=== PATIENT | female | born 1955 | race Caucasian/White ===

== ENCOUNTER 2017-08-23 09:19 | Inpatient (IN) | payer MEDICARE, OTHER ==
[~2017-08-23] VITALS: Ht 167.6 cm; Wt 110.0 kg
[~2017-08-23 09:19] MED LIST: ASPI-664 PO; CIPR500T4 PO; CLON-379 PO; DOCU250C58 PO; GABA300C16 PO; INSU100V2 SC; MYCO180T2 PO; PANT40TA4 PO; PRED2.5T3 PO; SITA50TA2 PO; TACR1CAP PO; VALS80TA2 PO; ZOC10 PO
[2017-08-23] MEDS ORDERED: SOD CHLORIDE 0.9% 1,000 ML IV STA (09:38)
[2017-08-23] MEDS ORDERED: ONDANSETRON 4 MG INJ IV STA (09:38)
--- NOTE | 2017-08-23 10:33 | ERD ---
ER Documentation Chief Complaint Chief Complaint nausea, vomitting diarrhea 2 days HPI This is a 61-year-old female with a past medical history of hypertension, hyperlipidemia, GERD, diabetes, end-stage renal disease status post renal transplant who is coming in with fever, chills, cough, nausea, nonbilious nonbloody vomiting, watery nonbloody non-tarry diarrhea, increased urinary frequency with dysuria/burning with urination for 2 days. The patient has had no headache or vision changes. The patient denies lightheadedness or dizziness. The patient has had no chest pain or shortness of breath trouble breathing. The patient has had no focal deficits. The patient has had no weakness or numbness or tingling to the face or extremities. ROS All systems reviewed and are negative except as per history of present illness. Medications Home Meds Reported Medications Insulin Aspart* (Novolog Insulin Pen*) 100 Unit/Ml Soln, 8 UNIT SC WITH MEALS, EA 08/23/17 Insulin Degludec (Tresiba Flextouch U-100) 100 Unit/1 Ml Insuln.pen, 40 UNIT SQ QHS 08/23/17 Docusate Sodium* (Colace*) 250 Mg Capsule, 250 MG PO NEEDED, #30 CAP 08/23/17 Furosemide* (Lasix*) 20 Mg Tablet, 20 MG PO BID, TAB 08/23/17 Gabapentin* (Gabapentin*) 300 Mg Capsule, 300 MG PO BID, #60 CAP 08/23/17 Sitagliptin* (Januvia*) 50 Mg Tablet, 50 MG PO DAILY, #30 TAB 08/23/17 Valsartan* (Diovan*) 80 Mg Tablet, 80 MG PO DAILY, TAB HOLD IF BPS LESS THAN 110 08/23/17 Simvastatin* (Zocor*) 10 Mg Tablet, 10 MG PO QHS, #30 TAB 08/23/17 Aspirin* (Aspirin* EC) 81 Mg Tablet.dr, 81 MG PO DAILY, TAB 08/23/17 Clonidine Hcl* (Clonidine Hcl*) 0.2 Mg Tablet, 0.2 MG PO Q8, TAB HOLD IF BPS LESS THAN 110 08/23/17 Pantoprazole* (Protonix*) 40 Mg Tablet.dr, 40 MG PO BID, TAB 08/23/17 Mycophenolate Sodium* (Myfortic*) 180 Mg Tab, 360 MG PO Q12, TAB 10/29/17 Tacrolimus* (Prograf*) 1 Mg Capsule, 1 MG PO Q12, CAP 08/23/17 Discontinued Reported Medications Docusate Sodium* (Colace*) 250 Mg Capsule, 250 MG PO DAILY Y for CONSTIPATION, CAP 10/24/14 Simvastatin (Simvastatin) 10 Mg Tablet, 10 MG PO HS, TAB 07/21/14 Aspirin* (Aspirin* EC) 81 Mg Tablet.dr, 81 MG PO DAILY, TAB 07/21/14 Pantoprazole* (Pantoprazole*) 40 Mg Tablet.dr, 40 MG PO BID, TAB 07/21/14 Mycophenolate Sodium* (Mycophenolic Acid*) 180 Mg Tablet.dr, 720 MG PO BID, TAB 07/21/14 Sitagliptin* (Januvia*) 50 Mg Tablet, 50 MG PO DAILY, TAB 07/21/14 Prednisone* (Prednisone*) 2.5 Mg Tablet, 2.5 MG PO DAILY, TAB 07/21/14 Gabapentin* (Gabapentin*) 300 Mg Capsule, 300 MG PO HS, CAP 07/21/14 Tacrolimus* (Tacrolimus*) 1 Mg Capsule, 2 MG PO BID, CAP 07/21/14 Insulin Npl/Insulin Lispro (Humalog Mix 50-50 Vial) 100 Units/Ml Vial, 20 SC TID , VIAL 07/21/14 Discontinued Scripts Ciprofloxacin Hcl* (Ciprofloxacin Hcl*) 500 Mg Tablet, 500 MG PO BID for 5 Days , TAB Prov:MAGNUS MARQUEZ DO 12/09/15 Valsartan* (Diovan*) 80 Mg Tab, 160 MG PO DAILY for 30 Days Prov:ZACHERY TORRES 10/25/14 Clonidine Hcl* (Clonidine Hcl*) 0.1 Mg Tab, 0.1 MG PO TID for 30 Days, TAB Prov:ZACHERY TORRES 10/25/14 Allergies Allergies: Coded Allergies: No Known Allergy (Unverified , 08/23/17) PMhx/Soc History of Surgery: Yes (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 eyes, cholecystectomy, kidney transplant 2000, ,) Anesthesia Reaction: No (sterilization surgery) Hx Neurological Disorder: No Hx Respiratory Disorders: No Hx Cardiac Disorders: Yes (htn,angiogram) Hx Psychiatric Problems: No Hx Alcohol Use: No Hx Substance Use: No Hx Tobacco Use: No Smoking Status: Never smoker FmHx Family History: diabetes Physical Exam Vitals Vital Signs Date Time Temp Pulse Resp B/P Pulse Ox O2 Delivery O2 Flow Rate FiO2 08/23/17 11:30 101.0 102 18 145/62 96 Room Air 08/23/17 10:32 98 18 148/55 98 Room Air 08/23/17 09:23 100.6 96 18 144/66 98 Physical Exam Const: No apparent distress, well-developed, well-nourished, mild diaphoresis, warm to touch. Head: Atraumatic Eyes: Normal Conjunctiva. Extraocular movements intact. ENT: Normal External Ears, Nose and Mouth. Neck: Full range of motion. ~ No meningismus. Resp: Clear to auscultation bilaterally Cardio: Regular rate and rhythm, no murmurs Abd: BMI 37.7, soft, non distended. +Suprapubic discomfort to palpation. Normal bowel sounds Skin: No petechiae or rashes Back: No midline or flank tenderness Ext: No cyanosis, or edema Neur: Awake and alert, oriented 4. Cranial nerves intact. No facial droop. Normal strength and sensation in all extremities. Coordination with finger to nose normal. Psych: Normal Mood and Affect Result Diagram: 08/23/17 1000 08/23/17 1000 Results 24 hrs Laboratory Tests Test 08/23/17 09:45 08/23/17 10:00 08/23/17 10:45 Urine Color KIM Urine Clarity TURBID Urine pH 6.0 Urine Specific [place] 1.012 Urine Ketones NEGATIVEmg/dL Urine Nitrite POSITIVEmg/dL Urine Bilirubin NEGATIVEmg/dL Urine Urobilinogen NEGATIVEmg/dL Urine Leukocyte Esterase 2+Susi/ul Urine Microscopic RBC 130/HPF Urine Microscopic WBC > 182/HPF Urine Squamous Epithelial Cells FEW/HPF Urine Transitional Epithelial Cells FEW/HPF Urine Bacteria FEW/HPF Urine Mucus FEW/HPF Urine Hemoglobin 1+mg/dL Urine Glucose NEGATIVEmg/dL Urine Total Protein 2+mg/dl White Blood Count 18.810^3/ul Red Blood Count 4.0710^6/ul Hemoglobin 11.3g/dl Hematocrit 37.7% Mean Corpuscular Volume 92.6fl Mean Corpuscular Hemoglobin 27.8pg Mean Corpuscular Hemoglobin Concent 30.0g/dl Red Cell Distribution Width 14.0% Platelet Count 73154^3/UL Mean Platelet Volume 10.3fl Neutrophils % 82.0% Lymphocytes % 8.6% Monocytes % 8.1% Eosinophils % 0.3% Basophils % 0.5% Nucleated Red Blood Cells % 0.0/100WBC Neutrophils # 15.410^3/ul Lymphocytes # 1.610^3/ul Monocytes # 1.510^3/ul Eosinophils # 0.110^3/ul Basophils # 0.110^3/ul Nucleated Red Blood Cells # 0.010^3/ul Sodium Level 142mmol/L Potassium Level 4.0mmol/L Chloride Level 104mmol/L Carbon Dioxide Level 28mmol/L Anion Gap 14 Blood Urea Nitrogen 32mg/dl Creatinine 1.92mg/dl Glucose Level 116mg/dl Calcium Level 9.0mg/dl Total Bilirubin 0.9mg/dl Direct Bilirubin 0.00mg/dl Indirect Bilirubin 0.9mg/dl Aspartate Amino Transf (AST/SGOT) 17IU/L Alanine Aminotransferase (ALT/SGPT) 31IU/L Alkaline Phosphatase 112IU/L Troponin I 0.019ng/ml Total Protein 7.3g/dl Albumin 4.2g/dl Globulin 3.10g/dl Albumin/Globulin Ratio 1.35 Lipase 26U/L Lactic Acid Level 0.9mmol/L Current Medications Medications (Trade) Dose Ordered Sig/Stephanie Route PRN Reason Start Time Stop Time Status Last Admin Dose Admin Sodium Chloride (NS) 1,000 ml @ 1,000 mls/hr Q1H STAT IV 08/23/17 09:38 08/23/17 10:37 DC 08/23/17 09:56 Ondansetron HCl 4 mg 4 mg ONCE STAT IV 08/23/17 09:38 08/23/17 09:39 DC 08/23/17 09:56 Vancomycin HCl 250 ml @ 125 mls/hr ONCE STAT IVPB 08/23/17 10:38 08/23/17 12:37 08/23/17 11:35 Cefepime HCl 50 ml @ 100 mls/hr ONCE ONCE IVPB 08/23/17 11:00 08/23/17 11:29 DC 08/23/17 11:05 Sodium Chloride (NS) 1,000 ml @ 1,000 mls/hr Q1H ONCE IV 08/23/17 11:30 08/23/17 12:29 DC 08/23/17 11:52 Ondansetron HCl (Zofran Inj) 4 mg ER BRIDGE PRN IV NAUSEA AND/OR VOMITING 08/23/17 11:30 08/24/17 11:29 Acetaminophen (Tylenol Tab) 650 mg ER BRIDGE PRN PO MILD PAIN/FEVER 08/23/17 11:30 08/24/17 11:29 08/23/17 11:29 Aspirin (Halfprin) 81 mg DAILY PO 08/24/17 09:00 Clonidine (Catapres) 0.2 mg Q8 PO 08/23/17 14:00 Gabapentin (Neurontin) 300 mg BID PO 08/23/17 21:00 Insulin Aspart (Novolog Insulin Pen) 8 unit WITH MEALS SC 08/23/17 12:00 Mycophenolate Sodium (Myfortic) 360 mg Q12 PO 08/23/17 21:00 Pantoprazole (Protonix Tab) 40 mg BID@06,18 PO 08/23/17 18:00 Tacrolimus (Prograf) 1 mg Q12 PO 08/23/17 21:00 Valsartan (Diovan) 80 mg DAILY PO 08/24/17 09:00 Miscellaneous Information 40 unit QHS SQ 08/23/17 21:00 UNV Atorvastatin Calcium 10 mg 10 mg QHS PO 08/23/17 21:00 Cefepime HCl (Maxipime 2gm/50 ml (Pmx)) 50 ml @ 100 mls/hr Q12H IVPB 08/23/17 21:00 Vancomycin HCl 1 ea 1 ea Per Rx Protocol XX 08/23/17 12:00 Sodium Chloride 3,290 ml @ 1,645 mls/hr BOLUS X1 ONCE IV 08/23/17 12:00 08/23/17 13:59 Sodium Chloride (NS) 1,000 ml @ 60 mls/hr [id number] IV 08/23/17 12:00 IV Flush (NS 3 ml) 3 ml PER PROTOCOL IV 08/23/17 12:00 Ondansetron HCl (Zofran Inj) 4 mg Q6H PRN IV NAUSEA AND/OR VOMITING 08/23/17 12:00 Acetaminophen (Tylenol Tab) 650 mg Q6H PRN PO PAIN LEVEL 1-3 OR FEVER 08/23/17 12:00 Acetaminophen (Tylenol Supp) 650 mg Q6H PRN [place] PAIN LEVEL 1-3 OR FEVER 08/23/17 12:00 Acetaminophen/ Hydrocodone Bitart ([place] (5/325)) 1 tab Q6H PRN PO MODERATE PAIN LEVEL 4-6 08/23/17 12:00 Acetaminophen/ Hydrocodone Bitart ([place] (5/325)) 2 tab Q6H PRN PO SEVERE PAIN LEVEL 7-10 08/23/17 12:00 Morphine Sulfate (morphine) 2 mg Q4H PRN IV SEVERE PAIN LEVEL 7-10 08/23/17 12:00 Docusate Sodium (Colace) 100 mg Q12H PRN PO CONSTIPATION 08/23/17 12:00 Magnesium Hydroxide (Milk Of Mag) 30 ml DAILY PRN PO CONSTIPATION 08/23/17 12:00 Bisacodyl (Dulcolax Supp) 10 mg DAILY PRN [place] CONSTIPATION 08/23/17 12:00 Miscellaneous Information MEDICATION REQUIRES CLARIFICATI... Q8H XX 08/23/17 12:30 Vancomycin HCl 250 ml @ 125 mls/hr ONCE IVPB 08/23/17 14:00 08/23/17 15:59 Vancomycin HCl (Vancocin) 250 ml @ 125 mls/hr Q24H IVPB 08/24/17 12:00 Procedures/MDM MDM Patient's presentation warrants further investigation. Patient has a history of kidney transplant with symptoms that are worrisome for a urinary tract infection. The patient's heart rate is greater than 90 and she is febrile. She does meet SIRS criteria. Sepsis is a possibility. I do not suspect severe sepsis. Since blood pressure is normal. The rest of the patient's abdominal exam is unremarkable. I have lower suspicion for other etiologies. LABS The patient's blood work was obtained and reviewed. The patient seemed shows significant leukocytosis with left shift. Given her history of transplant, I am concerned of a systemic infection. The patient is mildly anemic today with a normocytic anemia. This is likely attributed to anemia of chronic disease. Does not need to be emergently treated. The patient's platelet count is unremarkable. The patient's CMP is unremarkable except for an elevated BUN and creatinine, which is at her baseline. The patient has normal hepatic function testing. Her lactic acid is within normal limits. Her lipase is also within normal limits. Her urinalysis shows positive nitrates, positive leuk esterase, greater than 182 WBCs with bacteria. This is highly suspicious for urinary tract infection. Blood and urine cultures will be sent off. EKG EKG read by me: Rate/Rhythm: Regular rate and rhythm at a rate of 94bpm Intervals: Normal [place]: Left Shifted LVH with repolarization abnormality TWI in leads I and aVL, otherwise no ST or Twave changes concerning for ischemia IMAGING CXR FINDINGS: The soft tissues are generous. Monitoring electrodes project across the chest. There are degenerative osteophytes in the thoracic and upper lumbar spine with a dextroscoliosis which may be positional in the lower thoracic spine. The heart, cardiomediastinal silhouette and hilar structures are normal. The pulmonary vasculature is normal. There is a left-sided aorta. The lungs are clear. The costophrenic angles are normal. IMPRESSION: Obesity. No evidence of active cardiopulmonary disease. Electronically viewed and signed by Heladio Hodge Physician on 08/23/2017 10:43 TREATMENT/DISPOSITION Given concerns of a urinary tract infection, sepsis in a patient with a renal transplant who is immunosuppressed, the patient does require admission to the hospital. Sepsis protocol will be initiated. Patient's infectious symptoms have not stabilized and the patient is at risk of rapid decompensation. The patient will be admitted for careful hydration, antibiotic therapy, and infectious source control. Sepsis Management: Time of recognition of sepsis: Upon arrival Within 3 hours of recognition: Blood cultures x 2 before broad-spectrum antibiotics: Yes 30 ml/kg NS bolus - No. Patient given 2 L in the emergency department, but she does not have an elevated lactic acid and I do not want to fluid overload her given her tenuous volume status with the previous renal disease. Initial lactate 0.9 Accepting Care Team Current data and ongoing care discussed. Admitting Physician: Jabari Grinder Set Up Operator(s): May require transplant surgery. As into consult deferred to admitting team. Outstanding Data: Culture results Critical Care: Critical care time 15 minutes excluding all billable procedures Emergent fluid management while maintaining close respiratory support. Provision of immediate and broad-spectrum antibiotic therapy. Simultaneous assessment for possible sources in order to direct targeted therapy. Consideration for invasive and chemical support to prevent cardiopulmonary collapse. Departure Diagnosis: Primary Impression: Sepsis due to urinary tract infection Additional Impressions: Renal transplant, status post Chronic kidney disease (CKD) Chronic kidney disease stage: unspecified stage Qualified Code: N18.9 - Chronic kidney disease, unspecified CKD stage Leukocytosis Leukocytosis type: unspecified Qualified Code: D72.829 - Leukocytosis, unspecified type Condition: Serious LUIS ALBERTO CORTEZ MD Aug 23, 2017 10:33
[2017-08-23] MEDS ORDERED: VANCOMYCIN 1 GM (PMX) 250 ML IVPB STA (10:38)
--- NOTE | 2017-08-23 10:44 | RADRPT ---
PROCEDURE: XR Chest. CLINICAL INDICATION: 61-year-old female with abdominal pain. TECHNIQUE: Single frontal view of the chest was obtained. COMPARISON: Chest x-ray 08/23/2017. FINDINGS: The soft tissues are generous. Monitoring electrodes project across the chest. There are degenerati ve osteophytes in the thoracic and upper lumbar spine with a dextroscoliosis which may be positional in the lower thoracic spine. The heart, cardiomediastinal silhouette and hilar structures are norm al. The pulmonary vasculature is normal. There is a left-sided aorta. The lungs are clear. The cos tophrenic angles are normal. IMPRESSION: 1. Obesity. 2. No evidence of active cardiopulmonary disease. RPTAT:AAJJ Physician Harshad Date Time Electronically viewed and signed by Heladio Hodge Physician on 08/23/2017 10:43 JM/
[2017-08-23] MEDS ORDERED: CEFEPIME 1GM/50 ML (PMX) 50 ML IVPB ONE (11:00)
[2017-08-23] MEDS ORDERED: TACR1CAP26 PO (11:13)
[2017-08-23] MEDS ORDERED: MYCO160 PO (11:14)
[2017-08-23] MEDS ORDERED: PANT40TA3 PO (11:14)
[2017-08-23] MEDS ORDERED: ASPI-664 PO (11:17)
[2017-08-23] MEDS ORDERED: SIMV10TA PO (11:17)
[2017-08-23] MEDS ORDERED: CLON0.2T5 PO (11:17)
[2017-08-23] MEDS ORDERED: VALS80TA2 PO (11:19)
[2017-08-23] MEDS ORDERED: SITA50TA2 PO (11:19)
[2017-08-23] MEDS ORDERED: GABA300C16 PO (11:20)
[2017-08-23] MEDS ORDERED: FURO-110 PO (11:20)
[2017-08-23] MEDS ORDERED: INSU100I31 SQ (11:21)
[2017-08-23] MEDS ORDERED: DOCU250C58 PO (11:21)
[2017-08-23] MEDS ORDERED: NOVO3I SC (11:23)
[2017-08-23 11:30] VITALS: TEMP 101
[2017-08-23] MEDS ORDERED: ONDANSETRON 4 MG INJ IV PRN ×2 (11:30→12:00)
[2017-08-23] MEDS ORDERED: ACETAMINOPHEN 325 MG TAB PO PRN ×2 (11:30→12:00)
[2017-08-23] MEDS ORDERED: SOD CHLORIDE 0.9% 1,000 ML IV ONE (11:30)
[2017-08-23] MEDS ORDERED: HYDROCODONE/APAP (5/325) TAB PO PRN ×2 (12:00)
[2017-08-23] MEDS ORDERED: MAGNESIUM HYDROXIDE 30ML CUP PO PRN (12:00)
[2017-08-23] MEDS ORDERED: VANCOMYCIN IV PER PHARMACY XX SCH (12:00)
[2017-08-23] MEDS ORDERED: morphine 2 MG INJ IV PRN (12:00)
[2017-08-23] MEDS ORDERED: DOCUSATE SODIUM 100 MG CAP PO PRN (12:00)
[2017-08-23] MEDS ORDERED: ACETAMINOPHEN 650 MG SUPP PR PRN (12:00)
[2017-08-23] MEDS ORDERED: NACL 0.9% 3 ML SYG IV SCH (12:00)
[2017-08-23] MEDS ORDERED: BISACODYL 10 MG SUPP PR PRN (12:00)
[2017-08-23] MEDS ORDERED: SOD CHLORIDE 0.9% IV ONE (12:00)
[2017-08-23] MEDS: [UNRECOGNIZED DRUG - REMARK] XX SCH ×3 (12:30→22:24)
[2017-08-23 13:15] VITALS: BP 113/56; PULSE 89; RESP 22
[2017-08-23] MEDS: INSULIN ASPART [NOVOLOG] 3 ML PEN SC SCH ×2 (13:53→17:30)
[2017-08-23] MEDS ORDERED: VANCOMYCIN 1 GM in NS 250 ML IVPB SCH (14:00)
--- NOTE | 2017-08-23 14:13 | HP ---
Date/Time of Note Date/Time of Note DATE: 08/23/17 TIME: 14:11 Assessment/Plan VTE Prophylaxis VTE Prophylaxis Intervention: SCD's Assessment/Plan Chief Complaint/Hosp Course Assessment and plan 1. Sepsis UTI. Follow-up on urine culture. Continue antibiotics for now. 2. Obesity. Weight reduction was advised. 3. Diabetes. Follow-up on A1c. Continue on insulin regimen. Will adjust as needed. 4. Hypertension. Continue on antihypertensive meds as needed 5. Dyslipidemia. Follow-up on fasting lipid panel. Continue on statin medication for now. 6. History of renal transplant. Continue on Prograf Admission process time greater than 40 minutes Discussed plan of care with Dr. Barboza Problems: HPI/ROS Admit Date/Time Admit Date/Time Aug 23, 2017 at 11:17 Hx of Present Illness This is a 61-year-old female with history of GERD, dysrhythmia, hypertension, diabetes, end-stage renal disease status post renal transplant who came to [facility] after reports of one day duration with associated diarrhea, dysuria, and fever. Patient reports that her symptoms started 1 day prior to admission. She subsequently went to [facility] for further evaluation. Upon examination she had a white count of 18.8. She also was seen with fever as high as 101.0. She did have septic picture. Additionally she was noted with acute renal insufficiency with creatinine of 1.92 again a 32. Patient denies any chest pain or shortness of breath or any other associated symptoms. We will evaluate her for the aformentiond issues. ROS 12 point review of systems obtained and entirely negative except that mentioned in the history of present illness PMH/Family/Social Past Medical History Medical/surgical history GERD, dysrhythmia, hypertension, diabetes, end-stage renal disease status post renal transplant, cholecystectomy Social History Alcohol Use: none Smoking Status: Never smoker Drug Use: none Exam/Review of Systems Vital Signs Vitals Vital Signs Date Time Temp Pulse Resp B/P Pulse Ox O2 Delivery O2 Flow Rate FiO2 08/23/17 11:30 101.0 102 18 145/62 96 Room Air Exam Constitutional: alert, oriented, other (Obese) Psych: nl mood/affect Head: normocephalic Neck: non-tender, supple Respiratory: clear to auscultation, normal air movement Gastrointestinal: non-tender, soft Neurological: CARDIO CLINICIAN II-XII intact, nl mental status, nl speech Labs Result Diagram: 08/23/17 1000 08/23/17 1000 Medications Medications Current Medications Aspirin (Halfprin) 81 mg DAILY PO ; Start 08/24/17 at 09:00 Clonidine (Catapres) 0.2 mg Q8 PO ; Start 08/23/17 at 14:00 Gabapentin (Neurontin) 300 mg BID PO ; Start 08/23/17 at 21:00 Mycophenolate Sodium (Myfortic) 360 mg Q12 PO ; Start 08/23/17 at 21:00 Pantoprazole (Protonix Tab) 40 mg BID@06,18 PO ; Start 08/23/17 at 18:00 Tacrolimus (Prograf) 1 mg Q12 PO ; Start 08/23/17 at 21:00 Valsartan (Diovan) 80 mg DAILY PO ; Start 08/24/17 at 09:00 Miscellaneous Information 40 unit QHS SQ ; Start 08/23/17 at 21:00; Status UNV Atorvastatin Calcium 10 mg 10 mg QHS PO ; Start 08/23/17 at 21:00 Cefepime HCl 50 ml @ 100 mls/hr Q12H IVPB ; Start 08/23/17 at 21:00 Sodium Chloride (NS) 1,000 ml @ 60 mls/hr [id number] IV ; Start 08/23/17 at 12:00 Ondansetron HCl (Zofran Inj) 4 mg Q6H PRN IV NAUSEA AND/OR VOMITING; Start at 12:00 Acetaminophen (Tylenol Tab) 650 mg Q6H PRN PO PAIN LEVEL 1-3 OR FEVER; Start 08/23/17 at 12:00 Acetaminophen (Tylenol Supp) 650 mg Q6H PRN [place] PAIN LEVEL 1-3 OR FEVER; Start 08/23/17 at 12:00 Acetaminophen/ Hydrocodone Bitart ([place] (5/325)) 1 tab Q6H PRN PO MODERATE PAIN LEVEL 4-6; Start 08/23/17 at 12:00 Acetaminophen/ Hydrocodone Bitart ([place] (5/325)) 2 tab Q6H PRN PO SEVERE PAIN LEVEL 7-10; Start 08/23/17 at 12:00 Morphine Sulfate (morphine) 2 mg Q4H PRN IV SEVERE PAIN LEVEL 7-10; Start at 12:00 Docusate Sodium (Colace) 100 mg Q12H PRN PO CONSTIPATION; Start 08/23/17 at 12 :00 Magnesium Hydroxide (Milk Of Mag) 30 ml DAILY PRN PO CONSTIPATION; Start 08/23 at 12:00 Bisacodyl (Dulcolax Supp) 10 mg DAILY PRN [place] CONSTIPATION; Start 08/23/17 at 12:00 Miscellaneous Information MEDICATION REQUIRES CLARIFICATI... Q8H XX ; Start 08/23/17 at 12:30 Vancomycin HCl 250 ml @ 125 mls/hr ONCE IVPB ; Start 08/23/17 at 14:00; Stop 08/23/17 at 15:59 Vancomycin HCl (Vancocin) 250 ml @ 125 mls/hr Q24H IVPB ; Start 08/24/17 at 12 :00 MURPHY MANNING Aug 23, 2017 14:13
--- NOTE | 2017-08-23 14:13 | HP ---
Date/Time of Note Date/Time of Note DATE: 08/23/17 TIME: 14:11 Assessment/Plan VTE Prophylaxis VTE Prophylaxis Intervention: SCD's Assessment/Plan Chief Complaint/Hosp Course Assessment and plan 1. Sepsis UTI. Follow-up on urine culture. Continue antibiotics for now. 2. Obesity. Weight reduction was advised. 3. Diabetes. Follow-up on A1c. Continue on insulin regimen. Will adjust as needed. 4. Hypertension. Continue on antihypertensive meds as needed 5. Dyslipidemia. Follow-up on fasting lipid panel. Continue on statin medication for now. 6. History of renal transplant. Continue on Prograf Admission process time greater than 40 minutes Discussed plan of care with Dr. Barboza Problems: HPI/ROS Admit Date/Time Admit Date/Time Aug 23, 2017 at 11:17 Hx of Present Illness This is a 61-year-old female with history of GERD, dysrhythmia, hypertension, diabetes, end-stage renal disease status post renal transplant who came to [facility] after reports of one day duration with associated diarrhea, dysuria, and fever. Patient reports that her symptoms started 1 day prior to admission. She subsequently went to [facility] for further evaluation. Upon examination she had a white count of 18.8. She also was seen with fever as high as 101.0. She did have septic picture. Additionally she was noted with acute renal insufficiency with creatinine of 1.92 again a 32. Patient denies any chest pain or shortness of breath or any other associated symptoms. We will evaluate her for the aformentiond issues. ROS 12 point review of systems obtained and entirely negative except that mentioned in the history of present illness PMH/Family/Social Past Medical History Medical/surgical history GERD, dysrhythmia, hypertension, diabetes, end-stage renal disease status post renal transplant, cholecystectomy Social History Alcohol Use: none Smoking Status: Never smoker Drug Use: none Exam/Review of Systems Vital Signs Vitals Vital Signs Date Time Temp Pulse Resp B/P Pulse Ox O2 Delivery O2 Flow Rate FiO2 08/23/17 11:30 101.0 102 18 145/62 96 Room Air Exam Constitutional: alert, oriented, other (Obese) Psych: nl mood/affect Head: normocephalic Neck: non-tender, supple Respiratory: clear to auscultation, normal air movement Gastrointestinal: non-tender, soft Neurological: HEALTH TECH II-XII intact, nl mental status, nl speech Labs Result Diagram: 08/23/17 1000 08/23/17 1000 Medications Medications Current Medications Aspirin (Halfprin) 81 mg DAILY PO ; Start 08/24/17 at 09:00 Clonidine (Catapres) 0.2 mg Q8 PO ; Start 08/23/17 at 14:00 Gabapentin (Neurontin) 300 mg BID PO ; Start 08/23/17 at 21:00 Mycophenolate Sodium (Myfortic) 360 mg Q12 PO ; Start 08/23/17 at 21:00 Pantoprazole (Protonix Tab) 40 mg BID@06,18 PO ; Start 08/23/17 at 18:00 Tacrolimus (Prograf) 1 mg Q12 PO ; Start 08/23/17 at 21:00 Valsartan (Diovan) 80 mg DAILY PO ; Start 08/24/17 at 09:00 Miscellaneous Information 40 unit QHS SQ ; Start 08/23/17 at 21:00; Status UNV Atorvastatin Calcium 10 mg 10 mg QHS PO ; Start 08/23/17 at 21:00 Cefepime HCl 50 ml @ 100 mls/hr Q12H IVPB ; Start 08/23/17 at 21:00 Sodium Chloride (NS) 1,000 ml @ 60 mls/hr [id number] IV ; Start 08/23/17 at 12:00 Ondansetron HCl (Zofran Inj) 4 mg Q6H PRN IV NAUSEA AND/OR VOMITING; Start at 12:00 Acetaminophen (Tylenol Tab) 650 mg Q6H PRN PO PAIN LEVEL 1-3 OR FEVER; Start 08/23/17 at 12:00 Acetaminophen (Tylenol Supp) 650 mg Q6H PRN [place] PAIN LEVEL 1-3 OR FEVER; Start 08/23/17 at 12:00 Acetaminophen/ Hydrocodone Bitart ([place] (5/325)) 1 tab Q6H PRN PO MODERATE PAIN LEVEL 4-6; Start 08/23/17 at 12:00 Acetaminophen/ Hydrocodone Bitart ([place] (5/325)) 2 tab Q6H PRN PO SEVERE PAIN LEVEL 7-10; Start 08/23/17 at 12:00 Morphine Sulfate (morphine) 2 mg Q4H PRN IV SEVERE PAIN LEVEL 7-10; Start at 12:00 Docusate Sodium (Colace) 100 mg Q12H PRN PO CONSTIPATION; Start 08/23/17 at 12 :00 Magnesium Hydroxide (Milk Of Mag) 30 ml DAILY PRN PO CONSTIPATION; Start 08/23 at 12:00 Bisacodyl (Dulcolax Supp) 10 mg DAILY PRN [place] CONSTIPATION; Start 08/23/17 at 12:00 Miscellaneous Information MEDICATION REQUIRES CLARIFICATI... Q8H XX ; Start 08/23/17 at 12:30 Vancomycin HCl 250 ml @ 125 mls/hr ONCE IVPB ; Start 08/23/17 at 14:00; Stop 08/23/17 at 15:59 Vancomycin HCl (Vancocin) 250 ml @ 125 mls/hr Q24H IVPB ; Start 08/24/17 at 12 :00 MURPHY MANNING Aug 23, 2017 14:13
--- NOTE | 2017-08-23 14:13 | HP ---
Date/Time of Note Date/Time of Note DATE: 08/23/17 TIME: 14:11 Assessment/Plan VTE Prophylaxis VTE Prophylaxis Intervention: SCD's Assessment/Plan Chief Complaint/Hosp Course Assessment and plan 1. Sepsis UTI. Follow-up on urine culture. Continue antibiotics for now. 2. Obesity. Weight reduction was advised. 3. Diabetes. Follow-up on A1c. Continue on insulin regimen. Will adjust as needed. 4. Hypertension. Continue on antihypertensive meds as needed 5. Dyslipidemia. Follow-up on fasting lipid panel. Continue on statin medication for now. 6. History of renal transplant. Continue on Prograf Admission process time greater than 40 minutes Discussed plan of care with Dr. Barboza Problems: HPI/ROS Admit Date/Time Admit Date/Time Aug 23, 2017 at 11:17 Hx of Present Illness This is a 61-year-old female with history of GERD, dysrhythmia, hypertension, diabetes, end-stage renal disease status post renal transplant who came to [facility] after reports of one day duration with associated diarrhea, dysuria, and fever. Patient reports that her symptoms started 1 day prior to admission. She subsequently went to [facility] for further evaluation. Upon examination she had a white count of 18.8. She also was seen with fever as high as 101.0. She did have septic picture. Additionally she was noted with acute renal insufficiency with creatinine of 1.92 again a 32. Patient denies any chest pain or shortness of breath or any other associated symptoms. We will evaluate her for the aformentiond issues. ROS 12 point review of systems obtained and entirely negative except that mentioned in the history of present illness PMH/Family/Social Past Medical History Medical/surgical history GERD, dysrhythmia, hypertension, diabetes, end-stage renal disease status post renal transplant, cholecystectomy Social History Alcohol Use: none Smoking Status: Never smoker Drug Use: none Exam/Review of Systems Vital Signs Vitals Vital Signs Date Time Temp Pulse Resp B/P Pulse Ox O2 Delivery O2 Flow Rate FiO2 08/23/17 11:30 101.0 102 18 145/62 96 Room Air Exam Constitutional: alert, oriented, other (Obese) Psych: nl mood/affect Head: normocephalic Neck: non-tender, supple Respiratory: clear to auscultation, normal air movement Gastrointestinal: non-tender, soft Neurological: 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-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 intact, nl mental status, nl speech Labs Result Diagram: 08/23/17 1000 08/23/17 1000 Medications Medications Current Medications Aspirin (Halfprin) 81 mg DAILY PO ; Start 08/24/17 at 09:00 Clonidine (Catapres) 0.2 mg Q8 PO ; Start 08/23/17 at 14:00 Gabapentin (Neurontin) 300 mg BID PO ; Start 08/23/17 at 21:00 Mycophenolate Sodium (Myfortic) 360 mg Q12 PO ; Start 08/23/17 at 21:00 Pantoprazole (Protonix Tab) 40 mg BID@06,18 PO ; Start 08/23/17 at 18:00 Tacrolimus (Prograf) 1 mg Q12 PO ; Start 08/23/17 at 21:00 Valsartan (Diovan) 80 mg DAILY PO ; Start 08/24/17 at 09:00 Miscellaneous Information 40 unit QHS SQ ; Start 08/23/17 at 21:00; Status UNV Atorvastatin Calcium 10 mg 10 mg QHS PO ; Start 08/23/17 at 21:00 Cefepime HCl 50 ml @ 100 mls/hr Q12H IVPB ; Start 08/23/17 at 21:00 Sodium Chloride (NS) 1,000 ml @ 60 mls/hr [id number] IV ; Start 08/23/17 at 12:00 Ondansetron HCl (Zofran Inj) 4 mg Q6H PRN IV NAUSEA AND/OR VOMITING; Start at 12:00 Acetaminophen (Tylenol Tab) 650 mg Q6H PRN PO PAIN LEVEL 1-3 OR FEVER; Start 08/23/17 at 12:00 Acetaminophen (Tylenol Supp) 650 mg Q6H PRN [place] PAIN LEVEL 1-3 OR FEVER; Start 08/23/17 at 12:00 Acetaminophen/ Hydrocodone Bitart ([place] (5/325)) 1 tab Q6H PRN PO MODERATE PAIN LEVEL 4-6; Start 08/23/17 at 12:00 Acetaminophen/ Hydrocodone Bitart ([place] (5/325)) 2 tab Q6H PRN PO SEVERE PAIN LEVEL 7-10; Start 08/23/17 at 12:00 Morphine Sulfate (morphine) 2 mg Q4H PRN IV SEVERE PAIN LEVEL 7-10; Start at 12:00 Docusate Sodium (Colace) 100 mg Q12H PRN PO CONSTIPATION; Start 08/23/17 at 12 :00 Magnesium Hydroxide (Milk Of Mag) 30 ml DAILY PRN PO CONSTIPATION; Start 08/23 at 12:00 Bisacodyl (Dulcolax Supp) 10 mg DAILY PRN [place] CONSTIPATION; Start 08/23/17 at 12:00 Miscellaneous Information MEDICATION REQUIRES CLARIFICATI... Q8H XX ; Start 08/23/17 at 12:30 Vancomycin HCl 250 ml @ 125 mls/hr ONCE IVPB ; Start 08/23/17 at 14:00; Stop 08/23/17 at 15:59 Vancomycin HCl (Vancocin) 250 ml @ 125 mls/hr Q24H IVPB ; Start 08/24/17 at 12 :00 MURPHY MANNING Aug 23, 2017 14:13
[2017-08-23 14:21] VITALS: Ht 167.6 cm; Wt 110.0 kg
[2017-08-23] MEDS: SOD CHLORIDE 0.9% 1,000 ML IV SCH (14:44)
[2017-08-23] MEDS: PANTOPRAZOLE (EC) 40 MG TAB PO SCH (17:22)
--- NOTE | 2017-08-23 19:41 | CONS ---
Date/Time of Note Date/Time of Note DATE: 08/23/17 TIME: 19:33 Assessment/Plan Assessment/Plan Additional Assessment/Plan 1. Acute kidney injury due to prerenal azotemia + ATN From sepsis 2. Sepsis due to UTI 3. H/o Kidney transplant on immunosuppression 4. HTN 5. Type II DM 6. Obesity 7. Hyperlipidemia Plan: IV abx cefepime and vancomycin for Sepsis, follow up on Blood cx, Renally dose all abx Continue Prograf 1 mg BID and myfortic for immunosuppresion, no signs of prograf toxicity at this point Continue IVF hdyration expecting Cr to improve with IVF and IV abx Monitor electrolytes and replace as needed Thanks for consultation,we will continue to follow up Consultation Date/Type/Reason Admit Date/Time Aug 23, 2017 at 11:17 Date of Consultation: Aug 23, 2017 Type of Consultation: NEPHROLOGY Reason for Consultation acute kidney injury s/p Kidney transplant on immunosuppression management Referring Provider: RENETTA LEONG Hx of Present Illness 61-year-old female with history of GERD, dysrhythmia, hypertension, diabetes, end-stage renal disease status post renal transplant who came to [facility] after reports of one day duration with associated diarrhea , dysuria, and fever. pt was febrile in ED. she was noted to have elevated Cr 1.92 on admission, Renal has been consulted for LESLEY and management of immunosuppression Constitutional: no complaints Eyes: no complaints ENT: no complaints Respiratory: no complaints Cardiovascular: lightheadedness, no complaints Gastrointestinal: diarrhea, nausea, pain Genitourinary: dysuria Musculoskeletal: no complaints Skin: no complaints Neurologic: no complaints Endocrine: no complaints Lymphatic: no complaints Psychological: nl mood/affect Immunologic: no complaints Past Medical History Medical History: hypertension, other (h/o ESRD now s/p Kidney transplant ) Past Surgical History Past Surgical Hx: cholecystectomy, other (C section, kidney transplatn surgery ) Family History Significant Family History: no pertinent family hx Social History Alcohol Use: none Smoking Status: Never smoker Drug Use: none Exam/Review of Systems Vital Signs Vitals Vital Signs Date Time Temp Pulse Resp B/P Pulse Ox O2 Delivery O2 Flow Rate FiO2 08/23/17 13:15 100.0 89 22 113/56 94 Room Air Exam Constitutional: alert Psych: no complaints Head: normocephalic Eyes: nl conjunctiva ENMT: nl external ears & nose Neck: non-tender, supple Respiratory: clear to auscultation, diminished breath sounds, normal air movement Cardiovascular: nl pulses, regular rate and rhythm Gastrointestinal: non-tender, other (Renal allograft is ok), soft Musculoskeletal: muscle weakness, nl extremities to inspection, nl gait and stance, range of motion Extremities: normal pulses Neurological: 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 II-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 intact, nl mental status, nl speech, nl strength Skin: nl turgor Lymph: nl lymph nodes Results Result Diagram: 08/23/17 1000 08/23/17 1000 Results 24 hrs Laboratory Tests Test 08/23/17 09:45 08/23/17 10:00 08/23/17 10:45 08/23/17 13:30 Urine Color KIM Urine Clarity TURBID A Urine pH 6.0 Urine Specific [place] 1.012 Urine Ketones NEGATIVE Urine Nitrite POSITIVE A Urine Bilirubin NEGATIVE Urine Urobilinogen NEGATIVE Urine Leukocyte Esterase 2+ H Urine Microscopic RBC 130 H Urine Microscopic WBC > 182 H Urine Squamous Epithelial Cells FEW Urine Transitional Epithelial Cells FEW A Urine Bacteria FEW A Urine Mucus FEW A Urine Hemoglobin 1+ H Urine Glucose NEGATIVE Urine Total Protein 2+ H White Blood Count 18.8 #H Red Blood Count 4.07 L Hemoglobin 11.3 L Hematocrit 37.7 Mean Corpuscular Volume 92.6 Mean Corpuscular Hemoglobin 27.8 L Mean Corpuscular Hemoglobin Concent 30.0 L Red Cell Distribution Width 14.0 Platelet Count 284 Mean Platelet Volume 10.3 Neutrophils % 82.0 H Lymphocytes % 8.6 L Monocytes % 8.1 Eosinophils % 0.3 Basophils % 0.5 Nucleated Red Blood Cells % 0.0 Neutrophils # 15.4 H Lymphocytes # 1.6 Monocytes # 1.5 H Eosinophils # 0.1 Basophils # 0.1 Nucleated Red Blood Cells # 0.0 Sodium Level 142 Potassium Level 4.0 Chloride Level 104 Carbon Dioxide Level 28 Anion Gap 14 Blood Urea Nitrogen 32 H Creatinine 1.92 H Glucose Level 116 Calcium Level 9.0 Total Bilirubin 0.9 Direct Bilirubin 0.00 Indirect Bilirubin 0.9 Aspartate Amino Transf (AST/SGOT) 17 Alanine Aminotransferase (ALT/SGPT) 31 Alkaline Phosphatase 112 Troponin I 0.019 Total Protein 7.3 Albumin 4.2 Globulin 3.10 Albumin/Globulin Ratio 1.35 Lipase 26 Lactic Acid Level 0.9 1.1 Test 08/23/17 13:36 08/23/17 15:20 08/23/17 17:23 08/23/17 17:30 Bedside Glucose 84 118 Lactic Acid Level 2.2 *H 1.6 Medications Medications Current Medications Aspirin (Halfprin) 81 mg DAILY PO ; Start 08/24/17 at 09:00 Clonidine (Catapres) 0.2 mg Q8 PO Last administered on 08/23/17 14:43; Admin Dose 0.2 MG; Start 08/23/17 at 14:00 Gabapentin (Neurontin) 300 mg BID PO ; Start 08/23/17 at 21:00 Mycophenolate Sodium (Myfortic) 360 mg Q12 PO ; Start 08/23/17 at 21:00 Pantoprazole (Protonix Tab) 40 mg BID@06,18 PO Last administered on 08/23/17 17:22; Admin Dose 40 MG; Start 08/23/17 at 18:00 Tacrolimus (Prograf) 1 mg Q12 PO ; Start 08/23/17 at 21:00 Valsartan (Diovan) 80 mg DAILY PO ; Start 08/24/17 at 09:00 Miscellaneous Information 40 unit QHS SQ ; Start 08/23/17 at 21:00; Status UNV Atorvastatin Calcium 10 mg 10 mg QHS PO ; Start 08/23/17 at 21:00 Cefepime HCl 50 ml @ 100 mls/hr Q12H IVPB ; Start 08/23/17 at 21:00 Sodium Chloride (NS) 1,000 ml @ 60 mls/hr [id number] IV Last administered on 14:44; Admin Dose 60 MLS/HR; Start 08/23/17 at 12:00 Ondansetron HCl (Zofran Inj) 4 mg Q6H PRN IV NAUSEA AND/OR VOMITING; Start at 12:00 Acetaminophen (Tylenol Tab) 650 mg Q6H PRN PO PAIN LEVEL 1-3 OR FEVER; Start 08/23/17 at 12:00 Acetaminophen (Tylenol Supp) 650 mg Q6H PRN [place] PAIN LEVEL 1-3 OR FEVER; Start 08/23/17 at 12:00 Acetaminophen/ Hydrocodone Bitart ([place] (5/325)) 1 tab Q6H PRN PO MODERATE PAIN LEVEL 4-6; Start 08/23/17 at 12:00 Acetaminophen/ Hydrocodone Bitart ([place] (5/325)) 2 tab Q6H PRN PO SEVERE PAIN LEVEL 7-10; Start 08/23/17 at 12:00 Morphine Sulfate (morphine) 2 mg Q4H PRN IV SEVERE PAIN LEVEL 7-10; Start at 12:00 Docusate Sodium (Colace) 100 mg Q12H PRN PO CONSTIPATION; Start 08/23/17 at 12 :00 Magnesium Hydroxide (Milk Of Mag) 30 ml DAILY PRN PO CONSTIPATION; Start 08/23 at 12:00 Bisacodyl (Dulcolax Supp) 10 mg DAILY PRN [place] CONSTIPATION; Start 08/23/17 at 12:00 Miscellaneous Information MEDICATION REQUIRES CLARIFICATI... Q8H XX ; Start 08/23/17 at 12:30 Vancomycin HCl (Vancocin) 250 ml @ 125 mls/hr Q24H IVPB ; Start 08/24/17 at 12 :00 Influenza Virus Vaccine (Fluzone) 0.5 ml ONCE ONCE IM* ; Start 08/24/17 at 12: 00; Stop 08/24/17 at 12:01 REBECA LAIRD MD Aug 23, 2017 19:41
--- NOTE | 2017-08-23 19:41 | CONS ---
Date/Time of Note Date/Time of Note DATE: 08/23/17 TIME: 19:33 Assessment/Plan Assessment/Plan Additional Assessment/Plan 1. Acute kidney injury due to prerenal azotemia + ATN From sepsis 2. Sepsis due to UTI 3. H/o Kidney transplant on immunosuppression 4. HTN 5. Type II DM 6. Obesity 7. Hyperlipidemia Plan: IV abx cefepime and vancomycin for Sepsis, follow up on Blood cx, Renally dose all abx Continue Prograf 1 mg BID and myfortic for immunosuppresion, no signs of prograf toxicity at this point Continue IVF hdyration expecting Cr to improve with IVF and IV abx Monitor electrolytes and replace as needed Thanks for consultation,we will continue to follow up Consultation Date/Type/Reason Admit Date/Time Aug 23, 2017 at 11:17 Date of Consultation: Aug 23, 2017 Type of Consultation: NEPHROLOGY Reason for Consultation acute kidney injury s/p Kidney transplant on immunosuppression management Referring Provider: RENETTA LEONG Hx of Present Illness 61-year-old female with history of GERD, dysrhythmia, hypertension, diabetes, end-stage renal disease status post renal transplant who came to [facility] after reports of one day duration with associated diarrhea , dysuria, and fever. pt was febrile in ED. she was noted to have elevated Cr 1.92 on admission, Renal has been consulted for LESLEY and management of immunosuppression Constitutional: no complaints Eyes: no complaints ENT: no complaints Respiratory: no complaints Cardiovascular: lightheadedness, no complaints Gastrointestinal: diarrhea, nausea, pain Genitourinary: dysuria Musculoskeletal: no complaints Skin: no complaints Neurologic: no complaints Endocrine: no complaints Lymphatic: no complaints Psychological: nl mood/affect Immunologic: no complaints Past Medical History Medical History: hypertension, other (h/o ESRD now s/p Kidney transplant ) Past Surgical History Past Surgical Hx: cholecystectomy, other (C section, kidney transplatn surgery ) Family History Significant Family History: no pertinent family hx Social History Alcohol Use: none Smoking Status: Never smoker Drug Use: none Exam/Review of Systems Vital Signs Vitals Vital Signs Date Time Temp Pulse Resp B/P Pulse Ox O2 Delivery O2 Flow Rate FiO2 08/23/17 13:15 100.0 89 22 113/56 94 Room Air Exam Constitutional: alert Psych: no complaints Head: normocephalic Eyes: nl conjunctiva ENMT: nl external ears & nose Neck: non-tender, supple Respiratory: clear to auscultation, diminished breath sounds, normal air movement Cardiovascular: nl pulses, regular rate and rhythm Gastrointestinal: non-tender, other (Renal allograft is ok), soft Musculoskeletal: muscle weakness, nl extremities to inspection, nl gait and stance, range of motion Extremities: normal pulses 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, nl mental status, nl speech, nl strength Skin: nl turgor Lymph: nl lymph nodes Results Result Diagram: 08/23/17 1000 08/23/17 1000 Results 24 hrs Laboratory Tests Test 08/23/17 09:45 08/23/17 10:00 08/23/17 10:45 08/23/17 13:30 Urine Color KIM Urine Clarity TURBID A Urine pH 6.0 Urine Specific [place] 1.012 Urine Ketones NEGATIVE Urine Nitrite POSITIVE A Urine Bilirubin NEGATIVE Urine Urobilinogen NEGATIVE Urine Leukocyte Esterase 2+ H Urine Microscopic RBC 130 H Urine Microscopic WBC > 182 H Urine Squamous Epithelial Cells FEW Urine Transitional Epithelial Cells FEW A Urine Bacteria FEW A Urine Mucus FEW A Urine Hemoglobin 1+ H Urine Glucose NEGATIVE Urine Total Protein 2+ H White Blood Count 18.8 #H Red Blood Count 4.07 L Hemoglobin 11.3 L Hematocrit 37.7 Mean Corpuscular Volume 92.6 Mean Corpuscular Hemoglobin 27.8 L Mean Corpuscular Hemoglobin Concent 30.0 L Red Cell Distribution Width 14.0 Platelet Count 284 Mean Platelet Volume 10.3 Neutrophils % 82.0 H Lymphocytes % 8.6 L Monocytes % 8.1 Eosinophils % 0.3 Basophils % 0.5 Nucleated Red Blood Cells % 0.0 Neutrophils # 15.4 H Lymphocytes # 1.6 Monocytes # 1.5 H Eosinophils # 0.1 Basophils # 0.1 Nucleated Red Blood Cells # 0.0 Sodium Level 142 Potassium Level 4.0 Chloride Level 104 Carbon Dioxide Level 28 Anion Gap 14 Blood Urea Nitrogen 32 H Creatinine 1.92 H Glucose Level 116 Calcium Level 9.0 Total Bilirubin 0.9 Direct Bilirubin 0.00 Indirect Bilirubin 0.9 Aspartate Amino Transf (AST/SGOT) 17 Alanine Aminotransferase (ALT/SGPT) 31 Alkaline Phosphatase 112 Troponin I 0.019 Total Protein 7.3 Albumin 4.2 Globulin 3.10 Albumin/Globulin Ratio 1.35 Lipase 26 Lactic Acid Level 0.9 1.1 Test 08/23/17 13:36 08/23/17 15:20 08/23/17 17:23 08/23/17 17:30 Bedside Glucose 84 118 Lactic Acid Level 2.2 *H 1.6 Medications Medications Current Medications Aspirin (Halfprin) 81 mg DAILY PO ; Start 08/24/17 at 09:00 Clonidine (Catapres) 0.2 mg Q8 PO Last administered on 08/23/17 14:43; Admin Dose 0.2 MG; Start 08/23/17 at 14:00 Gabapentin (Neurontin) 300 mg BID PO ; Start 08/23/17 at 21:00 Mycophenolate Sodium (Myfortic) 360 mg Q12 PO ; Start 08/23/17 at 21:00 Pantoprazole (Protonix Tab) 40 mg BID@06,18 PO Last administered on 08/23/17 17:22; Admin Dose 40 MG; Start 08/23/17 at 18:00 Tacrolimus (Prograf) 1 mg Q12 PO ; Start 08/23/17 at 21:00 Valsartan (Diovan) 80 mg DAILY PO ; Start 08/24/17 at 09:00 Miscellaneous Information 40 unit QHS SQ ; Start 08/23/17 at 21:00; Status UNV Atorvastatin Calcium 10 mg 10 mg QHS PO ; Start 08/23/17 at 21:00 Cefepime HCl 50 ml @ 100 mls/hr Q12H IVPB ; Start 08/23/17 at 21:00 Sodium Chloride (NS) 1,000 ml @ 60 mls/hr [id number] IV Last administered on 14:44; Admin Dose 60 MLS/HR; Start 08/23/17 at 12:00 Ondansetron HCl (Zofran Inj) 4 mg Q6H PRN IV NAUSEA AND/OR VOMITING; Start at 12:00 Acetaminophen (Tylenol Tab) 650 mg Q6H PRN PO PAIN LEVEL 1-3 OR FEVER; Start 08/23/17 at 12:00 Acetaminophen (Tylenol Supp) 650 mg Q6H PRN [place] PAIN LEVEL 1-3 OR FEVER; Start 08/23/17 at 12:00 Acetaminophen/ Hydrocodone Bitart ([place] (5/325)) 1 tab Q6H PRN PO MODERATE PAIN LEVEL 4-6; Start 08/23/17 at 12:00 Acetaminophen/ Hydrocodone Bitart ([place] (5/325)) 2 tab Q6H PRN PO SEVERE PAIN LEVEL 7-10; Start 08/23/17 at 12:00 Morphine Sulfate (morphine) 2 mg Q4H PRN IV SEVERE PAIN LEVEL 7-10; Start at 12:00 Docusate Sodium (Colace) 100 mg Q12H PRN PO CONSTIPATION; Start 08/23/17 at 12 :00 Magnesium Hydroxide (Milk Of Mag) 30 ml DAILY PRN PO CONSTIPATION; Start 08/23 at 12:00 Bisacodyl (Dulcolax Supp) 10 mg DAILY PRN [place] CONSTIPATION; Start 08/23/17 at 12:00 Miscellaneous Information MEDICATION REQUIRES CLARIFICATI... Q8H XX ; Start 08/23/17 at 12:30 Vancomycin HCl (Vancocin) 250 ml @ 125 mls/hr Q24H IVPB ; Start 08/24/17 at 12 :00 Influenza Virus Vaccine (Fluzone) 0.5 ml ONCE ONCE IM* ; Start 08/24/17 at 12: 00; Stop 08/24/17 at 12:01 REBECA LAIRD MD Aug 23, 2017 19:41
[2017-08-23 20:00] VITALS: BP 117/53; RESP 20
[2017-08-23] MEDS ORDERED: NON-FORMULARY/PATIENT OWN MED (Insulin Degludec (Tresiba Flextouch U-100) 40 UNIT) XX SCH (21:00)
[2017-08-23] MEDS: MYCOPHENOLATE (SR) 180 MG TAB PO SCH (21:43)
[2017-08-23] MEDS: CEFEPIME 2GM/50 ML (PMX) 50 ML IVPB SCH (21:43)
[2017-08-23] MEDS: TACROLIMUS 1 MG CAP PO SCH (21:43)
[2017-08-23] MEDS: ATORVASTATIN 10 MG TAB PO SCH (21:43)
[2017-08-23] MEDS: GABAPENTIN 300 MG CAP PO SCH (21:43)
--- NOTE | 2017-08-24 01:44 | CONS ---
DATE OF ADMISSION: 08/23/2017 DATE OF CONSULTATION: 08/23/2017 INFECTIOUS DISEASE CONSULTATION REASON FOR CONSULTATION: Antibiotic management. HISTORY OF PRESENT ILLNESS: Bianca De La Paz is a 61-year-old female with numerous problems, adalgisa amezcua comes in with probable sepsis secondary to UTI and is being seen for antibiotic management. Her past problems include: 1. Adult-onset diabetes mellitus. 2. Hypertension. 3. Dysrhythmia. 4. GERD. 5. End-stage renal disease, status post renal transplant. Patient came to the hospital with 1-day history of diarrhea, dysuria and fever. Her white count on admission was 18.8, H and H 11.3 and 37.7, platelet count 284,000. BUN and creatinine 32/1.92. Ran dom glucose of 116. PAST MEDICAL HISTORY: Operations as outlined, she is status post renal transplant, status post chol ecystectomy for surgeries. FAMILY HISTORY: Noncontributory. SOCIAL HISTORY: She does not smoke, drink or abuse drugs. ALLERGIES: NONE TO PENICILLIN, SULFA OR FOODS. MEDICATIONS: Per chart. REVIEW OF SYSTEMS: As per HPI. PHYSICAL EXAMINATION: GENERAL: The patient is a 61-year-old female who is alert, responsive, in no acute distress. VITAL SIGNS: Stable. She is afebrile. SKIN: Without generalized rash. HEENT: Within normal limits. NECK: Supple. LYMPH NODES: None palpable. CHEST: Decreased breath sounds at the bases. HEART: Without murmur or gallop. ABDOMEN: Soft, nontender, without organosplenomegaly or masses. EXTREMITIES: Without cyanosis, clubbing or edema. RECTAL AND GENITAL: Deferred. NEUROLOGIC: No focal neurological abnormality. DIAGNOSTIC DATA: Her urinalysis shows positive nitrite, positive leukocyte esterase, greater than 1 82 white cells per high powered field. IMPRESSION AND PLAN: The patient was begun on vancomycin and on cefepime. Cultures were done, bloo d and urine, as well as influenza A and B. Her chest x-ray is no evidence of cardiopulmonary diseas e. We will await her cultures. I agree with the current therapy. I will discuss my findings with the hospitalist. Dictated By: JANIYA CASE MD, JD/JOAN Conf#: [id number] DID#: [id number] CC: RENETTA LEONG MD;*[facility]*
[2017-08-24 02:00] VITALS: BP 114/55; RESP 20
[2017-08-24] MEDS: SOD CHLORIDE 0.9% 1,000 ML IV SCH ×2 (04:40→20:56)
[2017-08-24] MEDS: PANTOPRAZOLE (EC) 40 MG TAB PO SCH ×2 (05:32→18:24)
[2017-08-24] MEDS ORDERED: DEXTROSE 50% 50 ML SYRINGE IV PRN ×2 (06:30)
[2017-08-24] MEDS ORDERED: GLUCOSE GEL 15 GRAM TUBE BUCCAL PRN (06:30)
[2017-08-24] MEDS ORDERED: GLUCOSE GEL 15 GRAM TUBE PO PRN ×2 (06:30)
[2017-08-24] MEDS ORDERED: GLUCAGON 1 MG INJ IM PRN (06:30)
[2017-08-24 07:24] VITALS: BP 98/45; RESP 18
[2017-08-24] MEDS: INSULIN ASPART [NOVOLOG] 3 ML PEN SC SCH ×4 (08:11→21:00)
[2017-08-24] MEDS: TACROLIMUS 1 MG CAP PO SCH ×2 (08:13→20:56)
[2017-08-24] MEDS: GABAPENTIN 300 MG CAP PO SCH ×2 (08:13→20:56)
[2017-08-24] MEDS: ASPIRIN (EC) 81 MG TAB PO SCH (08:13)
[2017-08-24] MEDS: MYCOPHENOLATE (SR) 180 MG TAB PO SCH ×2 (08:13→20:56)
[2017-08-24] MEDS: VALSARTAN 80 MG TAB PO SCH (08:14)
[2017-08-24] MEDS: CEFEPIME 2GM/50 ML (PMX) 50 ML IVPB SCH ×2 (08:16→20:56)
--- NOTE | 2017-08-24 09:34 | CONS ---
Date/Time of Note Date/Time of Note DATE: 08/24/17 TIME: 09:33 Assessment/Plan Assessment/Plan Chief Complaint/Hosp Course 61-year-old female with history of GERD, dysrhythmia, hypertension, diabetes, end-stage renal disease status post renal transplant who came to [facility] after reports of one day duration with associated diarrhea , dysuria, and fever. pt was febrile in ED. she was noted to have elevated Cr 1.92 on admission, Renal has been consulted for LESLEY and management of immunosuppression Problems: Additional Assessment/Plan 1. Acute kidney injury due to prerenal azotemia + ATN From sepsis 2. Sepsis due to UTI 3. H/o Kidney transplant on immunosuppression 4. HTN 5. Type II DM 6. Obesity 7. Hyperlipidemia Plan: IV abx cefepime and vancomycin for Sepsis, follow up on Blood cx, Renally dose all abx Continue Prograf 1 mg BID and myfortic for immunosuppresion, no signs of prograf toxicity at this point Continue IVF hdyration NS at 60 cc/hr- expecting Cr to improve with IVF hydration and IV abx treatment Monitor electrolytes and replace as needed will follow up Consultation Date/Type/Reason Admit Date/Time Aug 23, 2017 at 11:17 Initial Consult Date 08/23/17 Type of Consultation: NEPHROLOGY Reason for Consultation acute kidney injury vs acute kidney injury on CKD Referring Provider: RENETTA LEONG 24 HR Interval Summary Free Text/Dictation pt has hypoglycemic episode, BP stable, spiking fever Exam/Review of Systems Vital Signs Vitals Vital Signs Date Time Temp Pulse Resp B/P Pulse Ox O2 Delivery O2 Flow Rate FiO2 08/24/17 07:24 97.7 72 18 98/45 94 08/23/17 13:15 Room Air Intake and Output 08/23/17 08/23/17 08/24/17 15:00 23:00 07:00 Intake Total 1000 ml 420 ml 960 ml Balance 1000 ml 420 ml 960 ml Exam Constitutional: alert Respiratory: clear to auscultation, diminished breath sounds, normal air movement Cardiovascular: nl pulses, regular rate and rhythm Gastrointestinal: non-tender, other (Renal allograft is ok), soft Musculoskeletal: muscle weakness, nl extremities to inspection, nl gait and stance, range of motion Extremities: normal pulses Neurological: SUPPLY CHAIN GENERALIST II-XII intact, nl mental status, nl speech, nl strength Results Result Diagram: 08/23/17 1000 08/24/17 0458 Results 24 hrs Laboratory Tests Test 08/23/17 09:45 08/23/17 10:00 08/23/17 10:45 08/23/17 13:30 Urine Color KIM Urine Clarity TURBID A Urine pH 6.0 Urine Specific [place] 1.012 Urine Ketones NEGATIVE Urine Nitrite POSITIVE A Urine Bilirubin NEGATIVE Urine Urobilinogen NEGATIVE Urine Leukocyte Esterase 2+ H Urine Microscopic RBC 130 H Urine Microscopic WBC > 182 H Urine Squamous Epithelial Cells FEW Urine Transitional Epithelial Cells FEW A Urine Bacteria FEW A Urine Mucus FEW A Urine Hemoglobin 1+ H Urine Glucose NEGATIVE Urine Total Protein 2+ H White Blood Count 18.8 #H Red Blood Count 4.07 L Hemoglobin 11.3 L Hematocrit 37.7 Mean Corpuscular Volume 92.6 Mean Corpuscular Hemoglobin 27.8 L Mean Corpuscular Hemoglobin Concent 30.0 L Red Cell Distribution Width 14.0 Platelet Count 284 Mean Platelet Volume 10.3 Neutrophils % 82.0 H Lymphocytes % 8.6 L Monocytes % 8.1 Eosinophils % 0.3 Basophils % 0.5 Nucleated Red Blood Cells % 0.0 Neutrophils # 15.4 H Lymphocytes # 1.6 Monocytes # 1.5 H Eosinophils # 0.1 Basophils # 0.1 Nucleated Red Blood Cells # 0.0 Sodium Level 142 Potassium Level 4.0 Chloride Level 104 Carbon Dioxide Level 28 Anion Gap 14 Blood Urea Nitrogen 32 H Creatinine 1.92 H Glucose Level 116 Calcium Level 9.0 Total Bilirubin 0.9 Direct Bilirubin 0.00 Indirect Bilirubin 0.9 Aspartate Amino Transf (AST/SGOT) 17 Alanine Aminotransferase (ALT/SGPT) 31 Alkaline Phosphatase 112 Troponin I 0.019 Total Protein 7.3 Albumin 4.2 Globulin 3.10 Albumin/Globulin Ratio 1.35 Lipase 26 Lactic Acid Level 0.9 1.1 Test 08/23/17 13:36 08/23/17 15:20 08/23/17 17:23 08/23/17 17:30 Bedside Glucose 84 118 Lactic Acid Level 2.2 *H 1.6 Test 08/24/17 04:58 08/24/17 05:53 08/24/17 06:13 08/24/17 06:30 Sodium Level 141 Potassium Level 3.8 Chloride Level 112 H Carbon Dioxide Level 23 Anion Gap 10 Blood Urea Nitrogen 35 H Creatinine 1.64 H Glucose Level 41 #*L Hemoglobin A1c 6.6 H Calcium Level 8.1 L Phosphorus Level 3.9 Magnesium Level 1.6 L Total Bilirubin 1.1 Direct Bilirubin 0.00 Indirect Bilirubin 1.1 Aspartate Amino Transf (AST/SGOT) 18 Alanine Aminotransferase (ALT/SGPT) 30 Alkaline Phosphatase 69 Total Protein 5.2 #L Albumin 2.4 #L Globulin 2.80 Albumin/Globulin Ratio 0.85 Triglycerides Level 117 Cholesterol Level 83 L LDL Cholesterol, Calculated 35 HDL Cholesterol 25 L Cholesterol/HDL Ratio 3.3 Thyroid Stimulating Hormone (TSH) 0.812 Free Thyroxine Index 2.55 Thyroxine (T4) 5.7 Triiodothyronine (T3) Uptake 44.8 H Bedside Glucose 53 L 64 L 72 Test 08/24/17 06:50 08/24/17 07:01 08/24/17 08:09 Bedside Glucose 96 104 115 Medications Medications Current Medications Aspirin (Halfprin) 81 mg DAILY PO Last administered on 08/24/17 08:13; Admin Dose 81 MG; Start 08/24/17 at 09:00 Clonidine (Catapres) 0.2 mg Q8 PO Last administered on 08/24/17 05:33; Admin Dose 0.2 MG; Start 08/23/17 at 14:00 Gabapentin (Neurontin) 300 mg BID PO Last administered on 08/24/17 08:13; Admin Dose 300 MG; Start 08/23/17 at 21:00 Mycophenolate Sodium (Myfortic) 360 mg Q12 PO Last administered on 08/24/17 08:13; Admin Dose 360 MG; Start 08/23/17 at 21:00 Pantoprazole (Protonix Tab) 40 mg BID@06,18 PO Last administered on 08/24/17 05:32; Admin Dose 40 MG; Start 08/23/17 at 18:00 Tacrolimus (Prograf) 1 mg Q12 PO Last administered on 08/24/17 08:13; Admin Dose 1 MG; Start 08/23/17 at 21:00 Valsartan (Diovan) 80 mg DAILY PO ; Start 08/24/17 at 09:00 Miscellaneous Information 40 unit QHS SQ ; Start 08/23/17 at 21:00; Status UNV Atorvastatin Calcium 10 mg 10 mg QHS PO Last administered on 08/23/17 21:43; Admin Dose 10 MG; Start 08/23/17 at 21:00 Cefepime HCl 50 ml @ 100 mls/hr Q12H IVPB Last administered on 08/24/17 08: 16; Admin Dose 100 MLS/HR; Start 08/23/17 at 21:00 Sodium Chloride (NS) 1,000 ml @ 60 mls/hr [id number] IV Last administered on 14:44; Admin Dose 60 MLS/HR; Start 08/23/17 at 12:00 Ondansetron HCl (Zofran Inj) 4 mg Q6H PRN IV NAUSEA AND/OR VOMITING; Start at 12:00 Acetaminophen (Tylenol Tab) 650 mg Q6H PRN PO PAIN LEVEL 1-3 OR FEVER Last administered on 08/23/17 19:46; Admin Dose 650 MG; Start 08/23/17 at 12:00 Acetaminophen (Tylenol Supp) 650 mg Q6H PRN [place] PAIN LEVEL 1-3 OR FEVER; Start 08/23/17 at 12:00 Acetaminophen/ Hydrocodone Bitart ([place] (5/325)) 1 tab Q6H PRN PO MODERATE PAIN LEVEL 4-6; Start 08/23/17 at 12:00 Acetaminophen/ Hydrocodone Bitart ([place] (5/325)) 2 tab Q6H PRN PO SEVERE PAIN LEVEL 7-10; Start 08/23/17 at 12:00 Morphine Sulfate (morphine) 2 mg Q4H PRN IV SEVERE PAIN LEVEL 7-10; Start at 12:00 Docusate Sodium (Colace) 100 mg Q12H PRN PO CONSTIPATION; Start 08/23/17 at 12 :00 Magnesium Hydroxide (Milk Of Mag) 30 ml DAILY PRN PO CONSTIPATION; Start 08/23 at 12:00 Bisacodyl (Dulcolax Supp) 10 mg DAILY PRN [place] CONSTIPATION; Start 08/23/17 at 12:00 Miscellaneous Information MEDICATION REQUIRES CLARIFICATI... Q8H XX ; Start 08/23/17 at 12:30 Vancomycin HCl (Vancocin) 250 ml @ 125 mls/hr Q24H IVPB ; Start 08/24/17 at 12 :00 Influenza Virus Vaccine (Fluzone) 0.5 ml ONCE ONCE IM* ; Start 08/24/17 at 12: 00; Stop 08/24/17 at 12:01 Diagnostic Test (Pha) (Accu-Chek) 1 ea 02 XX ; Start 08/25/17 at 02:00 Diagnostic Test (Pha) (Accu-Chek) 1 ea 02 XX ; Start 08/25/17 at 02:00 Miscellaneous Information 1 ea NOTE XX ; Start 08/24/17 at 06:30 Glucose (Glutose) 15 gm Q15M PRN PO DECREASED GLUCOSE; Start 08/24/17 at 06:30 Glucose (Glutose) 22.5 gm Q15M PRN PO DECREASED GLUCOSE; Start 08/24/17 at 06: 30 Dextrose (D50w Syringe) 25 ml Q15M PRN IV DECREASED GLUCOSE; Start 08/24/17 at 06:30 Dextrose (D50w Syringe) 50 ml Q15M PRN IV DECREASED GLUCOSE; Start 08/24/17 at 06:30 Glucagon (Glucagen) 1 mg Q15M PRN IM DECREASED GLUCOSE; Start 08/24/17 at 06: 30 Glucose (Glutose) 15 gm Q15M PRN BUCCAL DECREASED GLUCOSE; Start 08/24/17 at 06:30 REBECA LAIRD MD Aug 24, 2017 09:34
--- NOTE | 2017-08-24 11:39 | PN ---
Date/Time of Note Date/Time of Note DATE: 08/24/17 TIME: 11:37 Assessment/Plan VTE Prophylaxis VTE Prophylaxis Intervention: SCD's Lines/Catheters IV [facility] Type [facility] Peripheral IV Urinary Cath still in place: No Assessment/Plan Chief Complaint/Hosp Course 1. Sepsis with underlying leukocytosis, febrile illness, and suspected urinary tract infection. The patient on antimicrobials as per infectious diseases. No evidence of any septic shock. 2. Essential hypertension. Continue antihypertensives. 3. History of renal transplant. Continue immunosuppressants. Patient being followed by nephrology. 4. Dyslipidemia. Continue statins. 5. Diabetes mellitus. Hemoglobin A1c 6.5. Continue sliding scale insulin. 6. Fluids, electrolytes, and nutrition. Carbohydrate controlled diet. 7. DVT prophylaxis. Bilateral SCDs. 8. Plan. Continue antimicrobials. Await final cultures. Case discussed with Dr. Camacho. Problems: Subjective 24 Hr Interval Summary Free Text/Dictation The patient remains afebrile. Exam/Review of Systems Vital Signs Vitals Vital Signs Date Time Temp Pulse Resp B/P Pulse Ox O2 Delivery O2 Flow Rate FiO2 08/24/17 07:24 97.7 72 18 98/45 94 08/23/17 13:15 Room Air Intake and Output 08/23/17 08/23/17 08/24/17 15:00 23:00 07:00 Intake Total 1000 ml 420 ml 960 ml Balance 1000 ml 420 ml 960 ml Exam General: Morbidly obese 61 year-old female lying in bed in no apparent distress. HEENT: Normocephalic, atraumatic. Eyes: Anicteric sclerae, conjunctivae clear. ENT: Nasal septum midline, oral mucosa moist. Neck supple, no JVD noticed. Respiratory: Bilaterally diminished breath sounds. No use of accessory muscles of respiration. Cardiovascular: S1, S2 heard. No murmurs or gallops. Abdomen: Soft, nontender, and nondistended. Bowel sounds positive in all 4 quadrants. Genitourinary: Deferred. Extremities: No cyanosis, no clubbing, no edema. Peripheral pulses palpable. Neurologic: Cranial nerves II through XII grossly intact. The patient is awake, alert, and oriented. Skin: Normal skin turgor. No skin rashes. Results Result Diagram: 08/23/17 1000 08/24/17 0458 Results 24 hrs Laboratory Tests Test 08/23/17 13:30 08/23/17 13:36 08/23/17 15:20 08/23/17 17:23 Lactic Acid Level 1.1 2.2 *H Bedside Glucose 84 118 Test 08/23/17 17:30 08/24/17 04:58 08/24/17 05:53 08/24/17 06:13 Lactic Acid Level 1.6 Sodium Level 141 Potassium Level 3.8 Chloride Level 112 H Carbon Dioxide Level 23 Anion Gap 10 Blood Urea Nitrogen 35 H Creatinine 1.64 H Glucose Level 41 #*L Hemoglobin A1c 6.6 H Calcium Level 8.1 L Phosphorus Level 3.9 Magnesium Level 1.6 L Total Bilirubin 1.1 Direct Bilirubin 0.00 Indirect Bilirubin 1.1 Aspartate Amino Transf (AST/SGOT) 18 Alanine Aminotransferase (ALT/SGPT) 30 Alkaline Phosphatase 69 Total Protein 5.2 #L Albumin 2.4 #L Globulin 2.80 Albumin/Globulin Ratio 0.85 Triglycerides Level 117 Cholesterol Level 83 L LDL Cholesterol, Calculated 35 HDL Cholesterol 25 L Cholesterol/HDL Ratio 3.3 Thyroid Stimulating Hormone (TSH) 0.812 Free Thyroxine Index 2.55 Thyroxine (T4) 5.7 Triiodothyronine (T3) Uptake 44.8 H Bedside Glucose 53 L 64 L Test 08/24/17 06:30 08/24/17 06:50 08/24/17 07:01 08/24/17 08:09 Bedside Glucose 72 96 104 115 Medications Medications Current Medications Aspirin (Halfprin) 81 mg DAILY PO Last administered on 08/24/17 08:13; Admin Dose 81 MG; Start 08/24/17 at 09:00 Clonidine (Catapres) 0.2 mg Q8 PO Last administered on 08/24/17 05:33; Admin Dose 0.2 MG; Start 08/23/17 at 14:00 Gabapentin (Neurontin) 300 mg BID PO Last administered on 08/24/17 08:13; Admin Dose 300 MG; Start 08/23/17 at 21:00 Mycophenolate Sodium (Myfortic) 360 mg Q12 PO Last administered on 08/24/17 08:13; Admin Dose 360 MG; Start 08/23/17 at 21:00 Pantoprazole (Protonix Tab) 40 mg BID@06,18 PO Last administered on 08/24/17 05:32; Admin Dose 40 MG; Start 08/23/17 at 18:00 Tacrolimus (Prograf) 1 mg Q12 PO Last administered on 08/24/17 08:13; Admin Dose 1 MG; Start 08/23/17 at 21:00 Valsartan (Diovan) 80 mg DAILY PO ; Start 08/24/17 at 09:00 Miscellaneous Information 40 unit QHS SQ ; Start 08/23/17 at 21:00; Status UNV Atorvastatin Calcium 10 mg 10 mg QHS PO Last administered on 08/23/17 21:43; Admin Dose 10 MG; Start 08/23/17 at 21:00 Cefepime HCl 50 ml @ 100 mls/hr Q12H IVPB Last administered on 08/24/17 08: 16; Admin Dose 100 MLS/HR; Start 08/23/17 at 21:00 Sodium Chloride (NS) 1,000 ml @ 60 mls/hr [id number] IV Last administered on 14:44; Admin Dose 60 MLS/HR; Start 08/23/17 at 12:00 Ondansetron HCl (Zofran Inj) 4 mg Q6H PRN IV NAUSEA AND/OR VOMITING; Start at 12:00 Acetaminophen (Tylenol Tab) 650 mg Q6H PRN PO PAIN LEVEL 1-3 OR FEVER Last administered on 08/23/17 19:46; Admin Dose 650 MG; Start 08/23/17 at 12:00 Acetaminophen (Tylenol Supp) 650 mg Q6H PRN [place] PAIN LEVEL 1-3 OR FEVER; Start 08/23/17 at 12:00 Acetaminophen/ Hydrocodone Bitart ([place] (5/325)) 1 tab Q6H PRN PO MODERATE PAIN LEVEL 4-6; Start 08/23/17 at 12:00 Acetaminophen/ Hydrocodone Bitart ([place] (5/325)) 2 tab Q6H PRN PO SEVERE PAIN LEVEL 7-10; Start 08/23/17 at 12:00 Morphine Sulfate (morphine) 2 mg Q4H PRN IV SEVERE PAIN LEVEL 7-10; Start at 12:00 Docusate Sodium (Colace) 100 mg Q12H PRN PO CONSTIPATION; Start 08/23/17 at 12 :00 Magnesium Hydroxide (Milk Of Mag) 30 ml DAILY PRN PO CONSTIPATION; Start 08/23 at 12:00 Bisacodyl (Dulcolax Supp) 10 mg DAILY PRN [place] CONSTIPATION; Start 08/23/17 at 12:00 Miscellaneous Information MEDICATION REQUIRES CLARIFICATI... Q8H XX ; Start 08/23/17 at 12:30 Vancomycin HCl (Vancocin) 250 ml @ 125 mls/hr Q24H IVPB ; Start 08/24/17 at 12 :00 Influenza Virus Vaccine (Fluzone) 0.5 ml ONCE ONCE IM* ; Start 08/24/17 at 12: 00; Stop 08/24/17 at 12:01 Diagnostic Test (Pha) (Accu-Chek) 1 ea 02 XX ; Start 08/25/17 at 02:00 Diagnostic Test (Pha) (Accu-Chek) 1 ea 02 XX ; Start 08/25/17 at 02:00 Miscellaneous Information 1 ea NOTE XX ; Start 08/24/17 at 06:30 Glucose (Glutose) 15 gm Q15M PRN PO DECREASED GLUCOSE; Start 08/24/17 at 06:30 Glucose (Glutose) 22.5 gm Q15M PRN PO DECREASED GLUCOSE; Start 08/24/17 at 06: 30 Dextrose (D50w Syringe) 25 ml Q15M PRN IV DECREASED GLUCOSE; Start 08/24/17 at 06:30 Dextrose (D50w Syringe) 50 ml Q15M PRN IV DECREASED GLUCOSE; Start 08/24/17 at 06:30 Glucagon (Glucagen) 1 mg Q15M PRN IM DECREASED GLUCOSE; Start 08/24/17 at 06: 30 Glucose (Glutose) 15 gm Q15M PRN BUCCAL DECREASED GLUCOSE; Start 08/24/17 at 06:30 PETRA VERONICA NP Aug 24, 2017 11:39
[2017-08-24] MEDS: VANCOMYCIN 1 GM in NS 250 ML IVPB SCH (11:53)
[2017-08-24] MEDS: [UNRECOGNIZED DRUG - REMARK] XX SCH ×2 (11:53→19:52)
[2017-08-24] MEDS ORDERED: INFLUENZA VIRUS VACCINE 0.5 ML SYG IM* ONE (12:00)
[2017-08-24 14:33] VITALS: BP 123/62; RESP 18
[2017-08-24 19:30] VITALS: BP 132/58; RESP 20
[2017-08-24] MEDS: ATORVASTATIN 10 MG TAB PO SCH (20:56)
[2017-08-24 21:43] VITALS: BP 133/63
[2017-08-25] MEDS: ACCU-CHEK XX SCH (00:20)
[2017-08-25] MEDS: [UNRECOGNIZED DRUG - REMARK] XX SCH (00:21)
[2017-08-25 02:00] VITALS: BP 133/62; RESP 20
[2017-08-25] MEDS ORDERED: ACCU-CHEK XX SCH (02:00)
[2017-08-25] MEDS: PANTOPRAZOLE (EC) 40 MG TAB PO SCH ×2 (05:50→17:27)
[2017-08-25 07:34] VITALS: BP 168/70; RESP 18
[2017-08-25] MEDS: INSULIN ASPART [NOVOLOG] 3 ML PEN SC SCH ×4 (08:15→20:54)
--- NOTE | 2017-08-25 08:59 | CONS ---
Date/Time of Note Date/Time of Note DATE: 08/25/17 TIME: 08:57 Assessment/Plan Assessment/Plan Chief Complaint/Hosp Course 61-year-old female with history of GERD, dysrhythmia, hypertension, diabetes, end-stage renal disease status post renal transplant who came to [facility] after reports of one day duration with associated diarrhea , dysuria, and fever. pt was febrile in ED. she was noted to have elevated Cr 1.92 on admission, Renal has been consulted for LESLEY and management of immunosuppression Problems: Additional Assessment/Plan 1. Acute kidney injury due to prerenal azotemia + ATN From sepsis 2. Sepsis, cultures has been negative, no urine cx available 3. H/o Kidney transplant on immunosuppression 4. HTN 5. Type II DM 6. Obesity 7. Hyperlipidemia Plan: IV abx cefepime and vancomycin for Sepsis, blood cx no growth to date-, Renally dose all abx Continue Prograf 1 mg BID and myfortic for immunosuppresion, no signs of prograf toxicity at this point Continue IVF hdyration NS at 60 cc/hr- expecting Cr to improve with IVF hydration and IV abx treatment Monitor electrolytes and replace as needed will follow up Consultation Date/Type/Reason Admit Date/Time Aug 23, 2017 at 11:17 Initial Consult Date 08/23/17 Type of Consultation: NEPHROLOGY Referring Provider: RNEETTA LEONG 24 HR Interval Summary Free Text/Dictation no acute events overnight, Cr improved to 1.58, BP stable, Exam/Review of Systems Vital Signs Vitals Vital Signs Date Time Temp Pulse Resp B/P Pulse Ox O2 Delivery O2 Flow Rate FiO2 08/25/17 07:34 97.9 73 18 168/70 95 08/23/17 13:15 Room Air Intake and Output 08/24/17 08/24/17 08/25/17 15:00 23:00 07:00 Intake Total 300 ml 1790 ml 840 ml Output Total 800 ml 1800 ml Balance 300 ml 990 ml -960 ml Exam Constitutional: alert Respiratory: clear to auscultation, diminished breath sounds, normal air movement Cardiovascular: nl pulses, regular rate and rhythm Gastrointestinal: non-tender, other (Renal allograft is ok), soft Musculoskeletal: muscle weakness, nl extremities to inspection, nl gait and stance, range of motion Extremities: normal pulses Neurological: METAL ENGRAVER II-XII intact, nl mental status, nl speech, nl strength Results Result Diagram: 08/25/1752408/25/17 0525 Results 24 hrs Laboratory Tests Test 08/24/17 11:50 08/24/17 17:39 08/24/17 21:00 08/25/17 05:25 Bedside Glucose 126 120 140 White Blood Count 10.6 # Red Blood Count 3.46 L Hemoglobin 9.5 L Hematocrit 32.4 L Mean Corpuscular Volume 93.6 Mean Corpuscular Hemoglobin 27.5 L Mean Corpuscular Hemoglobin Concent 29.3 L Red Cell Distribution Width 13.9 Platelet Count 212 # Mean Platelet Volume 10.7 H Neutrophils % 73.6 Lymphocytes % 14.7 L Monocytes % 6.7 Eosinophils % 3.8 Basophils % 0.6 Nucleated Red Blood Cells % 0.0 Neutrophils # 7.8 H Lymphocytes # 1.6 Monocytes # 0.7 Eosinophils # 0.4 Basophils # 0.1 Nucleated Red Blood Cells # 0.0 Sodium Level 144 Potassium Level 4.6 Chloride Level 112 H Carbon Dioxide Level 23 Anion Gap 14 Blood Urea Nitrogen 29 H Creatinine 1.58 H Glucose Level 154 # Calcium Level 8.6 Phosphorus Level 3.4 Magnesium Level 1.7 Test 08/25/17 08:26 Bedside Glucose 138 Medications Medications Current Medications Aspirin (Halfprin) 81 mg DAILY PO Last administered on 08/24/17 08:13; Admin Dose 81 MG; Start 08/24/17 at 09:00 Clonidine (Catapres) 0.2 mg Q8 PO Last administered on 08/25/17 05:50; Admin Dose 0.2 MG; Start 08/23/17 at 14:00 Gabapentin (Neurontin) 300 mg BID PO Last administered on 08/24/17 20:56; Admin Dose 300 MG; Start 08/23/17 at 21:00 Mycophenolate Sodium (Myfortic) 360 mg Q12 PO Last administered on 08/24/17 20:56; Admin Dose 360 MG; Start 08/23/17 at 21:00 Pantoprazole (Protonix Tab) 40 mg BID@06,18 PO Last administered on 08/25/17 05:50; Admin Dose 40 MG; Start 08/23/17 at 18:00 Tacrolimus (Prograf) 1 mg Q12 PO Last administered on 08/24/17 20:56; Admin Dose 1 MG; Start 08/23/17 at 21:00 Valsartan (Diovan) 80 mg DAILY PO ; Start 08/24/17 at 09:00 Miscellaneous Information 40 unit QHS SQ ; Start 08/23/17 at 21:00; Status UNV Atorvastatin Calcium 10 mg 10 mg QHS PO Last administered on 08/24/17 20:56; Admin Dose 10 MG; Start 08/23/17 at 21:00 Cefepime HCl 50 ml @ 100 mls/hr Q12H IVPB Last administered on 08/24/17 20: 56; Admin Dose 100 MLS/HR; Start 08/23/17 at 21:00 Sodium Chloride (NS) 1,000 ml @ 60 mls/hr [id number] IV Last administered on 20:56; Admin Dose 60 MLS/HR; Start 08/23/17 at 12:00 Ondansetron HCl (Zofran Inj) 4 mg Q6H PRN IV NAUSEA AND/OR VOMITING; Start at 12:00 Acetaminophen (Tylenol Tab) 650 mg Q6H PRN PO PAIN LEVEL 1-3 OR FEVER Last administered on 08/23/17 19:46; Admin Dose 650 MG; Start 08/23/17 at 12:00 Acetaminophen (Tylenol Supp) 650 mg Q6H PRN [place] PAIN LEVEL 1-3 OR FEVER; Start 08/23/17 at 12:00 Acetaminophen/ Hydrocodone Bitart ([place] (5/325)) 1 tab Q6H PRN PO MODERATE PAIN LEVEL 4-6; Start 08/23/17 at 12:00 Acetaminophen/ Hydrocodone Bitart ([place] (5/325)) 2 tab Q6H PRN PO SEVERE PAIN LEVEL 7-10; Start 08/23/17 at 12:00 Morphine Sulfate (morphine) 2 mg Q4H PRN IV SEVERE PAIN LEVEL 7-10; Start at 12:00 Docusate Sodium (Colace) 100 mg Q12H PRN PO CONSTIPATION; Start 08/23/17 at 12 :00 Magnesium Hydroxide (Milk Of Mag) 30 ml DAILY PRN PO CONSTIPATION; Start 08/23 at 12:00 Bisacodyl (Dulcolax Supp) 10 mg DAILY PRN [place] CONSTIPATION; Start 08/23/17 at 12:00 Miscellaneous Information MEDICATION REQUIRES CLARIFICATI... Q8H XX ; Start 08/23/17 at 12:30 Vancomycin HCl (Vancocin) 250 ml @ 125 mls/hr Q24H IVPB Last administered on 08/24/17t 11:53; Admin Dose 125 MLS/HR; Start 08/24/17 at 12:00 Diagnostic Test (Pha) (Accu-Chek) 1 ea 02 XX ; Start 08/25/17 at 02:00 Diagnostic Test (Pha) (Accu-Chek) 1 ea 02 XX ; Start 08/25/17 at 02:00 Miscellaneous Information 1 ea NOTE XX ; Start 08/24/17 at 06:30 Glucose (Glutose) 15 gm Q15M PRN PO DECREASED GLUCOSE; Start 08/24/17 at 06:30 Glucose (Glutose) 22.5 gm Q15M PRN PO DECREASED GLUCOSE; Start 08/24/17 at 06: 30 Dextrose (D50w Syringe) 25 ml Q15M PRN IV DECREASED GLUCOSE; Start 08/24/17 at 06:30 Dextrose (D50w Syringe) 50 ml Q15M PRN IV DECREASED GLUCOSE; Start 08/24/17 at 06:30 Glucagon (Glucagen) 1 mg Q15M PRN IM DECREASED GLUCOSE; Start 08/24/17 at 06: 30 Glucose (Glutose) 15 gm Q15M PRN BUCCAL DECREASED GLUCOSE; Start 08/24/17 at 06:30 REBECA LAIRD MD Aug 25, 2017 08:59
--- NOTE | 2017-08-25 08:59 | CONS ---
Date/Time of Note Date/Time of Note DATE: 08/25/17 TIME: 08:57 Assessment/Plan Assessment/Plan Chief Complaint/Hosp Course 61-year-old female with history of GERD, dysrhythmia, hypertension, diabetes, end-stage renal disease status post renal transplant who came to [facility] after reports of one day duration with associated diarrhea , dysuria, and fever. pt was febrile in ED. she was noted to have elevated Cr 1.92 on admission, Renal has been consulted for LESLEY and management of immunosuppression Problems: Additional Assessment/Plan 1. Acute kidney injury due to prerenal azotemia + ATN From sepsis 2. Sepsis, cultures has been negative, no urine cx available 3. H/o Kidney transplant on immunosuppression 4. HTN 5. Type II DM 6. Obesity 7. Hyperlipidemia Plan: IV abx cefepime and vancomycin for Sepsis, blood cx no growth to date-, Renally dose all abx Continue Prograf 1 mg BID and myfortic for immunosuppresion, no signs of prograf toxicity at this point Continue IVF hdyration NS at 60 cc/hr- expecting Cr to improve with IVF hydration and IV abx treatment Monitor electrolytes and replace as needed will follow up Consultation Date/Type/Reason Admit Date/Time Aug 23, 2017 at 11:17 Initial Consult Date 08/23/17 Type of Consultation: NEPHROLOGY Referring Provider: RENETTA LEONG 24 HR Interval Summary Free Text/Dictation no acute events overnight, Cr improved to 1.58, BP stable, Exam/Review of Systems Vital Signs Vitals Vital Signs Date Time Temp Pulse Resp B/P Pulse Ox O2 Delivery O2 Flow Rate FiO2 08/25/17 07:34 97.9 73 18 168/70 95 08/23/17 13:15 Room Air Intake and Output 08/24/17 08/24/17 08/25/17 15:00 23:00 07:00 Intake Total 300 ml 1790 ml 840 ml Output Total 800 ml 1800 ml Balance 300 ml 990 ml -960 ml Exam Constitutional: alert Respiratory: clear to auscultation, diminished breath sounds, normal air movement Cardiovascular: nl pulses, regular rate and rhythm Gastrointestinal: non-tender, other (Renal allograft is ok), soft Musculoskeletal: muscle weakness, nl extremities to inspection, nl gait and stance, range of motion Extremities: normal pulses Neurological: WASHER OFF II-XII intact, nl mental status, nl speech, nl strength Results Result Diagram: 08/25/1752408/25/17 0525 Results 24 hrs Laboratory Tests Test 08/24/17 11:50 08/24/17 17:39 08/24/17 21:00 08/25/17 05:25 Bedside Glucose 126 120 140 White Blood Count 10.6 # Red Blood Count 3.46 L Hemoglobin 9.5 L Hematocrit 32.4 L Mean Corpuscular Volume 93.6 Mean Corpuscular Hemoglobin 27.5 L Mean Corpuscular Hemoglobin Concent 29.3 L Red Cell Distribution Width 13.9 Platelet Count 212 # Mean Platelet Volume 10.7 H Neutrophils % 73.6 Lymphocytes % 14.7 L Monocytes % 6.7 Eosinophils % 3.8 Basophils % 0.6 Nucleated Red Blood Cells % 0.0 Neutrophils # 7.8 H Lymphocytes # 1.6 Monocytes # 0.7 Eosinophils # 0.4 Basophils # 0.1 Nucleated Red Blood Cells # 0.0 Sodium Level 144 Potassium Level 4.6 Chloride Level 112 H Carbon Dioxide Level 23 Anion Gap 14 Blood Urea Nitrogen 29 H Creatinine 1.58 H Glucose Level 154 # Calcium Level 8.6 Phosphorus Level 3.4 Magnesium Level 1.7 Test 08/25/17 08:26 Bedside Glucose 138 Medications Medications Current Medications Aspirin (Halfprin) 81 mg DAILY PO Last administered on 08/24/17 08:13; Admin Dose 81 MG; Start 08/24/17 at 09:00 Clonidine (Catapres) 0.2 mg Q8 PO Last administered on 08/25/17 05:50; Admin Dose 0.2 MG; Start 08/23/17 at 14:00 Gabapentin (Neurontin) 300 mg BID PO Last administered on 08/24/17 20:56; Admin Dose 300 MG; Start 08/23/17 at 21:00 Mycophenolate Sodium (Myfortic) 360 mg Q12 PO Last administered on 08/24/17 20:56; Admin Dose 360 MG; Start 08/23/17 at 21:00 Pantoprazole (Protonix Tab) 40 mg BID@06,18 PO Last administered on 08/25/17 05:50; Admin Dose 40 MG; Start 08/23/17 at 18:00 Tacrolimus (Prograf) 1 mg Q12 PO Last administered on 08/24/17 20:56; Admin Dose 1 MG; Start 08/23/17 at 21:00 Valsartan (Diovan) 80 mg DAILY PO ; Start 08/24/17 at 09:00 Miscellaneous Information 40 unit QHS SQ ; Start 08/23/17 at 21:00; Status UNV Atorvastatin Calcium 10 mg 10 mg QHS PO Last administered on 08/24/17 20:56; Admin Dose 10 MG; Start 08/23/17 at 21:00 Cefepime HCl 50 ml @ 100 mls/hr Q12H IVPB Last administered on 08/24/17 20: 56; Admin Dose 100 MLS/HR; Start 08/23/17 at 21:00 Sodium Chloride (NS) 1,000 ml @ 60 mls/hr [id number] IV Last administered on 20:56; Admin Dose 60 MLS/HR; Start 08/23/17 at 12:00 Ondansetron HCl (Zofran Inj) 4 mg Q6H PRN IV NAUSEA AND/OR VOMITING; Start at 12:00 Acetaminophen (Tylenol Tab) 650 mg Q6H PRN PO PAIN LEVEL 1-3 OR FEVER Last administered on 08/23/17 19:46; Admin Dose 650 MG; Start 08/23/17 at 12:00 Acetaminophen (Tylenol Supp) 650 mg Q6H PRN [place] PAIN LEVEL 1-3 OR FEVER; Start 08/23/17 at 12:00 Acetaminophen/ Hydrocodone Bitart ([place] (5/325)) 1 tab Q6H PRN PO MODERATE PAIN LEVEL 4-6; Start 08/23/17 at 12:00 Acetaminophen/ Hydrocodone Bitart ([place] (5/325)) 2 tab Q6H PRN PO SEVERE PAIN LEVEL 7-10; Start 08/23/17 at 12:00 Morphine Sulfate (morphine) 2 mg Q4H PRN IV SEVERE PAIN LEVEL 7-10; Start at 12:00 Docusate Sodium (Colace) 100 mg Q12H PRN PO CONSTIPATION; Start 08/23/17 at 12 :00 Magnesium Hydroxide (Milk Of Mag) 30 ml DAILY PRN PO CONSTIPATION; Start 08/23 at 12:00 Bisacodyl (Dulcolax Supp) 10 mg DAILY PRN [place] CONSTIPATION; Start 08/23/17 at 12:00 Miscellaneous Information MEDICATION REQUIRES CLARIFICATI... Q8H XX ; Start 08/23/17 at 12:30 Vancomycin HCl (Vancocin) 250 ml @ 125 mls/hr Q24H IVPB Last administered on 08/24/17t 11:53; Admin Dose 125 MLS/HR; Start 08/24/17 at 12:00 Diagnostic Test (Pha) (Accu-Chek) 1 ea 02 XX ; Start 08/25/17 at 02:00 Diagnostic Test (Pha) (Accu-Chek) 1 ea 02 XX ; Start 08/25/17 at 02:00 Miscellaneous Information 1 ea NOTE XX ; Start 08/24/17 at 06:30 Glucose (Glutose) 15 gm Q15M PRN PO DECREASED GLUCOSE; Start 08/24/17 at 06:30 Glucose (Glutose) 22.5 gm Q15M PRN PO DECREASED GLUCOSE; Start 08/24/17 at 06: 30 Dextrose (D50w Syringe) 25 ml Q15M PRN IV DECREASED GLUCOSE; Start 08/24/17 at 06:30 Dextrose (D50w Syringe) 50 ml Q15M PRN IV DECREASED GLUCOSE; Start 08/24/17 at 06:30 Glucagon (Glucagen) 1 mg Q15M PRN IM DECREASED GLUCOSE; Start 08/24/17 at 06: 30 Glucose (Glutose) 15 gm Q15M PRN BUCCAL DECREASED GLUCOSE; Start 08/24/17 at 06:30 REBECA LAIRD MD Aug 25, 2017 08:59
--- NOTE | 2017-08-25 08:59 | CONS ---
Date/Time of Note Date/Time of Note DATE: 08/25/17 TIME: 08:57 Assessment/Plan Assessment/Plan Chief Complaint/Hosp Course 61-year-old female with history of GERD, dysrhythmia, hypertension, diabetes, end-stage renal disease status post renal transplant who came to [facility] after reports of one day duration with associated diarrhea , dysuria, and fever. pt was febrile in ED. she was noted to have elevated Cr 1.92 on admission, Renal has been consulted for LESLEY and management of immunosuppression Problems: Additional Assessment/Plan 1. Acute kidney injury due to prerenal azotemia + ATN From sepsis 2. Sepsis, cultures has been negative, no urine cx available 3. H/o Kidney transplant on immunosuppression 4. HTN 5. Type II DM 6. Obesity 7. Hyperlipidemia Plan: IV abx cefepime and vancomycin for Sepsis, blood cx no growth to date-, Renally dose all abx Continue Prograf 1 mg BID and myfortic for immunosuppresion, no signs of prograf toxicity at this point Continue IVF hdyration NS at 60 cc/hr- expecting Cr to improve with IVF hydration and IV abx treatment Monitor electrolytes and replace as needed will follow up Consultation Date/Type/Reason Admit Date/Time Aug 23, 2017 at 11:17 Initial Consult Date 08/23/17 Type of Consultation: NEPHROLOGY Referring Provider: RENETTA LEONG 24 HR Interval Summary Free Text/Dictation no acute events overnight, Cr improved to 1.58, BP stable, Exam/Review of Systems Vital Signs Vitals Vital Signs Date Time Temp Pulse Resp B/P Pulse Ox O2 Delivery O2 Flow Rate FiO2 08/25/17 07:34 97.9 73 18 168/70 95 08/23/17 13:15 Room Air Intake and Output 08/24/17 08/24/17 08/25/17 15:00 23:00 07:00 Intake Total 300 ml 1790 ml 840 ml Output Total 800 ml 1800 ml Balance 300 ml 990 ml -960 ml Exam Constitutional: alert Respiratory: clear to auscultation, diminished breath sounds, normal air movement Cardiovascular: nl pulses, regular rate and rhythm Gastrointestinal: non-tender, other (Renal allograft is ok), soft Musculoskeletal: muscle weakness, nl extremities to inspection, nl gait and stance, range of motion Extremities: normal pulses Neurological: OUTSIDE INDUSTRIAL SALES REPRESENTATIVE II-XII intact, nl mental status, nl speech, nl strength Results Result Diagram: 08/25/1752408/25/17 0525 Results 24 hrs Laboratory Tests Test 08/24/17 11:50 08/24/17 17:39 08/24/17 21:00 08/25/17 05:25 Bedside Glucose 126 120 140 White Blood Count 10.6 # Red Blood Count 3.46 L Hemoglobin 9.5 L Hematocrit 32.4 L Mean Corpuscular Volume 93.6 Mean Corpuscular Hemoglobin 27.5 L Mean Corpuscular Hemoglobin Concent 29.3 L Red Cell Distribution Width 13.9 Platelet Count 212 # Mean Platelet Volume 10.7 H Neutrophils % 73.6 Lymphocytes % 14.7 L Monocytes % 6.7 Eosinophils % 3.8 Basophils % 0.6 Nucleated Red Blood Cells % 0.0 Neutrophils # 7.8 H Lymphocytes # 1.6 Monocytes # 0.7 Eosinophils # 0.4 Basophils # 0.1 Nucleated Red Blood Cells # 0.0 Sodium Level 144 Potassium Level 4.6 Chloride Level 112 H Carbon Dioxide Level 23 Anion Gap 14 Blood Urea Nitrogen 29 H Creatinine 1.58 H Glucose Level 154 # Calcium Level 8.6 Phosphorus Level 3.4 Magnesium Level 1.7 Test 08/25/17 08:26 Bedside Glucose 138 Medications Medications Current Medications Aspirin (Halfprin) 81 mg DAILY PO Last administered on 08/24/17 08:13; Admin Dose 81 MG; Start 08/24/17 at 09:00 Clonidine (Catapres) 0.2 mg Q8 PO Last administered on 08/25/17 05:50; Admin Dose 0.2 MG; Start 08/23/17 at 14:00 Gabapentin (Neurontin) 300 mg BID PO Last administered on 08/24/17 20:56; Admin Dose 300 MG; Start 08/23/17 at 21:00 Mycophenolate Sodium (Myfortic) 360 mg Q12 PO Last administered on 08/24/17 20:56; Admin Dose 360 MG; Start 08/23/17 at 21:00 Pantoprazole (Protonix Tab) 40 mg BID@06,18 PO Last administered on 08/25/17 05:50; Admin Dose 40 MG; Start 08/23/17 at 18:00 Tacrolimus (Prograf) 1 mg Q12 PO Last administered on 08/24/17 20:56; Admin Dose 1 MG; Start 08/23/17 at 21:00 Valsartan (Diovan) 80 mg DAILY PO ; Start 08/24/17 at 09:00 Miscellaneous Information 40 unit QHS SQ ; Start 08/23/17 at 21:00; Status UNV Atorvastatin Calcium 10 mg 10 mg QHS PO Last administered on 08/24/17 20:56; Admin Dose 10 MG; Start 08/23/17 at 21:00 Cefepime HCl 50 ml @ 100 mls/hr Q12H IVPB Last administered on 08/24/17 20: 56; Admin Dose 100 MLS/HR; Start 08/23/17 at 21:00 Sodium Chloride (NS) 1,000 ml @ 60 mls/hr [id number] IV Last administered on 20:56; Admin Dose 60 MLS/HR; Start 08/23/17 at 12:00 Ondansetron HCl (Zofran Inj) 4 mg Q6H PRN IV NAUSEA AND/OR VOMITING; Start at 12:00 Acetaminophen (Tylenol Tab) 650 mg Q6H PRN PO PAIN LEVEL 1-3 OR FEVER Last administered on 08/23/17 19:46; Admin Dose 650 MG; Start 08/23/17 at 12:00 Acetaminophen (Tylenol Supp) 650 mg Q6H PRN [place] PAIN LEVEL 1-3 OR FEVER; Start 08/23/17 at 12:00 Acetaminophen/ Hydrocodone Bitart ([place] (5/325)) 1 tab Q6H PRN PO MODERATE PAIN LEVEL 4-6; Start 08/23/17 at 12:00 Acetaminophen/ Hydrocodone Bitart ([place] (5/325)) 2 tab Q6H PRN PO SEVERE PAIN LEVEL 7-10; Start 08/23/17 at 12:00 Morphine Sulfate (morphine) 2 mg Q4H PRN IV SEVERE PAIN LEVEL 7-10; Start at 12:00 Docusate Sodium (Colace) 100 mg Q12H PRN PO CONSTIPATION; Start 08/23/17 at 12 :00 Magnesium Hydroxide (Milk Of Mag) 30 ml DAILY PRN PO CONSTIPATION; Start 08/23 at 12:00 Bisacodyl (Dulcolax Supp) 10 mg DAILY PRN [place] CONSTIPATION; Start 08/23/17 at 12:00 Miscellaneous Information MEDICATION REQUIRES CLARIFICATI... Q8H XX ; Start 08/23/17 at 12:30 Vancomycin HCl (Vancocin) 250 ml @ 125 mls/hr Q24H IVPB Last administered on 08/24/17t 11:53; Admin Dose 125 MLS/HR; Start 08/24/17 at 12:00 Diagnostic Test (Pha) (Accu-Chek) 1 ea 02 XX ; Start 08/25/17 at 02:00 Diagnostic Test (Pha) (Accu-Chek) 1 ea 02 XX ; Start 08/25/17 at 02:00 Miscellaneous Information 1 ea NOTE XX ; Start 08/24/17 at 06:30 Glucose (Glutose) 15 gm Q15M PRN PO DECREASED GLUCOSE; Start 08/24/17 at 06:30 Glucose (Glutose) 22.5 gm Q15M PRN PO DECREASED GLUCOSE; Start 08/24/17 at 06: 30 Dextrose (D50w Syringe) 25 ml Q15M PRN IV DECREASED GLUCOSE; Start 08/24/17 at 06:30 Dextrose (D50w Syringe) 50 ml Q15M PRN IV DECREASED GLUCOSE; Start 08/24/17 at 06:30 Glucagon (Glucagen) 1 mg Q15M PRN IM DECREASED GLUCOSE; Start 08/24/17 at 06: 30 Glucose (Glutose) 15 gm Q15M PRN BUCCAL DECREASED GLUCOSE; Start 08/24/17 at 06:30 REBECA LAIRD MD Aug 25, 2017 08:59
[2017-08-25] MEDS: TACROLIMUS 1 MG CAP PO SCH ×2 (09:11→20:42)
[2017-08-25] MEDS: VALSARTAN 80 MG TAB PO SCH (09:11)
[2017-08-25] MEDS: MYCOPHENOLATE (SR) 180 MG TAB PO SCH ×2 (09:12→20:42)
[2017-08-25] MEDS: GABAPENTIN 300 MG CAP PO SCH ×2 (09:12→20:42)
[2017-08-25] MEDS: ASPIRIN (EC) 81 MG TAB PO SCH (09:12)
--- NOTE | 2017-08-25 09:12 | PN ---
Date/Time of Note Date/Time of Note DATE: 08/25/17 TIME: 09:12 Assessment/Plan VTE Prophylaxis VTE Prophylaxis Intervention: SCD's Lines/Catheters IV C[facility]ter Type [facility]from [facility] Peripheral IV Urinary Cath still in place: No Assessment/Plan Chief Complaint/Hosp Course 1. Sepsis with underlying leukocytosis, febrile illness, and suspected urinary tract infection. The patient on antimicrobials as per infectious diseases. No evidence of any septic shock. 2. Essential hypertension. Continue antihypertensives. 3. History of renal transplant. Continue immunosuppressants. Patient being followed by nephrology. 4. Dyslipidemia. Continue statins. 5. Diabetes mellitus. Hemoglobin A1c 6.5. Continue sliding scale insulin. 6. Fluids, electrolytes, and nutrition. Carbohydrate controlled diet. 7. DVT prophylaxis. Bilateral SCDs. 8. Plan. Continue antimicrobials. Await final cultures. Case discussed with Dr. Camacho. Problems: Subjective 24 Hr Interval Summary Free Text/Dictation Complains of a cough. Exam/Review of Systems Vital Signs Vitals Vital Signs Date Time Temp Pulse Resp B/P Pulse Ox O2 Delivery O2 Flow Rate FiO2 08/25/17 07:34 97.9 73 18 168/70 95 08/23/17 13:15 Room Air Intake and Output 08/24/17 08/24/17 08/25/17 15:00 23:00 07:00 Intake Total 300 ml 1790 ml 840 ml Output Total 800 ml 1800 ml Balance 300 ml 990 ml -960 ml Exam General: Morbidly obese 61 year-old female lying in bed in no apparent distress. HEENT: Normocephalic, atraumatic. Eyes: Anicteric sclerae, conjunctivae clear. ENT: Nasal septum midline, oral mucosa moist. Neck supple, no JVD noticed. Respiratory: Bilaterally diminished breath sounds. No use of accessory muscles of respiration. Cardiovascular: S1, S2 heard. No murmurs or gallops. Abdomen: Soft, nontender, and nondistended. Bowel sounds positive in all 4 quadrants. Genitourinary: Deferred. Extremities: No cyanosis, no clubbing, no edema. Peripheral pulses palpable. Neurologic: Cranial nerves II through XII grossly intact. The patient is awake, alert, and oriented. Skin: Normal skin turgor. No skin rashes. Results Result Diagram: 08/25/17 0525 08/25/1725 Results 24 hrs Laboratory Tests Test 08/24/17 11:50 08/24/17 17:39 08/24/17 21:00 08/25/17 05:25 Bedside Glucose 126 120 140 White Blood Count 10.6 # Red Blood Count 3.46 L Hemoglobin 9.5 L Hematocrit 32.4 L Mean Corpuscular Volume 93.6 Mean Corpuscular Hemoglobin 27.5 L Mean Corpuscular Hemoglobin Concent 29.3 L Red Cell Distribution Width 13.9 Platelet Count 212 # Mean Platelet Volume 10.7 H Neutrophils % 73.6 Lymphocytes % 14.7 L Monocytes % 6.7 Eosinophils % 3.8 Basophils % 0.6 Nucleated Red Blood Cells % 0.0 Neutrophils # 7.8 H Lymphocytes # 1.6 Monocytes # 0.7 Eosinophils # 0.4 Basophils # 0.1 Nucleated Red Blood Cells # 0.0 Sodium Level 144 Potassium Level 4.6 Chloride Level 112 H Carbon Dioxide Level 23 Anion Gap 14 Blood Urea Nitrogen 29 H Creatinine 1.58 H Glucose Level 154 # Calcium Level 8.6 Phosphorus Level 3.4 Magnesium Level 1.7 Test 08/25/17 08:26 Bedside Glucose 138 Medications Medications Current Medications Aspirin (Halfprin) 81 mg DAILY PO Last administered on 08/24/17 08:13; Admin Dose 81 MG; Start 08/24/17 at 09:00 Clonidine (Catapres) 0.2 mg Q8 PO Last administered on 08/25/17 05:50; Admin Dose 0.2 MG; Start 08/23/17 at 14:00 Gabapentin (Neurontin) 300 mg BID PO Last administered on 08/24/17 20:56; Admin Dose 300 MG; Start 08/23/17 at 21:00 Mycophenolate Sodium (Myfortic) 360 mg Q12 PO Last administered on 08/24/17 20:56; Admin Dose 360 MG; Start 08/23/17 at 21:00 Pantoprazole (Protonix Tab) 40 mg BID@06,18 PO Last administered on 08/25/17 05:50; Admin Dose 40 MG; Start 08/23/17 at 18:00 Tacrolimus (Prograf) 1 mg Q12 PO Last administered on 08/24/17 20:56; Admin Dose 1 MG; Start 08/23/17 at 21:00 Valsartan (Diovan) 80 mg DAILY PO ; Start 08/24/17 at 09:00 Miscellaneous Information 40 unit QHS XX ; Start 08/23/17 at 21:00; Status UNV Atorvastatin Calcium 10 mg 10 mg QHS PO Last administered on 08/24/17 20:56; Admin Dose 10 MG; Start 08/23/17 at 21:00 Cefepime HCl 50 ml @ 100 mls/hr Q12H IVPB Last administered on 08/24/17 20: 56; Admin Dose 100 MLS/HR; Start 08/23/17 at 21:00 Sodium Chloride (NS) 1,000 ml @ 60 mls/hr [id number] IV Last administered on 20:56; Admin Dose 60 MLS/HR; Start 08/23/17 at 12:00 Ondansetron HCl (Zofran Inj) 4 mg Q6H PRN IV NAUSEA AND/OR VOMITING; Start at 12:00 Acetaminophen (Tylenol Tab) 650 mg Q6H PRN PO PAIN LEVEL 1-3 OR FEVER Last administered on 08/23/17 19:46; Admin Dose 650 MG; Start 08/23/17 at 12:00 Acetaminophen (Tylenol Supp) 650 mg Q6H PRN [place] PAIN LEVEL 1-3 OR FEVER; Start 08/23/17 at 12:00 Acetaminophen/ Hydrocodone Bitart ([place] (5/325)) 1 tab Q6H PRN PO MODERATE PAIN LEVEL 4-6; Start 08/23/17 at 12:00 Acetaminophen/ Hydrocodone Bitart ([place] (5/325)) 2 tab Q6H PRN PO SEVERE PAIN LEVEL 7-10; Start 08/23/17 at 12:00 Morphine Sulfate (morphine) 2 mg Q4H PRN IV SEVERE PAIN LEVEL 7-10; Start at 12:00 Docusate Sodium (Colace) 100 mg Q12H PRN PO CONSTIPATION; Start 08/23/17 at 12 :00 Magnesium Hydroxide (Milk Of Mag) 30 ml DAILY PRN PO CONSTIPATION; Start 08/23 at 12:00 Bisacodyl (Dulcolax Supp) 10 mg DAILY PRN [place] CONSTIPATION; Start 08/23/17 at 12:00 Miscellaneous Information MEDICATION REQUIRES CLARIFICATI... Q8H XX ; Start 08/23/17 at 12:30 Vancomycin HCl (Vancocin) 250 ml @ 125 mls/hr Q24H IVPB Last administered on 08/24/17t 11:53; Admin Dose 125 MLS/HR; Start 08/24/17 at 12:00 Diagnostic Test (Pha) (Accu-Chek) 1 ea 02 XX ; Start 08/25/17 at 02:00 Diagnostic Test (Pha) (Accu-Chek) 1 ea 02 XX ; Start 08/25/17 at 02:00 Miscellaneous Information 1 ea NOTE XX ; Start 08/24/17 at 06:30 Glucose (Glutose) 15 gm Q15M PRN PO DECREASED GLUCOSE; Start 08/24/17 at 06:30 Glucose (Glutose) 22.5 gm Q15M PRN PO DECREASED GLUCOSE; Start 08/24/17 at 06: 30 Dextrose (D50w Syringe) 25 ml Q15M PRN IV DECREASED GLUCOSE; Start 08/24/17 at 06:30 Dextrose (D50w Syringe) 50 ml Q15M PRN IV DECREASED GLUCOSE; Start 08/24/17 at 06:30 Glucagon (Glucagen) 1 mg Q15M PRN IM DECREASED GLUCOSE; Start 08/24/17 at 06: 30 Glucose (Glutose) 15 gm Q15M PRN BUCCAL DECREASED GLUCOSE; Start 08/24/17 at 06:30 PETRA VERONICA NP Aug 25, 2017 09:12
[2017-08-25] MEDS: CEFEPIME 2GM/50 ML (PMX) 50 ML IVPB SCH ×2 (10:33→20:41)
--- NOTE | 2017-08-25 10:56 | RADRPT ---
PROCEDURE: XR Chest. CLINICAL INDICATION: Sepsis. TECHNIQUE: Single frontal view. COMPARISON: 08/23/2017. FINDINGS: The lungs are clear. The heart is enlarged. There is calcification in the aorta consistent with atherosclerosis. There is no pleural effusion. There is no pneumothorax. IMPRESSION: 1. Cardiomegaly and atherosclerosis. 2. Otherwise normal chest radiograph. RPTAT: QQ .Zhao Mendez MD, MD Date Time Electronically viewed and signed by .Zhao Mendez MD, MD on 08/25/2017 10:55 .R/
[2017-08-25] MEDS: VANCOMYCIN 1 GM in NS 250 ML IVPB SCH (12:38)
[2017-08-25] MEDS: SOD CHLORIDE 0.9% 1,000 ML IV SCH ×2 (14:00→17:27)
[2017-08-25 14:24] VITALS: BP 186/77; RESP 18
--- NOTE | 2017-08-25 15:32 | PN ---
DATE: 08/25/2017 SUBJECTIVE: No acute changes. No fevers. The patient is awake, looks comfortable. WBC today 10.6 , no shift, no bands. BUN 29, creatinine 1.58. ANTIMICROBIALS: 1. Vancomycin. 2. Cefepime. MICROBIOLOGY: Urine culture growing gram-negative rods. Blood cultures negative. Stool for C. dif f negative. PHYSICAL EXAMINATION: GENERAL: This is an obese, well-developed, elderly woman who is in no distress. HEENT: Head atraumatic, normocephalic. Sclerae anicteric. Buccal mucosa dry. NECK: Supple. CHEST: Rise symmetrical. Breath sounds diminished to bases. HEART: S1, S2. ABDOMEN: Soft, bowel tones present. EXTREMITIES: Without cyanosis. ASSESSMENT: 1. Sepsis with fevers, leukocytosis and tachycardia on admission. 2. Urinary tract infection. 3. Acute kidney injury, possibly on chronic kidney disease. 4. Obesity. 5. Diabetes. PLAN: The patient remains stable. WBC tracing down. We are going to discontinue vancomycin. Cont inue cefepime. Await for final cultures. Dictated By: MICHAEL SETHI [employer]RESTING [employer] OFFICER for JANIYA CASE MD NI/NTS Conf#: [id number] DID#: [id number] CC: RENETTA LEONG MD;*EndCC*
--- NOTE | 2017-08-25 15:32 | PN ---
DATE: 08/25/2017 SUBJECTIVE: No acute changes. No fevers. The patient is awake, looks comfortable. WBC today 10.6 , no shift, no bands. BUN 29, creatinine 1.58. ANTIMICROBIALS: 1. Vancomycin. 2. Cefepime. MICROBIOLOGY: Urine culture growing gram-negative rods. Blood cultures negative. Stool for C. dif f negative. PHYSICAL EXAMINATION: GENERAL: This is an obese, well-developed, elderly woman who is in no distress. HEENT: Head atraumatic, normocephalic. Sclerae anicteric. Buccal mucosa dry. NECK: Supple. CHEST: Rise symmetrical. Breath sounds diminished to bases. HEART: S1, S2. ABDOMEN: Soft, bowel tones present. EXTREMITIES: Without cyanosis. ASSESSMENT: 1. Sepsis with fevers, leukocytosis and tachycardia on admission. 2. Urinary tract infection. 3. Acute kidney injury, possibly on chronic kidney disease. 4. Obesity. 5. Diabetes. PLAN: The patient remains stable. WBC tracing down. We are going to discontinue vancomycin. Cont inue cefepime. Await for final cultures. Dictated By: MICHAEL SETHI DIGESTER COOK for JANIYA CASE MD NI/NTS Conf#: [id number] DID#: [id number] CC: RENETTA LEONG MD;*EndCC*
--- NOTE | 2017-08-25 15:32 | PN ---
DATE: 08/25/2017 SUBJECTIVE: No acute changes. No fevers. The patient is awake, looks comfortable. WBC today 10.6 , no shift, no bands. BUN 29, creatinine 1.58. ANTIMICROBIALS: 1. Vancomycin. 2. Cefepime. MICROBIOLOGY: Urine culture growing gram-negative rods. Blood cultures negative. Stool for C. dif f negative. PHYSICAL EXAMINATION: GENERAL: This is an obese, well-developed, elderly woman who is in no distress. HEENT: Head atraumatic, normocephalic. Sclerae anicteric. Buccal mucosa dry. NECK: Supple. CHEST: Rise symmetrical. Breath sounds diminished to bases. HEART: S1, S2. ABDOMEN: Soft, bowel tones present. EXTREMITIES: Without cyanosis. ASSESSMENT: 1. Sepsis with fevers, leukocytosis and tachycardia on admission. 2. Urinary tract infection. 3. Acute kidney injury, possibly on chronic kidney disease. 4. Obesity. 5. Diabetes. PLAN: The patient remains stable. WBC tracing down. We are going to discontinue vancomycin. Cont inue cefepime. Await for final cultures. Dictated By: MICHAEL SETHI EMERGENCY DEPT TECH for JANIYA CASE MD NI/NTS Conf#: [id number] DID#: [id number] CC: RENETTA LEONG MD;*EndCC*
[2017-08-25 19:26] VITALS: BP 178/71; RESP 20
[2017-08-25] MEDS ORDERED: hydrALAzine 20 MG INJ IV PRN (20:30)
[2017-08-25] MEDS: ATORVASTATIN 10 MG TAB PO SCH (20:42)
[2017-08-25 21:12] VITALS: BP 145/67
[2017-08-26 02:02] VITALS: BP 131/62; RESP 20
[2017-08-26] MEDS: ACCU-CHEK XX SCH (02:43)
[2017-08-26] MEDS: PANTOPRAZOLE (EC) 40 MG TAB PO SCH ×2 (05:29→18:54)
[2017-08-26 06:38] VITALS: BP 148/67; PULSE 77
[2017-08-26 07:39] VITALS: BP 183/77; RESP 18
[2017-08-26] MEDS: INSULIN ASPART [NOVOLOG] 3 ML PEN SC SCH ×4 (08:27→21:17)
[2017-08-26] MEDS: TACROLIMUS 1 MG CAP PO SCH ×2 (08:30→21:15)
[2017-08-26] MEDS: GABAPENTIN 300 MG CAP PO SCH ×2 (08:30→21:14)
[2017-08-26] MEDS: ASPIRIN (EC) 81 MG TAB PO SCH (08:30)
[2017-08-26] MEDS: VALSARTAN 80 MG TAB PO SCH (08:31)
[2017-08-26] MEDS: MYCOPHENOLATE (SR) 180 MG TAB PO SCH ×2 (08:31→21:20)
[2017-08-26] MEDS: SOD CHLORIDE 0.45% 1,000 ML IV SCH ×2 (09:31→22:20)
[2017-08-26] MEDS: CEFEPIME 2GM/50 ML (PMX) 50 ML IVPB SCH ×2 (09:31→21:14)
--- NOTE | 2017-08-26 09:55 | CONS ---
Date/Time of Note Date/Time of Note DATE: 08/26/17 TIME: 09:53 Assessment/Plan Assessment/Plan Chief Complaint/Hosp Course 61-year-old female with history of GERD, dysrhythmia, hypertension, diabetes, end-stage renal disease status post renal transplant who came to [facility] after reports of one day duration with associated diarrhea , dysuria, and fever. pt was febrile in ED. she was noted to have elevated Cr 1.92 on admission, Renal has been consulted for LESLEY and management of immunosuppression Problems: Additional Assessment/Plan 1. Acute kidney injury due to prerenal azotemia + ATN From sepsis 2. Sepsis, cultures has been negative, no urine cx available 3. H/o Kidney transplant on immunosuppression 4. HTN 5. Type II DM 6. Obesity 7. Hyperlipidemia Plan: IV abx cefepime and vancomycin for Sepsis, blood cx no growth to date-, Renally dose all abx Continue Prograf 1 mg BID and myfortic for immunosuppresion, no signs of prograf toxicity at this point Cr improving, Na and Cl trending up- change IVF to 1/2NS at 75 cc/hr x 2 liter then we will reassess - expecting Cr to improve with IVF hydration and IV abx treatment Monitor electrolytes and replace as needed will follow up Consultation Date/Type/Reason Admit Date/Time Aug 23, 2017 at 11:17 Initial Consult Date 08/23/17 Type of Consultation: NEPHROLOGY Referring Provider: RENETTA LEONG 24 HR Interval Summary Free Text/Dictation Cr improved to 1.14, Na and Cl trendign up, on NS IVF , doing better, no urinary complaints Exam/Review of Systems Vital Signs Vitals Vital Signs Date Time Temp Pulse Resp B/P Pulse Ox O2 Delivery O2 Flow Rate FiO2 08/26/17 07:39 97.6 61 18 183/77 99 08/23/17 13:15 Room Air Intake and Output 08/25/17 08/25/17 08/26/17 15:00 23:00 07:00 Intake Total 300 ml 1590 ml 1090 ml Output Total 1600 ml 2000 ml Balance 300 ml -10 ml -910 ml Exam Constitutional: alert Respiratory: clear to auscultation, diminished breath sounds, normal air movement Cardiovascular: nl pulses, regular rate and rhythm Gastrointestinal: non-tender, other (Renal allograft is ok), soft Musculoskeletal: muscle weakness, nl extremities to inspection, nl gait and stance, range of motion Extremities: normal pulses 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, nl mental status, nl speech, nl strength Results Result Diagram: 08/26/1751708/26/17517 Results 24 hrs Laboratory Tests Test 08/25/17 12:27 08/25/17 17:34 08/25/17 20:49 08/26/17 02:17 Bedside Glucose 187 157 233 H 161 Test 08/26/17 05:18 08/26/17 08:02 White Blood Count 7.2 # Red Blood Count 3.44 L Hemoglobin 9.6 L Hematocrit 31.9 L Mean Corpuscular Volume 92.7 Mean Corpuscular Hemoglobin 27.9 L Mean Corpuscular Hemoglobin Concent 30.1 L Red Cell Distribution Width 13.8 Platelet Count 217 Mean Platelet Volume 11.2 H Neutrophils % 62.0 Lymphocytes % 20.7 Monocytes % 7.9 Eosinophils % 6.8 Basophils % 0.8 Nucleated Red Blood Cells % 0.0 Neutrophils # 4.5 Lymphocytes # 1.5 Monocytes # 0.6 Eosinophils # 0.5 Basophils # 0.1 Nucleated Red Blood Cells # 0.0 Sodium Level 145 H Potassium Level 4.3 Chloride Level 115 H Carbon Dioxide Level 23 Anion Gap 11 Blood Urea Nitrogen 19 # Creatinine 1.14 H Glucose Level 157 Calcium Level 8.5 Phosphorus Level 2.8 Magnesium Level 1.7 Bedside Glucose 148 Medications Medications Current Medications Aspirin (Halfprin) 81 mg DAILY PO Last administered on 08/26/17 08:30; Admin Dose 81 MG; Start 08/24/17 at 09:00 Clonidine (Catapres) 0.2 mg Q8 PO Last administered on 08/26/17 05:30; Admin Dose 0.2 MG; Start 08/23/17 at 14:00 Gabapentin (Neurontin) 300 mg BID PO Last administered on 08/26/17 08:30; Admin Dose 300 MG; Start 08/23/17 at 21:00 Mycophenolate Sodium (Myfortic) 360 mg Q12 PO Last administered on 08/26/17 08 :31; Admin Dose 360 MG; Start 08/23/17 at 21:00 Pantoprazole (Protonix Tab) 40 mg BID@06,18 PO Last administered on 08/26/17 05:29; Admin Dose 40 MG; Start 08/23/17 at 18:00 Tacrolimus (Prograf) 1 mg Q12 PO Last administered on 08/26/17 08:30; Admin Dose 1 MG; Start 08/23/17 at 21:00 Valsartan (Diovan) 80 mg DAILY PO Last administered on 08/26/17 08:31; Admin Dose 80 MG; Start 08/24/17 at 09:00 Atorvastatin Calcium 10 mg 10 mg QHS PO Last administered on 08/25/17 20:42; Admin Dose 10 MG; Start 08/23/17 at 21:00 Cefepime HCl (Maxipime 2gm/50 ml (Pmx)) 50 ml @ 100 mls/hr Q12H IVPB Last administered on 08/26/17 09:31; Admin Dose 100 MLS/HR; Start 08/23/17 at 21:00 Ondansetron HCl (Zofran Inj) 4 mg Q6H PRN IV NAUSEA AND/OR VOMITING; Start at 12:00 Acetaminophen (Tylenol Tab) 650 mg Q6H PRN PO PAIN LEVEL 1-3 OR FEVER Last administered on 08/23/17 19:46; Admin Dose 650 MG; Start 08/23/17 at 12:00 Acetaminophen (Tylenol Supp) 650 mg Q6H PRN [place] PAIN LEVEL 1-3 OR FEVER; Start 08/23/17 at 12:00 Acetaminophen/ Hydrocodone Bitart ([place] (5/325)) 1 tab Q6H PRN PO MODERATE PAIN LEVEL 4-6; Start 08/23/17 at 12:00 Acetaminophen/ Hydrocodone Bitart ([place] (5/325)) 2 tab Q6H PRN PO SEVERE PAIN LEVEL 7-10; Start 08/23/17 at 12:00 Morphine Sulfate (morphine) 2 mg Q4H PRN IV SEVERE PAIN LEVEL 7-10; Start at 12:00 Docusate Sodium (Colace) 100 mg Q12H PRN PO CONSTIPATION; Start 08/23/17 at 12 :00 Magnesium Hydroxide (Milk Of Mag) 30 ml DAILY PRN PO CONSTIPATION; Start 08/23 at 12:00 Bisacodyl (Dulcolax Supp) 10 mg DAILY PRN [place] CONSTIPATION; Start 08/23/17 at 12:00 Diagnostic Test (Pha) (Accu-Chek) 1 ea 02 XX Last administered on 08/26/17 02: 43; Admin Dose 1 EA; Start 08/25/17 at 02:00 Miscellaneous Information 1 ea NOTE XX ; Start 08/24/17 at 06:30 Glucose (Glutose) 15 gm Q15M PRN PO DECREASED GLUCOSE; Start 08/24/17 at 06:30 Glucose (Glutose) 22.5 gm Q15M PRN PO DECREASED GLUCOSE; Start 08/24/17 at 06: 30 Dextrose (D50w Syringe) 25 ml Q15M PRN IV DECREASED GLUCOSE; Start 08/24/17 at 06:30 Dextrose (D50w Syringe) 50 ml Q15M PRN IV DECREASED GLUCOSE; Start 08/24/17 at 06:30 Glucagon (Glucagen) 1 mg Q15M PRN IM DECREASED GLUCOSE; Start 08/24/17 at 06: 30 Glucose (Glutose) 15 gm Q15M PRN BUCCAL DECREASED GLUCOSE; Start 08/24/17 at 06:30 Hydralazine HCl 10 mg 10 mg Q6H PRN IV ELEVATED BLOOD PRESSURE Last administered on 08/25/17 20:42; Admin Dose 10 MG; Start 08/25/17 at 20:30 Sodium Chloride (1/2 NS) 1,000 ml @ 75 mls/hr [id number] IV Last administered on 08/26/17 09:31; Admin Dose 75 MLS/HR; Start 08/26/17 at 09:00; Stop 08/27/17 at 11:39 REBECA LAIRD MD Aug 26, 2017 09:55
--- NOTE | 2017-08-26 09:55 | CONS ---
Date/Time of Note Date/Time of Note DATE: 08/26/17 TIME: 09:53 Assessment/Plan Assessment/Plan Chief Complaint/Hosp Course 61-year-old female with history of GERD, dysrhythmia, hypertension, diabetes, end-stage renal disease status post renal transplant who came to [facility] after reports of one day duration with associated diarrhea , dysuria, and fever. pt was febrile in ED. she was noted to have elevated Cr 1.92 on admission, Renal has been consulted for LESLEY and management of immunosuppression Problems: Additional Assessment/Plan 1. Acute kidney injury due to prerenal azotemia + ATN From sepsis 2. Sepsis, cultures has been negative, no urine cx available 3. H/o Kidney transplant on immunosuppression 4. HTN 5. Type II DM 6. Obesity 7. Hyperlipidemia Plan: IV abx cefepime and vancomycin for Sepsis, blood cx no growth to date-, Renally dose all abx Continue Prograf 1 mg BID and myfortic for immunosuppresion, no signs of prograf toxicity at this point Cr improving, Na and Cl trending up- change IVF to 1/2NS at 75 cc/hr x 2 liter then we will reassess - expecting Cr to improve with IVF hydration and IV abx treatment Monitor electrolytes and replace as needed will follow up Consultation Date/Type/Reason Admit Date/Time Aug 23, 2017 at 11:17 Initial Consult Date 08/23/17 Type of Consultation: NEPHROLOGY Referring Provider: RENETTA LEONG 24 HR Interval Summary Free Text/Dictation Cr improved to 1.14, Na and Cl trendign up, on NS IVF , doing better, no urinary complaints Exam/Review of Systems Vital Signs Vitals Vital Signs Date Time Temp Pulse Resp B/P Pulse Ox O2 Delivery O2 Flow Rate FiO2 08/26/17 07:39 97.6 61 18 183/77 99 08/23/17 13:15 Room Air Intake and Output 08/25/17 08/25/17 08/26/17 15:00 23:00 07:00 Intake Total 300 ml 1590 ml 1090 ml Output Total 1600 ml 2000 ml Balance 300 ml -10 ml -910 ml Exam Constitutional: alert Respiratory: clear to auscultation, diminished breath sounds, normal air movement Cardiovascular: nl pulses, regular rate and rhythm Gastrointestinal: non-tender, other (Renal allograft is ok), soft Musculoskeletal: muscle weakness, nl extremities to inspection, nl gait and stance, range of motion Extremities: normal pulses 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, nl mental status, nl speech, nl strength Results Result Diagram: 08/26/1751708/26/17517 Results 24 hrs Laboratory Tests Test 08/25/17 12:27 08/25/17 17:34 08/25/17 20:49 08/26/17 02:17 Bedside Glucose 187 157 233 H 161 Test 08/26/17 05:18 08/26/17 08:02 White Blood Count 7.2 # Red Blood Count 3.44 L Hemoglobin 9.6 L Hematocrit 31.9 L Mean Corpuscular Volume 92.7 Mean Corpuscular Hemoglobin 27.9 L Mean Corpuscular Hemoglobin Concent 30.1 L Red Cell Distribution Width 13.8 Platelet Count 217 Mean Platelet Volume 11.2 H Neutrophils % 62.0 Lymphocytes % 20.7 Monocytes % 7.9 Eosinophils % 6.8 Basophils % 0.8 Nucleated Red Blood Cells % 0.0 Neutrophils # 4.5 Lymphocytes # 1.5 Monocytes # 0.6 Eosinophils # 0.5 Basophils # 0.1 Nucleated Red Blood Cells # 0.0 Sodium Level 145 H Potassium Level 4.3 Chloride Level 115 H Carbon Dioxide Level 23 Anion Gap 11 Blood Urea Nitrogen 19 # Creatinine 1.14 H Glucose Level 157 Calcium Level 8.5 Phosphorus Level 2.8 Magnesium Level 1.7 Bedside Glucose 148 Medications Medications Current Medications Aspirin (Halfprin) 81 mg DAILY PO Last administered on 08/26/17 08:30; Admin Dose 81 MG; Start 08/24/17 at 09:00 Clonidine (Catapres) 0.2 mg Q8 PO Last administered on 08/26/17 05:30; Admin Dose 0.2 MG; Start 08/23/17 at 14:00 Gabapentin (Neurontin) 300 mg BID PO Last administered on 08/26/17 08:30; Admin Dose 300 MG; Start 08/23/17 at 21:00 Mycophenolate Sodium (Myfortic) 360 mg Q12 PO Last administered on 08/26/17 08 :31; Admin Dose 360 MG; Start 08/23/17 at 21:00 Pantoprazole (Protonix Tab) 40 mg BID@06,18 PO Last administered on 08/26/17 05:29; Admin Dose 40 MG; Start 08/23/17 at 18:00 Tacrolimus (Prograf) 1 mg Q12 PO Last administered on 08/26/17 08:30; Admin Dose 1 MG; Start 08/23/17 at 21:00 Valsartan (Diovan) 80 mg DAILY PO Last administered on 08/26/17 08:31; Admin Dose 80 MG; Start 08/24/17 at 09:00 Atorvastatin Calcium 10 mg 10 mg QHS PO Last administered on 08/25/17 20:42; Admin Dose 10 MG; Start 08/23/17 at 21:00 Cefepime HCl (Maxipime 2gm/50 ml (Pmx)) 50 ml @ 100 mls/hr Q12H IVPB Last administered on 08/26/17 09:31; Admin Dose 100 MLS/HR; Start 08/23/17 at 21:00 Ondansetron HCl (Zofran Inj) 4 mg Q6H PRN IV NAUSEA AND/OR VOMITING; Start at 12:00 Acetaminophen (Tylenol Tab) 650 mg Q6H PRN PO PAIN LEVEL 1-3 OR FEVER Last administered on 08/23/17 19:46; Admin Dose 650 MG; Start 08/23/17 at 12:00 Acetaminophen (Tylenol Supp) 650 mg Q6H PRN [place] PAIN LEVEL 1-3 OR FEVER; Start 08/23/17 at 12:00 Acetaminophen/ Hydrocodone Bitart ([place] (5/325)) 1 tab Q6H PRN PO MODERATE PAIN LEVEL 4-6; Start 08/23/17 at 12:00 Acetaminophen/ Hydrocodone Bitart ([place] (5/325)) 2 tab Q6H PRN PO SEVERE PAIN LEVEL 7-10; Start 08/23/17 at 12:00 Morphine Sulfate (morphine) 2 mg Q4H PRN IV SEVERE PAIN LEVEL 7-10; Start at 12:00 Docusate Sodium (Colace) 100 mg Q12H PRN PO CONSTIPATION; Start 08/23/17 at 12 :00 Magnesium Hydroxide (Milk Of Mag) 30 ml DAILY PRN PO CONSTIPATION; Start 08/23 at 12:00 Bisacodyl (Dulcolax Supp) 10 mg DAILY PRN [place] CONSTIPATION; Start 08/23/17 at 12:00 Diagnostic Test (Pha) (Accu-Chek) 1 ea 02 XX Last administered on 08/26/17 02: 43; Admin Dose 1 EA; Start 08/25/17 at 02:00 Miscellaneous Information 1 ea NOTE XX ; Start 08/24/17 at 06:30 Glucose (Glutose) 15 gm Q15M PRN PO DECREASED GLUCOSE; Start 08/24/17 at 06:30 Glucose (Glutose) 22.5 gm Q15M PRN PO DECREASED GLUCOSE; Start 08/24/17 at 06: 30 Dextrose (D50w Syringe) 25 ml Q15M PRN IV DECREASED GLUCOSE; Start 08/24/17 at 06:30 Dextrose (D50w Syringe) 50 ml Q15M PRN IV DECREASED GLUCOSE; Start 08/24/17 at 06:30 Glucagon (Glucagen) 1 mg Q15M PRN IM DECREASED GLUCOSE; Start 08/24/17 at 06: 30 Glucose (Glutose) 15 gm Q15M PRN BUCCAL DECREASED GLUCOSE; Start 08/24/17 at 06:30 Hydralazine HCl 10 mg 10 mg Q6H PRN IV ELEVATED BLOOD PRESSURE Last administered on 08/25/17 20:42; Admin Dose 10 MG; Start 08/25/17 at 20:30 Sodium Chloride (1/2 NS) 1,000 ml @ 75 mls/hr [id number] IV Last administered on 08/26/17 09:31; Admin Dose 75 MLS/HR; Start 08/26/17 at 09:00; Stop 08/27/17 at 11:39 REBECA LAIRD MD Aug 26, 2017 09:55
--- NOTE | 2017-08-26 10:50 | PN ---
Date/Time of Note Date/Time of Note DATE: 08/26/17 TIME: 10:49 Assessment/Plan VTE Prophylaxis VTE Prophylaxis Intervention: SCD's Lines/Catheters IV Catheter Type [facility]from [facility] [facility] Urinary Cath still in place: No Assessment/Plan Chief Complaint/Hosp Course 1. Sepsis with underlying leukocytosis, febrile illness, and urinary tract infection. Urine culture positive for E. coli ESBL and Strep agalactiae. The patient on antimicrobials as per infectious diseases. No evidence of any septic shock. 2. Essential hypertension. Continue antihypertensives. 3. History of renal transplant. Continue immunosuppressants. Patient being followed by nephrology. 4. Dyslipidemia. Continue statins. 5. Diabetes mellitus. Hemoglobin A1c 6.5. Continue sliding scale insulin. 6. Fluids, electrolytes, and nutrition. Carbohydrate controlled diet. 7. DVT prophylaxis. Bilateral SCDs. 8. Plan. Continue antimicrobials as per infectious diseases. Await further recommendations fro consultants. Case discussed with Dr. Camacho. Problems: Subjective 24 Hr Interval Summary Free Text/Dictation Denies any complaints. Exam/Review of Systems Vital Signs Vitals Vital Signs Date Time Temp Pulse Resp B/P Pulse Ox O2 Delivery O2 Flow Rate FiO2 08/26/17 07:39 97.6 61 18 183/77 99 08/23/17 13:15 Room Air Intake and Output 08/25/17 08/25/17 08/26/17 15:00 23:00 07:00 Intake Total 300 ml 1590 ml 1090 ml Output Total 1600 ml 2000 ml Balance 300 ml -10 ml -910 ml Exam General: Morbidly obese 61 year-old female lying in bed in no apparent distress. HEENT: Normocephalic, atraumatic. Eyes: Anicteric sclerae, conjunctivae clear. ENT: Nasal septum midline, oral mucosa moist. Neck supple, no JVD noticed. Respiratory: Bilaterally diminished breath sounds. No use of accessory muscles of respiration. Cardiovascular: S1, S2 heard. No murmurs or gallops. Abdomen: Soft, nontender, and nondistended. Bowel sounds positive in all 4 quadrants. Genitourinary: Deferred. Extremities: No cyanosis, no clubbing, no edema. Peripheral pulses palpable. Neurologic: Cranial nerves II through XII grossly intact. The patient is awake, alert, and oriented. Skin: Normal skin turgor. No skin rashes. Results Result Diagram: 08/26/1718 08/26/1718 Results 24 hrs Laboratory Tests Test 08/25/17 12:27 08/25/17 17:34 08/25/17 20:49 08/26/17 02:17 Bedside Glucose 187 157 233 H 161 Test 08/26/17 05:18 08/26/17 08:02 White Blood Count 7.2 # Red Blood Count 3.44 L Hemoglobin 9.6 L Hematocrit 31.9 L Mean Corpuscular Volume 92.7 Mean Corpuscular Hemoglobin 27.9 L Mean Corpuscular Hemoglobin Concent 30.1 L Red Cell Distribution Width 13.8 Platelet Count 217 Mean Platelet Volume 11.2 H Neutrophils % 62.0 Lymphocytes % 20.7 Monocytes % 7.9 Eosinophils % 6.8 Basophils % 0.8 Nucleated Red Blood Cells % 0.0 Neutrophils # 4.5 Lymphocytes # 1.5 Monocytes # 0.6 Eosinophils # 0.5 Basophils # 0.1 Nucleated Red Blood Cells # 0.0 Sodium Level 145 H Potassium Level 4.3 Chloride Level 115 H Carbon Dioxide Level 23 Anion Gap 11 Blood Urea Nitrogen 19 # Creatinine 1.14 H Glucose Level 157 Calcium Level 8.5 Phosphorus Level 2.8 Magnesium Level 1.7 Bedside Glucose 148 Medications Medications Current Medications Aspirin (Halfprin) 81 mg DAILY PO Last administered on 08/26/17 08:30; Admin Dose 81 MG; Start 08/24/17 at 09:00 Clonidine (Catapres) 0.2 mg Q8 PO Last administered on 08/26/17 05:30; Admin Dose 0.2 MG; Start 08/23/17 at 14:00 Gabapentin (Neurontin) 300 mg BID PO Last administered on 08/26/17 08:30; Admin Dose 300 MG; Start 08/23/17 at 21:00 Mycophenolate Sodium (Myfortic) 360 mg Q12 PO Last administered on 08/26/17 08 :31; Admin Dose 360 MG; Start 08/23/17 at 21:00 Pantoprazole (Protonix Tab) 40 mg BID@06,18 PO Last administered on 08/26/17 05:29; Admin Dose 40 MG; Start 08/23/17 at 18:00 Tacrolimus (Prograf) 1 mg Q12 PO Last administered on 08/26/17 08:30; Admin Dose 1 MG; Start 08/23/17 at 21:00 Valsartan (Diovan) 80 mg DAILY PO Last administered on 08/26/17 08:31; Admin Dose 80 MG; Start 08/24/17 at 09:00 Atorvastatin Calcium 10 mg 10 mg QHS PO Last administered on 08/25/17 20:42; Admin Dose 10 MG; Start 08/23/17 at 21:00 Cefepime HCl (Maxipime 2gm/50 ml (Pmx)) 50 ml @ 100 mls/hr Q12H IVPB Last administered on 08/26/17 09:31; Admin Dose 100 MLS/HR; Start 08/23/17 at 21:00 Ondansetron HCl (Zofran Inj) 4 mg Q6H PRN IV NAUSEA AND/OR VOMITING; Start at 12:00 Acetaminophen (Tylenol Tab) 650 mg Q6H PRN PO PAIN LEVEL 1-3 OR FEVER Last administered on 08/23/17 19:46; Admin Dose 650 MG; Start 08/23/17 at 12:00 Acetaminophen (Tylenol Supp) 650 mg Q6H PRN [place] PAIN LEVEL 1-3 OR FEVER; Start 08/23/17 at 12:00 Acetaminophen/ Hydrocodone Bitart ([place] (5/325)) 1 tab Q6H PRN PO MODERATE PAIN LEVEL 4-6; Start 08/23/17 at 12:00 Acetaminophen/ Hydrocodone Bitart ([place] (5/325)) 2 tab Q6H PRN PO SEVERE PAIN LEVEL 7-10; Start 08/23/17 at 12:00 Morphine Sulfate (morphine) 2 mg Q4H PRN IV SEVERE PAIN LEVEL 7-10; Start at 12:00 Docusate Sodium (Colace) 100 mg Q12H PRN PO CONSTIPATION; Start 08/23/17 at 12 :00 Magnesium Hydroxide (Milk Of Mag) 30 ml DAILY PRN PO CONSTIPATION; Start 08/23 at 12:00 Bisacodyl (Dulcolax Supp) 10 mg DAILY PRN [place] CONSTIPATION; Start 08/23/17 at 12:00 Diagnostic Test (Pha) (Accu-Chek) 1 ea 02 XX Last administered on 08/26/17 02: 43; Admin Dose 1 EA; Start 08/25/17 at 02:00 Miscellaneous Information 1 ea NOTE XX ; Start 08/24/17 at 06:30 Glucose (Glutose) 15 gm Q15M PRN PO DECREASED GLUCOSE; Start 08/24/17 at 06:30 Glucose (Glutose) 22.5 gm Q15M PRN PO DECREASED GLUCOSE; Start 08/24/17 at 06: 30 Dextrose (D50w Syringe) 25 ml Q15M PRN IV DECREASED GLUCOSE; Start 08/24/17 at 06:30 Dextrose (D50w Syringe) 50 ml Q15M PRN IV DECREASED GLUCOSE; Start 08/24/17 at 06:30 Glucagon (Glucagen) 1 mg Q15M PRN IM DECREASED GLUCOSE; Start 08/24/17 at 06: 30 Glucose (Glutose) 15 gm Q15M PRN BUCCAL DECREASED GLUCOSE; Start 08/24/17 at 06:30 Hydralazine HCl 10 mg 10 mg Q6H PRN IV ELEVATED BLOOD PRESSURE Last administered on 08/25/17 20:42; Admin Dose 10 MG; Start 08/25/17 at 20:30 Sodium Chloride (1/2 NS) 1,000 ml @ 75 mls/hr [id number] IV Last administered on 08/26/17 09:31; Admin Dose 75 MLS/HR; Start 08/26/17 at 09:00; Stop 08/27/17 at 11:39 PETRA VERONICA NP Aug 26, 2017 10:50
--- NOTE | 2017-08-26 13:25 | CONS ---
Date/Time of Note Date/Time of Note DATE: 08/26/17 TIME: 13:24 Consult Date/Type/Reason Admit Date/Time Aug 23, 2017 at 11:17 Initial Consult Date 08/23/17 Type of Consultation: ID Ordering Provider: RENETTA LEONG Objective Vital Signs Date Time Temp Pulse Resp B/P Pulse Ox O2 Delivery O2 Flow Rate FiO2 08/26/17 07:39 97.6 61 18 183/77 99 08/23/17 13:15 Room Air Intake and Output 08/25/17 08/25/17 08/26/17 15:00 23:00 07:00 Intake Total 300 ml 1590 ml 1090 ml Output Total 1600 ml 2000 ml Balance 300 ml -10 ml -910 ml Results/Medications Result Diagram: 08/26/1751708/26/17517 Results 24 hrs Laboratory Tests Test 08/25/17 17:34 08/25/17 20:49 08/26/17 02:17 08/26/17 05:18 Bedside Glucose 157 233 H 161 White Blood Count 7.2 # Red Blood Count 3.44 L Hemoglobin 9.6 L Hematocrit 31.9 L Mean Corpuscular Volume 92.7 Mean Corpuscular Hemoglobin 27.9 L Mean Corpuscular Hemoglobin Concent 30.1 L Red Cell Distribution Width 13.8 Platelet Count 217 Mean Platelet Volume 11.2 H Neutrophils % 62.0 Lymphocytes % 20.7 Monocytes % 7.9 Eosinophils % 6.8 Basophils % 0.8 Nucleated Red Blood Cells % 0.0 Neutrophils # 4.5 Lymphocytes # 1.5 Monocytes # 0.6 Eosinophils # 0.5 Basophils # 0.1 Nucleated Red Blood Cells # 0.0 Sodium Level 145 H Potassium Level 4.3 Chloride Level 115 H Carbon Dioxide Level 23 Anion Gap 11 Blood Urea Nitrogen 19 # Creatinine 1.14 H Glucose Level 157 Calcium Level 8.5 Phosphorus Level 2.8 Magnesium Level 1.7 Test 08/26/17 08:02 08/26/17 11:48 Bedside Glucose 148 153 Medications Current Medications Aspirin (Halfprin) 81 mg DAILY PO Last administered on 08/26/17 08:30; Admin Dose 81 MG; Start 08/24/17 at 09:00 Clonidine (Catapres) 0.2 mg Q8 PO Last administered on 08/26/17 05:30; Admin Dose 0.2 MG; Start 08/23/17 at 14:00 Gabapentin (Neurontin) 300 mg BID PO Last administered on 08/26/17 08:30; Admin Dose 300 MG; Start 08/23/17 at 21:00 Mycophenolate Sodium (Myfortic) 360 mg Q12 PO Last administered on 08/26/17 08 :31; Admin Dose 360 MG; Start 08/23/17 at 21:00 Pantoprazole (Protonix Tab) 40 mg BID@06,18 PO Last administered on 08/26/17 05:29; Admin Dose 40 MG; Start 08/23/17 at 18:00 Tacrolimus (Prograf) 1 mg Q12 PO Last administered on 08/26/17 08:30; Admin Dose 1 MG; Start 08/23/17 at 21:00 Valsartan (Diovan) 80 mg DAILY PO Last administered on 08/26/17 08:31; Admin Dose 80 MG; Start 08/24/17 at 09:00 Atorvastatin Calcium 10 mg 10 mg QHS PO Last administered on 08/25/17 20:42; Admin Dose 10 MG; Start 08/23/17 at 21:00 Cefepime HCl (Maxipime 2gm/50 ml (Pmx)) 50 ml @ 100 mls/hr Q12H IVPB Last administered on 08/26/17 09:31; Admin Dose 100 MLS/HR; Start 08/23/17 at 21:00 Ondansetron HCl (Zofran Inj) 4 mg Q6H PRN IV NAUSEA AND/OR VOMITING; Start at 12:00 Acetaminophen (Tylenol Tab) 650 mg Q6H PRN PO PAIN LEVEL 1-3 OR FEVER Last administered on 08/23/17 19:46; Admin Dose 650 MG; Start 08/23/17 at 12:00 Acetaminophen (Tylenol Supp) 650 mg Q6H PRN [place] PAIN LEVEL 1-3 OR FEVER; Start 08/23/17 at 12:00 Acetaminophen/ Hydrocodone Bitart ([place] (5/325)) 1 tab Q6H PRN PO MODERATE PAIN LEVEL 4-6; Start 08/23/17 at 12:00 Acetaminophen/ Hydrocodone Bitart ([place] (5/325)) 2 tab Q6H PRN PO SEVERE PAIN LEVEL 7-10; Start 08/23/17 at 12:00 Morphine Sulfate (morphine) 2 mg Q4H PRN IV SEVERE PAIN LEVEL 7-10; Start at 12:00 Docusate Sodium (Colace) 100 mg Q12H PRN PO CONSTIPATION; Start 08/23/17 at 12 :00 Magnesium Hydroxide (Milk Of Mag) 30 ml DAILY PRN PO CONSTIPATION; Start 08/23 at 12:00 Bisacodyl (Dulcolax Supp) 10 mg DAILY PRN [place] CONSTIPATION; Start 08/23/17 at 12:00 Diagnostic Test (Pha) (Accu-Chek) 1 ea 02 XX Last administered on 08/26/17 02: 43; Admin Dose 1 EA; Start 08/25/17 at 02:00 Miscellaneous Information 1 ea NOTE XX ; Start 08/24/17 at 06:30 Glucose (Glutose) 15 gm Q15M PRN PO DECREASED GLUCOSE; Start 08/24/17 at 06:30 Glucose (Glutose) 22.5 gm Q15M PRN PO DECREASED GLUCOSE; Start 08/24/17 at 06: 30 Dextrose (D50w Syringe) 25 ml Q15M PRN IV DECREASED GLUCOSE; Start 08/24/17 at 06:30 Dextrose (D50w Syringe) 50 ml Q15M PRN IV DECREASED GLUCOSE; Start 08/24/17 at 06:30 Glucagon (Glucagen) 1 mg Q15M PRN IM DECREASED GLUCOSE; Start 08/24/17 at 06: 30 Glucose (Glutose) 15 gm Q15M PRN BUCCAL DECREASED GLUCOSE; Start 08/24/17 at 06:30 Hydralazine HCl 10 mg 10 mg Q6H PRN IV ELEVATED BLOOD PRESSURE Last administered on 08/25/17 20:42; Admin Dose 10 MG; Start 08/25/17 at 20:30 Sodium Chloride (1/2 NS) 1,000 ml @ 75 mls/hr [id number] IV Last administered on 08/26/17 09:31; Admin Dose 75 MLS/HR; Start 08/26/17 at 09:00; Stop 08/27/17 at 11:39 Assessment/Plan Chief Complaint/Hosp Course SUBJECTIVE: No acute changes. No fevers. The patient is awake, looks comfortable. ANTIMICROBIALS: Cefepime. MICROBIOLOGY: Urine culture growing E coli ESBL/Strep. Blood cultures negative. Stool for C. diff negative. PHYSICAL EXAMINATION: GENERAL: This is an obese, well-developed, elderly woman who is in no distress. HEENT: Head atraumatic, normocephalic. Sclerae anicteric. Buccal mucosa dry. NECK: Supple. CHEST: Rise symmetrical. Breath sounds diminished to bases. HEART: S1, S2. ABDOMEN: Soft, bowel tones present. EXTREMITIES: Without cyanosis. ASSESSMENT: 1. S/p sepsis with fevers, leukocytosis and tachycardia on admission. 2. Urinary tract infection. 3. Acute kidney injury, possibly on chronic kidney disease. 4. Obesity. 5. Diabetes. PLAN: The patient remains stable. Continue cefepime. F/u final sensitivities DW staff Problems: MICHAEL SETHI NP Aug 26, 2017 13:25
[2017-08-26 13:48] VITALS: BP 158/68; RESP 18
[2017-08-26 19:27] VITALS: BP 174/74; RESP 20
[2017-08-26] MEDS: ATORVASTATIN 10 MG TAB PO SCH (21:14)
[2017-08-27 00:02] VITALS: BP 132/61; PULSE 70
[2017-08-27 01:53] VITALS: BP 159/65; RESP 20
[2017-08-27] MEDS: ACCU-CHEK XX SCH (02:00)
[2017-08-27] MEDS: PANTOPRAZOLE (EC) 40 MG TAB PO SCH ×2 (06:16→17:30)
[2017-08-27] MEDS: SOD CHLORIDE 0.45% 1,000 ML IV SCH (06:17)
[2017-08-27 08:06] VITALS: BP 156/73; RESP 20
[2017-08-27] MEDS: INSULIN ASPART [NOVOLOG] 3 ML PEN SC SCH ×4 (08:27→21:16)
[2017-08-27] MEDS: MYCOPHENOLATE (SR) 180 MG TAB PO SCH ×2 (08:29→21:08)
[2017-08-27] MEDS: TACROLIMUS 1 MG CAP PO SCH ×2 (08:30→21:08)
[2017-08-27] MEDS: ASPIRIN (EC) 81 MG TAB PO SCH (08:31)
[2017-08-27] MEDS: GABAPENTIN 300 MG CAP PO SCH ×2 (08:31→21:10)
[2017-08-27] MEDS: VALSARTAN 80 MG TAB PO SCH (08:31)
[2017-08-27] MEDS: CEFEPIME 2GM/50 ML (PMX) 50 ML IVPB SCH (08:55)
--- NOTE | 2017-08-27 14:15 | CONS ---
Date/Time of Note Date/Time of Note DATE: 08/27/17 TIME: 14:13 Consult Date/Type/Reason Admit Date/Time Aug 23, 2017 at 11:17 Initial Consult Date 08/23/17 Type of Consultation: ID Ordering Provider: RENETTA LEONG Objective Vital Signs Date Time Temp Pulse Resp B/P Pulse Ox O2 Delivery O2 Flow Rate FiO2 08/27/17 08:06 98.0 72 20 156/73 90 08/23/17 13:15 Room Air Intake and Output 08/26/17 08/26/17 08/27/17 15:00 23:00 07:00 Intake Total 320 ml 1725 ml 805 ml Output Total 1700 ml 1700 ml Balance 320 ml 25 ml -895 ml Results/Medications Result Diagram: 08/27/17 0508 08/27/17 0507 Results 24 hrs Laboratory Tests Test 08/26/17 17:24 08/26/17 21:12 08/27/17 02:22 08/27/17 05:07 Bedside Glucose 168 208 195 Sodium Level 144 Potassium Level 4.6 Chloride Level 110 Carbon Dioxide Level 24 Anion Gap 15 Blood Urea Nitrogen 16 Creatinine 1.00 Glucose Level 189 Calcium Level 8.8 Test 08/27/17 05:08 08/27/17 08:25 08/27/17 12:10 White Blood Count 7.4 Red Blood Count 3.71 L Hemoglobin 9.9 L Hematocrit 33.9 L Mean Corpuscular Volume 91.4 Mean Corpuscular Hemoglobin 26.7 L Mean Corpuscular Hemoglobin Concent 29.2 L Red Cell Distribution Width 13.9 Platelet Count 252 Mean Platelet Volume 10.8 H Neutrophils % 59.1 Lymphocytes % 22.9 Monocytes % 8.0 Eosinophils % 5.8 Basophils % 1.2 Nucleated Red Blood Cells % 0.0 Neutrophils # 4.4 Lymphocytes # 1.7 Monocytes # 0.6 Eosinophils # 0.4 Basophils # 0.1 Nucleated Red Blood Cells # 0.0 Phosphorus Level 2.7 Magnesium Level 1.6 L Bedside Glucose 179 215 Medications Current Medications Aspirin (Halfprin) 81 mg DAILY PO Last administered on 08/27/17 08:31; Admin Dose 81 MG; Start 08/24/17 at 09:00 Clonidine (Catapres) 0.2 mg Q8 PO Last administered on 08/27/17 06:18; Admin Dose 0.2 MG; Start 08/23/17 at 14:00 Gabapentin (Neurontin) 300 mg BID PO Last administered on 08/27/17 08:31; Admin Dose 300 MG; Start 08/23/17 at 21:00 Mycophenolate Sodium (Myfortic) 360 mg Q12 PO Last administered on 08/27/17 08 :29; Admin Dose 360 MG; Start 08/23/17 at 21:00 Pantoprazole (Protonix Tab) 40 mg BID@06,18 PO Last administered on 08/27/17 06:16; Admin Dose 40 MG; Start 08/23/17 at 18:00 Tacrolimus (Prograf) 1 mg Q12 PO Last administered on 08/27/17 08:30; Admin Dose 1 MG; Start 08/23/17 at 21:00 Valsartan (Diovan) 80 mg DAILY PO Last administered on 08/27/17 08:31; Admin Dose 80 MG; Start 08/24/17 at 09:00 Atorvastatin Calcium 10 mg 10 mg QHS PO Last administered on 08/26/17 21:14; Admin Dose 10 MG; Start 08/23/17 at 21:00 Cefepime HCl (Maxipime 2gm/50 ml (Pmx)) 50 ml @ 100 mls/hr Q12H IVPB Last administered on 08/27/17 08:55; Admin Dose 100 MLS/HR; Start 08/23/17 at 21:00 Ondansetron HCl (Zofran Inj) 4 mg Q6H PRN IV NAUSEA AND/OR VOMITING; Start at 12:00 Acetaminophen (Tylenol Tab) 650 mg Q6H PRN PO PAIN LEVEL 1-3 OR FEVER Last administered on 08/23/17 19:46; Admin Dose 650 MG; Start 08/23/17 at 12:00 Acetaminophen (Tylenol Supp) 650 mg Q6H PRN [place] PAIN LEVEL 1-3 OR FEVER; Start 08/23/17 at 12:00 Acetaminophen/ Hydrocodone Bitart ([place] (5/325)) 1 tab Q6H PRN PO MODERATE PAIN LEVEL 4-6; Start 08/23/17 at 12:00 Acetaminophen/ Hydrocodone Bitart ([place] (5/325)) 2 tab Q6H PRN PO SEVERE PAIN LEVEL 7-10; Start 08/23/17 at 12:00 Morphine Sulfate (morphine) 2 mg Q4H PRN IV SEVERE PAIN LEVEL 7-10; Start at 12:00 Docusate Sodium (Colace) 100 mg Q12H PRN PO CONSTIPATION; Start 08/23/17 at 12 :00 Magnesium Hydroxide (Milk Of Mag) 30 ml DAILY PRN PO CONSTIPATION; Start 08/23 at 12:00 Bisacodyl (Dulcolax Supp) 10 mg DAILY PRN [place] CONSTIPATION; Start 08/23/17 at 12:00 Diagnostic Test (Pha) (Accu-Chek) 1 ea 02 XX Last administered on 08/26/17 02: 43; Admin Dose 1 EA; Start 08/25/17 at 02:00 Miscellaneous Information 1 ea NOTE XX ; Start 08/24/17 at 06:30 Glucose (Glutose) 15 gm Q15M PRN PO DECREASED GLUCOSE; Start 08/24/17 at 06:30 Glucose (Glutose) 22.5 gm Q15M PRN PO DECREASED GLUCOSE; Start 08/24/17 at 06: 30 Dextrose (D50w Syringe) 25 ml Q15M PRN IV DECREASED GLUCOSE; Start 08/24/17 at 06:30 Dextrose (D50w Syringe) 50 ml Q15M PRN IV DECREASED GLUCOSE; Start 08/24/17 at 06:30 Glucagon (Glucagen) 1 mg Q15M PRN IM DECREASED GLUCOSE; Start 08/24/17 at 06: 30 Glucose (Glutose) 15 gm Q15M PRN BUCCAL DECREASED GLUCOSE; Start 08/24/17 at 06:30 Hydralazine HCl (Apresoline) 10 mg Q6H PRN IV ELEVATED BLOOD PRESSURE Last administered on 08/25/17 20:42; Admin Dose 10 MG; Start 08/25/17 at 20:30 Assessment/Plan Chief Complaint/Hosp Course SUBJECTIVE: No acute changes. No fevers. The patient is awake, looks comfortable, still with mild burning with urination. ANTIMICROBIALS: Cefepime. MICROBIOLOGY: Urine culture growing E coli ESBL/Strep. Blood cultures negative. Stool for C. diff negative. PHYSICAL EXAMINATION: GENERAL: This is an obese, well-developed, elderly woman who is in no distress. HEENT: Head atraumatic, normocephalic. Sclerae anicteric. Buccal mucosa dry. NECK: Supple. CHEST: Rise symmetrical. Breath sounds diminished to bases. HEART: S1, S2. ABDOMEN: Soft, bowel tones present. EXTREMITIES: Without cyanosis. ASSESSMENT: 1. S/p sepsis with fevers, leukocytosis and tachycardia on admission. 2. Urinary tract infection. 3. Acute kidney injury, possibly on chronic kidney disease. 4. Obesity. 5. Diabetes. PLAN: The patient remains stable. Still with burning with urination, will change abx to Invanz, pending final sensitivities DW staff/pt Problems: MICHAEL SETHI NP Aug 27, 2017 14:15
--- NOTE | 2017-08-27 14:34 | PN ---
Date/Time of Note Date/Time of Note DATE: 08/27/17 TIME: 14:33 Assessment/Plan VTE Prophylaxis VTE Prophylaxis Intervention: SCD's Lines/Catheters IV [facility] Type [facility] Peripheral IV Urinary Cath still in place: No Assessment/Plan Chief Complaint/Hosp Course 1. Sepsis with underlying leukocytosis, febrile illness, and urinary tract infection. Urine culture positive for E. coli ESBL and Strep agalactiae. The patient on antimicrobials as per infectious diseases. No evidence of any septic shock. 2. Essential hypertension. Continue antihypertensives. 3. History of renal transplant. Continue immunosuppressants. Patient being followed by nephrology. 4. Dyslipidemia. Continue statins. 5. Diabetes mellitus. Hemoglobin A1c 6.5. Continue sliding scale insulin. 6. Fluids, electrolytes, and nutrition. Carbohydrate controlled diet. 7. DVT prophylaxis. Bilateral SCDs. 8. Plan. Continue antimicrobials as per infectious diseases. Await further recommendations from consultants. Case discussed with Dr. Camacho. Problems: Subjective 24 Hr Interval Summary Free Text/Dictation The patient remains afebrile. Complains off burning with urination. Exam/Review of Systems Vital Signs Vitals Vital Signs Date Time Temp Pulse Resp B/P Pulse Ox O2 Delivery O2 Flow Rate FiO2 08/27/17 08:06 98.0 72 20 156/73 90 08/23/17 13:15 Room Air Intake and Output 08/26/17 08/26/17 08/27/17 15:00 23:00 07:00 Intake Total 320 ml 1725 ml 805 ml Output Total 1700 ml 1700 ml Balance 320 ml 25 ml -895 ml Exam General: Morbidly obese 61 year-old female lying in bed in no apparent distress. HEENT: Normocephalic, atraumatic. Eyes: Anicteric sclerae, conjunctivae clear. ENT: Nasal septum midline, oral mucosa moist. Neck supple, no JVD noticed. Respiratory: Bilaterally diminished breath sounds. No use of accessory muscles of respiration. Cardiovascular: S1, S2 heard. No murmurs or gallops. Abdomen: Soft, nontender, and nondistended. Bowel sounds positive in all 4 quadrants. Genitourinary: Deferred. Extremities: No cyanosis, no clubbing, no edema. Peripheral pulses palpable. Neurologic: Cranial nerves II through XII grossly intact. The patient is awake, alert, and oriented. Skin: Normal skin turgor. No skin rashes. Results Result Diagram: 08/27/17 0508 08/27/17 0507 Results 24 hrs Laboratory Tests Test 08/26/17 17:24 08/26/17 21:12 08/27/17 02:22 08/27/17 05:07 Bedside Glucose 168 208 195 Sodium Level 144 Potassium Level 4.6 Chloride Level 110 Carbon Dioxide Level 24 Anion Gap 15 Blood Urea Nitrogen 16 Creatinine 1.00 Glucose Level 189 Calcium Level 8.8 Test 08/27/17 05:08 08/27/17 08:25 08/27/17 12:10 White Blood Count 7.4 Red Blood Count 3.71 L Hemoglobin 9.9 L Hematocrit 33.9 L Mean Corpuscular Volume 91.4 Mean Corpuscular Hemoglobin 26.7 L Mean Corpuscular Hemoglobin Concent 29.2 L Red Cell Distribution Width 13.9 Platelet Count 252 Mean Platelet Volume 10.8 H Neutrophils % 59.1 Lymphocytes % 22.9 Monocytes % 8.0 Eosinophils % 5.8 Basophils % 1.2 Nucleated Red Blood Cells % 0.0 Neutrophils # 4.4 Lymphocytes # 1.7 Monocytes # 0.6 Eosinophils # 0.4 Basophils # 0.1 Nucleated Red Blood Cells # 0.0 Phosphorus Level 2.7 Magnesium Level 1.6 L Bedside Glucose 179 215 Medications Medications Current Medications Aspirin (Halfprin) 81 mg DAILY PO Last administered on 08/27/17 08:31; Admin Dose 81 MG; Start 08/24/17 at 09:00 Clonidine (Catapres) 0.2 mg Q8 PO Last administered on 08/27/17 06:18; Admin Dose 0.2 MG; Start 08/23/17 at 14:00 Gabapentin (Neurontin) 300 mg BID PO Last administered on 08/27/17 08:31; Admin Dose 300 MG; Start 08/23/17 at 21:00 Mycophenolate Sodium (Myfortic) 360 mg Q12 PO Last administered on 08/27/17 08 :29; Admin Dose 360 MG; Start 08/23/17 at 21:00 Pantoprazole (Protonix Tab) 40 mg BID@06,18 PO Last administered on 08/27/17 06:16; Admin Dose 40 MG; Start 08/23/17 at 18:00 Tacrolimus (Prograf) 1 mg Q12 PO Last administered on 08/27/17 08:30; Admin Dose 1 MG; Start 08/23/17 at 21:00 Valsartan (Diovan) 80 mg DAILY PO Last administered on 08/27/17 08:31; Admin Dose 80 MG; Start 08/24/17 at 09:00 Atorvastatin Calcium (Lipitor) 10 mg QHS PO Last administered on 08/26/17 21: 14; Admin Dose 10 MG; Start 08/23/17 at 21:00 Ondansetron HCl (Zofran Inj) 4 mg Q6H PRN IV NAUSEA AND/OR VOMITING; Start at 12:00 Acetaminophen (Tylenol Tab) 650 mg Q6H PRN PO PAIN LEVEL 1-3 OR FEVER Last administered on 08/23/17 19:46; Admin Dose 650 MG; Start 08/23/17 at 12:00 Acetaminophen (Tylenol Supp) 650 mg Q6H PRN [place] PAIN LEVEL 1-3 OR FEVER; Start 08/23/17 at 12:00 Acetaminophen/ Hydrocodone Bitart ([place] (5/325)) 1 tab Q6H PRN PO MODERATE PAIN LEVEL 4-6; Start 08/23/17 at 12:00 Acetaminophen/ Hydrocodone Bitart ([place] (5/325)) 2 tab Q6H PRN PO SEVERE PAIN LEVEL 7-10; Start 08/23/17 at 12:00 Morphine Sulfate (morphine) 2 mg Q4H PRN IV SEVERE PAIN LEVEL 7-10; Start at 12:00 Docusate Sodium (Colace) 100 mg Q12H PRN PO CONSTIPATION; Start 08/23/17 at 12 :00 Magnesium Hydroxide (Milk Of Mag) 30 ml DAILY PRN PO CONSTIPATION; Start 08/23 at 12:00 Bisacodyl (Dulcolax Supp) 10 mg DAILY PRN [place] CONSTIPATION; Start 08/23/17 at 12:00 Diagnostic Test (Pha) (Accu-Chek) 1 ea 02 XX Last administered on 08/26/17 02: 43; Admin Dose 1 EA; Start 08/25/17 at 02:00 Miscellaneous Information 1 ea NOTE XX ; Start 08/24/17 at 06:30 Glucose (Glutose) 15 gm Q15M PRN PO DECREASED GLUCOSE; Start 08/24/17 at 06:30 Glucose (Glutose) 22.5 gm Q15M PRN PO DECREASED GLUCOSE; Start 08/24/17 at 06: 30 Dextrose (D50w Syringe) 25 ml Q15M PRN IV DECREASED GLUCOSE; Start 08/24/17 at 06:30 Dextrose (D50w Syringe) 50 ml Q15M PRN IV DECREASED GLUCOSE; Start 08/24/17 at 06:30 Glucagon (Glucagen) 1 mg Q15M PRN IM DECREASED GLUCOSE; Start 08/24/17 at 06: 30 Glucose (Glutose) 15 gm Q15M PRN BUCCAL DECREASED GLUCOSE; Start 08/24/17 at 06:30 Hydralazine HCl 10 mg 10 mg Q6H PRN IV ELEVATED BLOOD PRESSURE Last administered on 08/25/17t 20:42; Admin Dose 10 MG; Start 08/25/17 at 20:30 Ertapenem/Sodium Chloride (Invanz/NS) 100 ml @ 200 mls/hr Q24H IVPB ; Start at 14:30; Status UNV PETRA VERONICA NP Aug 27, 2017 14:34
[2017-08-27 15:10] VITALS: BP 190/81; RESP 20
[2017-08-27] MEDS: ERTAPENEM SODIUM 1 GM in SOD CHLORIDE 0.9% 100 ML IVPB SCH (16:25)
--- NOTE | 2017-08-27 17:24 | CONS ---
Date/Time of Note Date/Time of Note DATE: 08/27/17 TIME: 17:22 Assessment/Plan Assessment/Plan Chief Complaint/Hosp Course 61-year-old female with history of GERD, dysrhythmia, hypertension, diabetes, end-stage renal disease status post renal transplant who came to [facility] after reports of one day duration with associated diarrhea , dysuria, and fever. pt was febrile in ED. she was noted to have elevated Cr 1.92 on admission, Renal has been consulted for [place] and management of immunosuppression Problems: Additional Assessment/Plan 1. Acute kidney injury due to prerenal azotemia + ATN From sepsis 2. Sepsis, cultures has been negative, no urine cx available 3. H/o Kidney transplant on immunosuppression 4. HTN 5. Type II DM 6. Obesity 7. Hyperlipidemia Plan: IV abx cefepime and vancomycin for Sepsis, blood cx no growth to date-, Renally dose all abx Continue Prograf 1 mg BID and myfortic for immunosuppresion, no signs of prograf toxicity at this point Cr improving, 1/2NS at 75 cc/hr x 2 liter then stop it - expecting Cr to improve with IVF hydration and IV abx treatment Magnesium sulfate 1 gram IV x 1 for low Mag Monitor electrolytes and replace as needed will follow up Consultation Date/Type/Reason Admit Date/Time Aug 23, 2017 at 11:17 Initial Consult Date 08/23/17 Type of Consultation: NEPHROLOGY Referring Provider: RENETTA LEONG 24 HR Interval Summary Free Text/Dictation gabo cute events, BP stable, cr improving with IVF hydration Exam/Review of Systems Vital Signs Vitals Vital Signs Date Time Temp Pulse Resp B/P Pulse Ox O2 Delivery O2 Flow Rate FiO2 08/27/17 15:10 97.7 67 20 190/81 100 08/23/17 13:15 Room Air Intake and Output 08/26/17 08/26/17 08/27/17 15:00 23:00 07:00 Intake Total 320 ml 1725 ml 805 ml Output Total 1700 ml 1700 ml Balance 320 ml 25 ml -895 ml Exam Constitutional: alert Respiratory: clear to auscultation, diminished breath sounds, normal air movement Cardiovascular: nl pulses, regular rate and rhythm Gastrointestinal: non-tender, other (Renal allograft is ok), soft Musculoskeletal: muscle weakness, nl extremities to inspection, nl gait and stance, range of motion Extremities: normal pulses Neurological: SPECIAL EDUCATION EDUCATIONAL ASSISTANT II-XII intact, nl mental status, nl speech, nl strength Results Result Diagram: 08/27/17 0508 08/27/17 0507 Results 24 hrs Laboratory Tests Test 08/26/17 17:24 08/26/17 21:12 08/27/17 02:22 08/27/17 05:07 Bedside Glucose 168 208 195 Sodium Level 144 Potassium Level 4.6 Chloride Level 110 Carbon Dioxide Level 24 Anion Gap 15 Blood Urea Nitrogen 16 Creatinine 1.00 Glucose Level 189 Calcium Level 8.8 Test 08/27/17 05:08 08/27/17 08:25 08/27/17 12:10 White Blood Count 7.4 Red Blood Count 3.71 L Hemoglobin 9.9 L Hematocrit 33.9 L Mean Corpuscular Volume 91.4 Mean Corpuscular Hemoglobin 26.7 L Mean Corpuscular Hemoglobin Concent 29.2 L Red Cell Distribution Width 13.9 Platelet Count 252 Mean Platelet Volume 10.8 H Neutrophils % 59.1 Lymphocytes % 22.9 Monocytes % 8.0 Eosinophils % 5.8 Basophils % 1.2 Nucleated Red Blood Cells % 0.0 Neutrophils # 4.4 Lymphocytes # 1.7 Monocytes # 0.6 Eosinophils # 0.4 Basophils # 0.1 Nucleated Red Blood Cells # 0.0 Phosphorus Level 2.7 Magnesium Level 1.6 L Bedside Glucose 179 215 Medications Medications Current Medications Aspirin (Halfprin) 81 mg DAILY PO Last administered on 08/27/17 08:31; Admin Dose 81 MG; Start 08/24/17 at 09:00 Clonidine (Catapres) 0.2 mg Q8 PO Last administered on 08/27/17 14:35; Admin Dose 0.2 MG; Start 08/23/17 at 14:00 Gabapentin (Neurontin) 300 mg BID PO Last administered on 08/27/17 08:31; Admin Dose 300 MG; Start 08/23/17 at 21:00 Mycophenolate Sodium (Myfortic) 360 mg Q12 PO Last administered on 08/27/17 08 :29; Admin Dose 360 MG; Start 08/23/17 at 21:00 Pantoprazole (Protonix Tab) 40 mg BID@06,18 PO Last administered on 08/27/17 06:16; Admin Dose 40 MG; Start 08/23/17 at 18:00 Tacrolimus (Prograf) 1 mg Q12 PO Last administered on 08/27/17 08:30; Admin Dose 1 MG; Start 08/23/17 at 21:00 Valsartan (Diovan) 80 mg DAILY PO Last administered on 08/27/17 08:31; Admin Dose 80 MG; Start 08/24/17 at 09:00 Atorvastatin Calcium (Lipitor) 10 mg QHS PO Last administered on 08/26/17 21: 14; Admin Dose 10 MG; Start 08/23/17 at 21:00 Ondansetron HCl (Zofran Inj) 4 mg Q6H PRN IV NAUSEA AND/OR VOMITING; Start at 12:00 Acetaminophen (Tylenol Tab) 650 mg Q6H PRN PO PAIN LEVEL 1-3 OR FEVER Last administered on 08/23/17 19:46; Admin Dose 650 MG; Start 08/23/17 at 12:00 Acetaminophen (Tylenol Supp) 650 mg Q6H PRN [place] PAIN LEVEL 1-3 OR FEVER; Start 08/23/17 at 12:00 Acetaminophen/ Hydrocodone Bitart ([place] (5/325)) 1 tab Q6H PRN PO MODERATE PAIN LEVEL 4-6; Start 08/23/17 at 12:00 Acetaminophen/ Hydrocodone Bitart ([place] (5/325)) 2 tab Q6H PRN PO SEVERE PAIN LEVEL 7-10; Start 08/23/17 at 12:00 Morphine Sulfate (morphine) 2 mg Q4H PRN IV SEVERE PAIN LEVEL 7-10; Start at 12:00 Docusate Sodium (Colace) 100 mg Q12H PRN PO CONSTIPATION; Start 08/23/17 at 12 :00 Magnesium Hydroxide (Milk Of Mag) 30 ml DAILY PRN PO CONSTIPATION; Start 08/23 at 12:00 Bisacodyl (Dulcolax Supp) 10 mg DAILY PRN [place] CONSTIPATION; Start 08/23/17 at 12:00 Diagnostic Test (Pha) (Accu-Chek) 1 ea 02 XX Last administered on 08/26/17 02: 43; Admin Dose 1 EA; Start 08/25/17 at 02:00 Miscellaneous Information 1 ea NOTE XX ; Start 08/24/17 at 06:30 Glucose (Glutose) 15 gm Q15M PRN PO DECREASED GLUCOSE; Start 08/24/17 at 06:30 Glucose (Glutose) 22.5 gm Q15M PRN PO DECREASED GLUCOSE; Start 08/24/17 at 06: 30 Dextrose (D50w Syringe) 25 ml Q15M PRN IV DECREASED GLUCOSE; Start 08/24/17 at 06:30 Dextrose (D50w Syringe) 50 ml Q15M PRN IV DECREASED GLUCOSE; Start 08/24/17 at 06:30 Glucagon (Glucagen) 1 mg Q15M PRN IM DECREASED GLUCOSE; Start 08/24/17 at 06: 30 Glucose (Glutose) 15 gm Q15M PRN BUCCAL DECREASED GLUCOSE; Start 08/24/17 at 06:30 Hydralazine HCl 10 mg 10 mg Q6H PRN IV ELEVATED BLOOD PRESSURE Last administered on 08/25/17 20:42; Admin Dose 10 MG; Start 08/25/17 at 20:30 Ertapenem/Sodium Chloride (Invanz/NS) 100 ml @ 200 mls/hr Q24H IVPB Last administered on 08/27/17 16:25; Admin Dose 200 MLS/HR; Start 08/27/17 at 14:30 REBECA LAIRD MD Aug 27, 2017 17:24
[2017-08-27 17:30] VITALS: BP 159/77; PULSE 70
[2017-08-27] MEDS ORDERED: MAGNESIUM SULFATE 1 GM/D5W 100 ML IVPB ONE (18:30)
[2017-08-27 19:23] VITALS: BP 178/77; RESP 20
[2017-08-27] MEDS: ATORVASTATIN 10 MG TAB PO SCH (21:10)
[2017-08-28] VITALS (7 sets, daily range): BP systolic 116–175; BP diastolic 58–75; PULSE 69; RESP 16–20
[2017-08-28] MEDS: ACCU-CHEK XX SCH (02:00)
[2017-08-28] MEDS: PANTOPRAZOLE (EC) 40 MG TAB PO SCH ×2 (06:12→17:26)
[2017-08-28] MEDS: INSULIN ASPART [NOVOLOG] 3 ML PEN SC SCH ×4 (08:15→20:44)
[2017-08-28] MEDS: GABAPENTIN 300 MG CAP PO SCH ×2 (08:45→20:41)
[2017-08-28] MEDS: MYCOPHENOLATE (SR) 180 MG TAB PO SCH ×2 (08:45→20:40)
[2017-08-28] MEDS: VALSARTAN 80 MG TAB PO SCH ×2 (08:45→20:40)
[2017-08-28] MEDS: ASPIRIN (EC) 81 MG TAB PO SCH (08:45)
[2017-08-28] MEDS: TACROLIMUS 1 MG CAP PO SCH ×2 (08:45→20:40)
--- NOTE | 2017-08-28 09:33 | PN ---
Date/Time of Note Date/Time of Note DATE: 08/28/17 TIME: 09:32 Assessment/Plan VTE Prophylaxis VTE Prophylaxis Intervention: SCD's Lines/Catheters IV C[facility]ter Type (from [facility] [place] Urinary Cath still in place: No Assessment/Plan Chief Complaint/Hosp Course 1. Sepsis with underlying leukocytosis, febrile illness, and urinary tract infection. Urine culture positive for E. coli ESBL and Strep agalactiae. The patient on antimicrobials as per infectious diseases. No evidence of any septic shock. 2. Essential hypertension. Continue antihypertensives. 3. History of renal transplant. Continue immunosuppressants. Patient being followed by nephrology. 4. Dyslipidemia. Continue statins. 5. Diabetes mellitus. Hemoglobin A1c 6.5. Continue sliding scale insulin. 6. Fluids, electrolytes, and nutrition. Carbohydrate controlled diet. 7. DVT prophylaxis. Bilateral SCDs. 8. Plan. Continue antimicrobials as per infectious diseases. Increase antihypertensives to obtain optimal blood pressure control. Await further recommendations from consultants. Case discussed with Dr. Camacho. Problems: Subjective 24 Hr Interval Summary Free Text/Dictation Remains afebrile. Exam/Review of Systems Vital Signs Vitals Vital Signs Date Time Temp Pulse Resp B/P Pulse Ox O2 Delivery O2 Flow Rate FiO2 08/28/17 07:27 98.0 72 16 138/62 98 Intake and Output 08/27/17 08/27/17 08/28/17 15:00 23:00 07:00 Intake Total 50 ml 2520 ml Output Total 1850 ml Balance 50 ml 670 ml Exam General: Morbidly obese 61 year-old female lying in bed in no apparent distress. HEENT: Normocephalic, atraumatic. Eyes: Anicteric sclerae, conjunctivae clear. ENT: Nasal septum midline, oral mucosa moist. Neck supple, no JVD noticed. Respiratory: Bilaterally diminished breath sounds. No use of accessory muscles of respiration. Cardiovascular: S1, S2 heard. No murmurs or gallops. Abdomen: Soft, nontender, and nondistended. Bowel sounds positive in all 4 quadrants. Genitourinary: Deferred. Extremities: No cyanosis, no clubbing, no edema. Peripheral pulses palpable. Neurologic: Cranial nerves II through XII grossly intact. The patient is awake, alert, and oriented. Skin: Normal skin turgor. No skin rashes. Results Result Diagram: 08/28/17 0507 08/28/17 0507 Results 24 hrs Laboratory Tests Test 08/27/17 12:10 08/27/17 17:31 08/27/17 21:00 08/28/17 02:18 Bedside Glucose 215 215 202 218 Test 08/28/17 05:07 08/28/17 07:57 White Blood Count 7.0 Red Blood Count 3.77 L Hemoglobin 10.0 L Hematocrit 34.1 L Mean Corpuscular Volume 90.5 Mean Corpuscular Hemoglobin 26.5 L Mean Corpuscular Hemoglobin Concent 29.3 L Red Cell Distribution Width 13.9 Platelet Count 256 Mean Platelet Volume 10.9 H Neutrophils % 57.8 Lymphocytes % 24.5 Monocytes % 8.0 Eosinophils % 5.3 Basophils % 1.1 Nucleated Red Blood Cells % 0.3 H Neutrophils # 4.1 Lymphocytes # 1.7 Monocytes # 0.6 Eosinophils # 0.4 Basophils # 0.1 Nucleated Red Blood Cells # 0.0 Sodium Level 144 Potassium Level 4.7 Chloride Level 108 Carbon Dioxide Level 27 Anion Gap 14 Blood Urea Nitrogen 15 Creatinine 0.96 Glucose Level 213 Calcium Level 8.8 Phosphorus Level 2.7 Magnesium Level 1.8 Bedside Glucose 190 Medications Medications Current Medications Aspirin (Halfprin) 81 mg DAILY PO Last administered on 08/28/17 08:45; Admin Dose 81 MG; Start 08/24/17 at 09:00 Clonidine (Catapres) 0.2 mg Q8 PO Last administered on 08/27/17 21:10; Admin Dose 0.2 MG; Start 08/23/17 at 14:00 Gabapentin (Neurontin) 300 mg BID PO Last administered on 08/28/17 08:45; Admin Dose 300 MG; Start 08/23/17 at 21:00 Mycophenolate Sodium (Myfortic) 360 mg Q12 PO Last administered on 08/28/17 08 :45; Admin Dose 360 MG; Start 08/23/17 at 21:00 Pantoprazole (Protonix Tab) 40 mg BID@,18 PO Last administered on 08/28/17 06:12; Admin Dose 40 MG; Start 08/23/17 at 18:00 Tacrolimus (Prograf) 1 mg Q12 PO Last administered on 08/28/17 08:45; Admin Dose 1 MG; Start 08/23/17 at 21:00 Valsartan (Diovan) 80 mg DAILY PO Last administered on 08/28/17 08:45; Admin Dose 80 MG; Start 08/24/17 at 09:00 Atorvastatin Calcium (Lipitor) 10 mg QHS PO Last administered on 08/27/17 21: 10; Admin Dose 10 MG; Start 08/23/17 at 21:00 Ondansetron HCl (Zofran Inj) 4 mg Q6H PRN IV NAUSEA AND/OR VOMITING; Start at 12:00 Acetaminophen (Tylenol Tab) 650 mg Q6H PRN PO PAIN LEVEL 1-3 OR FEVER Last administered on 08/23/17 19:46; Admin Dose 650 MG; Start 08/23/17 at 12:00 Acetaminophen (Tylenol Supp) 650 mg Q6H PRN [place] PAIN LEVEL 1-3 OR FEVER; Start 08/23/17 at 12:00 Acetaminophen/ Hydrocodone Bitart ([place] (5/325)) 1 tab Q6H PRN PO MODERATE PAIN LEVEL 4-6; Start 08/23/17 at 12:00 Acetaminophen/ Hydrocodone Bitart ([place] (5/325)) 2 tab Q6H PRN PO SEVERE PAIN LEVEL 7-10; Start 08/23/17 at 12:00 Morphine Sulfate (morphine) 2 mg Q4H PRN IV SEVERE PAIN LEVEL 7-10; Start at 12:00 Docusate Sodium (Colace) 100 mg Q12H PRN PO CONSTIPATION; Start 08/23/17 at 12 :00 Magnesium Hydroxide (Milk Of Mag) 30 ml DAILY PRN PO CONSTIPATION; Start 08/23 at 12:00 Bisacodyl (Dulcolax Supp) 10 mg DAILY PRN [place] CONSTIPATION; Start 08/23/17 at 12:00 Diagnostic Test (Pha) (Accu-Chek) 1 ea 02 XX Last administered on 08/26/17 02: 43; Admin Dose 1 EA; Start 08/25/17 at 02:00 Miscellaneous Information 1 ea NOTE XX ; Start 08/24/17 at 06:30 Glucose (Glutose) 15 gm Q15M PRN PO DECREASED GLUCOSE; Start 08/24/17 at 06:30 Glucose (Glutose) 22.5 gm Q15M PRN PO DECREASED GLUCOSE; Start 08/24/17 at 06: 30 Dextrose (D50w Syringe) 25 ml Q15M PRN IV DECREASED GLUCOSE; Start 08/24/17 at 06:30 Dextrose (D50w Syringe) 50 ml Q15M PRN IV DECREASED GLUCOSE; Start 08/24/17 at 06:30 Glucagon (Glucagen) 1 mg Q15M PRN IM DECREASED GLUCOSE; Start 08/24/17 at 06: 30 Glucose (Glutose) 15 gm Q15M PRN BUCCAL DECREASED GLUCOSE; Start 08/24/17 at 06:30 Hydralazine HCl 10 mg 10 mg Q6H PRN IV ELEVATED BLOOD PRESSURE Last administered on 08/25/17 20:42; Admin Dose 10 MG; Start 08/25/17 at 20:30 Ertapenem/Sodium Chloride (Invanz/NS) 100 ml @ 200 mls/hr Q24H IVPB Last administered on 08/27/17 16:25; Admin Dose 200 MLS/HR; Start 08/27/17 at 14:30 PETRA VERONICA NP Aug 28, 2017 09:33
[2017-08-28] MEDS ORDERED: LIDOCAINE 1% (MPF) 5 ML VIAL SC ONE ×2 (11:00→15:00)
--- NOTE | 2017-08-28 11:04 | CONS ---
Date/Time of Note Date/Time of Note DATE: 08/28/17 TIME: 10:53 Assessment/Plan Assessment/Plan Chief Complaint/Hosp Course 61-year-old female with history of GERD, dysrhythmia, hypertension, diabetes, end-stage renal disease status post renal transplant who came to [facility] after reports of one day duration with associated diarrhea , dysuria, and fever. pt was febrile in ED. she was noted to have elevated Cr 1.92 on admission, Renal has been consulted for LESLEY and management of immunosuppression Problems: Additional Assessment/Plan 1. Acute kidney injury due to prerenal azotemia + ATN From sepsis 2. Sepsis, cultures has been negative, URine cx grew ESBL E coli 3. UTI with Urine cx growing ESBL Ecoli 3. H/o Kidney transplant on immunosuppression 4. HTN 5. Type II DM 6. Obesity 7. Hyperlipidemia Plan: IV abx cefepime and vancomycin for Sepsis, blood cx no growth to date-, Renally dose all abx- Urine cx grew ESBL Ecoli- pt wants to go to SNF, will set up SNF, Picc line placement Continue Prograf 1 mg BID and myfortic for immunosuppresion, no signs of prograf toxicity at this point Cr improved to normal, no more IVF Monitor electrolytes and replace as needed will follow up Consultation Date/Type/Reason Admit Date/Time Aug 23, 2017 at 11:17 Initial Consult Date 08/23/17 Type of Consultation: NEPHROLOGY Referring Provider: RENETTA LEONG Exam/Review of Systems Vital Signs Vitals Vital Signs Date Time Temp Pulse Resp B/P Pulse Ox O2 Delivery O2 Flow Rate FiO2 08/28/17 07:27 98.0 72 16 138/62 98 Intake and Output 08/27/17 08/27/17 08/28/17 15:00 23:00 07:00 Intake Total 50 ml 2520 ml Output Total 1850 ml Balance 50 ml 670 ml Exam Constitutional: alert Respiratory: clear to auscultation, diminished breath sounds, normal air movement Cardiovascular: nl pulses, regular rate and rhythm Gastrointestinal: non-tender, other (Renal allograft is ok), soft Musculoskeletal: muscle weakness, nl extremities to inspection, nl gait and stance, range of motion Extremities: normal pulses Neurological: OFFSET PRINTER II-XII intact, nl mental status, nl speech, nl strength Results Result Diagram: 08/28/17 0507 08/28/17 0507 Results 24 hrs Laboratory Tests Test 08/27/17 12:10 08/27/17 17:31 08/27/17 21:00 08/28/17 02:18 Bedside Glucose 215 215 202 218 Test 08/28/17 05:07 08/28/17 07:57 White Blood Count 7.0 Red Blood Count 3.77 L Hemoglobin 10.0 L Hematocrit 34.1 L Mean Corpuscular Volume 90.5 Mean Corpuscular Hemoglobin 26.5 L Mean Corpuscular Hemoglobin Concent 29.3 L Red Cell Distribution Width 13.9 Platelet Count 256 Mean Platelet Volume 10.9 H Neutrophils % 57.8 Lymphocytes % 24.5 Monocytes % 8.0 Eosinophils % 5.3 Basophils % 1.1 Nucleated Red Blood Cells % 0.3 H Neutrophils # 4.1 Lymphocytes # 1.7 Monocytes # 0.6 Eosinophils # 0.4 Basophils # 0.1 Nucleated Red Blood Cells # 0.0 Sodium Level 144 Potassium Level 4.7 Chloride Level 108 Carbon Dioxide Level 27 Anion Gap 14 Blood Urea Nitrogen 15 Creatinine 0.96 Glucose Level 213 Calcium Level 8.8 Phosphorus Level 2.7 Magnesium Level 1.8 Bedside Glucose 190 Medications Medications Current Medications Aspirin (Halfprin) 81 mg DAILY PO Last administered on 08/28/17 08:45; Admin Dose 81 MG; Start 08/24/17 at 09:00 Clonidine (Catapres) 0.2 mg Q8 PO Last administered on 08/27/17 21:10; Admin Dose 0.2 MG; Start 08/23/17 at 14:00 Gabapentin (Neurontin) 300 mg BID PO Last administered on 08/28/17 08:45; Admin Dose 300 MG; Start 08/23/17 at 21:00 Mycophenolate Sodium (Myfortic) 360 mg Q12 PO Last administered on 08/28/17 08 :45; Admin Dose 360 MG; Start 08/23/17 at 21:00 Pantoprazole (Protonix Tab) 40 mg BID@,18 PO Last administered on 08/28/17 06:12; Admin Dose 40 MG; Start 08/23/17 at 18:00 Tacrolimus (Prograf) 1 mg Q12 PO Last administered on 08/28/17 08:45; Admin Dose 1 MG; Start 08/23/17 at 21:00 Atorvastatin Calcium (Lipitor) 10 mg QHS PO Last administered on 08/27/17 21: 10; Admin Dose 10 MG; Start 08/23/17 at 21:00 Ondansetron HCl (Zofran Inj) 4 mg Q6H PRN IV NAUSEA AND/OR VOMITING; Start at 12:00 Acetaminophen (Tylenol Tab) 650 mg Q6H PRN PO PAIN LEVEL 1-3 OR FEVER Last administered on 08/23/17 19:46; Admin Dose 650 MG; Start 08/23/17 at 12:00 Acetaminophen (Tylenol Supp) 650 mg Q6H PRN [place] PAIN LEVEL 1-3 OR FEVER; Start 08/23/17 at 12:00 Acetaminophen/ Hydrocodone Bitart ([place] (5/325)) 1 tab Q6H PRN PO MODERATE PAIN LEVEL 4-6; Start 08/23/17 at 12:00 Acetaminophen/ Hydrocodone Bitart ([place] (5/325)) 2 tab Q6H PRN PO SEVERE PAIN LEVEL 7-10; Start 08/23/17 at 12:00 Morphine Sulfate (morphine) 2 mg Q4H PRN IV SEVERE PAIN LEVEL 7-10; Start at 12:00 Docusate Sodium (Colace) 100 mg Q12H PRN PO CONSTIPATION; Start 08/23/17 at 12 :00 Magnesium Hydroxide (Milk Of Mag) 30 ml DAILY PRN PO CONSTIPATION; Start 08/23 at 12:00 Bisacodyl (Dulcolax Supp) 10 mg DAILY PRN [place] CONSTIPATION; Start 08/23/17 at 12:00 Diagnostic Test (Pha) (Accu-Chek) 1 ea 02 XX Last administered on 08/26/17 02: 43; Admin Dose 1 EA; Start 08/25/17 at 02:00 Miscellaneous Information 1 ea NOTE XX ; Start 08/24/17 at 06:30 Glucose (Glutose) 15 gm Q15M PRN PO DECREASED GLUCOSE; Start 08/24/17 at 06:30 Glucose (Glutose) 22.5 gm Q15M PRN PO DECREASED GLUCOSE; Start 08/24/17 at 06: 30 Dextrose (D50w Syringe) 25 ml Q15M PRN IV DECREASED GLUCOSE; Start 08/24/17 at 06:30 Dextrose (D50w Syringe) 50 ml Q15M PRN IV DECREASED GLUCOSE; Start 08/24/17 at 06:30 Glucagon (Glucagen) 1 mg Q15M PRN IM DECREASED GLUCOSE; Start 08/24/17 at 06: 30 Glucose (Glutose) 15 gm Q15M PRN BUCCAL DECREASED GLUCOSE; Start 08/24/17 at 06:30 Hydralazine HCl 10 mg 10 mg Q6H PRN IV ELEVATED BLOOD PRESSURE Last administered on 08/25/17 20:42; Admin Dose 10 MG; Start 08/25/17 at 20:30 Ertapenem/Sodium Chloride (Invanz/NS) 100 ml @ 200 mls/hr Q24H IVPB Last administered on 08/27/17 16:25; Admin Dose 200 MLS/HR; Start 08/27/17 at 14:30 Valsartan (Diovan) 80 mg BID PO ; Start 08/28/17 at 21:00 REBECA LAIRD MD Aug 28, 2017 11:03
--- NOTE | 2017-08-28 11:04 | CONS ---
Date/Time of Note Date/Time of Note DATE: 08/28/17 TIME: 10:53 Assessment/Plan Assessment/Plan Chief Complaint/Hosp Course 61-year-old female with history of GERD, dysrhythmia, hypertension, diabetes, end-stage renal disease status post renal transplant who came to [facility] after reports of one day duration with associated diarrhea , dysuria, and fever. pt was febrile in ED. she was noted to have elevated Cr 1.92 on admission, Renal has been consulted for LESLEY and management of immunosuppression Problems: Additional Assessment/Plan 1. Acute kidney injury due to prerenal azotemia + ATN From sepsis 2. Sepsis, cultures has been negative, URine cx grew ESBL E coli 3. UTI with Urine cx growing ESBL Ecoli 3. H/o Kidney transplant on immunosuppression 4. HTN 5. Type II DM 6. Obesity 7. Hyperlipidemia Plan: IV abx cefepime and vancomycin for Sepsis, blood cx no growth to date-, Renally dose all abx- Urine cx grew ESBL Ecoli- pt wants to go to SNF, will set up SNF, Picc line placement Continue Prograf 1 mg BID and myfortic for immunosuppresion, no signs of prograf toxicity at this point Cr improved to normal, no more IVF Monitor electrolytes and replace as needed will follow up Consultation Date/Type/Reason Admit Date/Time Aug 23, 2017 at 11:17 Initial Consult Date 08/23/17 Type of Consultation: NEPHROLOGY Referring Provider: RENETTA LEONG Exam/Review of Systems Vital Signs Vitals Vital Signs Date Time Temp Pulse Resp B/P Pulse Ox O2 Delivery O2 Flow Rate FiO2 08/28/17 07:27 98.0 72 16 138/62 98 Intake and Output 08/27/17 08/27/17 08/28/17 15:00 23:00 07:00 Intake Total 50 ml 2520 ml Output Total 1850 ml Balance 50 ml 670 ml Exam Constitutional: alert Respiratory: clear to auscultation, diminished breath sounds, normal air movement Cardiovascular: nl pulses, regular rate and rhythm Gastrointestinal: non-tender, other (Renal allograft is ok), soft Musculoskeletal: muscle weakness, nl extremities to inspection, nl gait and stance, range of motion Extremities: normal pulses Neurological: GEOGRAPHICAL HISTORIAN II-XII intact, nl mental status, nl speech, nl strength Results Result Diagram: 08/28/17 0507 08/28/17 0507 Results 24 hrs Laboratory Tests Test 08/27/17 12:10 08/27/17 17:31 08/27/17 21:00 08/28/17 02:18 Bedside Glucose 215 215 202 218 Test 08/28/17 05:07 08/28/17 07:57 White Blood Count 7.0 Red Blood Count 3.77 L Hemoglobin 10.0 L Hematocrit 34.1 L Mean Corpuscular Volume 90.5 Mean Corpuscular Hemoglobin 26.5 L Mean Corpuscular Hemoglobin Concent 29.3 L Red Cell Distribution Width 13.9 Platelet Count 256 Mean Platelet Volume 10.9 H Neutrophils % 57.8 Lymphocytes % 24.5 Monocytes % 8.0 Eosinophils % 5.3 Basophils % 1.1 Nucleated Red Blood Cells % 0.3 H Neutrophils # 4.1 Lymphocytes # 1.7 Monocytes # 0.6 Eosinophils # 0.4 Basophils # 0.1 Nucleated Red Blood Cells # 0.0 Sodium Level 144 Potassium Level 4.7 Chloride Level 108 Carbon Dioxide Level 27 Anion Gap 14 Blood Urea Nitrogen 15 Creatinine 0.96 Glucose Level 213 Calcium Level 8.8 Phosphorus Level 2.7 Magnesium Level 1.8 Bedside Glucose 190 Medications Medications Current Medications Aspirin (Halfprin) 81 mg DAILY PO Last administered on 08/28/17 08:45; Admin Dose 81 MG; Start 08/24/17 at 09:00 Clonidine (Catapres) 0.2 mg Q8 PO Last administered on 08/27/17 21:10; Admin Dose 0.2 MG; Start 08/23/17 at 14:00 Gabapentin (Neurontin) 300 mg BID PO Last administered on 08/28/17 08:45; Admin Dose 300 MG; Start 08/23/17 at 21:00 Mycophenolate Sodium (Myfortic) 360 mg Q12 PO Last administered on 08/28/17 08 :45; Admin Dose 360 MG; Start 08/23/17 at 21:00 Pantoprazole (Protonix Tab) 40 mg BID@,18 PO Last administered on 08/28/17 06:12; Admin Dose 40 MG; Start 08/23/17 at 18:00 Tacrolimus (Prograf) 1 mg Q12 PO Last administered on 08/28/17 08:45; Admin Dose 1 MG; Start 08/23/17 at 21:00 Atorvastatin Calcium (Lipitor) 10 mg QHS PO Last administered on 08/27/17 21: 10; Admin Dose 10 MG; Start 08/23/17 at 21:00 Ondansetron HCl (Zofran Inj) 4 mg Q6H PRN IV NAUSEA AND/OR VOMITING; Start at 12:00 Acetaminophen (Tylenol Tab) 650 mg Q6H PRN PO PAIN LEVEL 1-3 OR FEVER Last administered on 08/23/17 19:46; Admin Dose 650 MG; Start 08/23/17 at 12:00 Acetaminophen (Tylenol Supp) 650 mg Q6H PRN [place] PAIN LEVEL 1-3 OR FEVER; Start 08/23/17 at 12:00 Acetaminophen/ Hydrocodone Bitart ([place] (5/325)) 1 tab Q6H PRN PO MODERATE PAIN LEVEL 4-6; Start 08/23/17 at 12:00 Acetaminophen/ Hydrocodone Bitart ([place] (5/325)) 2 tab Q6H PRN PO SEVERE PAIN LEVEL 7-10; Start 08/23/17 at 12:00 Morphine Sulfate (morphine) 2 mg Q4H PRN IV SEVERE PAIN LEVEL 7-10; Start at 12:00 Docusate Sodium (Colace) 100 mg Q12H PRN PO CONSTIPATION; Start 08/23/17 at 12 :00 Magnesium Hydroxide (Milk Of Mag) 30 ml DAILY PRN PO CONSTIPATION; Start 08/23 at 12:00 Bisacodyl (Dulcolax Supp) 10 mg DAILY PRN [place] CONSTIPATION; Start 08/23/17 at 12:00 Diagnostic Test (Pha) (Accu-Chek) 1 ea 02 XX Last administered on 08/26/17 02: 43; Admin Dose 1 EA; Start 08/25/17 at 02:00 Miscellaneous Information 1 ea NOTE XX ; Start 08/24/17 at 06:30 Glucose (Glutose) 15 gm Q15M PRN PO DECREASED GLUCOSE; Start 08/24/17 at 06:30 Glucose (Glutose) 22.5 gm Q15M PRN PO DECREASED GLUCOSE; Start 08/24/17 at 06: 30 Dextrose (D50w Syringe) 25 ml Q15M PRN IV DECREASED GLUCOSE; Start 08/24/17 at 06:30 Dextrose (D50w Syringe) 50 ml Q15M PRN IV DECREASED GLUCOSE; Start 08/24/17 at 06:30 Glucagon (Glucagen) 1 mg Q15M PRN IM DECREASED GLUCOSE; Start 08/24/17 at 06: 30 Glucose (Glutose) 15 gm Q15M PRN BUCCAL DECREASED GLUCOSE; Start 08/24/17 at 06:30 Hydralazine HCl 10 mg 10 mg Q6H PRN IV ELEVATED BLOOD PRESSURE Last administered on 08/25/17 20:42; Admin Dose 10 MG; Start 08/25/17 at 20:30 Ertapenem/Sodium Chloride (Invanz/NS) 100 ml @ 200 mls/hr Q24H IVPB Last administered on 08/27/17 16:25; Admin Dose 200 MLS/HR; Start 08/27/17 at 14:30 Valsartan (Diovan) 80 mg BID PO ; Start 08/28/17 at 21:00 REBECA LAIRD MD Aug 28, 2017 11:03
--- NOTE | 2017-08-28 13:55 | CONS ---
Date/Time of Note Date/Time of Note DATE: 08/28/17 TIME: 13:54 Consult Date/Type/Reason Admit Date/Time Aug 23, 2017 at 11:17 Initial Consult Date 08/23/17 Type of Consultation: ID Ordering Provider: RENETTA LEONG Objective Vital Signs Date Time Temp Pulse Resp B/P Pulse Ox O2 Delivery O2 Flow Rate FiO2 08/28/17 07:27 98.0 72 16 138/62 98 Intake and Output 08/27/17 08/27/17 08/28/17 15:00 23:00 07:00 Intake Total 50 ml 2520 ml Output Total 1850 ml Balance 50 ml 670 ml Results/Medications Result Diagram: 08/28/17 0507 08/28/17 0507 Results 24 hrs Laboratory Tests Test 08/27/17 17:31 08/27/17 21:00 08/28/17 02:18 08/28/17 05:01 Bedside Glucose 215 202 218 Iron Level 46 Total Iron Binding Capacity 273 Percent Iron Saturation 17 L Test 08/28/17 05:07 08/28/17 07:57 08/28/17 12:28 White Blood Count 7.0 Red Blood Count 3.77 L Hemoglobin 10.0 L Hematocrit 34.1 L Mean Corpuscular Volume 90.5 Mean Corpuscular Hemoglobin 26.5 L Mean Corpuscular Hemoglobin Concent 29.3 L Red Cell Distribution Width 13.9 Platelet Count 256 Mean Platelet Volume 10.9 H Neutrophils % 57.8 Lymphocytes % 24.5 Monocytes % 8.0 Eosinophils % 5.3 Basophils % 1.1 Nucleated Red Blood Cells % 0.3 H Neutrophils # 4.1 Lymphocytes # 1.7 Monocytes # 0.6 Eosinophils # 0.4 Basophils # 0.1 Nucleated Red Blood Cells # 0.0 Sodium Level 144 Potassium Level 4.7 Chloride Level 108 Carbon Dioxide Level 27 Anion Gap 14 Blood Urea Nitrogen 15 Creatinine 0.96 Glucose Level 213 Calcium Level 8.8 Phosphorus Level 2.7 Magnesium Level 1.8 Bedside Glucose 190 273 H Medications Current Medications Aspirin (Halfprin) 81 mg DAILY PO Last administered on 08/28/17 08:45; Admin Dose 81 MG; Start 08/24/17 at 09:00 Clonidine (Catapres) 0.2 mg Q8 PO Last administered on 08/27/17 21:10; Admin Dose 0.2 MG; Start 08/23/17 at 14:00 Gabapentin (Neurontin) 300 mg BID PO Last administered on 08/28/17 08:45; Admin Dose 300 MG; Start 08/23/17 at 21:00 Mycophenolate Sodium (Myfortic) 360 mg Q12 PO Last administered on 08/28/17 08 :45; Admin Dose 360 MG; Start 08/23/17 at 21:00 Pantoprazole (Protonix Tab) 40 mg BID@06,18 PO Last administered on 08/28/17 06:12; Admin Dose 40 MG; Start 08/23/17 at 18:00 Tacrolimus (Prograf) 1 mg Q12 PO Last administered on 08/28/17 08:45; Admin Dose 1 MG; Start 08/23/17 at 21:00 Atorvastatin Calcium (Lipitor) 10 mg QHS PO Last administered on 08/27/17 21: 10; Admin Dose 10 MG; Start 08/23/17 at 21:00 Ondansetron HCl (Zofran Inj) 4 mg Q6H PRN IV NAUSEA AND/OR VOMITING; Start at 12:00 Acetaminophen (Tylenol Tab) 650 mg Q6H PRN PO PAIN LEVEL 1-3 OR FEVER Last administered on 08/23/17 19:46; Admin Dose 650 MG; Start 08/23/17 at 12:00 Acetaminophen (Tylenol Supp) 650 mg Q6H PRN [place] PAIN LEVEL 1-3 OR FEVER; Start 08/23/17 at 12:00 Acetaminophen/ Hydrocodone Bitart ([place] (5/325)) 1 tab Q6H PRN PO MODERATE PAIN LEVEL 4-6; Start 08/23/17 at 12:00 Acetaminophen/ Hydrocodone Bitart ([place] (5/325)) 2 tab Q6H PRN PO SEVERE PAIN LEVEL 7-10; Start 08/23/17 at 12:00 Morphine Sulfate (morphine) 2 mg Q4H PRN IV SEVERE PAIN LEVEL 7-10; Start at 12:00 Docusate Sodium (Colace) 100 mg Q12H PRN PO CONSTIPATION; Start 08/23/17 at 12 :00 Magnesium Hydroxide (Milk Of Mag) 30 ml DAILY PRN PO CONSTIPATION; Start 08/23 at 12:00 Bisacodyl (Dulcolax Supp) 10 mg DAILY PRN [place] CONSTIPATION; Start 08/23/17 at 12:00 Diagnostic Test (Pha) (Accu-Chek) 1 ea 02 XX Last administered on 08/26/17 02: 43; Admin Dose 1 EA; Start 08/25/17 at 02:00 Miscellaneous Information 1 ea NOTE XX ; Start 08/24/17 at 06:30 Glucose (Glutose) 15 gm Q15M PRN PO DECREASED GLUCOSE; Start 08/24/17 at 06:30 Glucose (Glutose) 22.5 gm Q15M PRN PO DECREASED GLUCOSE; Start 08/24/17 at 06: 30 Dextrose (D50w Syringe) 25 ml Q15M PRN IV DECREASED GLUCOSE; Start 08/24/17 at 06:30 Dextrose (D50w Syringe) 50 ml Q15M PRN IV DECREASED GLUCOSE; Start 08/24/17 at 06:30 Glucagon (Glucagen) 1 mg Q15M PRN IM DECREASED GLUCOSE; Start 08/24/17 at 06: 30 Glucose (Glutose) 15 gm Q15M PRN BUCCAL DECREASED GLUCOSE; Start 08/24/17 at 06:30 Hydralazine HCl 10 mg 10 mg Q6H PRN IV ELEVATED BLOOD PRESSURE Last administered on 08/25/17 20:42; Admin Dose 10 MG; Start 08/25/17 at 20:30 Ertapenem/Sodium Chloride (Invanz/NS) 100 ml @ 200 mls/hr Q24H IVPB Last administered on 08/27/17 16:25; Admin Dose 200 MLS/HR; Start 08/27/17 at 14:30 Valsartan (Diovan) 80 mg BID PO ; Start 08/28/17 at 21:00 Assessment/Plan Chief Complaint/Hosp Course SUBJECTIVE: No acute changes. No fevers. The patient is awake, feels better. ANTIMICROBIALS: Invanz MICROBIOLOGY: Urine culture growing E coli ESBL/Strep. Blood cultures negative. Stool for C. diff negative. PHYSICAL EXAMINATION: GENERAL: This is an obese, well-developed, elderly woman who is in no distress. HEENT: Head atraumatic, normocephalic. Sclerae anicteric. Buccal mucosa dry. NECK: Supple. CHEST: Rise symmetrical. Breath sounds diminished to bases. HEART: S1, S2. ABDOMEN: Soft, bowel tones present. EXTREMITIES: Without cyanosis. ASSESSMENT: 1. S/p sepsis with fevers, leukocytosis and tachycardia on admission. 2. Urinary tract infection. 3. Acute kidney injury, possibly on chronic kidney disease. 4. Obesity. 5. Diabetes. 6. Hx kidney tx PLAN: The patient remains stable. Continue on current abx for 6 more days DW staff/pt Problems: MICHAEL SETHI NP Aug 28, 2017 13:55
[2017-08-28] MEDS: ERTAPENEM SODIUM 1 GM in SOD CHLORIDE 0.9% 100 ML IVPB SCH (14:47)
--- NOTE | 2017-08-28 16:28 | RADRPT ---
PROCEDURE: US guidance for PICC line CLINICAL INDICATION: PICC line placement TECHNIQUE: Multiple real-time images were acquired of the patient's arm utilizing a high resolutio n transducer. This was performed by the PICC line nurse for venous access. COMPARISON: None FINDINGS: Ultrasound guidance for PICC line placement. IMPRESSION: Ultrasound guidance for PICC line placement. RPTAT: AA .Hector Toussaint MD, MD Date Time Electronically viewed and signed by .Hector Toussaint MD, on 08/28/2017 16:28 .S/
--- NOTE | 2017-08-28 17:37 | RADRPT ---
PROCEDURE: XR Chest. CLINICAL INDICATION: Check PICC line position. TECHNIQUE: Single frontal view. COMPARISON: 08/25/2017 FINDINGS: There is a right arm PICC line with the tip in the lower superior vena cava. There is mild pulmonar y edema. The lungs are otherwise clear. The heart is enlarged. There is calcification in the aorta consistent with atherosclerosis. There is no pleural effusion. There is no pneumothorax. IMPRESSION: 1. Right arm PICC line tip in satisfactory position. 2. Mild pulmonary edema. 3. Cardiomegaly and atherosclerosis. 4. Otherwise unremarkable chest radiograph. RPTAT: QQ .Zhao Mendez MD, MD Date Time Electronically viewed and signed by .Zhao Mendez MD, MD on 08/28/2017 17:36 .R/
[2017-08-28] MEDS: ATORVASTATIN 10 MG TAB PO SCH (20:40)
[2017-08-29] MEDS: ACCU-CHEK XX SCH (02:05)
[2017-08-29 02:07] VITALS: BP 123/58; RESP 20
[2017-08-29] MEDS: PANTOPRAZOLE (EC) 40 MG TAB PO SCH ×2 (05:40→17:10)
[2017-08-29] MEDS ORDERED: INSULIN GLARGINE [LANtus] 3 ML PEN SC SCH (08:00)
[2017-08-29] MEDS: VALSARTAN 80 MG TAB PO SCH (08:04)
[2017-08-29] MEDS: ASPIRIN (EC) 81 MG TAB PO SCH (08:04)
[2017-08-29] MEDS: GABAPENTIN 300 MG CAP PO SCH (08:04)
[2017-08-29] MEDS: TACROLIMUS 1 MG CAP PO SCH (08:05)
[2017-08-29] MEDS: MYCOPHENOLATE (SR) 180 MG TAB PO SCH (08:05)
[2017-08-29] MEDS: INSULIN ASPART [NOVOLOG] 3 ML PEN SC SCH ×6 (08:09→17:22)
[2017-08-29 08:12] VITALS: BP 132/62; RESP 16
--- NOTE | 2017-08-29 12:12 | CONS ---
Date/Time of Note Date/Time of Note DATE: 08/29/17 TIME: 12:06 Assessment/Plan Assessment/Plan Chief Complaint/Hosp Course 61-year-old female with history of GERD, dysrhythmia, hypertension, diabetes, end-stage renal disease status post renal transplant who came to [facility] after reports of one day duration with associated diarrhea , dysuria, and fever. pt was febrile in ED. she was noted to have elevated Cr 1.92 on admission, Renal has been consulted for LESLEY and management of immunosuppression Problems: Additional Assessment/Plan 1. Acute kidney injury due to prerenal azotemia + ATN From sepsis 2. Sepsis, cultures has been negative, URine cx grew ESBL E coli 3. UTI with Urine cx growing ESBL Ecoli 3. H/o Kidney transplant on immunosuppression 4. HTN 5. Type II DM 6. Obesity 7. Hyperlipidemia Plan: IV abx cefepime and vancomycin for Sepsis, blood cx no growth to date-, Renally dose all abx- Urine cx grew ESBL Ecoli- s/p PICC line placement, will plan for D /c to SNF today if ok with hospitalist team Continue Prograf 1 mg BID and myfortic for immunosuppresion, no signs of prograf toxicity at this point Cr improved to normal, no more IVF Monitor electrolytes and replace as needed will follow up Consultation Date/Type/Reason Admit Date/Time Aug 23, 2017 at 11:17 Initial Consult Date 08/23/17 Type of Consultation: NEPHROLOGY Referring Provider: RENETTA LEONG 24 HR Interval Summary Free Text/Dictation no acute events, Cr normal, BP stable, Exam/Review of Systems Vital Signs Vitals Vital Signs Date Time Temp Pulse Resp B/P Pulse Ox O2 Delivery O2 Flow Rate FiO2 08/29/17 08:12 98.0 67 16 132/62 93 Intake and Output 08/28/17 08/28/17 08/29/17 15:00 23:00 07:00 Intake Total 830 ml 1720 ml Output Total 2600 ml 850 ml Balance -1770 ml 870 ml Exam Constitutional: alert Respiratory: clear to auscultation, diminished breath sounds, normal air movement Cardiovascular: nl pulses, regular rate and rhythm Gastrointestinal: non-tender, other (Renal allograft is ok), soft Musculoskeletal: muscle weakness, nl extremities to inspection, nl gait and stance, range of motion Extremities: normal pulses Neurological: SOCIAL SERVICES ANALYST II-XII intact, nl mental status, nl speech, nl strength Results Result Diagram: 08/29/1737 08/29/1737 Results 24 hrs Laboratory Tests Test 08/28/17 12:28 08/28/17 17:07 08/28/17 17:45 08/28/17 20:32 Bedside Glucose 273 H 281 H 310 H 305 H Test 08/29/17 02:03 08/29/17 05:37 08/29/17 07:52 Bedside Glucose 234 H 254 H White Blood Count 8.7 # Red Blood Count 3.67 L Hemoglobin 10.2 L Hematocrit 33.8 L Mean Corpuscular Volume 92.1 Mean Corpuscular Hemoglobin 27.8 L Mean Corpuscular Hemoglobin Concent 30.2 L Red Cell Distribution Width 13.9 Platelet Count 245 Mean Platelet Volume 10.9 H Neutrophils % 56.9 Lymphocytes % 27.3 Monocytes % 7.5 Eosinophils % 3.8 Basophils % 0.9 Nucleated Red Blood Cells % 0.0 Neutrophils # 4.9 Lymphocytes # 2.4 Monocytes # 0.7 Eosinophils # 0.3 Basophils # 0.1 Nucleated Red Blood Cells # 0.0 Sodium Level 141 Potassium Level 4.4 Chloride Level 107 Carbon Dioxide Level 26 Anion Gap 12 Blood Urea Nitrogen 16 Creatinine 1.04 H Glucose Level 238 H Calcium Level 8.8 Phosphorus Level 3.0 Magnesium Level 1.7 Medications Medications Current Medications Aspirin (Halfprin) 81 mg DAILY PO Last administered on 08/29/17 08:04; Admin Dose 81 MG; Start 08/24/17 at 09:00 Clonidine (Catapres) 0.2 mg Q8 PO Last administered on 08/29/17 05:40; Admin Dose 0.2 MG; Start 08/23/17 at 14:00 Gabapentin (Neurontin) 300 mg BID PO Last administered on 08/29/17 08:04; Admin Dose 300 MG; Start 08/23/17 at 21:00 Mycophenolate Sodium (Myfortic) 360 mg Q12 PO Last administered on 08/29/17 08 :05; Admin Dose 360 MG; Start 08/23/17 at 21:00 Pantoprazole (Protonix Tab) 40 mg BID@06,18 PO Last administered on 08/29/17 05:40; Admin Dose 40 MG; Start 08/23/17 at 18:00 Tacrolimus (Prograf) 1 mg Q12 PO Last administered on 08/29/17 08:05; Admin Dose 1 MG; Start 08/23/17 at 21:00 Atorvastatin Calcium (Lipitor) 10 mg QHS PO Last administered on 08/28/17 20: 40; Admin Dose 10 MG; Start 08/23/17 at 21:00 Ondansetron HCl (Zofran Inj) 4 mg Q6H PRN IV NAUSEA AND/OR VOMITING; Start at 12:00 Acetaminophen (Tylenol Tab) 650 mg Q6H PRN PO PAIN LEVEL 1-3 OR FEVER Last administered on 08/23/17 19:46; Admin Dose 650 MG; Start 08/23/17 at 12:00 Acetaminophen (Tylenol Supp) 650 mg Q6H PRN CO PAIN LEVEL 1-3 OR FEVER; Start 08/23/17 at 12:00 Acetaminophen/ Hydrocodone Bitart ([place] (5/325)) 1 tab Q6H PRN PO MODERATE PAIN LEVEL 4-6; Start 08/23/17 at 12:00 Acetaminophen/ Hydrocodone Bitart ([place] (5/325)) 2 tab Q6H PRN PO SEVERE PAIN LEVEL 7-10; Start 08/23/17 at 12:00 Morphine Sulfate (morphine) 2 mg Q4H PRN IV SEVERE PAIN LEVEL 7-10; Start at 12:00 Docusate Sodium (Colace) 100 mg Q12H PRN PO CONSTIPATION; Start 08/23/17 at 12 :00 Magnesium Hydroxide (Milk Of Mag) 30 ml DAILY PRN PO CONSTIPATION; Start 08/23 at 12:00 Bisacodyl (Dulcolax Supp) 10 mg DAILY PRN CO CONSTIPATION; Start 08/23/17 at 12:00 Diagnostic Test (Pha) (Accu-Chek) 1 ea 02 XX Last administered on 08/29/17 02: 05; Admin Dose 1 EA; Start 08/25/17 at 02:00 Miscellaneous Information 1 ea NOTE XX ; Start 08/24/17 at 06:30 Glucose (Glutose) 15 gm Q15M PRN PO DECREASED GLUCOSE; Start 08/24/17 at 06:30 Glucose (Glutose) 22.5 gm Q15M PRN PO DECREASED GLUCOSE; Start 08/24/17 at 06: 30 Dextrose (D50w Syringe) 25 ml Q15M PRN IV DECREASED GLUCOSE; Start 08/24/17 at 06:30 Dextrose (D50w Syringe) 50 ml Q15M PRN IV DECREASED GLUCOSE; Start 08/24/17 at 06:30 Glucagon (Glucagen) 1 mg Q15M PRN IM DECREASED GLUCOSE; Start 08/24/17 at 06: 30 Glucose (Glutose) 15 gm Q15M PRN BUCCAL DECREASED GLUCOSE; Start 08/24/17 at 06:30 Hydralazine HCl 10 mg 10 mg Q6H PRN IV ELEVATED BLOOD PRESSURE Last administered on 08/25/17 20:42; Admin Dose 10 MG; Start 08/25/17 at 20:30 Ertapenem/Sodium Chloride (Invanz/NS) 100 ml @ 200 mls/hr Q24H IVPB Last administered on 08/28/17 14:47; Admin Dose 200 MLS/HR; Start 08/27/17 at 14:30 Valsartan (Diovan) 80 mg BID PO Last administered on 08/29/17 08:04; Admin Dose 80 MG; Start 08/28/17 at 21:00 IV Flush (NS 10 ml) 10 ml PRN PRN IV FLUSH LINE; Start 08/28/17 at 16:30 Insulin Glargine (Lantus) 17 unit DAILY@08 SC Last administered on 08/29/17 08 :40; Admin Dose 17 UNIT; Start 08/29/17 at 08:00 REBECA LAIRD MD Aug 29, 2017 12:12
--- NOTE | 2017-08-29 12:45 | PDOCDIS ---
Discharge Instructions DIAGNOSIS Discharge Diagnosis Sepsis secondary to underlying urinary tract infection. CONDITION Patient Condition: Stable HOME CARE INSTRUCTIONS: Special Diet: Carb control ACTIVITY: Activity Restrictions: Slowly Increase Activity OTHER ORDERS: Other Orders: 1. Take medications as per medication list 2. Follow a carbohydrate controlled diet. 3. Follow-up with PETRA Smyth NP Aug 29, 2017 12:45
[2017-08-29] MEDS ORDERED: LANT3I SC (12:47)
[2017-08-29] MEDS ORDERED: VALS80TA2 PO (12:47)
--- NOTE | 2017-08-29 14:25 | DS ---
Date/Time of Note Date/Time of Note DATE: 08/29/17 TIME: 14:25 Discharge Summary Admission/Discharge Info Discharge Date/Time Home Meds Active Scripts Valsartan* (Diovan*) 80 Mg Tablet, 80 MG PO BID, #60 TAB Prov:PETRA VERONICA BORDER MEASURER AND CUTTER 08/29/17 Insulin Glargine* (Lantus*) 100 Unit/Ml Soln, 17 UNIT SC DAILY@08, #1 VIAL Prov:PETRA VERONICA NP 08/29/17 Reported Medications Insulin Aspart* (Novolog Insulin Pen*) 100 Unit/Ml Soln, 8 UNIT SC WITH MEALS, EA 08/23/17 Docusate Sodium* (Colace*) 250 Mg Capsule, 250 MG PO NEEDED, #30 CAP 08/23/17 Gabapentin* (Gabapentin*) 300 Mg Capsule, 300 MG PO BID, #60 CAP 08/23/17 Sitagliptin* (Januvia*) 50 Mg Tablet, 50 MG PO DAILY, #30 TAB 08/23/17 Simvastatin* (Zocor*) 10 Mg Tablet, 10 MG PO QHS, #30 TAB 08/23/17 Aspirin* (Aspirin* EC) 81 Mg Tablet.dr, 81 MG PO DAILY, TAB 08/23/17 Clonidine Hcl* (Clonidine Hcl*) 0.2 Mg Tablet, 0.2 MG PO Q8, TAB HOLD IF BPS LESS THAN 110 08/23/17 Pantoprazole* (Protonix*) 40 Mg Tablet.dr, 40 MG PO BID, TAB 08/23/17 Mycophenolate Sodium* (Myfortic*) 180 Mg Tab, 360 MG PO Q12, TAB 08/23/17 Tacrolimus* (Prograf*) 1 Mg Capsule, 1 MG PO Q12, CAP 08/23/17 Discontinued Reported Medications Insulin Degludec (Tresiba Flextouch U-100) 100 Unit/1 Ml Insuln.pen, 40 UNIT SQ QHS 08/23/17 Furosemide* (Lasix*) 20 Mg Tablet, 20 MG PO BID, TAB 08/23/17 Valsartan* (Diovan*) 80 Mg Tablet, 80 MG PO DAILY, TAB HOLD IF BPS LESS THAN 110 08/23/17 Pending Labs PETRA VERONICA BORDER MEASURER AND CUTTER Aug 29, 2017 14:25 Home Meds Active Scripts Valsartan* (Diovan*) 80 Mg Tablet, 80 MG PO BID, #60 TAB Prov:PETRA VERONICA BORDER MEASURER AND CUTTER 08/29/17 Insulin Glargine* (Lantus*) 100 Unit/Ml Soln, 17 UNIT SC DAILY@08, #1 VIAL Prov:PETRA VERONICA BORDER MEASURER AND CUTTER 08/29/17 Reported Medications Insulin Aspart* (Novolog Insulin Pen*) 100 Unit/Ml Soln, 8 UNIT SC WITH MEALS, EA 08/23/17 Docusate Sodium* (Colace*) 250 Mg Capsule, 250 MG PO NEEDED, #30 CAP 08/23/17 Gabapentin* (Gabapentin*) 300 Mg Capsule, 300 MG PO BID, #60 CAP 08/23/17 Sitagliptin* (Januvia*) 50 Mg Tablet, 50 MG PO DAILY, #30 TAB 08/23/17 Simvastatin* (Zocor*) 10 Mg Tablet, 10 MG PO QHS, #30 TAB 08/23/17 Aspirin* (Aspirin* EC) 81 Mg Tablet.dr, 81 MG PO DAILY, TAB 08/23/17 Clonidine Hcl* (Clonidine Hcl*) 0.2 Mg Tablet, 0.2 MG PO Q8, TAB HOLD IF BPS LESS THAN 110 08/23/17 Pantoprazole* (Protonix*) 40 Mg Tablet.dr, 40 MG PO BID, TAB 08/23/17 Mycophenolate Sodium* (Myfortic*) 180 Mg Tab, 360 MG PO Q12, TAB 08/23/17 Tacrolimus* (Prograf*) 1 Mg Capsule, 1 MG PO Q12, CAP 08/23/17 Discontinued Reported Medications Insulin Degludec (Tresiba Flextouch U-100) 100 Unit/1 Ml Insuln.pen, 40 UNIT SQ QHS 08/23/17 Furosemide* (Lasix*) 20 Mg Tablet, 20 MG PO BID, TAB 08/23/17 Valsartan* (Diovan*) 80 Mg Tablet, 80 MG PO DAILY, TAB HOLD IF BPS LESS THAN 110 08/23/17 Docusate Sodium* (Colace*) 250 Mg Capsule, 250 MG PO DAILY Y for CONSTIPATION, CAP 10/24/14 Simvastatin (Simvastatin) 10 Mg Tablet, 10 MG PO HS, TAB 07/21/14 Aspirin* (Aspirin* EC) 81 Mg Tablet.dr, 81 MG PO DAILY, TAB 07/21/14 Pantoprazole* (Pantoprazole*) 40 Mg Tablet.dr, 40 MG PO BID, TAB 07/21/14 Mycophenolate Sodium* (Mycophenolic Acid*) 180 Mg Tablet.dr, 720 MG PO BID, TAB 07/21/14 Sitagliptin* (Januvia*) 50 Mg Tablet, 50 MG PO DAILY, TAB 07/21/14 Prednisone* (Prednisone*) 2.5 Mg Tablet, 2.5 MG PO DAILY, TAB 07/21/14 Gabapentin* (Gabapentin*) 300 Mg Capsule, 300 MG PO HS, CAP 07/21/14 Tacrolimus* (Tacrolimus*) 1 Mg Capsule, 2 MG PO BID, CAP 07/21/14 Insulin Npl/Insulin Lispro (Humalog Mix 50-50 Vial) 100 Units/Ml Vial, 20 SC TID , VIAL 07/21/14 Discontinued Scripts Ciprofloxacin Hcl* (Ciprofloxacin Hcl*) 500 Mg Tablet, 500 MG PO BID for 5 Days , TAB Prov:MAGNUS MARQUEZ DO 12/09/15 Valsartan* (Diovan*) 80 Mg Tab, 160 MG PO DAILY for 30 Days Prov:ZACHERY TORRES 10/25/14 Clonidine Hcl* (Clonidine Hcl*) 0.1 Mg Tab, 0.1 MG PO TID for 30 Days, TAB Prov:ZACHERY TORRES 10/25/14 Primary Care Provider Indra Montana MD Pending Labs Laboratory Tests Test 08/28/17 17:07 08/28/17 17:45 08/28/17 20:32 08/29/17 02:03 Bedside Glucose 281mg/dL (70-220) 310mg/dL (70-220) 305mg/dL (70-220) 234mg/dL (70-220) Test 08/29/17 05:37 08/29/17 07:52 08/29/17 12:11 White Blood Count 8.710^3/ul (4.8-10.8) Red Blood Count 3.6710^6/ul (4.20-5.40) Hemoglobin 10.2g/dl (12.0-16.0) Hematocrit 33.8% (37.0-47.0) Mean Corpuscular Volume 92.1fl (82.0-101.0) Mean Corpuscular Hemoglobin 27.8pg (29.0-33.0) Mean Corpuscular Hemoglobin Concent 30.2g/dl (32.0-37.0) Red Cell Distribution Width 13.9% (11.5-14.5) Platelet Count 74823^3/UL (140-415) Mean Platelet Volume 10.9fl (7.4-10.4) Neutrophils % 56.9% (39.0-77.0) Lymphocytes % 27.3% (15.0-51.0) Monocytes % 7.5% (0.0-11.0) Eosinophils % 3.8% (0.0-7.0) Basophils % 0.9% (0.0-2.0) Nucleated Red Blood Cells % 0.0/100WBC (0.0-0.0) Neutrophils # 4.910^3/ul (1.6-7.5) Lymphocytes # 2.410^3/ul (0.8-2.9) Monocytes # 0.710^3/ul (0.3-0.9) Eosinophils # 0.310^3/ul (0.0-0.5) Basophils # 0.110^3/ul (0.0-0.1) Nucleated Red Blood Cells # 0.010^3/ul (0.0-0.0) Sodium Level 141mmol/L (135-144) Potassium Level 4.4mmol/L (3.5-5.1) Chloride Level 107mmol/L (97-110) Carbon Dioxide Level 26mmol/L (21-31) Anion Gap 12 (8-16) Blood Urea Nitrogen 16mg/dl (7-20) Creatinine 1.04mg/dl (0.44-1.00) Glucose Level 238mg/dl (70-220) Calcium Level 8.8mg/dl (8.4-10.2) Phosphorus Level 3.0mg/dl (2.5-4.9) Magnesium Level 1.7mg/dl (1.7-2.5) Bedside Glucose 254mg/dL (70-220) 168mg/dL (70-220) PETRA VERONICA NP Aug 29, 2017 14:25
--- NOTE | 2017-08-29 14:25 | DS ---
Date/Time of Note Date/Time of Note DATE: 08/29/17 TIME: 14:25 Discharge Summary Admission/Discharge Info Discharge Date/Time Home Meds Active Scripts Valsartan* (Diovan*) 80 Mg Tablet, 80 MG PO BID, #60 TAB Prov:PETRA VERONICA SQL ANALYST 08/29/17 Insulin Glargine* (Lantus*) 100 Unit/Ml Soln, 17 UNIT SC DAILY@08, #1 VIAL Prov:PETRA VERONICA NP 08/29/17 Reported Medications Insulin Aspart* (Novolog Insulin Pen*) 100 Unit/Ml Soln, 8 UNIT SC WITH MEALS, EA 08/23/17 Docusate Sodium* (Colace*) 250 Mg Capsule, 250 MG PO NEEDED, #30 CAP 08/23/17 Gabapentin* (Gabapentin*) 300 Mg Capsule, 300 MG PO BID, #60 CAP 08/23/17 Sitagliptin* (Januvia*) 50 Mg Tablet, 50 MG PO DAILY, #30 TAB 08/23/17 Simvastatin* (Zocor*) 10 Mg Tablet, 10 MG PO QHS, #30 TAB 08/23/17 Aspirin* (Aspirin* EC) 81 Mg Tablet.dr, 81 MG PO DAILY, TAB 08/23/17 Clonidine Hcl* (Clonidine Hcl*) 0.2 Mg Tablet, 0.2 MG PO Q8, TAB HOLD IF BPS LESS THAN 110 08/23/17 Pantoprazole* (Protonix*) 40 Mg Tablet.dr, 40 MG PO BID, TAB 08/23/17 Mycophenolate Sodium* (Myfortic*) 180 Mg Tab, 360 MG PO Q12, TAB 08/23/17 Tacrolimus* (Prograf*) 1 Mg Capsule, 1 MG PO Q12, CAP 08/23/17 Discontinued Reported Medications Insulin Degludec (Tresiba Flextouch U-100) 100 Unit/1 Ml Insuln.pen, 40 UNIT SQ QHS 08/23/17 Furosemide* (Lasix*) 20 Mg Tablet, 20 MG PO BID, TAB 08/23/17 Valsartan* (Diovan*) 80 Mg Tablet, 80 MG PO DAILY, TAB HOLD IF BPS LESS THAN 110 08/23/17 Pending Labs PETRA VERONICA SQL ANALYST Aug 29, 2017 14:25 Home Meds Active Scripts Valsartan* (Diovan*) 80 Mg Tablet, 80 MG PO BID, #60 TAB Prov:PETRA VERONICA SQL ANALYST 08/29/17 Insulin Glargine* (Lantus*) 100 Unit/Ml Soln, 17 UNIT SC DAILY@08, #1 VIAL Prov:PETRA VERONICA SQL ANALYST 08/29/17 Reported Medications Insulin Aspart* (Novolog Insulin Pen*) 100 Unit/Ml Soln, 8 UNIT SC WITH MEALS, EA 08/23/17 Docusate Sodium* (Colace*) 250 Mg Capsule, 250 MG PO NEEDED, #30 CAP 08/23/17 Gabapentin* (Gabapentin*) 300 Mg Capsule, 300 MG PO BID, #60 CAP 08/23/17 Sitagliptin* (Januvia*) 50 Mg Tablet, 50 MG PO DAILY, #30 TAB 08/23/17 Simvastatin* (Zocor*) 10 Mg Tablet, 10 MG PO QHS, #30 TAB 08/23/17 Aspirin* (Aspirin* EC) 81 Mg Tablet.dr, 81 MG PO DAILY, TAB 08/23/17 Clonidine Hcl* (Clonidine Hcl*) 0.2 Mg Tablet, 0.2 MG PO Q8, TAB HOLD IF BPS LESS THAN 110 08/23/17 Pantoprazole* (Protonix*) 40 Mg Tablet.dr, 40 MG PO BID, TAB 08/23/17 Mycophenolate Sodium* (Myfortic*) 180 Mg Tab, 360 MG PO Q12, TAB 08/23/17 Tacrolimus* (Prograf*) 1 Mg Capsule, 1 MG PO Q12, CAP 08/23/17 Discontinued Reported Medications Insulin Degludec (Tresiba Flextouch U-100) 100 Unit/1 Ml Insuln.pen, 40 UNIT SQ QHS 08/23/17 Furosemide* (Lasix*) 20 Mg Tablet, 20 MG PO BID, TAB 08/23/17 Valsartan* (Diovan*) 80 Mg Tablet, 80 MG PO DAILY, TAB HOLD IF BPS LESS THAN 110 08/23/17 Docusate Sodium* (Colace*) 250 Mg Capsule, 250 MG PO DAILY Y for CONSTIPATION, CAP 10/24/14 Simvastatin (Simvastatin) 10 Mg Tablet, 10 MG PO HS, TAB 07/21/14 Aspirin* (Aspirin* EC) 81 Mg Tablet.dr, 81 MG PO DAILY, TAB 07/21/14 Pantoprazole* (Pantoprazole*) 40 Mg Tablet.dr, 40 MG PO BID, TAB 07/21/14 Mycophenolate Sodium* (Mycophenolic Acid*) 180 Mg Tablet.dr, 720 MG PO BID, TAB 07/21/14 Sitagliptin* (Januvia*) 50 Mg Tablet, 50 MG PO DAILY, TAB 07/21/14 Prednisone* (Prednisone*) 2.5 Mg Tablet, 2.5 MG PO DAILY, TAB 07/21/14 Gabapentin* (Gabapentin*) 300 Mg Capsule, 300 MG PO HS, CAP 07/21/14 Tacrolimus* (Tacrolimus*) 1 Mg Capsule, 2 MG PO BID, CAP 07/21/14 Insulin Npl/Insulin Lispro (Humalog Mix 50-50 Vial) 100 Units/Ml Vial, 20 SC TID , VIAL 07/21/14 Discontinued Scripts Ciprofloxacin Hcl* (Ciprofloxacin Hcl*) 500 Mg Tablet, 500 MG PO BID for 5 Days , TAB Prov:MAGNUS MARQUEZ DO 12/09/15 Valsartan* (Diovan*) 80 Mg Tab, 160 MG PO DAILY for 30 Days Prov:ZACHERY TORRES 10/25/14 Clonidine Hcl* (Clonidine Hcl*) 0.1 Mg Tab, 0.1 MG PO TID for 30 Days, TAB Prov:ZACHERY TORRES 10/25/14 Primary Care Provider Indra Montana MD Pending Labs Laboratory Tests Test 08/28/17 17:07 08/28/17 17:45 08/28/17 20:32 08/29/17 02:03 Bedside Glucose 281mg/dL (70-220) 310mg/dL (70-220) 305mg/dL (70-220) 234mg/dL (70-220) Test 08/29/17 05:37 08/29/17 07:52 08/29/17 12:11 White Blood Count 8.710^3/ul (4.8-10.8) Red Blood Count 3.6710^6/ul (4.20-5.40) Hemoglobin 10.2g/dl (12.0-16.0) Hematocrit 33.8% (37.0-47.0) Mean Corpuscular Volume 92.1fl (82.0-101.0) Mean Corpuscular Hemoglobin 27.8pg (29.0-33.0) Mean Corpuscular Hemoglobin Concent 30.2g/dl (32.0-37.0) Red Cell Distribution Width 13.9% (11.5-14.5) Platelet Count 80046^3/UL (140-415) Mean Platelet Volume 10.9fl (7.4-10.4) Neutrophils % 56.9% (39.0-77.0) Lymphocytes % 27.3% (15.0-51.0) Monocytes % 7.5% (0.0-11.0) Eosinophils % 3.8% (0.0-7.0) Basophils % 0.9% (0.0-2.0) Nucleated Red Blood Cells % 0.0/100WBC (0.0-0.0) Neutrophils # 4.910^3/ul (1.6-7.5) Lymphocytes # 2.410^3/ul (0.8-2.9) Monocytes # 0.710^3/ul (0.3-0.9) Eosinophils # 0.310^3/ul (0.0-0.5) Basophils # 0.110^3/ul (0.0-0.1) Nucleated Red Blood Cells # 0.010^3/ul (0.0-0.0) Sodium Level 141mmol/L (135-144) Potassium Level 4.4mmol/L (3.5-5.1) Chloride Level 107mmol/L (97-110) Carbon Dioxide Level 26mmol/L (21-31) Anion Gap 12 (8-16) Blood Urea Nitrogen 16mg/dl (7-20) Creatinine 1.04mg/dl (0.44-1.00) Glucose Level 238mg/dl (70-220) Calcium Level 8.8mg/dl (8.4-10.2) Phosphorus Level 3.0mg/dl (2.5-4.9) Magnesium Level 1.7mg/dl (1.7-2.5) Bedside Glucose 254mg/dL (70-220) 168mg/dL (70-220) PETRA VERONICA NP Aug 29, 2017 14:25
--- NOTE | 2017-08-29 14:25 | DS ---
Date/Time of Note Date/Time of Note DATE: 08/29/17 TIME: 14:25 Discharge Summary Admission/Discharge Info Discharge Date/Time Home Meds Active Scripts Valsartan* (Diovan*) 80 Mg Tablet, 80 MG PO BID, #60 TAB Prov:PETRA VERONICA COMMERCIAL TECHNICIAN 08/29/17 Insulin Glargine* (Lantus*) 100 Unit/Ml Soln, 17 UNIT SC DAILY@08, #1 VIAL Prov:PETAR VERONICA NP 08/29/17 Reported Medications Insulin Aspart* (Novolog Insulin Pen*) 100 Unit/Ml Soln, 8 UNIT SC WITH MEALS, EA 08/23/17 Docusate Sodium* (Colace*) 250 Mg Capsule, 250 MG PO NEEDED, #30 CAP 08/23/17 Gabapentin* (Gabapentin*) 300 Mg Capsule, 300 MG PO BID, #60 CAP 08/23/17 Sitagliptin* (Januvia*) 50 Mg Tablet, 50 MG PO DAILY, #30 TAB 08/23/17 Simvastatin* (Zocor*) 10 Mg Tablet, 10 MG PO QHS, #30 TAB 08/23/17 Aspirin* (Aspirin* EC) 81 Mg Tablet.dr, 81 MG PO DAILY, TAB 08/23/17 Clonidine Hcl* (Clonidine Hcl*) 0.2 Mg Tablet, 0.2 MG PO Q8, TAB HOLD IF BPS LESS THAN 110 08/23/17 Pantoprazole* (Protonix*) 40 Mg Tablet.dr, 40 MG PO BID, TAB 08/23/17 Mycophenolate Sodium* (Myfortic*) 180 Mg Tab, 360 MG PO Q12, TAB 08/23/17 Tacrolimus* (Prograf*) 1 Mg Capsule, 1 MG PO Q12, CAP 08/23/17 Discontinued Reported Medications Insulin Degludec (Tresiba Flextouch U-100) 100 Unit/1 Ml Insuln.pen, 40 UNIT SQ QHS 08/23/17 Furosemide* (Lasix*) 20 Mg Tablet, 20 MG PO BID, TAB 08/23/17 Valsartan* (Diovan*) 80 Mg Tablet, 80 MG PO DAILY, TAB HOLD IF BPS LESS THAN 110 08/23/17 Pending Labs PETRA VERONICA COMMERCIAL TECHNICIAN Aug 29, 2017 14:25 Home Meds Active Scripts Valsartan* (Diovan*) 80 Mg Tablet, 80 MG PO BID, #60 TAB Prov:PETRA VERONICA COMMERCIAL TECHNICIAN 08/29/17 Insulin Glargine* (Lantus*) 100 Unit/Ml Soln, 17 UNIT SC DAILY@08, #1 VIAL Prov:PETRA VERONICA COMMERCIAL TECHNICIAN 08/29/17 Reported Medications Insulin Aspart* (Novolog Insulin Pen*) 100 Unit/Ml Soln, 8 UNIT SC WITH MEALS, EA 08/23/17 Docusate Sodium* (Colace*) 250 Mg Capsule, 250 MG PO NEEDED, #30 CAP 08/23/17 Gabapentin* (Gabapentin*) 300 Mg Capsule, 300 MG PO BID, #60 CAP 08/23/17 Sitagliptin* (Januvia*) 50 Mg Tablet, 50 MG PO DAILY, #30 TAB 08/23/17 Simvastatin* (Zocor*) 10 Mg Tablet, 10 MG PO QHS, #30 TAB 08/23/17 Aspirin* (Aspirin* EC) 81 Mg Tablet.dr, 81 MG PO DAILY, TAB 08/23/17 Clonidine Hcl* (Clonidine Hcl*) 0.2 Mg Tablet, 0.2 MG PO Q8, TAB HOLD IF BPS LESS THAN 110 08/23/17 Pantoprazole* (Protonix*) 40 Mg Tablet.dr, 40 MG PO BID, TAB 08/23/17 Mycophenolate Sodium* (Myfortic*) 180 Mg Tab, 360 MG PO Q12, TAB 08/23/17 Tacrolimus* (Prograf*) 1 Mg Capsule, 1 MG PO Q12, CAP 08/23/17 Discontinued Reported Medications Insulin Degludec (Tresiba Flextouch U-100) 100 Unit/1 Ml Insuln.pen, 40 UNIT SQ QHS 08/23/17 Furosemide* (Lasix*) 20 Mg Tablet, 20 MG PO BID, TAB 08/23/17 Valsartan* (Diovan*) 80 Mg Tablet, 80 MG PO DAILY, TAB HOLD IF BPS LESS THAN 110 08/23/17 Docusate Sodium* (Colace*) 250 Mg Capsule, 250 MG PO DAILY Y for CONSTIPATION, CAP 10/24/14 Simvastatin (Simvastatin) 10 Mg Tablet, 10 MG PO HS, TAB 07/21/14 Aspirin* (Aspirin* EC) 81 Mg Tablet.dr, 81 MG PO DAILY, TAB 07/21/14 Pantoprazole* (Pantoprazole*) 40 Mg Tablet.dr, 40 MG PO BID, TAB 07/21/14 Mycophenolate Sodium* (Mycophenolic Acid*) 180 Mg Tablet.dr, 720 MG PO BID, TAB 07/21/14 Sitagliptin* (Januvia*) 50 Mg Tablet, 50 MG PO DAILY, TAB 07/21/14 Prednisone* (Prednisone*) 2.5 Mg Tablet, 2.5 MG PO DAILY, TAB 07/21/14 Gabapentin* (Gabapentin*) 300 Mg Capsule, 300 MG PO HS, CAP 07/21/14 Tacrolimus* (Tacrolimus*) 1 Mg Capsule, 2 MG PO BID, CAP 07/21/14 Insulin Npl/Insulin Lispro (Humalog Mix 50-50 Vial) 100 Units/Ml Vial, 20 SC TID , VIAL 07/21/14 Discontinued Scripts Ciprofloxacin Hcl* (Ciprofloxacin Hcl*) 500 Mg Tablet, 500 MG PO BID for 5 Days , TAB Prov:MAGNUS MARQUEZ DO 12/09/15 Valsartan* (Diovan*) 80 Mg Tab, 160 MG PO DAILY for 30 Days Prov:ZACHERY TORRES 10/25/14 Clonidine Hcl* (Clonidine Hcl*) 0.1 Mg Tab, 0.1 MG PO TID for 30 Days, TAB Prov:ZACHERY TORRES 10/25/14 Primary Care Provider Indra Montana MD Pending Labs Laboratory Tests Test 08/28/17 17:07 08/28/17 17:45 08/28/17 20:32 08/29/17 02:03 Bedside Glucose 281mg/dL (70-220) 310mg/dL (70-220) 305mg/dL (70-220) 234mg/dL (70-220) Test 08/29/17 05:37 08/29/17 07:52 08/29/17 12:11 White Blood Count 8.710^3/ul (4.8-10.8) Red Blood Count 3.6710^6/ul (4.20-5.40) Hemoglobin 10.2g/dl (12.0-16.0) Hematocrit 33.8% (37.0-47.0) Mean Corpuscular Volume 92.1fl (82.0-101.0) Mean Corpuscular Hemoglobin 27.8pg (29.0-33.0) Mean Corpuscular Hemoglobin Concent 30.2g/dl (32.0-37.0) Red Cell Distribution Width 13.9% (11.5-14.5) Platelet Count 20543^3/UL (140-415) Mean Platelet Volume 10.9fl (7.4-10.4) Neutrophils % 56.9% (39.0-77.0) Lymphocytes % 27.3% (15.0-51.0) Monocytes % 7.5% (0.0-11.0) Eosinophils % 3.8% (0.0-7.0) Basophils % 0.9% (0.0-2.0) Nucleated Red Blood Cells % 0.0/100WBC (0.0-0.0) Neutrophils # 4.910^3/ul (1.6-7.5) Lymphocytes # 2.410^3/ul (0.8-2.9) Monocytes # 0.710^3/ul (0.3-0.9) Eosinophils # 0.310^3/ul (0.0-0.5) Basophils # 0.110^3/ul (0.0-0.1) Nucleated Red Blood Cells # 0.010^3/ul (0.0-0.0) Sodium Level 141mmol/L (135-144) Potassium Level 4.4mmol/L (3.5-5.1) Chloride Level 107mmol/L (97-110) Carbon Dioxide Level 26mmol/L (21-31) Anion Gap 12 (8-16) Blood Urea Nitrogen 16mg/dl (7-20) Creatinine 1.04mg/dl (0.44-1.00) Glucose Level 238mg/dl (70-220) Calcium Level 8.8mg/dl (8.4-10.2) Phosphorus Level 3.0mg/dl (2.5-4.9) Magnesium Level 1.7mg/dl (1.7-2.5) Bedside Glucose 254mg/dL (70-220) 168mg/dL (70-220) PETRA VERONICA NP Aug 29, 2017 14:25
[2017-08-29] MEDS: ERTAPENEM SODIUM 1 GM in SOD CHLORIDE 0.9% 100 ML IVPB SCH (15:30)
[2017-08-29 17:00] VITALS: BP 171/74; RESP 16
--- NOTE | 2017-08-29 17:03 | CONS ---
Date/Time of Note Date/Time of Note DATE: 08/29/17 TIME: 16:59 Consultation Date/Type/Reason Admit Date/Time Aug 23, 2017 at 11:17 Initial Consult Date SUBJECTIVE: 61 y/o female being treated for sepsis. Fever and tachycardia resolved. Awake, alert. Comfortably resting in bed. No acute changes. PICC line placed yesterday. VS: 132/62 P:67 R: 16 T:98.0 SO2: 93% LABS: Reviewed. WBC-8.7 H&H: stable. BUN-16 Cr-1.04 ANTIMICROBIALS: Invanz MICROBIOLOGY: Urine culture growing E coli ESBL/Strep. Blood cultures negative. Stool for C. diff negative. PHYSICAL EXAMINATION: GENERAL: This is an obese, well-developed, elderly woman who is in no distress. HEENT: Head atraumatic, normocephalic. Sclerae anicteric. Buccal mucosa dry. NECK: Supple. CHEST: Rise symmetrical. Breath sounds diminished to bases. HEART: S1, S2. ABDOMEN: Soft, bowel tones present. EXTREMITIES: Without cyanosis. ASSESSMENT: 1. S/p sepsis with fevers, leukocytosis and tachycardia on admission. 2. Urinary tract infection. 3. Acute kidney injury, possibly on chronic kidney disease. 4. Obesity. 5. Diabetes. 6. Hx kidney tx PLAN: The patient remains stable. Continue on current abx. Type of Consultation: ID Referring Provider: RENETTA LEONG Exam/Review of Systems Vital Signs Vitals Vital Signs Date Time Temp Pulse Resp B/P Pulse Ox O2 Delivery O2 Flow Rate FiO2 08/29/17 08:12 98.0 67 16 132/62 93 Intake and Output 08/28/17 08/28/17 08/29/17 15:00 23:00 07:00 Intake Total 830 ml 1720 ml Output Total 2600 ml 850 ml Balance -1770 ml 870 ml Results Result Diagram: 08/29/17 0537 08/29/17 0537 Results 24 hrs Laboratory Tests Test 08/28/17 17:07 08/28/17 17:45 08/28/17 20:32 08/29/17 02:03 Bedside Glucose 281 H 310 H 305 H 234 H Test 08/29/17 05:37 08/29/17 07:52 08/29/17 12:11 White Blood Count 8.7 # Red Blood Count 3.67 L Hemoglobin 10.2 L Hematocrit 33.8 L Mean Corpuscular Volume 92.1 Mean Corpuscular Hemoglobin 27.8 L Mean Corpuscular Hemoglobin Concent 30.2 L Red Cell Distribution Width 13.9 Platelet Count 245 Mean Platelet Volume 10.9 H Neutrophils % 56.9 Lymphocytes % 27.3 Monocytes % 7.5 Eosinophils % 3.8 Basophils % 0.9 Nucleated Red Blood Cells % 0.0 Neutrophils # 4.9 Lymphocytes # 2.4 Monocytes # 0.7 Eosinophils # 0.3 Basophils # 0.1 Nucleated Red Blood Cells # 0.0 Sodium Level 141 Potassium Level 4.4 Chloride Level 107 Carbon Dioxide Level 26 Anion Gap 12 Blood Urea Nitrogen 16 Creatinine 1.04 H Glucose Level 238 H Calcium Level 8.8 Phosphorus Level 3.0 Magnesium Level 1.7 Bedside Glucose 254 H 168 Medications Medications Current Medications Aspirin (Halfprin) 81 mg DAILY PO Last administered on 08/29/17 08:04; Admin Dose 81 MG; Start 08/24/17 at 09:00 Clonidine (Catapres) 0.2 mg Q8 PO Last administered on 08/29/17 15:14; Admin Dose 0.2 MG; Start 08/23/17 at 14:00 Gabapentin (Neurontin) 300 mg BID PO Last administered on 08/29/17 08:04; Admin Dose 300 MG; Start 08/23/17 at 21:00 Mycophenolate Sodium (Myfortic) 360 mg Q12 PO Last administered on 08/29/17 08 :05; Admin Dose 360 MG; Start 08/23/17 at 21:00 Pantoprazole (Protonix Tab) 40 mg BID@06,18 PO Last administered on 08/29/17 05:40; Admin Dose 40 MG; Start 08/23/17 at 18:00 Tacrolimus (Prograf) 1 mg Q12 PO Last administered on 08/29/17 08:05; Admin Dose 1 MG; Start 08/23/17 at 21:00 Atorvastatin Calcium (Lipitor) 10 mg QHS PO Last administered on 08/28/17 20: 40; Admin Dose 10 MG; Start 08/23/17 at 21:00 Ondansetron HCl (Zofran Inj) 4 mg Q6H PRN IV NAUSEA AND/OR VOMITING; Start at 12:00 Acetaminophen (Tylenol Tab) 650 mg Q6H PRN PO PAIN LEVEL 1-3 OR FEVER Last administered on 08/23/17 19:46; Admin Dose 650 MG; Start 08/23/17 at 12:00 Acetaminophen (Tylenol Supp) 650 mg Q6H PRN [place] PAIN LEVEL 1-3 OR FEVER; Start 08/23/17 at 12:00 Acetaminophen/ Hydrocodone Bitart ([place] (5/325)) 1 tab Q6H PRN PO MODERATE PAIN LEVEL 4-6; Start 08/23/17 at 12:00 Acetaminophen/ Hydrocodone Bitart ([place] (5/325)) 2 tab Q6H PRN PO SEVERE PAIN LEVEL 7-10; Start 08/23/17 at 12:00 Morphine Sulfate (morphine) 2 mg Q4H PRN IV SEVERE PAIN LEVEL 7-10; Start at 12:00 Docusate Sodium (Colace) 100 mg Q12H PRN PO CONSTIPATION; Start 08/23/17 at 12 :00 Magnesium Hydroxide (Milk Of Mag) 30 ml DAILY PRN PO CONSTIPATION; Start 08/23 at 12:00 Bisacodyl (Dulcolax Supp) 10 mg DAILY PRN [place] CONSTIPATION; Start 08/23/17 at 12:00 Diagnostic Test (Pha) (Accu-Chek) 1 ea 02 XX Last administered on 08/29/17 02: 05; Admin Dose 1 EA; Start 08/25/17 at 02:00 Miscellaneous Information 1 ea NOTE XX ; Start 08/24/17 at 06:30 Glucose (Glutose) 15 gm Q15M PRN PO DECREASED GLUCOSE; Start 08/24/17 at 06:30 Glucose (Glutose) 22.5 gm Q15M PRN PO DECREASED GLUCOSE; Start 08/24/17 at 06: 30 Dextrose (D50w Syringe) 25 ml Q15M PRN IV DECREASED GLUCOSE; Start 08/24/17 at 06:30 Dextrose (D50w Syringe) 50 ml Q15M PRN IV DECREASED GLUCOSE; Start 08/24/17 at 06:30 Glucagon (Glucagen) 1 mg Q15M PRN IM DECREASED GLUCOSE; Start 08/24/17 at 06: 30 Glucose (Glutose) 15 gm Q15M PRN BUCCAL DECREASED GLUCOSE; Start 08/24/17 at 06:30 Hydralazine HCl 10 mg 10 mg Q6H PRN IV ELEVATED BLOOD PRESSURE Last administered on 08/25/17 20:42; Admin Dose 10 MG; Start 08/25/17 at 20:30 Ertapenem/Sodium Chloride (Invanz/NS) 100 ml @ 200 mls/hr Q24H IVPB Last administered on 08/29/17 15:30; Admin Dose 200 MLS/HR; Start 08/27/17 at 14:30 Valsartan (Diovan) 80 mg BID PO Last administered on 08/29/17 08:04; Admin Dose 80 MG; Start 08/28/17 at 21:00 IV Flush (NS 10 ml) 10 ml PRN PRN IV FLUSH LINE; Start 08/28/17 at 16:30 Insulin Glargine (Lantus) 17 unit DAILY@08 SC Last administered on 08/29/17 08 :40; Admin Dose 17 UNIT; Start 08/29/17 at 08:00 MELANI LAY Aug 29, 2017 17:03
--- NOTE | 2017-08-31 09:17 | DS ---
DATE OF ADMISSION: 08/23/2017 DATE OF DISCHARGE: 08/29/2017 FINAL DIAGNOSES: 1. Sepsis secondary to underlying urinary tract infection. 2. Urinary tract infection with Eschericia coli, extended-spectrum beta- lactamase, and streptococcus agalactiae. 3. Essential hypertension. 4. History of renal transplant. 5. Dyslipidemia. 6. Diabetes mellitus type 2. 7. Obesity. 8. Anemia, normocytic and hypochromic. CONSULTANTS: 1. Merritt Montana MD, Nephrology. 2. Job Krueger MD, Infectious Disease. HOSPITAL COURSE: This is a 61-year-old female with a past medical history of GERD, essential hypertension, diabetes, end- stage renal disease, status post renal transplant, who came to [facility] because of reported dysuria, fevers and diarrhea. The patient was noticed to have leukocytosis upon presentation. The patient was noticed to be febrile in the emergency room. The patient's urinalysis was positive for urine microscopic WBC and urine nitrite and urine leukocyte esterase. The patient also had evidence of lactic acidosis. Provided the patient's history of present illness, her comorbidities, and the diagnostic findings, a clinical decision was made to admit the patient to inpatient setting to have her further evaluated. The patient was admitted to inpatient setting. The patient was started on empiric antibiotics. Nephrology and Infectious Disease consult was called on this patient. The patient's stool studies remained negative. The patient's diarrhea resolved over the course of her hospital stay. The patient's urine culture showed positive E. coli, ESBL and strep agalactiae group B. The patient was maintained on antibiotics as per Infectious Diseases. The patient had no evidence of any septic shock. The patient's chronic problems include essential hypertension and she was maintained on antihypertensives for the same. The patient's antihypertensive therapy had to be adjusted to obtain optimal blood pressure control. The patient has history of renal transplant. The patient was maintained on immunosuppressants for the same. She was being followed by Nephrology. At one point of time, the patient showed some evidence of acute kidney injury which resolved over the course of her hospital stay. The patient has history of dyslipidemia. She was maintained on statins for the same. She has type 2 diabetes mellitus. Her hemoglobin A1c was 6.5. She was maintained on sliding scale insulin with the dosing adjusted to obtain optimal blood sugar control. The patient had a stable hospital course. The patient needs to be continued on IV antibiotic therapy for completion of the treatment of E coli and ESBL. Therefore, the patient had underwent a PICC line insertion and the patient will be transferred to a half-way facility for further management. The patient is morbidly obese with a BMI of 39.1 kg/m2. The patient was noticed to have normocytic, hypochromic anemia. The patient's H and H remained stable. The patient had no evidence of any significant iron deficiency. DISCHARGE DISPOSITION: 1. The patient will be discharged to [facility]. 2. The patient will take medications as per medication list which are listed below. 3. The patient will follow a carbohydrate-controlled diet. The patient will follow up with Dr. Montana as outpatient for her renal and internal medicine problems. DISCHARGE CONDITION: Stable. DISCHARGE MEDICATIONS: 1. Ertapenem 1 IV q.24 hours until 09/03/2017. 2. Insulin Lantus 17 units subcutaneously daily. 3. Valsartan 80 mg p.o. b.i.d. 4. Aspirin 81 mg p.o. daily. 5. Clonidine 0.2 mg p.o. q.8 hours. 6. Colace 250 mg p.o. daily as needed for constipation. 7. Gabapentin 300 mg p.o. b.i.d. 8. NovoLog insulin 8 units subcutaneously with each meal. 9. Mycophenolate 360 mg p.o. q.12 hours. 10. Protonix 40 mg p.o. b.i.d. 11. Zocor 10 mg p.o. at bedtime. 12. Sitagliptin 50 mg p.o. daily. 13. Tacrolimus 1 mg p.o. q.12 hours. PERTINENT LABS AND DIAGNOSTIC DATA: 1. Urine culture. Positive for E. coli, ESBL and strep agalactiae group B. 2. Blood culture times 2 negative. 3. Stool for C diff negative. 4. Latest CBC, WBC 8.7, hemoglobin 10.2, hematocrit 33.8, platelet count 245. 5. Latest BMP: Sodium 141, potassium 4.4, chloride 107, carbon dioxide 26, anion gap 12, BUN 16, creatinine 1.04, glucose 168, calcium 8.8, phosphorus 3.2, magnesium 1.73. 6. Hemoglobin A1c is 6.6. 7. Fasting lipid panel. Triglycerides 117. Total cholesterol 83. LDL 35, HDL 35. 8. Iron panel. Iron 46, TIBC 273, and iron saturation 17, ferritin 57.8. 9. On 08/28/2017, right arm PICC line insertion. 10. On 08/25/2017, chest x-ray. Cardiomegaly and atherosclerosis. At this time, I would like to thank all the consultants for seeing the patient and providing clinical recommendations. The case and management of this patient was fully discussed with Dr. Camacho. Approximately 45 minutes was spent on coordinating the discharge on this patient. Dictated By: Simon Young NP /zaheer/michaela /Document#: [id number] MANOJ
== END 2017-08-29 18:00 | DRG 871 ==
LOC: E/R 09:19 → MS2 11:17
PROVIDERS: ADMIT Internal Medicine; ATTEND Internal Medicine
PROC: 02HV33Z Insertion of Infusion Device into Superior Vena Cava, Percutaneous Approach (ICD-10-PCS; principal; 2017-08-28)
PROC: B548ZZA Ultrasonography of Superior Vena Cava, Guidance (ICD-10-PCS; 2017-08-28)
DX: A41.9 Sepsis, unspecified organism (principal); N17.0 Acute kidney failure with tubular necrosis; N39.0 Urinary tract infection, site not specified; I10 Essential (primary) hypertension; E11.9 Type 2 diabetes mellitus without complications; B96.20 Unspecified Escherichia coli [E. coli] as the cause of diseases classified elsewhere; Z94.0 Kidney transplant status; Z68.39 Body mass index [BMI] 39.0-39.9, adult; E78.5 Hyperlipidemia, unspecified; Z79.899 Other long term (current) drug therapy; B95.1 Streptococcus, group B, as the cause of diseases classified elsewhere; Z16.12 Extended spectrum beta lactamase (ESBL) resistance; E66.01 Morbid (severe) obesity due to excess calories; D50.9 Iron deficiency anemia, unspecified
CPT/HCPCS: 36415; 36569; 71010; 76937; 80048; 80053; 80061; 81001; 82728; 82962; 83036; 83540; 83605; 83690; 83735; 84100; 84436; 84443; 84479; 84484; 85025; 87040; 87075; 87086; 90686; 93005; 96374; 96375; J0360; J0692; J1335; J1815; J2405; J3370; J3475; J7030; J7507

== ENCOUNTER 2017-09-12 13:47 | Emergency (ER) | payer MEDICARE, OTHER ==
[~2017-09-12] VITALS: Ht 165.1 cm; Wt 106.1 kg
[~2017-09-12 13:47] MED LIST changes: -CIPR500T4 PO; -CLON-379 PO; +CLON0.2T5 PO; -INSU100V2 SC; +LANT3I SC; +MYCO160 PO; -MYCO180T2 PO; +NOVO3I SC; +PANT40TA3 PO; -PANT40TA4 PO; -PRED2.5T3 PO; +SIMV10TA PO; -TACR1CAP PO; +TACR1CAP26 PO; -ZOC10 PO
[2017-09-12 13:54] VITALS: Ht 165.1 cm; Wt 106.1 kg
--- NOTE | 2017-09-12 15:09 | ERD ---
ER Documentation Chief Complaint Chief Complaint Patient here for pick line removal HPI Patient is a 61-year-old female who presents with the need for PICC line removal. She had received antibiotics for a multidrug-resistant UTI but has finished her antibiotics. She came to get her PICC line removed from her right arm. She has no other complaints. She has had no fevers. She has no pain. ROS All systems reviewed and are negative except as per history of present illness. Medications Home Meds Active Scripts Valsartan* (Diovan*) 80 Mg Tablet, 80 MG PO BID, #60 TAB Prov:PETRA VERONICA MACHINE FEEDER 08/29/17 Insulin Glargine* (Lantus*) 100 Unit/Ml Soln, 17 UNIT SC DAILY@08, #1 VIAL Prov:PETRA VERONICA MACHINE FEEDER 08/29/17 Reported Medications Insulin Aspart* (Novolog Insulin Pen*) 100 Unit/Ml Soln, 8 UNIT SC WITH MEALS, EA 08/23/17 Docusate Sodium* (Colace*) 250 Mg Capsule, 250 MG PO NEEDED, #30 CAP 08/23/17 Gabapentin* (Gabapentin*) 300 Mg Capsule, 300 MG PO BID, #60 CAP 08/23/17 Sitagliptin* (Januvia*) 50 Mg Tablet, 50 MG PO DAILY, #30 TAB 08/23/17 Simvastatin* (Zocor*) 10 Mg Tablet, 10 MG PO QHS, #30 TAB 08/23/17 Aspirin* (Aspirin* EC) 81 Mg Tablet.dr, 81 MG PO DAILY, TAB 08/23/17 Clonidine Hcl* (Clonidine Hcl*) 0.2 Mg Tablet, 0.2 MG PO Q8, TAB HOLD IF BPS LESS THAN 110 08/23/17 Pantoprazole* (Protonix*) 40 Mg Tablet.dr, 40 MG PO BID, TAB 08/23/17 Mycophenolate Sodium* (Myfortic*) 180 Mg Tab, 360 MG PO Q12, TAB 08/23/17 Tacrolimus* (Prograf*) 1 Mg Capsule, 1 MG PO Q12, CAP 08/23/17 Allergies Allergies: Coded Allergies: No Known Allergy (Unverified , 08/23/17) PMhx/Soc History of Surgery: Yes (kidny transplant,c-sect,galbladder removal) Anesthesia Reaction: No Hx Neurological Disorder: No Hx Respiratory Disorders: Yes (PNA) Hx Cardiac Disorders: Yes (HTN) Hx Psychiatric Problems: No Hx Miscellaneous Medical Probl: No Hx Alcohol Use: No Hx Substance Use: No Hx Tobacco Use: No Smoking Status: Never smoker FmHx Family History: No diabetes Physical Exam Vitals Vital Signs Date Time Temp Pulse Resp B/P Pulse Ox O2 Delivery O2 Flow Rate FiO2 09/12/17 13:54 97.9 80 20 127/59 96 Physical Exam Const: No acute distress Head: Atraumatic Eyes: Normal Conjunctiva ENT: Normal External Ears, Nose and Mouth. Neck: Full range of motion..~ No meningismus. Resp: Clear to auscultation bilaterally Cardio: Regular rate and rhythm, no murmurs Abd: Soft, non tender, non distended. Normal bowel sounds Skin: No petechiae or rashes, PICC line in the right upper extremity Back: No midline or flank tenderness Ext: No cyanosis, or edema Neur: Awake and alert Psych: Normal Mood and Affect Procedures/MDM PICC line removal: I undid the tape dressing and was easily able to remove the PICC line with constant withdrawal of the line. There was no breakage of the line and the line was removed in total. There was no bleeding and a dressing was applied. The patient tolerated the entire procedure. Departure Diagnosis: Primary Impression: PIC line (peripherally inserted central catheter) removal Condition: Fair Patient Instructions: Peripherally Inserted Central Catheter (PICC) Additional Instructions: Llame al doctor alex murphy (Referral Sources) MAANA y gaby kyree SABINO PARA DENTRO DE KYREE SEMANA. Dgale a la secretaria que nosotros le instruimos hacer esta sabino.Avise o llame si cheema condicin se empeora antes de la sabino. JEZ FERRIS MD Sep 12, 2017 15:09
== END 2017-09-12 14:45 | disposition home or self-care (01) ==
LOC: E/R 13:47
DX: Z45.2 Encounter for adjustment and management of vascular access device (principal); I10 Essential (primary) hypertension; Z79.4 Long term (current) use of insulin; Z79.82 Long term (current) use of aspirin
CPT/HCPCS: 99282

== ENCOUNTER 2018-01-20 10:18 | Emergency (ER) | END 2018-01-20 11:59 | disposition home or self-care (01) ==

== ENCOUNTER 2018-01-29 11:43 | Inpatient (IN) | END 2018-02-05 19:13 | disposition home or self-care (01) | DRG 690 ==

== ENCOUNTER 2018-03-17 02:04 | Emergency (ER) | END 2018-03-17 07:20 | disposition home or self-care (01) ==

== ENCOUNTER 2018-07-23 04:30 | Inpatient (IN) | END 2018-07-29 22:40 | disposition home health service (06) | DRG 872 ==

== ENCOUNTER 2019-04-07 08:37 | Emergency (ER) | payer MEDICARE, OTHER ==
[~2019-04-07] VITALS: Ht 165.1 cm; Wt 108.9 kg
[~2019-04-07 08:37] MED LIST changes: -ASPI-664 PO; +ASPI-817 PO; +CIPR500T4 PO; +PRED20TA PO
[2019-04-07 08:39] VITALS: Ht 165.1 cm; Wt 108.9 kg
[2019-04-07] MEDS ORDERED: IPRATROPIUM (NEB) 0.5 MG/2.5 ML AMP HHN ONE (09:00)
[2019-04-07] MEDS ORDERED: ALBUTEROL 0.083% (NEB) 2.5 MG/3 ML AMP HHN STA (09:00)
[2019-04-07] MEDS ORDERED: DEXAMETHASONE 10 MG/ML 1 ML INJ IM ONE (09:00)
[2019-04-07] MEDS ORDERED: AZIT250T PO (10:15)
[2019-04-07] MEDS ORDERED: BENZ-6 PO (10:15)
[2019-04-07] MEDS ORDERED: D-ME473S2 PO (10:15)
[2019-04-07 10:53] VITALS: BP 146/63; PULSE 86; RESP 19
--- NOTE | 2019-04-07 14:30 | ERD ---
ER Documentation Chief Complaint Chief Complaint nausea, cough throat pain x 2 days HPI 63-year-old female presenting with cough and sore throat with nausea x2 days. Patient denies any fevers but describes as a dry cough. She has mild runny nose and mild ear congestion. Has not taken medications for symptoms. Medical history is diabetes and hypertension with hypercholesterolemia. Surgical history is kidney transplant. Social history denies ROS All systems reviewed and are negative except as per history of present illness. Medications Home Meds Active Scripts Benzonatate* (Tessalon Perle*) 100 Mg Capsule, 100 MG PO Q8H PRN for COUGH, #30 CAP Prov:CALEB VAUGHANC 04/07/19 Dextromethorphan Hb-Promethazine Hcl* (Promethazine DM* Syrup) 473 Ml Syrup, 5 ML PO Q6 PRN for COUGH, #100 ML Prov:CALEB VAUGHAN PA-C 04/07/19 Azithromycin* (Zithromax*) 250 Mg Tablet, 250 MG PO .ZPACK DIRECTED, #6 TAB TAKE 500 MG (2 TABS) THE FIRST DAY THEN 250 MG (1 TAB) DAYS 2-5 Prov:CALEB VAUGHAN PA-C 04/07/19 Ciprofloxacin Hcl* (Ciprofloxacin Hcl*) 500 Mg Tablet, 500 MG PO BID for 7 Days, TAB Prov:LENORE EDWARDS 03/17/18 Insulin Glargine* (Lantus*) 100 Unit/Ml Soln, 40 UNIT SC DAILY@20 for 30 Days Prov:PRUDENCE DÍAZ 02/05/18 Prednisone* (Prednisone*) 20 Mg Tab, 20 MG PO DAILY for 5 Days, TAB Prov:KWAME MELENDEZ MD 01/20/18 Valsartan* (Diovan*) 80 Mg Tablet, 80 MG PO BID, #60 TAB Prov:PETRA VERONICA NP 08/29/17 Reported Medications Insulin Aspart* (Novolog Insulin Pen*) 100 Unit/Ml Soln, 8 UNIT SC WITH MEALS, EA 03/17/18 Docusate Sodium* (Colace*) 250 Mg Capsule, 250 MG PO NEEDED, #30 CAP 08/23/17 Gabapentin* (Gabapentin*) 300 Mg Capsule, 300 MG PO BID, #60 CAP 08/23/17 Sitagliptin* (Januvia*) 50 Mg Tablet, 50 MG PO DAILY, #30 TAB 08/23/17 Simvastatin* (Zocor*) 10 Mg Tablet, 10 MG PO QHS, #30 TAB 08/23/17 Aspirin* (Aspirin* EC) 81 Mg Tablet.dr, 81 MG PO DAILY, TAB 08/23/17 Clonidine Hcl* (Clonidine Hcl*) 0.2 Mg Tablet, 0.2 MG PO Q8, TAB HOLD IF BPS LESS THAN 110 08/23/17 Pantoprazole* (Protonix*) 40 Mg Tablet.dr, 40 MG PO BID, TAB 08/23/17 Mycophenolate Sodium* (Myfortic*) 180 Mg Tab, 360 MG PO Q12, TAB 08/23/17 Tacrolimus* (Prograf*) 1 Mg Capsule, 1 MG PO Q12, CAP 08/23/17 Allergies Allergies: Coded Allergies: No Known Allergy (Unverified , 03/17/18) PMhx/Soc History of Surgery: Yes (kidney transplant, cholecystectomy,c/S) Anesthesia Reaction: No Hx Neurological Disorder: No Hx Respiratory Disorders: No Hx Cardiac Disorders: Yes (HTN) Hx Psychiatric Problems: No Hx Miscellaneous Medical Probl: No Hx Alcohol Use: No Hx Substance Use: No Hx Tobacco Use: No Smoking Status: Never smoker FmHx Family History: No diabetes, No coronary disease, No other Physical Exam Vitals Vital Signs Date Temp Pulse Resp B/P (MAP) Pulse Ox O2 O2 Flow FiO2 Time Delivery Rate 04/07/19 98.8 86 19 146/63 96 Room Air 10:53 (90) 04/07/19 86 20 93 21 09:17 04/07/19 98.2 84 18 171/95 97 08:39 (120) Physical Exam GENERAL: The patient is well-appearing, well-nourished, in no acute distress HEENT: Atraumatic. Conjunctivae are pink. Pupils equal, round, and reactive to light. There is no scleral icterus. Tympanic membranes clear bilaterally. Oropharynx clear. CHEST: Clear to auscultation bilaterally. There are no rales, wheezes or rhonchi. HEART: Regular rate and rhythm. No murmurs, clicks, rubs or gallops. ABDOMEN:Soft, nontender and nondistended. Good bowel sounds. No rebound or guarding. No gross peritonitis. No gross organomegaly or masses. Results 24 hrs Current Medications Medications Dose Sig/Stephanie Start Time Status Last (Trade) Ordered Route PRN Stop Time Admin Dose Reason Admin Albuterol 5 mg ONCE STAT 04/07/19 DC 04/07/19 (Proventil HHN 09:00 09:16 0.083% (Neb)) 04/07/19 09:02 Ipratropium 0.5 mg ONCE ONCE 04/07/19 DC 04/07/19 [place] [facility] 09:00 09:16 (Atrovent 04/07/19 09:02 0.02% (Neb)) 10 mg ONCE ONCE 04/07/19 DC 04/07/19 Dexamethasone IM 09:00 09:07 (Decadron) 04/07/19 09:02 Procedures/MDM DIAGNOSTIC IMAGING REPORT Patient: HARMAN HE : 1955 Age: 63 Sex: F MR #: [id number] DOS: 04/07/19 0900 Ordering MD: VELVET VAUGHAN PA-C Location: [facility] Room/Bed: PROCEDURE: XR Chest. CLINICAL INDICATION: Cough TECHNIQUE: AP portable upright chest was obtained COMPARISON: Chest 08/13/2015 FINDINGS: Hypoventilatory chest. Heart borderline normal limits in size. Calcific atherosclerosis of the aorta. No evidence of pulmonary vascular congestion acute lung consolidation pleural effusions or pneumothorax. IMPRESSION: No evidence of acute cardiopulmonary disease. ER course: Albuterol and Atrovent breathing treatment given ED. Decadron given in ED. MDM: 63-year-old female planing of cough. I have low suspicion for pneumonia. I have low suspicion for respiratory distress or hypoxia. Exam is non- concerning. Patient is discharged with supportive medications. Given the patient's age and sound of her cough I will prophylactically treat with antibiotics. Patient is discharged with strict ER precautions. All questions answered at discharge Departure Diagnosis: Primary Impression: Cough Condition: Stable Patient Instructions: Cough, Chronic, Uncertain Cause, (Adult) Referrals: [facility] Additional Instructions: FOLLOW UP WITH YOUR PRIMARY CARE PHYSICIAN TOMORROW.Return to this facility if you are not improving as expected. CALEB VAUGHAN PA-C Apr 07, 2019 14:30
== END 2019-04-07 10:53 | disposition home or self-care (01) ==
LOC: FTE 08:37
DX: R05 Cough (principal); I10 Essential (primary) hypertension; E11.9 Type 2 diabetes mellitus without complications; Z79.82 Long term (current) use of aspirin; Z79.4 Long term (current) use of insulin
CPT/HCPCS: 71045; 94664; 96372; 99284; J1100

== ENCOUNTER 2019-04-10 00:58 | Emergency (ER) | payer MEDICARE, OTHER ==
[~2019-04-10] VITALS: Ht 165.1 cm; Wt 109.7 kg
[~2019-04-10 00:58] MED LIST changes: +AZIT250T PO; +BENZ-6 PO; +D-ME473S2 PO
[2019-04-10 01:03] VITALS: Ht 165.1 cm; Wt 109.7 kg
[2019-04-10] MEDS ORDERED: ALBUTEROL 0.5% (NEB) 2.5 MG/0.5 ML AMP INH STA ×2 (01:41→02:38)
[2019-04-10] MEDS ORDERED: KETOROLAC 15 MG INJ IV STA (01:41)
[2019-04-10] MEDS ORDERED: SOD CHLORIDE 0.9% 500 ML IV STA (01:41)
[2019-04-10] MEDS ORDERED: IPRATROPIUM (NEB) 0.5 MG/2.5 ML AMP INH STA ×2 (01:41→02:38)
[2019-04-10] MEDS ORDERED: DEXAMETHASONE 10 MG/ML 1 ML INJ IV ONE (03:30)
[2019-04-10] MEDS ORDERED: DOXY100T20 PO (04:05)
[2019-04-10] MEDS ORDERED: BENZ-6 PO (04:05)
[2019-04-10] MEDS ORDERED: ALBU18HF INHALATION (04:05)
[2019-04-10] MEDS ORDERED: IBUP800T48 PO (04:05)
--- NOTE | 2019-04-10 04:11 | ERD ---
ER Documentation Chief Complaint Chief Complaint C/O COUGH X1 WEEKS, SOB X2 DAYS, LT LOWER ABDOMINAL PAIN SINCE YESTERDAY HPI During the patient's encounter translation services were utilized Language: English Source: In person 63-year-old female presents to the emergency room with cough and shortness of breath for approximately 1 week. The patient was seen here 2 to 3 days ago and started on azithromycin with no significant improvement. Her cough is very dry and nonproductive. Patient denies any significant fevers. She notes abdominal wall pain with coughing. No nausea vomiting or diarrhea. She denies pleuritic pain. No smoking history. ROS All systems reviewed and are negative except as per history of present illness. Medications Home Meds Active Scripts Benzonatate* (Tessalon Perle*) 100 Mg Capsule, 100 MG PO Q8H PRN for COUGH, #10 CAP Prov:MARVIN WAKEFIELD MD 04/10/19 Albuterol Sulfate* (Ventolin HFA*) 18 Gm Hfa.aer.ad, 2 PUFF INHALATION Q4H, #1 INHALER Prov:MARVIN WAKEFIELD MD 04/10/19 Ibuprofen* (Motrin*) 800 Mg Tab, 800 MG PO Q6H PRN for PAIN AND OR ELEVATED TEMP, #30 TAB Prov:MARVIN WAKEFIELD MD 04/10/19 Doxycycline Hyclate* (Doxycycline Hyclate*) 100 Mg Tablet.dr, 100 MG PO BID for 7 Days, TAB Prov:MARVIN WAKEFIELD MD 04/10/19 Benzonatate* (Tessalon Perle*) 100 Mg Capsule, 100 MG PO Q8H PRN for COUGH, #30 CAP Prov:CALEB VAUGHAN PA-C 04/07/19 Dextromethorphan Hb-Promethazine Hcl* (Promethazine DM* Syrup) 473 Ml Syrup, 5 ML PO Q6 PRN for COUGH, #100 ML Prov:CALEB VAUGHAN PA-C 04/07/19 Azithromycin* (Zithromax*) 250 Mg Tablet, 250 MG PO .ZPACK DIRECTED, #6 TAB TAKE 500 MG (2 TABS) THE FIRST DAY THEN 250 MG (1 TAB) DAYS 2-5 Prov:CALEB VAUGHAN PA-C 04/07/19 Ciprofloxacin Hcl* (Ciprofloxacin Hcl*) 500 Mg Tablet, 500 MG PO BID for 7 Days, TAB Prov:LENORE EDWARDS 03/17/18 Insulin Glargine* (Lantus*) 100 Unit/Ml Soln, 40 UNIT SC DAILY@20 for 30 Days Prov:PRUDENCE DÍAZ 02/05/18 Prednisone* (Prednisone*) 20 Mg Tab, 20 MG PO DAILY for 5 Days, TAB Prov:KWAME MELENDEZ MD 01/20/18 Valsartan* (Diovan*) 80 Mg Tablet, 80 MG PO BID, #60 TAB Prov:PETRA VERONICA NP 08/29/17 Reported Medications Insulin Aspart* (Novolog Insulin Pen*) 100 Unit/Ml Soln, 8 UNIT SC WITH MEALS, EA 03/17/18 Docusate Sodium* (Colace*) 250 Mg Capsule, 250 MG PO NEEDED, #30 CAP 08/23/17 Gabapentin* (Gabapentin*) 300 Mg Capsule, 300 MG PO BID, #60 CAP 08/23/17 Sitagliptin* (Januvia*) 50 Mg Tablet, 50 MG PO DAILY, #30 TAB 08/23/17 Simvastatin* (Zocor*) 10 Mg Tablet, 10 MG PO QHS, #30 TAB 08/23/17 Aspirin* (Aspirin* EC) 81 Mg Tablet.dr, 81 MG PO DAILY, TAB 08/23/17 Clonidine Hcl* (Clonidine Hcl*) 0.2 Mg Tablet, 0.2 MG PO Q8, TAB HOLD IF BPS LESS THAN 110 08/23/17 Pantoprazole* (Protonix*) 40 Mg Tablet.dr, 40 MG PO BID, TAB 08/23/17 Mycophenolate Sodium* (Myfortic*) 180 Mg Tab, 360 MG PO Q12, TAB 08/23/17 Tacrolimus* (Prograf*) 1 Mg Capsule, 1 MG PO Q12, CAP 08/23/17 Allergies Allergies: Coded Allergies: No Known Allergy (Unverified , 03/17/18) PMhx/Soc History of Surgery: Yes (L kidney transplant 2015, cholecystectomy,c/S) Anesthesia Reaction: No Hx Neurological Disorder: No Hx Respiratory Disorders: No Hx Cardiac Disorders: Yes (HTN) Hx Psychiatric Problems: No Hx Miscellaneous Medical Probl: No Hx Alcohol Use: No Hx Substance Use: No Hx Tobacco Use: No Smoking Status: Never smoker FmHx Family History: No diabetes Physical Exam Vitals Vital Signs Date Temp Pulse Resp B/P (MAP) Pulse Ox O2 O2 Flow FiO2 Time Delivery Rate 04/10/19 96 24 95 21 03:12 04/10/19 100 16 116/74 98 Room Air 03:00 (88) 04/10/19 91 18 122/87 92 Room Air 02:34 (99) 04/10/19 106 22 120/61 100 Room Air 02:01 (80) 04/10/19 107 22 98 21 01:52 04/10/19 95 24 114/91 100 Room Air 01:30 (99) 04/10/19 98.3 97 25 135/68 95 01:03 (90) Physical Exam General: Well developed, well nourished, no acute distress Head: Normocephalic, atraumatic. Eyes: Pupils equally reactive, EOM intact ENT: Moist mucous membranes Neck: Supple, no lymphadenopathy Respiratory: Scant wheezing bilaterally, no distress Cardiovascular: RRR, no murmurs, rubs, or gallops Abdominal: Soft, non-tender, non-distended, no peritoneal signs : Deferred MSK: No edema, no unilateral swelling, 5/5 strength Neurologic: Alert and oriented, moving all extremities, normal speech, no focal weakness, no cerebellar signs Skin: No rash Psych: Normal mood Result Diagram: 04/10/19 0234 04/10/19 0234 Results 24 hrs Laboratory Tests Test 04/10/19 02:34 White Blood Count 12.3 10^3/ul Red Blood Count 3.96 10^6/ul Hemoglobin 10.7 g/dl Hematocrit 36.9 % Mean Corpuscular Volume 93.2 fl Mean Corpuscular Hemoglobin 27.0 pg Mean Corpuscular Hemoglobin Concent 29.0 g/dl Red Cell Distribution Width 13.6 % Platelet Count 215 10^3/UL Mean Platelet Volume 10.8 fl Immature Granulocytes % 1.100 % Neutrophils % 68.0 % Lymphocytes % 18.4 % Monocytes % 8.3 % Eosinophils % 3.4 % Basophils % 0.8 % Nucleated Red Blood Cells % 0.0 /100WBC Immature Granulocytes # 0.130 10^3/ul Neutrophils # 8.4 10^3/ul Lymphocytes # 2.3 10^3/ul Monocytes # 1.0 10^3/ul Eosinophils # 0.4 10^3/ul Basophils # 0.1 10^3/ul Nucleated Red Blood Cells # 0.0 10^3/ul Sodium Level 143 mmol/L Potassium Level 4.4 mmol/L Chloride Level 108 mmol/L Carbon Dioxide Level 28 mmol/L Anion Gap 7 Blood Urea Nitrogen 35 mg/dl Creatinine 1.50 mg/dl Est Glomerular Filtrat Rate mL/min 35 mL/min Glucose Level 110 mg/dl Calcium Level 8.5 mg/dl Current Medications Medications Dose Sig/Stephanie Start Time Status Last (Trade) Ordered Route PRN Stop Time Admin Dose Reason Admin Sodium 500 ml @ Q1H STAT 04/10/19 DC 04/10/19 Chloride 500 mls/hr IV 01:41 02:39 04/10/19 02:40 Albuterol 5 mg ONCE STAT 04/10/19 DC 04/10/19 (Proventil INH 01:41 01:51 0.5% (Neb)) 04/10/19 01:43 Ipratropium 1 mg ONCE STAT 04/10/19 DC 04/10/19 [place] [facility] 01:41 01:51 (Atrovent 04/10/19 01:43 0.02% (Neb)) Ketorolac 15 mg ONCE STAT 04/10/19 DC 04/10/19 Tromethamine IV 01:41 02:39 (Toradol) 04/10/19 01:43 Albuterol 5 mg ONCE STAT 04/10/19 DC 04/10/19 (Proventil INH 02:38 03:12 0.5% (Neb)) 04/10/19 02:39 Ipratropium 1 mg ONCE STAT 04/10/19 DC 04/10/19 [place] IN[facility] 02:38 03:12 (Atrovent 04/10/19 02:39 0.02% (Neb)) 10 mg ONCE ONCE 04/10/19 DC 04/10/19 Dexamethasone IV 03:30 03:15 (Decadron) 04/10/19 03:31 Procedures/MDM EKG, MONITORS, & DIAGNOSTIC IMAGING: Chest x-ray: I reviewed and interpreted a 1 view of the chest Mediastinum: No enlargement Cardiac silhouette: No cardiomegaly Airspace: Clear lung rubio bilaterally without evidence of pneumothorax Bones: No evidence of fracture LAB INTERPRETATION: I reviewed the laboratory testing and it shows very mild leukocytosis MEDICAL DECISION MAKING: The patient's presentation is very consistent with likely acute bronchitis. T his is the likely reason that the azithromycin is not working. However, the patient does have a persistent cough that is causing her distress. I do believe repeat laboratory testing and chest x-ray imaging to rule out more serious infection such as pneumonia would be reasonable. No signs or symptoms concerning for CHF or cardiac etiology. ER COURSE: * Patient given breathing treatment x2 with improvement. Saturations remained stable. Laboratory testing is reassuring. Chest x-ray is normal. * Given the patient's persistent cough the patient was given Decadron. There is some wheezing. This is very consistent with likely bronchitis. I do not believe that inpatient hospitalization is necessary at this time. Patient will be transitioned to doxycycline to treat community acquired pneumonia though again this is more likely viral. * Patient will be given cough medication and strict return precautions. CONSULTATION: [None] DISPOSITION PLAN: The patient does not have an identifiable emergent medical condition that warrants inpatient hospitalization at this time. The patient is deemed safe for discharge with outpatient follow-up. We discussed follow up with the patient's primary care doctor within 24 to 48 hours as needed. We also discussed return to the emergency room for worsening symptoms or worsening condition. Outpatient referral: [None required] Discharge Medications: Ventolin, Tessalon Perles, doxycycline Departure Diagnosis: Primary Impression: Acute bronchitis Bronchitis organism: unspecified organism Qualified Codes: J20.9 - Acute bronchitis, unspecified Condition: Stable Patient Instructions: Acute Bronchitis Additional Instructions: Llame al doctor ROSALINDA y gaby kyree SABINO PARA DENTRO DE 2-3 VELA.Dgale a la secretaria que nosotros le instruimos hacer esta sabino.Avise o llame si cheema condicin se empeora antes de la sabino. Regresa aqui si peor o no mejor. MARVIN WAKEFIELD MD Apr 10, 2019 04:11
[2019-04-10 04:15] VITALS: BP 120/81; PULSE 89; RESP 16
== END 2019-04-10 04:24 | disposition home or self-care (01) ==
LOC: E/R 00:58
DX: J20.9 Acute bronchitis, unspecified (principal); I10 Essential (primary) hypertension; E11.9 Type 2 diabetes mellitus without complications; Z79.4 Long term (current) use of insulin; Z79.82 Long term (current) use of aspirin
CPT/HCPCS: 36415; 71045; 80048; 85025; 93005; 94644; 94645; 96374; 96375; 99285; J1100; J1885; J7040

== ENCOUNTER 2019-05-19 11:52 | Inpatient (IN) | payer MEDICARE, OTHER ==
[~2019-05-19] VITALS: Ht 165.1 cm; Wt 108.0 kg
[~2019-05-19 11:52] MED LIST changes: +ALBU18HF INHALATION; +ALLO100T PO; +APIX5TAB PO; +CARV3.1260 PO; +DOXY100T20 PO; +FURO40TA4 PO; +GABA100C14 PO; +IBUP800T48 PO; +INSU100I31 SQ; +MYCO360T PO; +PANT40TA4 PO; +PRED2.5T3 PO; +SIMV20TA PO
[2019-05-19 11:53] VITALS: Ht 165.1 cm; Wt 108.0 kg
[2019-05-19] MEDS ORDERED: ONDANSETRON 4 MG INJ IV STA (12:38)
[2019-05-19] MEDS ORDERED: SOD CHLORIDE 0.9% 1,000 ML IV STA (12:38)
--- NOTE | 2019-05-19 13:22 | ERD ---
ER Documentation Chief Complaint Chief Complaint abdominal pain and nausea x 3 days HPI Translation services were utilized during this patient's encounter Language: Citizen Of [place] Source: In person 63-year-old female with a remote history of kidney transplant who presents the emergency room with 3 days of nausea and vomiting. She denies abdominal pain despite was noted in triage. Patient describes multiple episodes of nonbloody nonbilious emesis and persistent nausea. She describes decreased appetite. No fevers or chills or abdominal pain. Patient's urine output has been slightly decreased. ROS All systems reviewed and are negative except as per history of present illness. Medications Home Meds Reported Medications Insulin Degludec (Tresiba Flextouch U-100) 100 Unit/1 Ml Insuln.pen, 30 UNIT SQ QHS 05/19/19 Prednisone* (Prednisone*) 2.5 Mg Tablet, 2.5 MG PO DAILY, TAB 05/19/19 Simvastatin* (Zocor*) 20 Mg Tablet, 20 MG PO QHS, #30 TAB 05/19/19 Valsartan* (Diovan*) 80 Mg Tablet, 80 MG PO DAILY, TAB 05/19/19 Gabapentin* (Gabapentin*) 100 Mg Capsule, 100 MG PO DAILY, #90 CAP 05/19/19 Carvedilol* (Carvedilol*) 3.125 Mg Tablet, 3.125 MG PO BID, #60 TAB 05/19/19 Allopurinol* (Allopurinol*) 100 Mg Tablet, 100 MG PO DAILY, TAB 05/19/19 Pantoprazole* (Pantoprazole*) 40 Mg Tablet.dr, 40 MG PO AC BREAKFAST, TAB 05/19/19 Apixaban* (Eliquis*) 5 Mg Tablet, 5 MG PO BID, TAB 05/19/19 Insulin Aspart* (Novolog Insulin Pen*) 100 Unit/Ml Soln, 12 UNIT SC WITH MEALS, EA 05/19/19 Furosemide* (Furosemide*) 40 Mg Tablet, 20 MG PO DAILY, TAB 05/19/19 Clonidine Hcl* (Clonidine Hcl*) 0.2 Mg Tablet, 0.2 MG PO BID, TAB 05/19/19 Discontinued Reported Medications Insulin Aspart* (Novolog Insulin Pen*) 100 Unit/Ml Soln, 8 UNIT SC WITH MEALS, EA 03/17/18 Docusate Sodium* (Colace*) 250 Mg Capsule, 250 MG PO NEEDED, #30 CAP 08/23/17 Gabapentin* (Gabapentin*) 300 Mg Capsule, 300 MG PO BID, #60 CAP 08/23/17 Sitagliptin* (Januvia*) 50 Mg Tablet, 50 MG PO DAILY, #30 TAB 08/23/17 Simvastatin* (Zocor*) 10 Mg Tablet, 10 MG PO QHS, #30 TAB 08/23/17 Aspirin* (Aspirin* EC) 81 Mg Tablet.dr, 81 MG PO DAILY, TAB 08/23/17 Clonidine Hcl* (Clonidine Hcl*) 0.2 Mg Tablet, 0.2 MG PO Q8, TAB HOLD IF BPS LESS THAN 110 08/23/17 Pantoprazole* (Protonix*) 40 Mg Tablet.dr, 40 MG PO BID, TAB 08/23/17 Mycophenolate Sodium* (Myfortic*) 180 Mg Tab, 360 MG PO Q12, TAB 08/23/17 Tacrolimus* (Prograf*) 1 Mg Capsule, 1 MG PO Q12, CAP 08/23/17 Discontinued Scripts Benzonatate* (Tessalon Perle*) 100 Mg Capsule, 100 MG PO Q8H PRN for COUGH, #10 CAP Prov:MARVIN WAKEFIELD MD 04/10/19 Albuterol Sulfate* (Ventolin HFA*) 18 Gm Hfa.aer.ad, 2 PUFF INHALATION Q4H, #1 INHALER Prov:MARVIN WAKEFIELD MD 04/10/19 Ibuprofen* (Motrin*) 800 Mg Tab, 800 MG PO Q6H PRN for PAIN AND OR ELEVATED TE MP, #30 TAB Prov:MARVIN WAKEFIELD MD 04/10/19 Doxycycline Hyclate* (Doxycycline Hyclate*) 100 Mg Tablet., 100 MG PO BID for 7 Days, TAB Prov:MARVIN WAKEFIELD MD 04/10/19 Benzonatate* (Tessalon Perle*) 100 Mg Capsule, 100 MG PO Q8H PRN for COUGH, #30 CAP Prov:CALEB VAUGHAN PA-C 04/07/19 Dextromethorphan Hb-Promethazine Hcl* (Promethazine DM* Syrup) 473 Ml Syrup, 5 ML PO Q6 PRN for COUGH, #100 ML Prov:CALEB VAUGHAN PA-C 04/07/19 Azithromycin* (Zithromax*) 250 Mg Tablet, 250 MG PO .KevinPACK DIRECTED, #6 TAB TAKE 500 MG (2 TABS) THE FIRST DAY THEN 250 MG (1 TAB) DAYS 2-5 Prov:CALEB VAUGHAN PA-C 04/07/19 Ciprofloxacin Hcl* (Ciprofloxacin Hcl*) 500 Mg Tablet, 500 MG PO BID for 7 Days, TAB Prov:LENORE EDWARDS 03/17/18 Insulin Glargine* (Lantus*) 100 Unit/Ml Soln, 40 UNIT SC DAILY@20 for 30 Days Prov:PRUDENCE DÍAZ 02/05/18 Prednisone* (Prednisone*) 20 Mg Tab, 20 MG PO DAILY for 5 Days, TAB Prov:KWAME MELENDEZ MD 01/20/18 Valsartan* (Diovan*) 80 Mg Tablet, 80 MG PO BID, #60 TAB Prov:PETRA VERONICA NP 08/29/17 Allergies Allergies: Coded Allergies: No Known Allergy (Unverified , 05/19/19) PMhx/Soc History of Surgery: Yes (L kidney transplant 2016, cholecystectomy,c/S) Anesthesia Reaction: No Hx Neurological Disorder: No Hx Respiratory Disorders: No Hx Cardiac Disorders: Yes (HTN) Hx Psychiatric Problems: No Hx Miscellaneous Medical Probl: No Hx Alcohol Use: No Hx Substance Use: No Hx Tobacco Use: No Smoking Status: Never smoker FmHx Family History: No diabetes Physical Exam Vitals Vital Signs Date Temp Pulse Resp B/P (MAP) Pulse Ox O2 O2 Flow FiO2 Time Delivery Rate 05/19/19 98.1 86 18 153/73 96 Room Air 15:25 (99) 05/19/19 92 18 182/79 97 Room Air 13:04 (113) 05/19/19 97.4 93 20 180/71 97 11:53 (107) Physical Exam General: Well developed, well nourished, no acute distress Head: Normocephalic, atraumatic. Eyes: Pupils equally reactive, EOM intact ENT: Moist mucous membranes Neck: Supple, no lymphadenopathy Respiratory: Lungs clear bilaterally, no distress Cardiovascular: RRR, no murmurs, rubs, or gallops Abdominal: Soft, non-tender, non-distended, no peritoneal signs, no tenderness to McBurney's point, negative Chavez sign : Deferred MSK: No edema, no unilateral swelling, 5/5 strength Neurologic: Alert and oriented, moving all extremities, normal speech, no focal weakness, no cerebellar signs Skin: No rash Psych: Normal mood Result Diagram: 05/19/19 1248 05/19/19 1248 Results 24 hrs Laboratory Tests Test 05/19/19 12:44 05/19/19 12:48 Urine Color YELLOW Urine Clarity CLOUDY Urine pH 5.0 Urine Specific [place] 1.010 Urine Ketones NEGATIVE mg/dL Urine Nitrite NEGATIVE mg/dL Urine Bilirubin NEGATIVE mg/dL Urine Urobilinogen NEGATIVE mg/dL Urine Leukocyte Esterase 3+ Susi/ul Urine Microscopic RBC 12 /HPF Urine Microscopic WBC > 182 /HPF Urine Squamous Epithelial Cells FEW /HPF Urine Bacteria FEW /HPF Urine Hemoglobin 1+ mg/dL Urine Glucose NEGATIVE mg/dL Urine Total Protein 2+ mg/dl White Blood Count 9.1 10^3/ul Red Blood Count 3.96 10^6/ul Hemoglobin 10.6 g/dl Hematocrit 36.9 % Mean Corpuscular Volume 93.2 fl Mean Corpuscular Hemoglobin 26.8 pg Mean Corpuscular Hemoglobin Concent 28.7 g/dl Red Cell Distribution Width 14.1 % Platelet Count 206 10^3/UL Mean Platelet Volume 10.4 fl Immature Granulocytes % 0.800 % Neutrophils % 67.6 % Lymphocytes % 21.0 % Monocytes % 8.7 % Eosinophils % 0.9 % Basophils % 1.0 % Nucleated Red Blood Cells % 0.0 /100WBC Immature Granulocytes # 0.070 10^3/ul Neutrophils # 6.1 10^3/ul Lymphocytes # 1.9 10^3/ul Monocytes # 0.8 10^3/ul Eosinophils # 0.1 10^3/ul Basophils # 0.1 10^3/ul Nucleated Red Blood Cells # 0.0 10^3/ul Sodium Level 141 mmol/L Potassium Level 4.6 mmol/L Chloride Level 106 mmol/L Carbon Dioxide Level 30 mmol/L Anion Gap 5 Blood Urea Nitrogen 18 mg/dl Creatinine 1.21 mg/dl Est Glomerular Filtrat Rate mL/min 45 mL/min Glucose Level 241 mg/dl Calcium Level 9.3 mg/dl Total Bilirubin 1.2 mg/dl Direct Bilirubin 0.00 mg/dl Indirect Bilirubin 1.2 mg/dl Aspartate Amino Transf (AST/SGOT) 19 IU/L Alanine Aminotransferase (ALT/SGPT) 18 IU/L Alkaline Phosphatase 113 IU/L Troponin I < 0.012 ng/ml Total Protein 6.7 g/dl Albumin 3.6 g/dl Globulin 3.10 g/dl Albumin/Globulin Ratio 1.16 Lipase 66 U/L Current Medications Medications Dose Sig/Stephanie Start Time Status Last (Trade) Ordered Route PRN Stop Time Admin Dose Reason Admin Sodium 1,000 ml @ Q1H STAT 05/19/19 DC 05/19/19 Chloride 1,000 mls/hr IV 12:38 12:52 05/19/19 13:37 Ondansetron 4 mg ONCE STAT 05/19/19 DC 05/19/19 HCl (Zofran IV 12:38 12:52 Inj) 05/19/19 12:39 Ceftriaxone 50 ml @ ONCE ONCE 05/19/19 DC 05/19/19 Sodium 100 mls/hr IVPB 14:00 13:55 05/19/19 14:29 Ondansetron 4 mg BRIDGE ORDER 05/19/19 HCl (Zofran PRN IV 16:00 Inj) NAUSEA/VOMITI 05/20/19 15:59 NG 650 mg ER BRIDGE 05/19/19 Acetaminophen PRN PO 16:00 (Tylenol .MILD PAIN 05/20/19 15:59 Tab) 1-3 OR TEMP Procedures/MDM EKG, MONITORS, & DIAGNOSTIC IMAGING: EKG: I reviewed and interpreted a 12-lead EKG. Rhythm: Normal sinus rhythm ST Changes: No contiguous ST segment elevations T waves: No contiguous T wave inversions Impression: No evidence of acute cardiac ischemia CT abdomen and pelvis: IMPRESSION: 1. Moderate dilatation of the common bile duct, unchanged from the prior examination in this patient status post cholecystectomy. Laboratory correlation is advised. A tubular structure adjacent to the common bile duct likely represents a cystic duct remnant, unchanged from the prior study. 2. Mild intrahepatic pneumobilia in the left hepatic duct could relate to prior sphincterotomy. 3. Atrophic curyung kidneys with postsurgical changes of renal transplantation in the left lower quadrant. No hydronephrosis of the transplant kidney. 4. No bowel obstruction or bowel wall thickening. Chest x-ray: IMPRESSION: 1. Linear bibasilar atelectasis. 2. Prominent cardiac silhouette, likely related to the portable AP technique. LAB INTERPRETATION: I reviewed the laboratory testing and it shows urinary tract infection MEDICAL DECISION MAKING: Patient presents with nonspecific nausea and vomiting over 4-day timeframe. The patient is a renal transplant patient. Differential is broad including possible ACS, low concern for infectious process, consider viral etiology. Patient also needs to be screened for possible transplant rejection given nonspecific nausea and vomiting. Patient would warrant laboratory testing diagnostic imaging including CT of the abdomen pelvis to rule out obstructive process. ER COURSE: * IV fluids and nausea medication provided * Patient has a urinary tract infection. This is complicated because the patient is immunosuppressed and does have a transplanted kidney. * All the patient does not seem to be systemically ill she is at high risk. I discussed inpatient versus outpatient management. The patient feels that she cannot tolerate oral intake and for this reason warrants inpatient hos pitalization. * Patient given IV ceftriaxone. CONSULTATION: None DISPOSITION PLAN: Accepting care team and consultations: I discussed the current laboratory data, diagnostic imaging and emergency care provided. Admitting team: Dr. Blackwell Admitting team indication: Insurance directed Departure Diagnosis: Primary Impression: Urinary tract infection Urinary tract infection type: acute cystitis Hematuria presence: without hematuria Qualified Codes: N30.00 - Acute cystitis without hematuria Additional Impression: History of renal transplant Condition: MARVIN Wong MD May 19, 2019 13:22
[2019-05-19] MEDS ORDERED: CEFTRIAXONE 1 GM/50 ML (PMX) 50 ML IVPB ONE (14:00)
[2019-05-19] MEDS ORDERED: ONDANSETRON 4 MG INJ IV PRN ×2 (16:00→17:30)
[2019-05-19] MEDS ORDERED: ACETAMINOPHEN 325 MG TAB PO PRN ×2 (16:00→17:30)
--- NOTE | 2019-05-19 17:11 | HP ---
Date/Time of Note Date/Time of Note DATE: 05/19/19 TIME: 17:00 Assessment/Plan VTE Prophylaxis SCD applied (from Nsg): Yes Pharmacological prophylaxis: other Lines/Catheters IV Catheter Type (from Nrsg): Saline Lock Assessment/Plan Assessment/Plan -Urinary tract infection continue Rocephin follow-up on urine culture. Dr. Krueger is asked to see patient in infection disease consultation. -Acute kidney injury, continue IV fluids monitor BUN and creatinine. -Status post kidney transplant, continue current antirejection medication. Dr. Montana is asked to see patient in nephrology consultation. -Immunocompromise state -Diabetes mellitus -Hypertension -Hyperlipidemia -Obesity Further recommendations based on clinical course. Plan of care discussed with Dr. Blackwell. Result Diagram: 05/19/19 1248 05/19/19 1248 Results 24hrs Laboratory Tests Test 05/19/19 12:44 05/19/19 12:48 Urine Color YELLOW Urine Clarity CLOUDY A Urine pH 5.0 Urine Specific [place] 1.010 Urine Ketones NEGATIVE Urine Nitrite NEGATIVE Urine Bilirubin NEGATIVE Urine Urobilinogen NEGATIVE Urine Leukocyte Esterase 3+ H Urine Microscopic RBC 12 H Urine Microscopic WBC > 182 H Urine Squamous Epithelial Cells FEW Urine Bacteria FEW A Urine Hemoglobin 1+ H Urine Glucose NEGATIVE Urine Total Protein 2+ H White Blood Count 9.1 # Red Blood Count 3.96 L Hemoglobin 10.6 L Hematocrit 36.9 L Mean Corpuscular Volume 93.2 Mean Corpuscular Hemoglobin 26.8 L Mean Corpuscular Hemoglobin Concent 28.7 L Red Cell Distribution Width 14.1 Platelet Count 206 Mean Platelet Volume 10.4 Immature Granulocytes % 0.800 H Neutrophils % 67.6 Lymphocytes % 21.0 Monocytes % 8.7 Eosinophils % 0.9 Basophils % 1.0 Nucleated Red Blood Cells % 0.0 Immature Granulocytes # 0.070 H Neutrophils # 6.1 Lymphocytes # 1.9 Monocytes # 0.8 Eosinophils # 0.1 Basophils # 0.1 Nucleated Red Blood Cells # 0.0 Sodium Level 141 Potassium Level 4.6 Chloride Level 106 Carbon Dioxide Level 30 Anion Gap 5 Blood Urea Nitrogen 18 Creatinine 1.21 H Est Glomerular Filtrat Rate mL/min 45 L Glucose Level 241 H Calcium Level 9.3 Total Bilirubin 1.2 Direct Bilirubin 0.00 Indirect Bilirubin 1.2 H Aspartate Amino Transf (AST/SGOT) 19 Alanine Aminotransferase (ALT/SGPT) 18 Alkaline Phosphatase 113 Troponin I < 0.012 Total Protein 6.7 Albumin 3.6 Globulin 3.10 Albumin/Globulin Ratio 1.16 Lipase 66 HPI/ROS Admit Date/Time Admit Date/Time Hx of Present Illness Patient is 63-year-old female known to me from previous admission patient was treated for E. coli ESBL urinary tract infection in the past. Patient with history of kidney transplant in 2001, diabetes, hypertension, hyperlipidemia, GERD and obesity. Patient stated that she is compliant with her medication, follows with Dr. Montana in nephrology consultation as an outpatient. Patient presented to the emergency room with complaints of 3 days of nausea and nonbloody nonbilious emesis. Patient complains of a decreased appetite and generalized weakness, patient denies any fevers chills denies abdominal pain. Patient denies any chest pain denies shortness of breath. He was diagnosed with acute cystitis and was started on Rocephin. Patient will be admitted for further evaluation and management to medical surgical floor. ROS 12 point review of systems negative unless what mentioned in HPI PMH/Family/Social Past Medical History Medications Current Medications Ondansetron HCl (Zofran Inj) 4 mg BRIDGE ORDER PRN IV NAUSEA/VOMITING; Start 05/19/19 at 16:00; Stop 05/20/19 at 15:59 Acetaminophen (Tylenol Tab) 650 mg ER BRIDGE PRN PO .MILD PAIN 1-3 OR TEMP; Start 05/19/19 at 16:00; Stop 05/20/19 at 15:59 Coded Allergies: No Known Allergy (Unverified , 05/19/19) Past Surgical History Past Surgical Hx: cholecystectomy, other (s/p kidney transplant in 2001 at [facility], ) Family History Significant Family History: diabetes Social History Alcohol Use: none Smoking Status: Former smoker Drug Use: none Exam/Review of Systems Vital Signs Vitals Vital Signs Date Temp Pulse Resp B/P (MAP) Pulse Ox O2 O2 Flow FiO2 Time Delivery Rate 05/19/19 98.1 86 18 153/73 96 Room Air 15:25 (99) Exam Constitutional: alert, oriented Head: normocephalic Neck: supple Respiratory: clear to auscultation Cardiovascular: nl pulses Gastrointestinal: soft, non-tender Musculoskeletal: nl extremities to inspection Extremities: normal pulses Neurological: nl mental status Skin: nl turgor RADCHENKO,PRUDENCE May 19, 2019 17:11
--- NOTE | 2019-05-19 17:15 | CONS ---
Assessment/Plan Assessment/Plan Assessment/Plan (Daily) 1. Acute kidney injury due to UTI and Prerenaal azotemia 2. acute UTI 3. H/O kidney transplant on immunosuppression 4. H/o HTN 5. H/O HL 6. H/o DM II 7. H/o previosu ESBL E coli UTI Plan: seen in ED, Continue IV abx ceftriaxone, currently hold off on valsartan due to LESLEY Continue prograf 1 mg BID, myfortic 360mg BID and prednisone 2.5 mg po maldonado BP stable expectign Cr to improve, avoid nephrotoxic medications Thanks for consultation, I will follow up Consultation Date/Type/Reason Admit Date/Time 05/19/19 Date of Consultation: May 19, 2019 Type of Consult NEPHROLOGY Reason for Consultation acute kidney injury Requesting Provider: MARIA ISABEL GUTIERRES MD Date/Time of Note DATE: 05/19/19 TIME: 17:14 Hx of Present Illness 63-year-old female known to me from previous admission patient was t reated for E. coli ESBL urinary tract infection in the past. Patient with history of kidney transplant in 2001, diabetes, hypertension, hyperlipidemia, GERD and obesity. Patient presented to the emergency room with complaints of 3 days of nausea and nonbloody nonbilious emesis. Patient complains of a decreased appetite and generalized weakness,she had a UTI and started no IV rocephin BP stable, On admission BUN/Cr 18/1.21- K normal, Renal has been consulted for acute kidney injury and management of immunosuppression mediatiosn pt has been on prograf 1 mg BID, myfortic 360mg BID and prednisone 2.5mg po daily Constitutional: poor po Eyes: no complaints ENT: no complaints Respiratory: no complaints Cardiovascular: no complaints Gastrointestinal: decreased appetite, diarrhea, nausea Genitourinary: no complaints Musculoskeletal: no complaints Skin: no complaints Neurologic: no complaints Endocrine: no complaints Lymphatic: no complaints Psychological: no complaints Immunologic: no complaints Past Medical History Medical History: diabetes, high cholesterol, hypertension, other (h/o kidney transplant on immunosuppressive medications ) Home Meds Reported Medications Mycophenolate Sodium* (Myfortic*) 360 Mg Tablet., 360 MG PO Q12, TAB 05/19/19 Tacrolimus* (Prograf*) 1 Mg Capsule, 1 MG PO Q12, CAP 05/19/19 Insulin Degludec (Tresiba Flextouch U-100) 100 Unit/1 Ml Insuln.pen, 30 UNIT SQ QHS 05/19/19 Prednisone* (Prednisone*) 2.5 Mg Tablet, 2.5 MG PO DAILY, TAB 05/19/19 Simvastatin* (Zocor*) 20 Mg Tablet, 20 MG PO QHS, #30 TAB 05/19/19 Valsartan* (Diovan*) 80 Mg Tablet, 80 MG PO DAILY, TAB 05/19/19 Gabapentin* (Gabapentin*) 100 Mg Capsule, 100 MG PO DAILY, #90 CAP 05/19/19 Carvedilol* (Carvedilol*) 3.125 Mg Tablet, 3.125 MG PO BID, #60 TAB 05/19/19 Allopurinol* (Allopurinol*) 100 Mg Tablet, 100 MG PO DAILY, TAB 05/19/19 Pantoprazole* (Pantoprazole*) 40 Mg Tablet.dr, 40 MG PO AC BREAKFAST, TAB 05/19/19 Apixaban* (Eliquis*) 5 Mg Tablet, 5 MG PO BID, TAB 05/19/19 Insulin Aspart* (Novolog Insulin Pen*) 100 Unit/Ml Soln, 12 UNIT SC WITH MEALS, EA 05/19/19 Furosemide* (Furosemide*) 40 Mg Tablet, 20 MG PO DAILY, TAB 05/19/19 Clonidine Hcl* (Clonidine Hcl*) 0.2 Mg Tablet, 0.2 MG PO BID, TAB 05/19/19 Discontinued Reported Medications Insulin Aspart* (Novolog Insulin Pen*) 100 Unit/Ml Soln, 8 UNIT SC WITH MEALS, EA 03/17/18 Docusate Sodium* (Colace*) 250 Mg Capsule, 250 MG PO NEEDED, #30 CAP 08/23/17 Gabapentin* (Gabapentin*) 300 Mg Capsule, 300 MG PO BID, #60 CAP 08/23/17 Sitagliptin* (Januvia*) 50 Mg Tablet, 50 MG PO DAILY, #30 TAB 08/23/17 Simvastatin* (Zocor*) 10 Mg Tablet, 10 MG PO QHS, #30 TAB 08/23/17 Aspirin* (Aspirin* EC) 81 Mg Tablet.dr, 81 MG PO DAILY, TAB 08/23/17 Clonidine Hcl* (Clonidine Hcl*) 0.2 Mg Tablet, 0.2 MG PO Q8, TAB HOLD IF BPS LESS THAN 110 08/23/17 Pantoprazole* (Protonix*) 40 Mg Tablet.dr, 40 MG PO BID, TAB 08/23/17 Mycophenolate Sodium* (Myfortic*) 180 Mg Tab, 360 MG PO Q12, TAB 08/23/17 Tacrolimus* (Prograf*) 1 Mg Capsule, 1 MG PO Q12, CAP 08/23/17 Discontinued Scripts Benzonatate* (Tessalon Perle*) 100 Mg Capsule, 100 MG PO Q8H PRN for COUGH, #10 CAP Prov:MARVIN WAKEFIELD MD 04/10/19 Albuterol Sulfate* (Ventolin HFA*) 18 Gm Hfa.aer.ad, 2 PUFF INHALATION Q4H, #1 INHALER Prov:MARVIN WAKEFIELD MD 04/10/19 Ibuprofen* (Motrin*) 800 Mg Tab, 800 MG PO Q6H PRN for PAIN AND OR ELEVATED TEMP, #30 TAB Prov:MARVIN WAKEFIELD MD 04/10/19 Doxycycline Hyclate* (Doxycycline Hyclate*) 100 Mg Tablet., 100 MG PO BID for 7 Days, TAB Prov:MARVIN WAKEFIELD MD 04/10/19 Benzonatate* (Tessalon Perle*) 100 Mg Capsule, 100 MG PO Q8H PRN for COUGH, #30 CAP Prov:CALEB VAUGHAN PA-C 04/07/19 Dextromethorphan Hb-Promethazine Hcl* (Promethazine DM* Syrup) 473 Ml Syrup, 5 ML PO Q6 PRN for COUGH, #100 ML Prov:CALEB VAUGHAN PA-C 04/07/19 Azithromycin* (Zithromax*) 250 Mg Tablet, 250 MG PO .ANUM DIRECTED, #6 TAB TAKE 500 MG (2 TABS) THE FIRST DAY THEN 250 MG (1 TAB) DAYS 2-5 Prov:CALEB VAUGHAN PA-C 04/07/19 Ciprofloxacin Hcl* (Ciprofloxacin Hcl*) 500 Mg Tablet, 500 MG PO BID for 7 Days, TAB Prov:LENORE EDWARDS 03/17/18 Insulin Glargine* (Lantus*) 100 Unit/Ml Soln, 40 UNIT SC DAILY@20 for 30 Days Prov:PRUDENCE DÍAZ 02/05/18 Prednisone* (Prednisone*) 20 Mg Tab, 20 MG PO DAILY for 5 Days, TAB Prov:KWAME MELENDEZ MD 01/20/18 Valsartan* (Diovan*) 80 Mg Tablet, 80 MG PO BID, #60 TAB Prov:PETRA VERONICA NP 08/29/17 Medications Current Medications Ondansetron HCl (Zofran Inj) 4 mg BRIDGE ORDER PRN IV NAUSEA/VOMITING; Start 05/19/19 at 16:00; Stop 05/20/19 at 15:59 Acetaminophen (Tylenol Tab) 650 mg ER BRIDGE PRN PO .MILD PAIN 1-3 OR TEMP; Start 05/19/19 at 16:00; Stop 05/20/19 at 15:59 Allergies: Coded Allergies: No Known Allergy (Unverified , 05/19/19) Past Surgical History Past Surgical Hx: cholecystectomy, other (s/p kidney transplant in 2001 at [facility], ) Family History Significant Family History: no pertinent family hx Social History Alcohol Use: none Smoking Status: Former smoker Drug Use: none Exam/Review of Systems Exam Vitals Vital Signs Date Temp Pulse Resp B/P (MAP) Pulse Ox O2 O2 Flow FiO2 Time Delivery Rate 05/19/19 98.1 86 18 153/73 96 Room Air 15:25 (99) Constitutional: alert Head: normocephalic Eyes: nl conjunctiva Neck: supple, non-tender Respiratory: clear to auscultation, normal air movement Cardiovascular: regular rate and rhythm, nl pulses Gastrointestinal: soft, non-tender Musculoskeletal: nl extremities to inspection Extremities: normal pulses Neurological: [employer] II-XII intact, nl mental status, nl speech, nl strength Skin: nl turgor Lymph: nl lymph nodes Results Result Diagram: 05/19/19 1248 05/19/19 1248 Results 24hrs Laboratory Tests Test 05/19/19 12:44 05/19/19 12:48 Urine Color YELLOW Urine Clarity CLOUDY A Urine pH 5.0 Urine Specific [place] 1.010 Urine Ketones NEGATIVE Urine Nitrite NEGATIVE Urine Bilirubin NEGATIVE Urine Urobilinogen NEGATIVE Urine Leukocyte Esterase 3+ H Urine Microscopic RBC 12 H Urine Microscopic WBC > 182 H Urine Squamous Epithelial Cells FEW Urine Bacteria FEW A Urine Hemoglobin 1+ H Urine Glucose NEGATIVE Urine Total Protein 2+ H White Blood Count 9.1 # Red Blood Count 3.96 L Hemoglobin 10.6 L Hematocrit 36.9 L Mean Corpuscular Volume 93.2 Mean Corpuscular Hemoglobin 26.8 L Mean Corpuscular Hemoglobin Concent 28.7 L Red Cell Distribution Width 14.1 Platelet Count 206 Mean Platelet Volume 10.4 Immature Granulocytes % 0.800 H Neutrophils % 67.6 Lymphocytes % 21.0 Monocytes % 8.7 Eosinophils % 0.9 Basophils % 1.0 Nucleated Red Blood Cells % 0.0 Immature Granulocytes # 0.070 H Neutrophils # 6.1 Lymphocytes # 1.9 Monocytes # 0.8 Eosinophils # 0.1 Basophils # 0.1 Nucleated Red Blood Cells # 0.0 Sodium Level 141 Potassium Level 4.6 Chloride Level 106 Carbon Dioxide Level 30 Anion Gap 5 Blood Urea Nitrogen 18 Creatinine 1.21 H Est Glomerular Filtrat Rate mL/min 45 L Glucose Level 241 H Calcium Level 9.3 Total Bilirubin 1.2 Direct Bilirubin 0.00 Indirect Bilirubin 1.2 H Aspartate Amino Transf (AST/SGOT) 19 Alanine Aminotransferase (ALT/SGPT) 18 Alkaline Phosphatase 113 Troponin I < 0.012 Total Protein 6.7 Albumin 3.6 Globulin 3.10 Albumin/Globulin Ratio 1.16 Lipase 66 Medications Medication Current Medications Ondansetron HCl (Zofran Inj) 4 mg BRIDGE ORDER PRN IV NAUSEA/VOMITING; Start 05/19/19 at 16:00; Stop 05/20/19 at 15:59 Acetaminophen (Tylenol Tab) 650 mg ER BRIDGE PRN PO .MILD PAIN 1-3 OR TEMP; Start 05/19/19 at 16:00; Stop 05/20/19 at 15:59 REBECA LAIRD MD May 19, 2019 17:15
[2019-05-19] MEDS ORDERED: HYDROCODONE/APAP (5/325) TAB PO PRN (17:30)
[2019-05-19] MEDS ORDERED: DOCUSATE SODIUM 100 MG CAP PO PRN (17:30)
[2019-05-19] MEDS ORDERED: ZOLPIDEM 5 MG TAB PO PRN (17:30)
--- NOTE | 2019-05-19 17:38 | CONS ---
DATE OF ADMISSION: 05/19/2019 DATE OF CONSULTATION: 05/19/2019 TYPE OF CONSULTATION: Infectious disease. REASON FOR CONSULTATION: Antibiotic management. HISTORY OF PRESENT ILLNESS: Bianca De La Paz is a 63-year-old female admitted previously to [facility] where she was treated for Escherichia coli extended-spectrum beta-lactamase urinary tract infection in the past. The patient has a history of: 1. Kidney transplant in 2001. 2. Diabetes. 3. Hypertension. 4. Hyperlipidemia. 5. GERD. 6. Obesity. Dr. Merritt Montana is her nephrology cosmetic sales consultant. She presented to the Emergency Room with 3 days of n ausea and vomiting. She complains of decreased appetite, generalized weakness. She was diagnosed wi acute cystitis, was started on Rocephin and will be admitted for further evaluation. PAST SURGICAL HISTORY: Includes left kidney transplant in 2015 and a cholecystectomy. The patient h as a history of hypertension. FAMILY HISTORY: Noncontributory. SOCIAL HISTORY: She does not smoke, drink or abuse drugs. ALLERGIES: NONE TO PENICILLIN, SULFA OR FOODS. MEDICATIONS: Per chart. REVIEW OF SYSTEMS: As per HPI. PHYSICAL EXAMINATION: GENERAL: She is a well-developed, well-nourished female who is alert, responsive, in no acute distre ss. VITAL SIGNS: Stable. She is afebrile. SKIN: Without generalized rash. HEENT: Within normal limits. NECK: Supple. LYMPH NODES: None palpable. CHEST: Decreased breath sounds at the bases. HEART: Without murmur or gallop. ABDOMEN: Soft, nontender, without organosplenomegaly or masses. EXTREMITIES: Without cyanosis, clubbing, or edema. RECTAL AND GENITAL: Deferred. NEUROLOGIC: No focal neurological abnormalities. ANCILLARY LABORATORY DATA: Her white count is 9.1 with 68% neutrophils, H and H 10.6/36.9, platelet count 206,000. BUN and creatinine 18/1.21, glucose of 241. Her urinalysis shows 3+ leukocyte estera se, greater than 182 white cells per high-power field, 2+ protein in the urine. HOSPITAL COURSE: Patient had a CT scan of the abdomen and pelvis which showed moderate dilatation of the common bile duct, unchanged from previous examination, status post cholecystectomy. A tubular s tructure adjacent to the common bile duct likely represents a cystic duct remnant. She has mild intr ahepatic pneumobilia in the left hepatic duct, possibly related to prior sphincterotomy. Atrophic na tive kidneys with postsurgical changes of renal transplantation in the left lower quadrant. No hydro nephrosis of the transplant kidney. Chest x-ray shows linear basilar atelectasis, prominent cardiac silhouette, likely related to portable AP technique. DIAGNOSIS: Urinary tract infection. IMPRESSION AND PLAN: The patient was begun on ceftriaxone. I don't believe that she is a nursing ho md patient, otherwise would start her on cefepime. I will look into this. Dictated By: JANIYA CASE MD, JD/JOAN Conf#: [id number] DID#: [id number]
[2019-05-19 18:18] VITALS: BP 148/79; PULSE 69; RESP 18
[2019-05-19] MEDS: INSULIN ASPART [NOVOLOG] 3 ML PEN SC SCH ×3 (18:59→21:44)
[2019-05-19 19:43] VITALS: BP 185/91; PULSE 90; RESP 18
[2019-05-19] MEDS ORDERED: NON-FORMULARY/PATIENT OWN MED (Simvastatin* (Zocor*) 20 MG) PO SCH (20:20)
[2019-05-19] MEDS ORDERED: NON-FORMULARY/PATIENT OWN MED (Valsartan* (Diovan*) 80 MG) PO SCH (20:20)
[2019-05-19] MEDS: TACROLIMUS 1 MG CAP PO SCH ×2 (21:00→23:27)
[2019-05-19] MEDS: MEROPENEM 1 GM/50ML(PMX) 50 ML IVPB SCH (21:19)
[2019-05-19] MEDS: GABAPENTIN 100 MG CAP PO SCH (21:23)
[2019-05-19] MEDS: INSULIN GLARGINE [LANTus] (100 UNITS/ML) SYG SC SCH (21:35)
[2019-05-19] MEDS ORDERED: ATORVASTATIN 10 MG TAB PO ONE (22:30)
[2019-05-19] MEDS: APIXABAN 5 MG TABLET PO SCH (23:28)
[2019-05-19] MEDS: MYCOPHENOLATE (SR) 180 MG TAB PO SCH (23:31)
[2019-05-20 01:59] VITALS: BP 119/58; PULSE 79; RESP 16
[2019-05-20] MEDS: ACCU-CHEK XX SCH (02:00)
[2019-05-20] MEDS: PANTOPRAZOLE (EC) 40 MG TAB PO SCH (06:36)
[2019-05-20 07:32] VITALS: BP 192/83; PULSE 78; RESP 18
[2019-05-20] MEDS: INSULIN ASPART [NOVOLOG] 3 ML PEN SC SCH ×8 (08:21→21:00)
[2019-05-20] MEDS: MEROPENEM 1 GM/50ML(PMX) 50 ML IVPB SCH ×2 (08:46→21:24)
[2019-05-20] MEDS: ALLOPURINOL 100 MG TAB PO SCH (08:47)
[2019-05-20] MEDS: FUROSEMIDE 40 MG TAB PO SCH (08:48)
[2019-05-20] MEDS: APIXABAN 5 MG TABLET PO SCH ×2 (08:49→21:26)
[2019-05-20] MEDS: predniSONE 2.5 MG TAB PO SCH (08:49)
[2019-05-20] MEDS: TACROLIMUS 1 MG CAP PO SCH ×2 (08:49→21:25)
[2019-05-20] MEDS: MYCOPHENOLATE (SR) 180 MG TAB PO SCH ×2 (08:59→21:25)
[2019-05-20 11:07] VITALS: BP 143/71
[2019-05-20 13:32] VITALS: BP 138/91; PULSE 90; RESP 17
--- NOTE | 2019-05-20 14:18 | PN ---
DATE: 05/20/2019 SUBJECTIVE: The patient is alert, feels good, looks comfortable. Denies pain, no fevers overnight. No nausea, vomiting, diarrhea. No dysuria. WBC 7.2, no shift, no bands. BUN 18, creatinine 1.12. Urinalysis on admission was positive for leukocyte, WBCs and few bacteria. Cultures are pending. DIAGNOSTICS: CT of the abdomen and pelvis revealed moderate dilatation of the common bile duct, unch anged from previous examination. The patient is status post cholecystectomy. No hydronephrosis, no bowel obstruction or bowel wall thickening. Please see full report on the chart. Chest x-ray reveal ed linear bibasilar atelectasis. ALLERGIES: NONE. ANTIMICROBIALS: The patient was started on meropenem. PHYSICAL EXAMINATION: GENERAL: This is an obese, well-developed, very pleasant elderly woman who is alert, in no distress. HEENT: Head atraumatic, normocephalic. NECK: Supple. CHEST: Rise symmetrical. Breath sounds clear, diminished to bases. HEART: S1, S2. ABDOMEN: Soft, bowel tones present. EXTREMITIES: Without cyanosis. ASSESSMENT: 1. Status post nausea and emesis. Also, decreased appetite and weakness, resolved. 2. Positive urinalysis with a history of ESBL growing in the urine. 3. History of kidney transplant. 4. Diabetes. 5. Hypertension and obesity. PLAN: The patient remains stable. We will continue her on current antibiotics. Await for urine cul tures. Urine preliminary culture growing gram-negative rods. Dictated By: MICHAEL SETHI RESTAURANT MGR for JANIYA CASE MD NI/NTS Conf#: [id number] DID#: [id number] CC: MARIA ISABEL GUTIERRES MD;*EndCC*
--- NOTE | 2019-05-20 15:35 | CONS ---
Assessment/Plan Assessment/Plan Assessment/Plan (Daily) 1. Acute kidney injury due to UTI and Prerenaal azotemia 2. acute UTI 3. H/O kidney transplant on immunosuppression 4. H/o HTN 5. H/O HL 6. H/o DM II 7. H/o previosu ESBL E coli UTI Plan: BUN/Cr 18/1.12, other electrolyte stable Continue prograf 1 mg BID, myfortic 360mg BID and prednisone 2.5 mg po maldonado BP stable expectign Cr to improve, avoid nephrotoxic medications need better BS control will follow up Consultation Date/Type/Reason Admit Date/Time May 19, 2019 at 15:38 Initial Consult Date 05/19/19 Type of Consult NEPHROLOGY Requesting Provider: MARIA ISABEL GUTIERRES MD Date/Time of Note DATE: 05/20/19 TIME: 15:34 Exam/Review of Systems Exam Vitals Vital Signs Date Temp Pulse Resp B/P (MAP) Pulse Ox O2 O2 Flow FiO2 Time Delivery Rate 05/20/19 98.6 90 17 138/91 99 13:32 (107) 05/19/19 Room Air 19:43 Intake and Output 05/19/19 05/19/19 05/20/19 1515:00 23:00 07:00 IntakeIntake Total 100 ml 100 ml BalanceBalance 100 ml 100 ml Exam Constitutional: alert, awake, no acute distress Respiratory: clear to auscultation, normal air movement Cardiovascular: regular rate and rhythm, nl pulses Gastrointestinal: soft, non-tender Musculoskeletal: nl extremities to inspection Extremities: normal pulses, Right renal allograft ok Neurological: SU[employer] LEADER II-XII intact, nl mental status, nl speech, nl strength Results Result Diagram: 05/20/19 0515 05/20/19 0515 Results 24hrs Laboratory Tests Test 05/19/19 18:54 05/19/19 21:20 05/20/19 02:03 05/20/19 05:15 Bedside Glucose 327 H 296 H 233 H White Blood Count 7.2 # Red Blood Count 3.55 L Hemoglobin 9.7 L Hematocrit 32.5 L Mean Corpuscular 91.5 Volume Mean Corpuscular 27.3 L Hemoglobin Mean Corpuscular 29.8 L Hemoglobin Concent Red Cell 14.1 Distribution Width Platelet Count 188 Mean Platelet Volume 10.9 H Immature 1.400 H Granulocytes % Neutrophils % 59.0 Lymphocytes % 28.9 Monocytes % 8.3 Eosinophils % 1.4 Basophils % 1.0 Nucleated Red Blood 0.0 Cells % Immature 0.100 H Granulocytes # Neutrophils # 4.3 Lymphocytes # 2.1 Monocytes # 0.6 Eosinophils # 0.1 Basophils # 0.1 Nucleated Red Blood 0.0 Cells # Sodium Level 139 Potassium Level 4.6 Chloride Level 106 Carbon Dioxide Level 29 Anion Gap 4 L Blood Urea Nitrogen 18 Creatinine 1.12 H Est Glomerular 49 L Filtrat Rate mL/min Glucose Level 202 Calcium Level 9.2 Test 05/20/19 08:16 05/20/19 12:36 Bedside Glucose 187 163 Medications Medication Current Medications Ondansetron HCl (Zofran Inj) 4 mg Q6H PRN IV NAUSEA/VOMITING; Start 05/19/19 at 17:30 Acetaminophen (Tylenol Tab) 650 mg Q6H PRN PO .PAIN 1-3 OR TEMP; Start 05/19/19 at 17:30 Acetaminophen/ Hydrocodone Bitart ([place] (5/325)) 1 tab Q6H PRN PO .MOD PAIN 4- 6; Start 05/19/19 at 17:30 Docusate Sodium (Colace) 100 mg Q12H PRN PO .CONSTIPATION; Start 05/19/19 at 17:30 Zolpidem Tartrate (Ambien) 5 mg QHS PRN PO .INSOMNIA; Start 05/19/19 at 17:30 Diagnostic Test (Pha) (Accu-Chek) 1 ea 02 XX ; Start 05/20/19 at 02:00 Insulin Glargine (Lantus) 30 units DAILY@2000 SC Last administered on 05/19/19at 21:35; Admin Dose 30 UNITS; Start 05/19/19 at 20:00 Insulin Aspart (Novolog Insulin Pen) 12 unit WITH MEALS SC Last administered on 05/20/19at 12:39; Admin Dose 12 UNIT; Start 05/19/19 at 18:00 Insulin Aspart (Novolog Insulin Pen) NOVOLOG *MILD* ALGORITHM WITH MEALS BEDTIME SC Last administered on 05/20/19at 12:41; Admin Dose 1 UNIT; Start 05/19/19 at 18:00 Meropenem/Sodium Chloride 50 ml @ 100 mls/hr Q12 IVPB Last administered on 05/20/19at 08:46; Admin Dose 100 MLS/HR; Start 05/19/19 at 21:00 Allopurinol (Zyloprim) 100 mg DAILY PO Last administered on 05/20/19 08:47; Admin Dose 100 MG; Start 05/20/19 at 09:00 Carvedilol (Coreg) 3.125 mg BID PO Last administered on 05/20/19 08:49; Admin Dose 3.125 MG; Start 05/19/19 at 20:20 Clonidine (Catapres) 0.2 mg BID PO Last administered on 05/20/19 08:50; Admin Dose 0.2 MG; Start 05/19/19 at 21:00 Furosemide (Lasix) 20 mg DAILY PO Last administered on 05/20/19 08:48; Admin Dose 20 MG; Start 05/20/19 at 09:00 Gabapentin (Neurontin) 100 mg HS PO Last administered on 05/19/19 21:23; Admin Dose 100 MG; Start 05/19/19 at 21:00 Pantoprazole (Protonix Tab) 40 mg AC BREAKFAST PO Last administered on 05/20/19 06:36; Admin Dose 40 MG; Start 05/20/19 at 07:00 Prednisone (Prednisone) 2.5 mg DAILY PO Last administered on 05/20/19 08:49; Admin Dose 2.5 MG; Start 05/20/19 at 09:00 Hydralazine HCl (Apresoline) 25 mg Q6H PRN PO ELEVATED BLOOD PRESSURE; Start 05/19/19 at 20:00 Tacrolimus (Prograf) 1 mg Q12 PO Last administered on 05/20/19 08:49; Admin Dose 1 MG; Start 05/19/19 at 20:30 Mycophenolate Sodium (Myfortic) 360 mg Q12 PO Last administered on 05/20/19 08:59; Admin Dose 360 MG; Start 05/19/19 at 21:00 Apixaban (Eliquis) 5 mg BID PO Last administered on 05/20/19 08:49; Admin Dose 5 MG; Start 05/19/19 at 21:00 Atorvastatin Calcium (Lipitor) 10 mg DAILY@21 PO ; Start 05/20/19 at 21:00 Losartan Potassium (Cozaar) 50 mg HS PO ; Start 05/20/19 at 21:00 REBECA LAIRD MD May 20, 2019 15:34
--- NOTE | 2019-05-20 15:52 | PN ---
Date/Time of Note Date/Time of Note DATE: 05/20/19 TIME: 15:52 Assessment/Plan VTE Prophylaxis Risk score [place] [facility] [place] risk: 4 SCD applied (from [facility] [place] Yes SCD contraindicated: other Pharmacological prophylaxis: other Pharm contraindication: other Lines/Catheters IV C[facility]ter Type (from [facility] Peripheral IV Assessment/Plan Assessment/Plan -Urinary tract infection continue Rocephin follow-up on urine culture. Dr. Krueger is asked to see patient in infection disease consultation. -Acute kidney injury, continue IV fluids monitor BUN and creatinine. -Status post kidney transplant, continue current antirejection medication. Dr. Montana is asked to see patient in nephrology consultation. -Immunocompromise state -Diabetes mellitus -Hypertension -Hyperlipidemia -Obesity Further recommendations based on clinical course. Plan of care discussed with Dr. Blackwell. Result Diagram: 05/20/19 0515 05/20/19 0515 Results 24hrs Laboratory Tests Test 05/19/19 18:54 05/19/19 21:20 05/20/19 02:03 05/20/19 05:15 Bedside Glucose 327 H 296 H 233 H White Blood Count 7.2 # Red Blood Count 3.55 L Hemoglobin 9.7 L Hematocrit 32.5 L Mean Corpuscular 91.5 Volume Mean Corpuscular 27.3 L Hemoglobin Mean Corpuscular 29.8 L Hemoglobin Concent Red Cell 14.1 Distribution Width Platelet Count 188 Mean Platelet Volume 10.9 H Immature 1.400 H Granulocytes % Neutrophils % 59.0 Lymphocytes % 28.9 Monocytes % 8.3 Eosinophils % 1.4 Basophils % 1.0 Nucleated Red Blood 0.0 Cells % Immature 0.100 H Granulocytes # Neutrophils # 4.3 Lymphocytes # 2.1 Monocytes # 0.6 Eosinophils # 0.1 Basophils # 0.1 Nucleated Red Blood 0.0 Cells # Sodium Level 139 Potassium Level 4.6 Chloride Level 106 Carbon Dioxide Level 29 Anion Gap 4 L Blood Urea Nitrogen 18 Creatinine 1.12 H Est Glomerular 49 L Filtrat Rate mL/min Glucose Level 202 Calcium Level 9.2 Test 05/20/19 08:16 05/20/19 12:36 Bedside Glucose 187 163 Subjective 24 Hr Interval Summary Free Text/Dictation nad afebrile c/o dysuria no events last night dw staff Eyes: no complaints ENT: no complaints Respiratory: no complaints Cardiovascular: no complaints Gastrointestinal: no complaints Genitourinary: dysuria Musculoskeletal: no complaints Skin: no complaints Neurologic: no complaints Endocrine: no complaints Lymphatic: no complaints Psychological: nl mood/affect Immunologic: no complaints Exam/Review of Systems Exam Vitals Vital Signs Date Temp Pulse Resp B/P (MAP) Pulse Ox O2 O2 Flow FiO2 Time Delivery Rate 05/20/19 98.6 90 17 138/91 99 13:32 (107) 05/19/19 Room Air 19:43 Intake and Output 05/19/19 05/19/19 05/20/19 1515:00 23:00 07:00 IntakeIntake Total 100 ml 100 ml BalanceBalance 100 ml 100 ml Constitutional: alert, well developed, obese Psych: nl mood/affect Head: atraumatic Eyes: nl lids, nl sclera, PERRL ENMT: nl external ears & nose Neck: non-tender Respiratory: clear to auscultation Cardiovascular: nl pulses, other (s1s2) Gastrointestinal: soft, non-tender Musculoskeletal: nl extremities to inspection Extremities: normal pulses Neurological: nl speech, other (alert/responsive) Skin: nl turgor Lymph: nontender Results Results 24hrs Laboratory Tests Test 05/19/19 18:54 05/19/19 21:20 05/20/19 02:03 05/20/19 05:15 Bedside Glucose 327 H 296 H 233 H White Blood Count 7.2 # Red Blood Count 3.55 L Hemoglobin 9.7 L Hematocrit 32.5 L Mean Corpuscular 91.5 Volume Mean Corpuscular 27.3 L Hemoglobin Mean Corpuscular 29.8 L Hemoglobin Concent Red Cell 14.1 Distribution Width Platelet Count 188 Mean Platelet Volume 10.9 H Immature 1.400 H Granulocytes % Neutrophils % 59.0 Lymphocytes % 28.9 Monocytes % 8.3 Eosinophils % 1.4 Basophils % 1.0 Nucleated Red Blood 0.0 Cells % Immature 0.100 H Granulocytes # Neutrophils # 4.3 Lymphocytes # 2.1 Monocytes # 0.6 Eosinophils # 0.1 Basophils # 0.1 Nucleated Red Blood 0.0 Cells # Sodium Level 139 Potassium Level 4.6 Chloride Level 106 Carbon Dioxide Level 29 Anion Gap 4 L Blood Urea Nitrogen 18 Creatinine 1.12 H Est Glomerular 49 L Filtrat Rate mL/min Glucose Level 202 Calcium Level 9.2 Test 05/20/19 08:16 05/20/19 12:36 Bedside Glucose 187 163 Medications Medication Current Medications Ondansetron HCl (Zofran Inj) 4 mg Q6H PRN IV NAUSEA/VOMITING; Start 05/19/19 at 17:30 Acetaminophen (Tylenol Tab) 650 mg Q6H PRN PO .PAIN 1-3 OR TEMP; Start 05/19/19 at 17:30 Acetaminophen/ Hydrocodone Bitart ([place] (5/325)) 1 tab Q6H PRN PO .MOD PAIN 4- 6; Start 05/19/19 at 17:30 Docusate Sodium (Colace) 100 mg Q12H PRN PO .CONSTIPATION; Start 05/19/19 at 17:30 Zolpidem Tartrate (Ambien) 5 mg QHS PRN PO .INSOMNIA; Start 05/19/19 at 17:30 Diagnostic Test (Pha) (Accu-Chek) 1 ea 02 XX ; Start 05/20/19 at 02:00 Insulin Glargine (Lantus) 30 units DAILY@2000 SC Last administered on 05/19/19at 21:35; Admin Dose 30 UNITS; Start 05/19/19 at 20:00 Insulin Aspart (Novolog Insulin Pen) 12 unit WITH MEALS SC Last administered on 05/20/19at 12:39; Admin Dose 12 UNIT; Start 05/19/19 at 18:00 Insulin Aspart (Novolog Insulin Pen) NOVOLOG *MILD* ALGORITHM WITH MEALS BEDTIME SC Last administered on 05/20/19at 12:41; Admin Dose 1 UNIT; Start 05/19/19 at 18:00 Meropenem/Sodium Chloride 50 ml @ 100 mls/hr Q12 IVPB Last administered on 05/20/19at 08:46; Admin Dose 100 MLS/HR; Start 05/19/19 at 21:00 Allopurinol (Zyloprim) 100 mg DAILY PO Last administered on 05/20/19at 08:47; Admin Dose 100 MG; Start 05/20/19 at 09:00 Carvedilol (Coreg) 3.125 mg BID PO Last administered on 05/20/19at 08:49; Admin Dose 3.125 MG; Start 05/19/19 at 20:20 Clonidine (Catapres) 0.2 mg BID PO Last administered on 05/20/19at 08:50; Admin Dose 0.2 MG; Start 05/19/19 at 21:00 Furosemide (Lasix) 20 mg DAILY PO Last administered on 05/20/19 08:48; Admin Dose 20 MG; Start 05/20/19 at 09:00 Gabapentin (Neurontin) 100 mg HS PO Last administered on 05/19/19 21:23; Admin Dose 100 MG; Start 05/19/19 at 21:00 Pantoprazole (Protonix Tab) 40 mg AC BREAKFAST PO Last administered on 05/20/19 06:36; Admin Dose 40 MG; Start 05/20/19 at 07:00 Prednisone (Prednisone) 2.5 mg DAILY PO Last administered on 05/20/19 08:49; Admin Dose 2.5 MG; Start 05/20/19 at 09:00 Hydralazine HCl (Apresoline) 25 mg Q6H PRN PO ELEVATED BLOOD PRESSURE; Start 05/19/19 at 20:00 Tacrolimus (Prograf) 1 mg Q12 PO Last administered on 05/20/19 08:49; Admin Dose 1 MG; Start 05/19/19 at 20:30 Mycophenolate Sodium (Myfortic) 360 mg Q12 PO Last administered on 05/20/19 08:59; Admin Dose 360 MG; Start 05/19/19 at 21:00 Apixaban (Eliquis) 5 mg BID PO Last administered on 05/20/19 08:49; Admin Dose 5 MG; Start 05/19/19 at 21:00 Atorvastatin Calcium (Lipitor) 10 mg DAILY@21 PO ; Start 05/20/19 at 21:00 Losartan Potassium (Cozaar) 50 mg HS PO ; Start 05/20/19 at 21:00 HENRI BURNS May 20, 2019 15:52
[2019-05-20 20:10] VITALS: BP 152/66; PULSE 73; RESP 16
[2019-05-20] MEDS: GABAPENTIN 100 MG CAP PO SCH (21:25)
[2019-05-20] MEDS: ATORVASTATIN 10 MG TAB PO SCH (21:26)
[2019-05-20] MEDS: LOSARTAN 50 MG TAB PO SCH (21:27)
[2019-05-20] MEDS: INSULIN GLARGINE [LANTus] (100 UNITS/ML) SYG SC SCH (21:35)
[2019-05-20 22:30] VITALS: BP 132/61; PULSE 70
[2019-05-21] MEDS ORDERED: INSULIN ASPART [NOVOLOG] 3 ML PEN SC ONE (01:45)
[2019-05-21 02:01] VITALS: BP 145/63; PULSE 77; RESP 18
[2019-05-21 02:30] VITALS: BP 133/58; PULSE 68
[2019-05-21] MEDS: ACCU-CHEK XX SCH (03:20)
[2019-05-21] MEDS: PANTOPRAZOLE (EC) 40 MG TAB PO SCH (06:18)
[2019-05-21 07:39] VITALS: BP 133/76; PULSE 67; RESP 16
[2019-05-21] MEDS: INSULIN ASPART [NOVOLOG] 3 ML PEN SC SCH ×7 (08:01→20:30)
[2019-05-21] MEDS: ALLOPURINOL 100 MG TAB PO SCH (08:02)
[2019-05-21] MEDS: MYCOPHENOLATE (SR) 180 MG TAB PO SCH ×2 (08:03→20:13)
[2019-05-21] MEDS: predniSONE 2.5 MG TAB PO SCH (08:03)
[2019-05-21] MEDS: TACROLIMUS 1 MG CAP PO SCH ×2 (08:03→20:14)
[2019-05-21] MEDS: APIXABAN 5 MG TABLET PO SCH ×2 (08:03→20:14)
[2019-05-21] MEDS: FUROSEMIDE 40 MG TAB PO SCH (08:04)
[2019-05-21] MEDS: MEROPENEM 1 GM/50ML(PMX) 50 ML IVPB SCH (08:04)
[2019-05-21] MEDS: CEFTRIAXONE 1 GM/50 ML (PMX) 50 ML IVPB SCH (12:23)
--- NOTE | 2019-05-21 13:30 | PN ---
Date/Time of Note Date/Time of Note DATE: 05/21/19 TIME: 13:30 Assessment/Plan VTE Prophylaxis Risk score (from [facility])>0 risk: 4 SCD applied (from [facility]): Yes Pharmacological prophylaxis: LMWH Lines/Catheters IV Catheter Type (from [facility]): [place] Urinary Cath still in place: No Assessment/Plan Hospital Course -Urinary tract infection continue Rocephin follow-up on urine culture. Dr. Krueger is asked to see patient in infection disease consultation. -Acute kidney injury, continue IV fluids monitor BUN and creatinine. -Status post kidney transplant, continue current antirejection medication. Dr. Montana is asked to see patient in nephrology consultation. -Immunocompromise state -Diabetes mellitus -Hypertension -Hyperlipidemia -Obesity Result Diagram: 05/21/1952605/21/19526 Results 24hrs Laboratory Tests Test 05/20/19 17:24 05/20/19 21:33 05/21/19 01:26 05/21/19 05:27 Bedside Glucose 156 155 224 H White Blood Count 7.6 Red Blood Count 3.84 L Hemoglobin 10.3 L Hematocrit 35.0 L Mean Corpuscular 91.1 Volume Mean Corpuscular 26.8 L Hemoglobin Mean Corpuscular 29.4 L Hemoglobin Concent Red Cell 14.0 Distribution Width Platelet Count 190 Mean Platelet Volume 11.2 H Immature 0.800 H Granulocytes % Neutrophils % 63.1 Lymphocytes % 26.7 Monocytes % 7.1 Eosinophils % 1.6 Basophils % 0.7 Nucleated Red Blood 0.0 Cells % Immature 0.060 H Granulocytes # Neutrophils # 4.8 Lymphocytes # 2.0 Monocytes # 0.5 Eosinophils # 0.1 Basophils # 0.1 Nucleated Red Blood 0.0 Cells # Sodium Level 140 Potassium Level 4.5 Chloride Level 104 Carbon Dioxide Level 28 Anion Gap 8 Blood Urea Nitrogen 24 H Creatinine 1.22 H Est Glomerular 45 L Filtrat Rate mL/min Glucose Level 253 H Calcium Level 9.3 Test 05/21/19 07:44 05/21/19 12:22 Bedside Glucose 230 H 143 Subjective 24 Hr Interval Summary Free Text/Dictation Patient has no complaints Exam/Review of Systems Exam Vitals Vital Signs Date Temp Pulse Resp B/P (MAP) Pulse Ox O2 O2 Flow FiO2 Time Delivery Rate 05/21/19 97.5 67 16 133/76 94 07:39 (95) 7/25/19 Room Air 19:43 Intake and Output 05/20/19 05/20/19 05/21/19 1515:00 23:00 07:00 IntakeIntake Total 50 ml 1300 ml BalanceBalance 50 ml 1300 ml Constitutional: well developed Head: normocephalic, atraumatic Neck: supple Respiratory: diminished breath sounds Cardiovascular: regular rate and rhythm Gastrointestinal: soft, non-tender Extremities: normal pulses Results Results 24hrs Laboratory Tests Test 05/20/19 17:24 05/20/19 21:33 05/21/19 01:26 05/21/19 05:27 Bedside Glucose 156 155 224 H White Blood Count 7.6 Red Blood Count 3.84 L Hemoglobin 10.3 L Hematocrit 35.0 L Mean Corpuscular 91.1 Volume Mean Corpuscular 26.8 L Hemoglobin Mean Corpuscular 29.4 L Hemoglobin Concent Red Cell 14.0 Distribution Width Platelet Count 190 Mean Platelet Volume 11.2 H Immature 0.800 H Granulocytes % Neutrophils % 63.1 Lymphocytes % 26.7 Monocytes % 7.1 Eosinophils % 1.6 Basophils % 0.7 Nucleated Red Blood 0.0 Cells % Immature 0.060 H Granulocytes # Neutrophils # 4.8 Lymphocytes # 2.0 Monocytes # 0.5 Eosinophils # 0.1 Basophils # 0.1 Nucleated Red Blood 0.0 Cells # Sodium Level 140 Potassium Level 4.5 Chloride Level 104 Carbon Dioxide Level 28 Anion Gap 8 Blood Urea Nitrogen 24 H Creatinine 1.22 H Est Glomerular 45 L Filtrat Rate mL/min Glucose Level 253 H Calcium Level 9.3 Test 05/21/19 07:44 05/21/19 12:22 Bedside Glucose 230 H 143 Medications Medication Current Medications Ondansetron HCl (Zofran Inj) 4 mg Q6H PRN IV NAUSEA/VOMITING; Start 05/19/19 at 17:30 Acetaminophen (Tylenol Tab) 650 mg Q6H PRN PO .PAIN 1-3 OR TEMP; Start 05/19/19 at 17:30 Acetaminophen/ Hydrocodone Bitart ([place] (5/325)) 1 tab Q6H PRN PO .MOD PAIN 4- 6; Start 05/19/19 at 17:30 Docusate Sodium (Colace) 100 mg Q12H PRN PO .CONSTIPATION; Start 05/19/19 at 17:30 Zolpidem Tartrate (Ambien) 5 mg QHS PRN PO .INSOMNIA; Start 05/19/19 at 17:30 Diagnostic Test (Pha) (Accu-Chek) 1 ea 02 XX ; Start 05/20/19 at 02:00 Insulin Glargine (Lantus) 30 units DAILY@2000 SC Last administered on 05/20/19 21:35; Admin Dose 30 UNITS; Start 05/19/19 at 20:00 Insulin Aspart (Novolog Insulin Pen) 12 unit WITH MEALS SC Last administered on 05/21/19 12:24; Admin Dose 12 UNIT; Start 05/19/19 at 18:00 Insulin Aspart (Novolog Insulin Pen) NOVOLOG *MILD* ALGORITHM WITH MEALS BEDTIME SC Last administered on 05/21/19 12:25; Admin Dose 1 UNIT; Start 05/19/19 at 18:00 Allopurinol (Zyloprim) 100 mg DAILY PO Last administered on 05/21/19 08:02; Admin Dose 100 MG; Start 05/20/19 at 09:00 Carvedilol (Coreg) 3.125 mg BID PO Last administered on 05/21/19 08:04; Admin Dose 3.125 MG; Start 05/19/19 at 20:20 Clonidine (Catapres) 0.2 mg BID PO Last administered on 05/21/19 08:04; Admin Dose 0.2 MG; Start 05/19/19 at 21:00 Furosemide (Lasix) 20 mg DAILY PO Last administered on 05/21/19 08:04; Admin Dose 20 MG; Start 05/20/19 at 09:00 Gabapentin (Neurontin) 100 mg HS PO Last administered on 05/20/19 21:25; Admin Dose 100 MG; Start 05/19/19 at 21:00 Pantoprazole (Protonix Tab) 40 mg AC BREAKFAST PO Last administered on 05/21/19 06:18; Admin Dose 40 MG; Start 05/20/19 at 07:00 Prednisone (Prednisone) 2.5 mg DAILY PO Last administered on 05/21/19 08:03; Admin Dose 2.5 MG; Start 05/20/19 at 09:00 Hydralazine HCl (Apresoline) 25 mg Q6H PRN PO ELEVATED BLOOD PRESSURE; Start 05/19/19 at 20:00 Tacrolimus (Prograf) 1 mg Q12 PO Last administered on 05/21/19 08:03; Admin Dose 1 MG; Start 05/19/19 at 20:30 Mycophenolate Sodium (Myfortic) 360 mg Q12 PO Last administered on 05/21/19 08:03; Admin Dose 360 MG; Start 05/19/19 at 21:00 Apixaban (Eliquis) 5 mg BID PO Last administered on 05/21/19 08:03; Admin Dose 5 MG; Start 05/19/19 at 21:00 Atorvastatin Calcium (Lipitor) 10 mg DAILY@21 PO Last administered on 05/20/19 21:26; Admin Dose 10 MG; Start 05/20/19 at 21:00 Losartan Potassium (Cozaar) 50 mg HS PO Last administered on 05/20/19 21:27; Admin Dose 50 MG; Start 05/20/19 at 21:00 Ceftriaxone Sodium 50 ml @ 100 mls/hr Q24H IVPB Last administered on 05/21/19 12:23; Admin Dose 100 MLS/HR; Start 05/21/19 at 12:00 JOSH BAUMAN May 21, 2019 13:30
--- NOTE | 2019-05-21 13:45 | CONS ---
Consultation Date/Type/Reason Admit Date/Time May 21, 2019 at 08:35 Initial Consult Date SUBJECTIVE: The patient is alert, feels good, looks comfortable. Denies pain, no fevers overnight. VS: stable T: 97.5 LABS: WBC- 7.6 MICROBIOLOGY: URINE CULTURE Final Organism 1 ESCHERICHIA COLI COLONY COUNT >100,000 CFU/ml E COLI M.I.C. RX --------- --- AMPICILLIN >=32 R CEFAZOLIN S CEFOTAXIME S CIPROFLOXACIN >=4 R GENTAMICIN <=1 S LEVOFLOXACIN >=8 R NITROFURANTOIN <=16 S TOBRAMYCIN <=1 S TRIMETHOPRIM/SULFAMETHOXAZOLE >=320 R DIAGNOSTICS: CT of the abdomen and pelvis revealed moderate dilatation of the common bile duct, unchanged from previous examination. The patient is status post cholecystectomy. No hydronephrosis, no bowel obstruction or bowel wall thickening. Please see full report on the chart. Chest x-ray revealed linear bibasilar atelectasis. ALLERGIES: NONE. ANTIMICROBIALS: on meropenem. PHYSICAL EXAMINATION: GENERAL: This is an obese, well-developed, very pleasant elderly woman who is alert, in no distress. HEENT: Head atraumatic, normocephalic. NECK: Supple. CHEST: Rise symmetrical. Breath sounds clear, diminished to bases. HEART: S1, S2. ABDOMEN: Soft, bowel tones present. EXTREMITIES: Without cyanosis. ASSESSMENT: 1. Status post nausea and emesis. Also, decreased appetite and weakness, resolved. 2. Positive urinalysis with a history of ESBL growing in the urine. 3. History of kidney transplant. 4. Diabetes. 5. Hypertension and obesity. PLAN: The patient remains stable. Final urine culture noted. Change IV antbx to Rocephin. OK to D/C home with PO Keflex. Requesting Provider: MARIA ISABEL GUTIERRES MD Date/Time of Note DATE: 05/21/19 TIME: 13:42 Exam/Review of Systems Exam Vitals Vital Signs Date Temp Pulse Resp B/P (MAP) Pulse Ox O2 O2 Flow FiO2 Time Delivery Rate 05/21/19 97.5 67 16 133/76 94 07:39 (95) 05/19/19 Room Air 19:43 Intake and Output 05/20/19 05/20/19 05/21/19 1515:00 23:00 07:00 IntakeIntake Total 50 ml 1300 ml BalanceBalance 50 ml 1300 ml Results Result Diagram: 05/21/19 0505/21/19 05 Results 24hrs Laboratory Tests Test 05/20/19 17:24 05/20/19 21:33 05/21/19 01:26 05/21/19 05:27 Bedside Glucose 156 155 224 H White Blood Count 7.6 Red Blood Count 3.84 L Hemoglobin 10.3 L Hematocrit 35.0 L Mean Corpuscular 91.1 Volume Mean Corpuscular 26.8 L Hemoglobin Mean Corpuscular 29.4 L Hemoglobin Concent Red Cell 14.0 Distribution Width Platelet Count 190 Mean Platelet Volume 11.2 H Immature 0.800 H Granulocytes % Neutrophils % 63.1 Lymphocytes % 26.7 Monocytes % 7.1 Eosinophils % 1.6 Basophils % 0.7 Nucleated Red Blood 0.0 Cells % Immature 0.060 H Granulocytes # Neutrophils # 4.8 Lymphocytes # 2.0 Monocytes # 0.5 Eosinophils # 0.1 Basophils # 0.1 Nucleated Red Blood 0.0 Cells # Sodium Level 140 Potassium Level 4.5 Chloride Level 104 Carbon Dioxide Level 28 Anion Gap 8 Blood Urea Nitrogen 24 H Creatinine 1.22 H Est Glomerular 45 L Filtrat Rate mL/min Glucose Level 253 H Calcium Level 9.3 Test 05/21/19 07:44 05/21/19 12:22 Bedside Glucose 230 H 143 Medications Medication Current Medications Ondansetron HCl (Zofran Inj) 4 mg Q6H PRN IV NAUSEA/VOMITING; Start 05/19/19 at 17:30 Acetaminophen (Tylenol Tab) 650 mg Q6H PRN PO .PAIN 1-3 OR TEMP; Start 05/19/19 at 17:30 Acetaminophen/ Hydrocodone Bitart ([place] (5/325)) 1 tab Q6H PRN PO .MOD PAIN 4- 6; Start 05/19/19 at 17:30 Docusate Sodium (Colace) 100 mg Q12H PRN PO .CONSTIPATION; Start 05/19/19 at 17:30 Zolpidem Tartrate (Ambien) 5 mg QHS PRN PO .INSOMNIA; Start 05/19/19 at 17:30 Diagnostic Test (Pha) (Accu-Chek) 1 ea 02 XX ; Start 05/20/19 at 02:00 Insulin Glargine (Lantus) 30 units DAILY@2000 SC Last administered on 05/20/19 21:35; Admin Dose 30 UNITS; Start 05/19/19 at 20:00 Insulin Aspart (Novolog Insulin Pen) 12 unit WITH MEALS SC Last administered on 05/21/19 12:24; Admin Dose 12 UNIT; Start 05/19/19 at 18:00 Insulin Aspart (Novolog Insulin Pen) NOVOLOG *MILD* ALGORITHM WITH MEALS BEDTIME SC Last administered on 05/21/19 12:25; Admin Dose 1 UNIT; Start 05/19/19 at 18:00 Allopurinol (Zyloprim) 100 mg DAILY PO Last administered on 05/21/19 08:02; Admin Dose 100 MG; Start 05/20/19 at 09:00 Carvedilol (Coreg) 3.125 mg BID PO Last administered on 05/21/19 08:04; Admin Dose 3.125 MG; Start 05/19/19 at 20:20 Clonidine (Catapres) 0.2 mg BID PO Last administered on 05/21/19 08:04; Admin Dose 0.2 MG; Start 05/19/19 at 21:00 Furosemide (Lasix) 20 mg DAILY PO Last administered on 05/21/19 08:04; Admin Dose 20 MG; Start 05/20/19 at 09:00 Gabapentin (Neurontin) 100 mg HS PO Last administered on 05/20/19 21:25; Admin Dose 100 MG; Start 05/19/19 at 21:00 Pantoprazole (Protonix Tab) 40 mg AC BREAKFAST PO Last administered on 05/21/19 06:18; Admin Dose 40 MG; Start 05/20/19 at 07:00 Prednisone (Prednisone) 2.5 mg DAILY PO Last administered on 05/21/19 08:03; Admin Dose 2.5 MG; Start 05/20/19 at 09:00 Hydralazine HCl (Apresoline) 25 mg Q6H PRN PO ELEVATED BLOOD PRESSURE; Start 05/19/19 at 20:00 Tacrolimus (Prograf) 1 mg Q12 PO Last administered on 05/21/19 08:03; Admin Dose 1 MG; Start 05/19/19 at 20:30 Mycophenolate Sodium (Myfortic) 360 mg Q12 PO Last administered on 05/21/19 08:03; Admin Dose 360 MG; Start 05/19/19 at 21:00 Apixaban (Eliquis) 5 mg BID PO Last administered on 05/21/19 08:03; Admin Dose 5 MG; Start 05/19/19 at 21:00 Atorvastatin Calcium (Lipitor) 10 mg DAILY@21 PO Last administered on 05/20/19 21:26; Admin Dose 10 MG; Start 05/20/19 at 21:00 Losartan Potassium (Cozaar) 50 mg HS PO Last administered on 05/20/19 21:27; Admin Dose 50 MG; Start 05/20/19 at 21:00 Ceftriaxone Sodium 50 ml @ 100 mls/hr Q24H IVPB Last administered on 05/21/19 12:23; Admin Dose 100 MLS/HR; Start 05/21/19 at 12:00 MELANI LAY May 21, 2019 13:45
[2019-05-21 14:15] VITALS: BP 104/55; PULSE 78; RESP 18
[2019-05-21 19:56] VITALS: BP 123/60; PULSE 86; RESP 16
[2019-05-21] MEDS: SOD CHLORIDE 0.45% 1,000 ML IV SCH (20:09)
[2019-05-21] MEDS: ATORVASTATIN 10 MG TAB PO SCH (20:10)
[2019-05-21] MEDS: LOSARTAN 50 MG TAB PO SCH (20:14)
[2019-05-21] MEDS: GABAPENTIN 100 MG CAP PO SCH (20:14)
[2019-05-21] MEDS: INSULIN GLARGINE [LANTus] (100 UNITS/ML) SYG SC SCH (20:30)
[2019-05-22] MEDS: ACCU-CHEK XX SCH (02:00)
[2019-05-22 02:39] VITALS: BP 130/60; PULSE 83; RESP 18
[2019-05-22] MEDS: PANTOPRAZOLE (EC) 40 MG TAB PO SCH (06:04)
[2019-05-22 08:16] VITALS: BP 129/66; PULSE 79; RESP 16
[2019-05-22] MEDS: APIXABAN 5 MG TABLET PO SCH ×2 (08:29→20:33)
[2019-05-22] MEDS: predniSONE 2.5 MG TAB PO SCH (08:29)
[2019-05-22] MEDS: MYCOPHENOLATE (SR) 180 MG TAB PO SCH ×2 (08:29→20:34)
[2019-05-22] MEDS: TACROLIMUS 1 MG CAP PO SCH ×2 (08:29→20:33)
[2019-05-22] MEDS: ALLOPURINOL 100 MG TAB PO SCH (08:29)
[2019-05-22] MEDS: FUROSEMIDE 40 MG TAB PO SCH (08:30)
[2019-05-22] MEDS: INSULIN ASPART [NOVOLOG] 3 ML PEN SC SCH ×7 (08:33→20:34)
[2019-05-22] MEDS: SOD CHLORIDE 0.45% 1,000 ML IV SCH ×2 (11:40→15:47)
[2019-05-22] MEDS: CEFTRIAXONE 1 GM/50 ML (PMX) 50 ML IVPB SCH (12:43)
--- NOTE | 2019-05-22 13:11 | PN ---
Date/Time of Note Date/Time of Note DATE: 05/22/19 TIME: 13:11 Assessment/Plan VTE Prophylaxis Risk score (from Ns)>0 risk: 4 SCD applied (from Ns): Yes Pharmacological prophylaxis: LMWH Lines/Catheters IV Catheter Type (from [facility]): Peripheral IV Urinary Cath still in place: No Assessment/Plan Hospital Course -Urinary tract infection continue Rocephin follow-up on urine culture. Dr. Krueger is asked to see patient in infection disease consultation. -Acute kidney injury, continue IV fluids monitor BUN and creatinine. -Status post kidney transplant, continue current antirejection medication. Dr. Montana is asked to see patient in nephrology consultation. -Immunocompromise state -Diabetes mellitus -Hypertension -Hyperlipidemia -Obesity Result Diagram: 05/21/19 0527 05/22/19 0503 Results 24hrs Laboratory Tests Test 05/21/19 17:42 05/21/19 20:12 05/22/19 02:26 05/22/19 05:03 Bedside Glucose 153 247 H 228 H Sodium Level 137 Potassium Level 4.4 Chloride Level 102 Carbon Dioxide Level 28 Anion Gap 7 Blood Urea Nitrogen 31 H Creatinine 1.20 H Est Glomerular 46 L Filtrat Rate mL/min Glucose Level 211 Calcium Level 9.2 Test 05/22/19 08:11 05/22/19 12:35 Bedside Glucose 213 118 Subjective 24 Hr Interval Summary Free Text/Dictation Patient complain of dizziness Exam/Review of Systems Exam Vitals Vital Signs Date Temp Pulse Resp B/P (MAP) Pulse Ox O2 O2 Flow FiO2 Time Delivery Rate 05/22/19 97.8 79 16 129/66 95 08:16 (87) 05/21/19 Room Air 14:15 Intake and Output 05/21/19 05/21/19 05/22/19 1515:00 23:00 07:00 IntakeIntake Total 340 ml 1050 ml 540 ml OutputOutput Total 300 ml 1000 ml BalanceBalance 340 ml 750 ml -460 ml Constitutional: well developed Head: normocephalic, atraumatic Neck: supple Respiratory: clear to auscultation Cardiovascular: regular rate and rhythm Gastrointestinal: soft, non-tender Extremities: normal pulses Results Results 24hrs Laboratory Tests Test 05/21/19 17:42 05/21/19 20:12 05/22/19 02:26 05/22/19 05:03 Bedside Glucose 153 247 H 228 H Sodium Level 137 Potassium Level 4.4 Chloride Level 102 Carbon Dioxide Level 28 Anion Gap 7 Blood Urea Nitrogen 31 H Creatinine 1.20 H Est Glomerular 46 L Filtrat Rate mL/min Glucose Level 211 Calcium Level 9.2 Test 05/22/19 08:11 05/22/19 12:35 Bedside Glucose 213 118 Medications Medication Current Medications Ondansetron HCl (Zofran Inj) 4 mg Q6H PRN IV NAUSEA/VOMITING; Start 05/19/19 at 17:30 Acetaminophen (Tylenol Tab) 650 mg Q6H PRN PO .PAIN 1-3 OR TEMP; Start 05/19/19 at 17:30 Acetaminophen/ Hydrocodone Bitart ([place] (5/325)) 1 tab Q6H PRN PO .MOD PAIN 4- 6; Start 05/19/19 at 17:30 Docusate Sodium (Colace) 100 mg Q12H PRN PO .CONSTIPATION; Start 05/19/19 at 17:30 Zolpidem Tartrate (Ambien) 5 mg QHS PRN PO .INSOMNIA; Start 05/19/19 at 17:30 Diagnostic Test (Pha) (Accu-Chek) 1 ea 02 XX ; Start 05/20/19 at 02:00 Insulin Glargine (Lantus) 30 units DAILY@2000 SC Last administered on 05/21/19at 20:30; Admin Dose 30 UNITS; Start 05/19/19 at 20:00 Insulin Aspart (Novolog Insulin Pen) 12 unit WITH MEALS SC Last administered on 05/22/19at 12:43; Admin Dose 12 UNIT; Start 05/19/19 at 18:00 Insulin Aspart (Novolog Insulin Pen) NOVOLOG *MILD* ALGORITHM WITH MEALS BEDTIME SC Last administered on 05/22/19at 08:34; Admin Dose 2 UNIT; Start 05/19/19 at 18:00 Allopurinol (Zyloprim) 100 mg DAILY PO Last administered on 05/22/19at 08:29; Ad min Dose 100 MG; Start 05/20/19 at 09:00 Carvedilol (Coreg) 3.125 mg BID PO Last administered on 05/22/19at 08:30; Admin Dose 3.125 MG; Start 05/19/19 at 20:20 Clonidine (Catapres) 0.2 mg BID PO Last administered on 05/22/19 08:30; Admin Dose 0.2 MG; Start 05/19/19 at 21:00 Furosemide (Lasix) 20 mg DAILY PO Last administered on 05/22/19 08:30; Admin Dose 20 MG; Start 05/20/19 at 09:00 Gabapentin (Neurontin) 100 mg HS PO Last administered on 05/21/19 20:14; Admin Dose 100 MG; Start 05/19/19 at 21:00 Pantoprazole (Protonix Tab) 40 mg AC BREAKFAST PO Last administered on 05/22/19 06:04; Admin Dose 40 MG; Start 05/20/19 at 07:00 Prednisone (Prednisone) 2.5 mg DAILY PO Last administered on 05/22/19 08:29; Admin Dose 2.5 MG; Start 05/20/19 at 09:00 Hydralazine HCl (Apresoline) 25 mg Q6H PRN PO ELEVATED BLOOD PRESSURE; Start 05/19/19 at 20:00 Tacrolimus (Prograf) 1 mg Q12 PO Last administered on 05/22/19 08:29; Admin Dose 1 MG; Start 05/19/19 at 20:30 Mycophenolate Sodium (Myfortic) 360 mg Q12 PO Last administered on 05/22/19 08:29; Admin Dose 360 MG; Start 05/19/19 at 21:00 Apixaban (Eliquis) 5 mg BID PO Last administered on 05/22/19 08:29; Admin Dose 5 MG; Start 05/19/19 at 21:00 Atorvastatin Calcium (Lipitor) 10 mg DAILY@21 PO Last administered on 05/21/19 20:10; Admin Dose 10 MG; Start 05/20/19 at 21:00 Losartan Potassium (Cozaar) 50 mg HS PO Last administered on 05/21/19 20:14; Admin Dose 50 MG; Start 05/20/19 at 21:00 Ceftriaxone Sodium 50 ml @ 100 mls/hr Q24H IVPB Last administered on 05/22/19 12:43; Admin Dose 100 MLS/HR; Start 05/21/19 at 12:00 Sodium Chloride 1,000 ml @ 60 mls/hr [id number] IV Last administered on 05/21/19 20:09; Admin Dose 60 MLS/HR; Start 05/21/19 at 19:00 JOSH BAUMAN May 22, 2019 13:11
--- NOTE | 2019-05-22 13:40 | CONS ---
Assessment/Plan Assessment/Plan Assessment/Plan (Daily) 1. Acute kidney injury due to UTI and Prerenaal azotemia ; BUN/Cr - 24/1.22 2. acute UTI 3. H/O kidney transplant on immunosuppression 4. H/o HTN 5. H/O HL 6. H/o DM II 7. H/o previosu ESBL E coli UTI 8. obesity Plan: Continue IV abx ceftriaxone, currently hold on valsartan due to [place] UO- X7 voided Continue prograf 1 mg BID, myfortic 360mg BID and prednisone 2.5 mg po maldonado BP stable expecting Cr to improve, avoid nephrotoxic medications weight management Patient seen in collaboration with Dr Jian Montana. Dw staff Consultation Date/Type/Reason Admit Date/Time May 21, 2019 at 08:35 Initial Consult Date 05/19/19 Type of Consult Nephrology Reason for Consultation [place] Requesting Provider: MARIA ISABEL GUTIERRES MD Date/Time of Note DATE: 05/21/19 TIME: 15:30 24 HR Interval Summary Free Text/Dictation nad; feels better; afebrile BUN/Cr - 24/1.22 UO - X 7 void no events overnight Detailed Summary Eyes: no complaints ENT: no complaints Respiratory: no complaints Cardiovascular: no complaints Gastrointestinal: no complaints Genitourinary: no complaints Musculoskeletal: no complaints Skin: no complaints Neurologic: no complaints Psychological: nl mood/affect Exam/Review of Systems Exam Vitals Vital Signs Date Temp Pulse Resp B/P (MAP) Pulse Ox O2 O2 Flow FiO2 Time Delivery Rate 05/22/19 97.8 79 16 129/66 95 08:16 (87) 05/21/19 Room Air 14:15 Intake and Output 05/21/19 05/21/19 05/22/19 1515:00 23:00 07:00 IntakeIntake Total 340 ml 1050 ml 540 ml OutputOutput Total 300 ml 1000 ml BalanceBalance 340 ml 750 ml -460 ml Constitutional: alert, well developed, obese Psych: nl mood/affect Head: normocephalic Eyes: nl lids, nl sclera, PERRL ENMT: nl external ears & nose Neck: non-tender Respiratory: clear to auscultation Cardiovascular: nl pulses, other (s1s2) Gastrointestinal: soft, non-tender Musculoskeletal: nl extremities to inspection Extremities: normal pulses Neurological: nl mental status, nl speech Skin: other (no rash noted) Lymph: nontender Results Result Diagram: 05/21/19 0527 05/22/19 0503 Results 24hrs Laboratory Tests Test 05/21/19 17:42 05/21/19 20:12 05/22/19 02:26 05/22/19 05:03 Bedside Glucose 153 247 H 228 H Sodium Level 137 Potassium Level 4.4 Chloride Level 102 Carbon Dioxide Level 28 Anion Gap 7 Blood Urea Nitrogen 31 H Creatinine 1.20 H Est Glomerular 46 L Filtrat Rate mL/min Glucose Level 211 Calcium Level 9.2 Test 05/22/19 08:11 05/22/19 12:35 Bedside Glucose 213 118 Medications Medication Current Medications Ondansetron HCl (Zofran Inj) 4 mg Q6H PRN IV NAUSEA/VOMITING; Start 05/19/19 at 17:30 Acetaminophen (Tylenol Tab) 650 mg Q6H PRN PO .PAIN 1-3 OR TEMP; Start 05/19/19 at 17:30 Acetaminophen/ Hydrocodone Bitart ([place] (5/325)) 1 tab Q6H PRN PO .MOD PAIN 4- 6; Start 05/19/19 at 17:30 Docusate Sodium (Colace) 100 mg Q12H PRN PO .CONSTIPATION; Start 05/19/19 at 17:30 Zolpidem Tartrate (Ambien) 5 mg QHS PRN PO .INSOMNIA; Start 05/19/19 at 17:30 Diagnostic Test (Pha) (Accu-Chek) 1 ea 02 XX ; Start 05/20/19 at 02:00 Insulin Glargine (Lantus) 30 units DAILY@2000 SC Last administered on 05/21/19at 20:30; Admin Dose 30 UNITS; Start 05/19/19 at 20:00 Insulin Aspart (Novolog Insulin Pen) 12 unit WITH MEALS SC Last administered on 05/22/19at 12:43; Admin Dose 12 UNIT; Start 05/19/19 at 18:00 Insulin Aspart (Novolog Insulin Pen) NOVOLOG *MILD* ALGORITHM WITH MEALS BEDTIME SC Last administered on 05/22/19at 08:34; Admin Dose 2 UNIT; Start 05/19/19 at 18:00 Allopurinol (Zyloprim) 100 mg DAILY PO Last administered on 05/22/19 08:29; Admin Dose 100 MG; Start 05/20/19 at 09:00 Carvedilol (Coreg) 3.125 mg BID PO Last administered on 05/22/19 08:30; Admin Dose 3.125 MG; Start 05/19/19 at 20:20 Clonidine (Catapres) 0.2 mg BID PO Last administered on 05/22/19 08:30; Admin Dose 0.2 MG; Start 05/19/19 at 21:00 Furosemide (Lasix) 20 mg DAILY PO Last administered on 05/22/19 08:30; Admin Dose 20 MG; Start 05/20/19 at 09:00 Gabapentin (Neurontin) 100 mg HS PO Last administered on 05/21/19 20:14; Admin Dose 100 MG; Start 05/19/19 at 21:00 Pantoprazole (Protonix Tab) 40 mg AC BREAKFAST PO Last administered on 05/22/19 06:04; Admin Dose 40 MG; Start 05/20/19 at 07:00 Prednisone (Prednisone) 2.5 mg DAILY PO Last administered on 05/22/19 08:29; Admin Dose 2.5 MG; Start 05/20/19 at 09:00 Hydralazine HCl (Apresoline) 25 mg Q6H PRN PO ELEVATED BLOOD PRESSURE; Start 05/19/19 at 20:00 Tacrolimus (Prograf) 1 mg Q12 PO Last administered on 05/22/19 08:29; Admin Dose 1 MG; Start 05/19/19 at 20:30 Mycophenolate Sodium (Myfortic) 360 mg Q12 PO Last administered on 05/22/19 08:29; Admin Dose 360 MG; Start 05/19/19 at 21:00 Apixaban (Eliquis) 5 mg BID PO Last administered on 05/22/19 08:29; Admin Dose 5 MG; Start 05/19/19 at 21:00 Atorvastatin Calcium (Lipitor) 10 mg DAILY@21 PO Last administered on 05/21/19 20:10; Admin Dose 10 MG; Start 05/20/19 at 21:00 Losartan Potassium (Cozaar) 50 mg HS PO Last administered on 05/21/19 20:14; Admin Dose 50 MG; Start 05/20/19 at 21:00 Ceftriaxone Sodium 50 ml @ 100 mls/hr Q24H IVPB Last administered on 05/22/19at 12:43; Admin Dose 100 MLS/HR; Start 05/21/19 at 12:00 Sodium Chloride 1,000 ml @ 60 mls/hr [id number] IV Last administered on 05/21/19at 20:09; Admin Dose 60 MLS/HR; Start 05/21/19 at 19:00 HENRI BURNS May 22, 2019 13:40
--- NOTE | 2019-05-22 13:42 | CONS ---
Assessment/Plan Assessment/Plan Assessment/Plan (Daily) 1. Acute kidney injury due to UTI and Prerenaal azotemia ; BUN/Cr - 31/1.20 2. acute UTI 3. H/O kidney transplant on immunosuppression 4. H/o HTN 5. H/O HL 6. H/o DM II 7. H/o previosu ESBL E coli UTI 8. obesity Plan: Continue IV abx ceftriaxone, currently hold on valsartan due to [place] UO- X7 voided Continue prograf 1 mg BID, myfortic 360mg BID and prednisone 2.5 mg po maldonado BP stable expecting Cr to improve, avoid nephrotoxic medications weight management Patient seen in collaboration with Dr Jian Montana. Dw staff nad; feels better; afebrile BUN/Cr - 31/1.20 UO - X 7 void no events overnight Consultation Date/Type/Reason Admit Date/Time May 21, 2019 at 08:35 Initial Consult Date 05/19/19 Type of Consult NEPHROLOGY Reason for Consultation [place] Requesting Provider: MARIA ISABEL GUTIERRES MD Date/Time of Note DATE: 05/22/19 TIME: 13:40 24 HR Interval Summary Free Text/Dictation nad; feels better; afebrile BUN/Cr - 31/1.20 UO - 1.3 L + X 2 Voids no events overnight Detailed Summary Eyes: no complaints ENT: no complaints Respiratory: no complaints Cardiovascular: no complaints Gastrointestinal: no complaints Genitourinary: no complaints Musculoskeletal: no complaints Skin: no complaints Neurologic: no complaints Endocrine: no complaints Lymphatic: no complaints Psychological: nl mood/affect Exam/Review of Systems Exam Vitals Vital Signs Date Temp Pulse Resp B/P (MAP) Pulse Ox O2 O2 Flow FiO2 Time Delivery Rate 05/22/19 97.8 79 16 129/66 95 08:16 (87) 05/21/19 Room Air 14:15 Intake and Output 05/21/19 05/21/19 05/22/19 1515:00 23:00 07:00 IntakeIntake Total 340 ml 1050 ml 540 ml OutputOutput Total 300 ml 1000 ml BalanceBalance 340 ml 750 ml -460 ml Constitutional: alert, oriented, well developed Psych: nl mood/affect Head: normocephalic Eyes: nl lids, nl sclera ENMT: nl external ears & nose Neck: non-tender Respiratory: clear to auscultation Cardiovascular: nl pulses, other (S1S2) Gastrointestinal: soft, non-tender Neurological: nl mental status, nl speech Lymph: nontender Results Result Diagram: 05/21/19 0527 05/22/19 0503 Results 24hrs Laboratory Tests Test 05/21/19 17:42 05/21/19 20:12 05/22/19 02:26 05/22/19 05:03 Bedside Glucose 153 247 H 228 H Sodium Level 137 Potassium Level 4.4 Chloride Level 102 Carbon Dioxide Level 28 Anion Gap 7 Blood Urea Nitrogen 31 H Creatinine 1.20 H Est Glomerular 46 L Filtrat Rate mL/min Glucose Level 211 Calcium Level 9.2 Test 05/22/19 08:11 05/22/19 12:35 Bedside Glucose 213 118 Medications Medication Current Medications Ondansetron HCl (Zofran Inj) 4 mg Q6H PRN IV NAUSEA/VOMITING; Start 05/19/19 at 17:30 Acetaminophen (Tylenol Tab) 650 mg Q6H PRN PO .PAIN 1-3 OR TEMP; Start 05/19/19 at 17:30 Acetaminophen/ Hydrocodone Bitart ([place] (5/325)) 1 tab Q6H PRN PO .MOD PAIN 4- 6; Start 05/19/19 at 17:30 Docusate Sodium (Colace) 100 mg Q12H PRN PO .CONSTIPATION; Start 05/19/19 at 17:30 Zolpidem Tartrate (Ambien) 5 mg QHS PRN PO .INSOMNIA; Start 05/19/19 at 17:30 Diagnostic Test (Pha) (Accu-Chek) 1 ea 02 XX ; Start 05/20/19 at 02:00 Insulin Glargine (Lantus) 30 units DAILY@2000 SC Last administered on 05/21/19at 20:30; Admin Dose 30 UNITS; Start 05/19/19 at 20:00 Insulin Aspart (Novolog Insulin Pen) 12 unit WITH MEALS SC Last administered on 05/22/19at 12:43; Admin Dose 12 UNIT; Start 05/19/19 at 18:00 Insulin Aspart (Novolog Insulin Pen) NOVOLOG *MILD* ALGORITHM WITH MEALS BEDTIME SC Last administered on 05/22/19at 08:34; Admin Dose 2 UNIT; Start 05/19/19 at 18:00 Allopurinol (Zyloprim) 100 mg DAILY PO Last administered on 05/22/19 08:29; Admin Dose 100 MG; Start 05/20/19 at 09:00 Carvedilol (Coreg) 3.125 mg BID PO Last administered on 05/22/19 08:30; Admin Dose 3.125 MG; Start 05/19/19 at 20:20 Clonidine (Catapres) 0.2 mg BID PO Last administered on 05/22/19 08:30; Admin Dose 0.2 MG; Start 05/19/19 at 21:00 Furosemide (Lasix) 20 mg DAILY PO Last administered on 05/22/19 08:30; Admin Dose 20 MG; Start 05/20/19 at 09:00 Gabapentin (Neurontin) 100 mg HS PO Last administered on 05/21/19 20:14; Admin Dose 100 MG; Start 05/19/19 at 21:00 Pantoprazole (Protonix Tab) 40 mg AC BREAKFAST PO Last administered on 05/22/19 06:04; Admin Dose 40 MG; Start 05/20/19 at 07:00 Prednisone (Prednisone) 2.5 mg DAILY PO Last administered on 05/22/19 08:29; Admin Dose 2.5 MG; Start 05/20/19 at 09:00 Hydralazine HCl (Apresoline) 25 mg Q6H PRN PO ELEVATED BLOOD PRESSURE; Start 05/19/19 at 20:00 Tacrolimus (Prograf) 1 mg Q12 PO Last administered on 05/22/19 08:29; Admin Dose 1 MG; Start 05/19/19 at 20:30 Mycophenolate Sodium (Myfortic) 360 mg Q12 PO Last administered on 05/22/19 08:29; Admin Dose 360 MG; Start 05/19/19 at 21:00 Apixaban (Eliquis) 5 mg BID PO Last administered on 05/22/19 08:29; Admin Dose 5 MG; Start 05/19/19 at 21:00 Atorvastatin Calcium (Lipitor) 10 mg DAILY@21 PO Last administered on 05/21/19 20:10; Admin Dose 10 MG; Start 05/20/19 at 21:00 Losartan Potassium (Cozaar) 50 mg HS PO Last administered on 05/21/19 20:14; Admin Dose 50 MG; Start 05/20/19 at 21:00 Ceftriaxone Sodium 50 ml @ 100 mls/hr Q24H IVPB Last administered on 05/22/19at 12:43; Admin Dose 100 MLS/HR; Start 05/21/19 at 12:00 Sodium Chloride 1,000 ml @ 60 mls/hr [id number] IV Last administered on 05/21/19at 20:09; Admin Dose 60 MLS/HR; Start 05/21/19 at 19:00 HENRI BURNS May 22, 2019 13:42
[2019-05-22 14:00] VITALS: BP 116/57; PULSE 84; RESP 16
--- NOTE | 2019-05-22 14:13 | CONS ---
Consultation Date/Type/Reason Admit Date/Time May 21, 2019 at 08:35 Initial Consult Date SUBJECTIVE: The patient is alert, looks comfortable. Denies pain, no fevers overnight. VS: stable T: 97.8 LABS: reviewed MICROBIOLOGY: URINE CULTURE Final Organism 1 ESCHERICHIA COLI COLONY COUNT >100,000 CFU/ml E COLI M.I.C. RX --------- --- AMPICILLIN >=32 R CEFAZOLIN S CEFOTAXIME S CIPROFLOXACIN >=4 R GENTAMICIN <=1 S LEVOFLOXACIN >=8 R NITROFURANTOIN <=16 S TOBRAMYCIN <=1 S TRIMETHOPRIM/SULFAMETHOXAZOLE >=320 R DIAGNOSTICS: CT of the abdomen and pelvis revealed moderate dilatation of the common bile duct, unchanged from previous examination. The patient is status post cholecystectomy. No hydronephrosis, no bowel obstruction or bowel wall thickening. Please see full report on the chart. Chest x-ray revealed linear bibasilar atelectasis. ALLERGIES: NONE. ANTIMICROBIALS: on meropenem. PHYSICAL EXAMINATION: GENERAL: This is an obese, well-developed, very pleasant elderly woman who is alert, in no distress. HEENT: Head atraumatic, normocephalic. NECK: Supple. CHEST: Rise symmetrical. Breath sounds clear, diminished to bases. HEART: S1, S2. ABDOMEN: Soft, bowel tones present. EXTREMITIES: Without cyanosis. ASSESSMENT: 1. Status post nausea and emesis. Also, decreased appetite and weakness, re solved. 2. Positive urinalysis with a history of ESBL growing in the urine. 3. History of kidney transplant. 4. Diabetes. 5. Hypertension and obesity. PLAN: The patient remains stable. Final urine culture noted. Change IV antbx to Rocephin. OK to D/C home with PO Keflex. Requesting Provider: MARIA ISABEL GUTIERRES MD Date/Time of Note DATE: 05/22/19 TIME: 14:12 Exam/Review of Systems Exam Vitals Vital Signs Date Temp Pulse Resp B/P (MAP) Pulse Ox O2 O2 Flow FiO2 Time Delivery Rate 05/22/19 97.8 79 16 129/66 95 08:16 (87) 05/21/19 Room Air 14:15 Intake and Output 05/21/19 05/21/19 05/22/19 1515:00 23:00 07:00 IntakeIntake Total 340 ml 1050 ml 540 ml OutputOutput Total 300 ml 1000 ml BalanceBalance 340 ml 750 ml -460 ml Results Result Diagram: 05/21/19 0527 05/22/19 0503 Results 24hrs Laboratory Tests Test 05/21/19 17:42 05/21/19 20:12 05/22/19 02:26 05/22/19 05:03 Bedside Glucose 153 247 H 228 H Sodium Level 137 Potassium Level 4.4 Chloride Level 102 Carbon Dioxide Level 28 Anion Gap 7 Blood Urea Nitrogen 31 H Creatinine 1.20 H Est Glomerular 46 L Filtrat Rate mL/min Glucose Level 211 Calcium Level 9.2 Test 05/22/19 08:11 05/22/19 12:35 Bedside Glucose 213 118 Medications Medication Current Medications Ondansetron HCl (Zofran Inj) 4 mg Q6H PRN IV NAUSEA/VOMITING; Start 05/19/19 at 17:30 Acetaminophen (Tylenol Tab) 650 mg Q6H PRN PO .PAIN 1-3 OR TEMP; Start 05/19/19 at 17:30 Acetaminophen/ Hydrocodone Bitart ([place] (5/325)) 1 tab Q6H PRN PO .MOD PAIN 4- 6; Start 05/19/19 at 17:30 Docusate Sodium (Colace) 100 mg Q12H PRN PO .CONSTIPATION; Start 05/19/19 at 17:30 Zolpidem Tartrate (Ambien) 5 mg QHS PRN PO .INSOMNIA; Start 05/19/19 at 17:30 Diagnostic Test (Pha) (Accu-Chek) 1 ea 02 XX ; Start 05/20/19 at 02:00 Insulin Glargine (Lantus) 30 units DAILY@2000 SC Last administered on 05/21/19at 20:30; Admin Dose 30 UNITS; Start 05/19/19 at 20:00 Insulin Aspart (Novolog Insulin Pen) 12 unit WITH MEALS SC Last administered on 05/22/19at 12:43; Admin Dose 12 UNIT; Start 05/19/19 at 18:00 Insulin Aspart (Novolog Insulin Pen) NOVOLOG *MILD* ALGORITHM WITH MEALS BEDTIME SC Last administered on 05/22/19at 08:34; Admin Dose 2 UNIT; Start 05/19/19 at 18:00 Allopurinol (Zyloprim) 100 mg DAILY PO Last administered on 05/22/19 08:29; Admin Dose 100 MG; Start 05/20/19 at 09:00 Carvedilol (Coreg) 3.125 mg BID PO Last administered on 05/22/19 08:30; Admin Dose 3.125 MG; Start 05/19/19 at 20:20 Clonidine (Catapres) 0.2 mg BID PO Last administered on 05/22/19 08:30; Admin Dose 0.2 MG; Start 05/19/19 at 21:00 Furosemide (Lasix) 20 mg DAILY PO Last administered on 05/22/19 08:30; Admin Dose 20 MG; Start 05/20/19 at 09:00 Gabapentin (Neurontin) 100 mg HS PO Last administered on 05/21/19 20:14; Admin Dose 100 MG; Start 05/19/19 at 21:00 Pantoprazole (Protonix Tab) 40 mg AC BREAKFAST PO Last administered on 05/22/19 06:04; Admin Dose 40 MG; Start 05/20/19 at 07:00 Prednisone (Prednisone) 2.5 mg DAILY PO Last administered on 05/22/19 08:29; Admin Dose 2.5 MG; Start 05/20/19 at 09:00 Hydralazine HCl (Apresoline) 25 mg Q6H PRN PO ELEVATED BLOOD PRESSURE; Start 05/19/19 at 20:00 Tacrolimus (Prograf) 1 mg Q12 PO Last administered on 05/22/19 08:29; Admin Dose 1 MG; Start 05/19/19 at 20:30 Mycophenolate Sodium (Myfortic) 360 mg Q12 PO Last administered on 05/22/19 08:29; Admin Dose 360 MG; Start 05/19/19 at 21:00 Apixaban (Eliquis) 5 mg BID PO Last administered on 05/22/19 08:29; Admin Dose 5 MG; Start 05/19/19 at 21:00 Atorvastatin Calcium (Lipitor) 10 mg DAILY@21 PO Last administered on 05/21/19 20:10; Admin Dose 10 MG; Start 05/20/19 at 21:00 Losartan Potassium (Cozaar) 50 mg HS PO Last administered on 05/21/19 20:14; Admin Dose 50 MG; Start 05/20/19 at 21:00 Ceftriaxone Sodium 50 ml @ 100 mls/hr Q24H IVPB Last administered on 05/22/19at 12:43; Admin Dose 100 MLS/HR; Start 05/21/19 at 12:00 Sodium Chloride 1,000 ml @ 60 mls/hr [id number] IV Last administered on 05/21/19at 20:09; Admin Dose 60 MLS/HR; Start 05/21/19 at 19:00 MELANI LAY May 22, 2019 14:13
[2019-05-22 20:16] VITALS: BP 122/60; PULSE 86; RESP 16
[2019-05-22] MEDS: INSULIN GLARGINE [LANTus] (100 UNITS/ML) SYG SC SCH (20:31)
[2019-05-22] MEDS: GABAPENTIN 100 MG CAP PO SCH (20:33)
[2019-05-22] MEDS: ATORVASTATIN 10 MG TAB PO SCH (20:33)
[2019-05-22] MEDS: LOSARTAN 50 MG TAB PO SCH (20:34)
[2019-05-23 01:49] VITALS: BP 142/65; PULSE 78; RESP 20
[2019-05-23] MEDS: ACCU-CHEK XX SCH (02:00)
[2019-05-23] MEDS: PANTOPRAZOLE (EC) 40 MG TAB PO SCH (06:20)
[2019-05-23] MEDS: SOD CHLORIDE 0.45% 1,000 ML IV SCH ×2 (06:20→20:58)
[2019-05-23 08:05] VITALS: BP 158/72; PULSE 74; RESP 20
[2019-05-23] MEDS: MYCOPHENOLATE (SR) 180 MG TAB PO SCH ×2 (08:23→20:41)
[2019-05-23] MEDS: predniSONE 2.5 MG TAB PO SCH (08:23)
[2019-05-23] MEDS: BISACODYL (EC) 5 MG TAB PO SCH (08:23)
[2019-05-23] MEDS: APIXABAN 5 MG TABLET PO SCH ×2 (08:23→20:40)
[2019-05-23] MEDS: TACROLIMUS 1 MG CAP PO SCH ×2 (08:24→20:38)
[2019-05-23] MEDS: FUROSEMIDE 40 MG TAB PO SCH (08:25)
[2019-05-23] MEDS: ALLOPURINOL 100 MG TAB PO SCH (08:25)
[2019-05-23] MEDS: INSULIN ASPART [NOVOLOG] 3 ML PEN SC SCH ×7 (08:26→20:43)
[2019-05-23] MEDS: CEFTRIAXONE 1 GM/50 ML (PMX) 50 ML IVPB SCH (12:05)
[2019-05-23 14:20] VITALS: BP 103/54; PULSE 79; RESP 18
[2019-05-23] MEDS: CEPHALEXIN 250 MG CAP PO SCH ×2 (14:59→21:47)
--- NOTE | 2019-05-23 15:02 | PN ---
Date/Time of Note Date/Time of Note DATE: 05/23/19 TIME: 15:01 Assessment/Plan VTE Prophylaxis Risk score (from Ns)>0 risk: 4 SCD applied (from Ns): Yes Pharmacological prophylaxis: LMWH Lines/Catheters IV Catheter Type (from [facility]): Peripheral IV Urinary Cath still in place: No Assessment/Plan Hospital Course -Urinary tract infection continue Rocephin follow-up on urine culture. Dr. Krueger is asked to see patient in infection disease consultation. -Acute kidney injury, continue IV fluids monitor BUN and creatinine. -Status post kidney transplant, continue current antirejection medication. Dr. [place] is asked to see patient in nephrology consultation. -Immunocompromise state -Diabetes mellitus -Hypertension -Hyperlipidemia -Obesity Result Diagram: 05/21/19 0527 05/22/19 0503 Results 24hrs Laboratory Tests Test 05/22/19 18:01 05/22/19 20:29 05/23/19 07:56 05/23/19 12:09 Bedside Glucose 142 124 152 108 Subjective 24 Hr Interval Summary Free Text/Dictation Patient has no complaints Exam/Review of Systems Exam Vitals Vital Signs Date Temp Pulse Resp B/P (MAP) Pulse Ox O2 O2 Flow FiO2 Time Delivery Rate 05/23/19 98.2 79 18 103/54 98 14:20 (70) 05/23/19 Room Air 01:49 Intake and Output 05/22/19 05/22/19 05/23/19 1515:00 23:00 07:00 IntakeIntake Total 530 ml 800 ml 900 ml OutputOutput Total 450 ml 500 ml 1500 ml BalanceBalance 80 ml 300 ml -600 ml Constitutional: well developed Head: normocephalic, atraumatic Neck: supple Respiratory: diminished breath sounds Cardiovascular: regular rate and rhythm Gastrointestinal: soft, non-tender Extremities: normal pulses Results Results 24hrs Laboratory Tests Test 05/22/19 18:01 05/22/19 20:29 05/23/19 07:56 05/23/19 12:09 Bedside Glucose 142 124 152 108 Medications Medication Current Medications Ondansetron HCl (Zofran Inj) 4 mg Q6H PRN IV NAUSEA/VOMITING; Start 05/19/19 at 17:30 Acetaminophen (Tylenol Tab) 650 mg Q6H PRN PO .PAIN 1-3 OR TEMP; Start 05/19/19 at 17:30 Acetaminophen/ Hydrocodone Bitart ([place] (5/325)) 1 tab Q6H PRN PO .MOD PAIN 4- 6; Start 05/19/19 at 17:30 Docusate Sodium (Colace) 100 mg Q12H PRN PO .CONSTIPATION; Start 05/19/19 at 17:30 Zolpidem Tartrate (Ambien) 5 mg QHS PRN PO .INSOMNIA; Start 05/19/19 at 17:30 Diagnostic Test (Pha) (Accu-Chek) 1 ea 02 XX ; Start 05/20/19 at 02:00 Insulin Glargine (Lantus) 30 units DAILY@2000 SC Last administered on 05/22/19 20:31; Admin Dose 30 UNITS; Start 05/19/19 at 20:00 Insulin Aspart (Novolog Insulin Pen) 12 unit WITH MEALS SC Last administered on 05/23/19 12:46; Admin Dose 12 UNIT; Start 05/19/19 at 18:00 Insulin Aspart (Novolog Insulin Pen) NOVOLOG *MILD* ALGORITHM WITH MEALS BEDTIME SC Last administered on 05/23/19 08:27; Admin Dose 1 UNIT; Start 05/19/19 at 18:00 Allopurinol (Zyloprim) 100 mg DAILY PO Last administered on 05/23/19 08:25; A dmin Dose 100 MG; Start 05/20/19 at 09:00 Carvedilol (Coreg) 3.125 mg BID PO Last administered on 05/23/19 08:25; Admin Dose 3.125 MG; Start 05/19/19 at 20:20 Clonidine (Catapres) 0.2 mg BID PO Last administered on 05/23/19 08:23; Admin Dose 0.2 MG; Start 05/19/19 at 21:00 Furosemide (Lasix) 20 mg DAILY PO Last administered on 05/23/19 08:25; Admin Dose 20 MG; Start 05/20/19 at 09:00 Gabapentin (Neurontin) 100 mg HS PO Last administered on 05/22/19 20:33; Admin Dose 100 MG; Start 05/19/19 at 21:00 Pantoprazole (Protonix Tab) 40 mg AC BREAKFAST PO Last administered on 05/23/19 06:20; Admin Dose 40 MG; Start 05/20/19 at 07:00 Prednisone (Prednisone) 2.5 mg DAILY PO Last administered on 05/23/19 08:23; Admin Dose 2.5 MG; Start 05/20/19 at 09:00 Hydralazine HCl (Apresoline) 25 mg Q6H PRN PO ELEVATED BLOOD PRESSURE; Start 05/19/19 at 20:00 Tacrolimus (Prograf) 1 mg Q12 PO Last administered on 05/23/19 08:24; Admin Dose 1 MG; Start 05/19/19 at 20:30 Mycophenolate Sodium (Myfortic) 360 mg Q12 PO Last administered on 05/23/19 08:23; Admin Dose 360 MG; Start 05/19/19 at 21:00 Apixaban (Eliquis) 5 mg BID PO Last administered on 05/23/19 08:23; Admin Dose 5 MG; Start 05/19/19 at 21:00 Atorvastatin Calcium (Lipitor) 10 mg DAILY@21 PO Last administered on 05/22/19 20:33; Admin Dose 10 MG; Start 05/20/19 at 21:00 Losartan Potassium (Cozaar) 50 mg HS PO Last administered on 05/22/19 20:34; Admin Dose 50 MG; Start 05/20/19 at 21:00 Sodium Chloride 1,000 ml @ 60 mls/hr [id number] IV Last administered on 05/22/19 15:47; Admin Dose 60 MLS/HR; Start 05/21/19 at 19:00 Bisacodyl (Dulcolax) 10 mg DAILY PO Last administered on 05/23/19 08:23; Admin Dose 10 MG; Start 05/23/19 at 09:00 Cephalexin (Keflex) 250 mg Q8 PO Last administered on 05/23/19 14:59; Admin Dose 250 MG; Start 05/23/19 at 14:00 JOSH BAUMAN May 23, 2019 15:02
--- NOTE | 2019-05-23 17:23 | CONS ---
Assessment/Plan Assessment/Plan Assessment/Plan (Daily) 1. Acute kidney injury due to UTI and Prerenaal azotemia ; BUN/Cr - 25/11.20 2. acute UTI with Urine Cx grew E coli 3. H/O kidney transplant on immunosuppression 4. H/o HTN 5. H/O HL 6. H/o DM II 7. H/o previosu ESBL E coli UTI 8. obesity Plan: Continue IV abx ceftriaxone, currently hold on valsartan due to [place] , urine cx grew E coli - will resume valsarta tomorrow if Cr continues to improve BUN/Cr improved to 25/11.2- no labs today to review yet Continue prograf 1 mg BID, myfortic 360mg BID and prednisone 2.5 mg po maldonado BP stable expecting Cr to improve, avoid nephrotoxic medications will follow up Consultation Date/Type/Reason Admit Date/Time May 21, 2019 at 08:35 Initial Consult Date 05/19/19 Type of Consult NEPHROLOGY Requesting Provider: MARIA ISABEL GUTIERRES MD Date/Time of Note DATE: 05/23/19 TIME: 17:23 Exam/Review of Systems Exam Vitals Vital Signs Date Temp Pulse Resp B/P (MAP) Pulse Ox O2 O2 Flow FiO2 Time Delivery Rate 05/23/19 98.2 79 18 103/54 98 14:20 (70) 05/23/19 Room Air 01:49 Intake and Output 05/22/19 05/22/19 05/23/19 1515:00 23:00 07:00 IntakeIntake Total 530 ml 800 ml 900 ml OutputOutput Total 450 ml 500 ml 1500 ml BalanceBalance 80 ml 300 ml -600 ml Exam Constitutional: alert, awake, no acute distress Respiratory: clear to auscultation, normal air movement Cardiovascular: regular rate and rhythm, nl pulses Gastrointestinal: soft, non-tender Musculoskeletal: nl extremities to inspection Extremities: normal pulses, Right renal allograft ok 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, nl mental status, nl speech, nl strength Results Result Diagram: 05/21/19 0527 05/22/19 0503 Results 24hrs Laboratory Tests Test 05/22/19 18:01 05/22/19 20:29 05/23/19 07:56 05/23/19 12:09 Bedside Glucose 142 124 152 108 Test 05/23/19 17:07 Bedside Glucose 97 Medications Medication Current Medications Ondansetron HCl (Zofran Inj) 4 mg Q6H PRN IV NAUSEA/VOMITING; Start 05/19/19 at 17:30 Acetaminophen (Tylenol Tab) 650 mg Q6H PRN PO .PAIN 1-3 OR TEMP; Start 05/19/19 at 17:30 Acetaminophen/ Hydrocodone Bitart ([place] (5/325)) 1 tab Q6H PRN PO .MOD PAIN 4- 6; Start 05/19/19 at 17:30 Docusate Sodium (Colace) 100 mg Q12H PRN PO .CONSTIPATION; Start 05/19/19 at 17:30 Zolpidem Tartrate (Ambien) 5 mg QHS PRN PO .INSOMNIA; Start 05/19/19 at 17:30 Diagnostic Test (Pha) (Accu-Chek) 1 ea 02 XX ; Start 05/20/19 at 02:00 Insulin Glargine (Lantus) 30 units DAILY@2000 SC Last administered on 05/22/19at 20:31; Admin Dose 30 UNITS; Start 05/19/19 at 20:00 Insulin Aspart (Novolog Insulin Pen) 12 unit WITH MEALS SC Last administered on 05/23/19at 12:46; Admin Dose 12 UNIT; Start 05/19/19 at 18:00 Insulin Aspart (Novolog Insulin Pen) NOVOLOG *MILD* ALGORITHM WITH MEALS BEDTIME SC Last administered on 05/23/19 08:27; Admin Dose 1 UNIT; Start 05/19/19 at 18:00 Allopurinol (Zyloprim) 100 mg DAILY PO Last administered on 05/23/19 08:25; Admin Dose 100 MG; Start 05/20/19 at 09:00 Carvedilol (Coreg) 3.125 mg BID PO Last administered on 05/23/19 08:25; Admin Dose 3.125 MG; Start 05/19/19 at 20:20 Clonidine (Catapres) 0.2 mg BID PO Last administered on 05/23/19 08:23; Admin Dose 0.2 MG; Start 05/19/19 at 21:00 Furosemide (Lasix) 20 mg DAILY PO Last administered on 05/23/19 08:25; Admin Dose 20 MG; Start 05/20/19 at 09:00 Gabapentin (Neurontin) 100 mg HS PO Last administered on 05/22/19 20:33; Admin Dose 100 MG; Start 05/19/19 at 21:00 Pantoprazole (Protonix Tab) 40 mg AC BREAKFAST PO Last administered on 06:20; Admin Dose 40 MG; Start 05/20/19 at 07:00 Prednisone (Prednisone) 2.5 mg DAILY PO Last administered on 05/23/19 08:23; Admin Dose 2.5 MG; Start 05/20/19 at 09:00 Hydralazine HCl (Apresoline) 25 mg Q6H PRN PO ELEVATED BLOOD PRESSURE; Start 05/19/19 at 20:00 Tacrolimus (Prograf) 1 mg Q12 PO Last administered on 05/23/19 08:24; Admin Dose 1 MG; Start 05/19/19 at 20:30 Mycophenolate Sodium (Myfortic) 360 mg Q12 PO Last administered on 05/23/19 08:23; Admin Dose 360 MG; Start 05/19/19 at 21:00 Apixaban (Eliquis) 5 mg BID PO Last administered on 05/23/19 08:23; Admin Dose 5 MG; Start 05/19/19 at 21:00 Atorvastatin Calcium (Lipitor) 10 mg DAILY@21 PO Last administered on 05/22/19 20:33; Admin Dose 10 MG; Start 05/20/19 at 21:00 Losartan Potassium (Cozaar) 50 mg HS PO Last administered on 05/22/19 20:34; Admin Dose 50 MG; Start 05/20/19 at 21:00 Sodium Chloride 1,000 ml @ 60 mls/hr [id number] IV Last administered on 05/22/19 15:47; Admin Dose 60 MLS/HR; Start 05/21/19 at 19:00 Bisacodyl (Dulcolax) 10 mg DAILY PO Last administered on 05/23/19 08:23; Admin Dose 10 MG; Start 05/23/19 at 09:00 Cephalexin (Keflex) 250 mg Q8 PO Last administered on 05/23/19 14:59; Admin Dose 250 MG; Start 05/23/19 at 14:00 REBECA LAIRD MD May 23, 2019 17:23
[2019-05-23 20:04] VITALS: BP 116/57; PULSE 84; RESP 18
[2019-05-23] MEDS: GABAPENTIN 100 MG CAP PO SCH (20:40)
[2019-05-23] MEDS: ATORVASTATIN 10 MG TAB PO SCH (20:41)
[2019-05-23] MEDS: LOSARTAN 50 MG TAB PO SCH (20:41)
[2019-05-23] MEDS: INSULIN GLARGINE [LANTus] (100 UNITS/ML) SYG SC SCH (20:52)
--- NOTE | 2019-05-23 20:55 | PN ---
DATE: 05/23/2019 SUBJECTIVE: The patient is alert, feels good, wants to go home. MICROBIOLOGY: Urine culture grew E. coli. ANTIMICROBIALS: She is currently on Keflex. PHYSICAL EXAMINATION: GENERAL: This is a morbidly obese, well-developed, elderly woman who is alert, in no distress. HEENT: Head atraumatic, normocephalic. NECK: Supple. CHEST: Rise symmetrical. Breath sounds clear. HEART: S1, S2. ABDOMEN: Soft, bowel sounds present. EXTREMITIES: Without cyanosis. ASSESSMENT: 1. Status post sepsis on admission. 2. Escherichia coli urinary tract infection. 3. Acute on chronic kidney disease. 4. History of kidney transplant. 5. Diabetes. 6. Hypertension. PLAN: The patient remains stable. Nephrology on case. Continue on oral Keflex to complete 7 days. Dictated By: MICHAEL SETHI PILE HEADER for JANIYA CASE MD NI/NTS Conf#: [id number] DID#: [id number] CC: MARIA ISABEL GUTIERRES MD;*EndCC*
[2019-05-24] MEDS: ACCU-CHEK XX SCH (01:49)
[2019-05-24 02:10] VITALS: BP 152/70; PULSE 73; RESP 18
[2019-05-24] MEDS: PANTOPRAZOLE (EC) 40 MG TAB PO SCH (06:11)
[2019-05-24] MEDS: CEPHALEXIN 250 MG CAP PO SCH ×3 (06:11→22:08)
[2019-05-24 07:55] VITALS: BP 121/58; PULSE 82; RESP 20
[2019-05-24] MEDS: TACROLIMUS 1 MG CAP PO SCH ×2 (08:40→20:35)
[2019-05-24] MEDS: APIXABAN 5 MG TABLET PO SCH ×2 (08:40→20:37)
[2019-05-24] MEDS: MYCOPHENOLATE (SR) 180 MG TAB PO SCH ×2 (08:40→20:35)
[2019-05-24] MEDS: ALLOPURINOL 100 MG TAB PO SCH (08:40)
[2019-05-24] MEDS: BISACODYL (EC) 5 MG TAB PO SCH (08:41)
[2019-05-24] MEDS: FUROSEMIDE 40 MG TAB PO SCH (08:41)
[2019-05-24] MEDS: INSULIN ASPART [NOVOLOG] 3 ML PEN SC SCH ×7 (08:43→20:39)
--- NOTE | 2019-05-24 10:44 | CONS ---
Assessment/Plan Assessment/Plan Assessment/Plan (Daily) 1. Acute kidney injury due to UTI and Prerenaal azotemia ; BUN/Cr - 31/1.20 2. acute UTI with Urine Cx grew E coli 3. H/O kidney transplant on immunosuppression 4. H/o HTN 5. H/O HL 6. H/o DM II 7. H/o previosu ESBL E coli UTI 8. obesity Plan: Continue IV abx ceftriaxone, urine cx grew E coli Conitnu IVF 1/2 NS at 60 cc/hr Losartan 50mg PO QHS, BUN/Cr improved to 34/1.07, other electrolytes stable Continue prograf 1 mg BID, myfortic 360mg BID and prednisone 2.5 mg po joel will follow up Consultation Date/Type/Reason Admit Date/Time May 21, 2019 at 08:35 Initial Consult Date 05/19/19 Type of Consult NEPHROLOGY Requesting Provider: MARIA ISABEL GUTIERRES MD Date/Time of Note DATE: 05/24/19 TIME: 10:44 Exam/Review of Systems Exam Vitals Vital Signs Date Temp Pulse Resp B/P (MAP) Pulse Ox O2 O2 Flow FiO2 Time Delivery Rate 05/24/19 98.5 82 20 121/58 95 07:55 (79) 05/23/19 Room Air 01:49 Intake and Output 05/23/19 05/23/19 05/24/19 1515:00 23:00 07:00 IntakeIntake Total 520 ml 50 ml OutputOutput Total 900 ml 1200 ml 1100 ml BalanceBalance -380 ml -1150 ml -1100 ml Exam Constitutional: alert Respiratory: clear to auscultation, normal air movement Cardiovascular: regular rate and rhythm, nl pulses Gastrointestinal: soft, non-tender., Right renal allgoraft is normal Musculoskeletal: nl extremities to inspection Extremities: normal pulses, 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, nl mental status, nl speech, nl strength Results Result Diagram: 05/24/19 0501 05/24/19 0501 Results 24hrs Laboratory Tests Test 05/23/19 12:09 05/23/19 17:07 05/23/19 20:37 05/24/19 05:01 Bedside Glucose 108 97 127 White Blood Count 7.7 Red Blood Count 3.98 L Hemoglobin 10.7 L Hematocrit 36.5 L Mean Corpuscular 91.7 Volume Mean Corpuscular 26.9 L Hemoglobin Mean Corpuscular 29.3 L Hemoglobin Concent Red Cell 13.9 Distribution Width Platelet Count 208 Mean Platelet Volume 11.3 H Immature 0.800 H Granulocytes % Neutrophils % 61.2 Lymphocytes % 28.4 Monocytes % 6.0 Eosinophils % 2.7 Basophils % 0.9 Nucleated Red Blood 0.0 Cells % Immature 0.060 H Granulocytes # Neutrophils # 4.7 Lymphocytes # 2.2 Monocytes # 0.5 Eosinophils # 0.2 Basophils # 0.1 Nucleated Red Blood 0.0 Cells # Sodium Level 140 Potassium Level 4.4 Chloride Level 105 Carbon Dioxide Level 29 Anion Gap 6 Blood Urea Nitrogen 34 H Creatinine 1.07 H Est Glomerular 52 L Filtrat Rate mL/min Glucose Level 230 H Calcium Level 9.5 Test 05/24/19 08:39 Bedside Glucose 209 Medications Medication Current Medications Ondansetron HCl (Zofran Inj) 4 mg Q6H PRN IV NAUSEA/VOMITING; Start 05/19/19 at 17:30 Acetaminophen (Tylenol Tab) 650 mg Q6H PRN PO .PAIN 1-3 OR TEMP; Start 05/19/19 at 17:30 Acetaminophen/ Hydrocodone Bitart ([place] (5/325)) 1 tab Q6H PRN PO .MOD PAIN 4- 6; Start 05/19/19 at 17:30 Docusate Sodium (Colace) 100 mg Q12H PRN PO .CONSTIPATION; Start 05/19/19 at 17:30 Zolpidem Tartrate (Ambien) 5 mg QHS PRN PO .INSOMNIA; Start 05/19/19 at 17:30 Diagnostic Test (Pha) (Accu-Chek) 1 ea 02 XX ; Start 05/20/19 at 02:00 Insulin Glargine (Lantus) 30 units DAILY@2000 SC Last administered on 05/23/19at 20:52; Admin Dose 30 UNITS; Start 05/19/19 at 20:00 Insulin Aspart (Novolog Insulin Pen) 12 unit WITH MEALS SC Last administered on 05/24/19at 08:43; Admin Dose 12 UNIT; Start 05/19/19 at 18:00 Insulin Aspart (Novolog Insulin Pen) NOVOLOG *MILD* ALGORITHM WITH MEALS BEDTIME SC Last administered on 05/24/19at 08:43; Admin Dose 2 UNIT; Start 05/19 at 18:00 Allopurinol (Zyloprim) 100 mg DAILY PO Last administered on 05/24/19 08:40; Admin Dose 100 MG; Start 05/20/19 at 09:00 Carvedilol (Coreg) 3.125 mg BID PO Last administered on 05/24/19 08:40; Admin Dose 3.125 MG; Start 05/19/19 at 20:20 Clonidine (Catapres) 0.2 mg BID PO Last administered on 05/24/19 08:40; Admin Dose 0.2 MG; Start 05/19/19 at 21:00 Furosemide (Lasix) 20 mg DAILY PO Last administered on 05/24/19 08:41; Admin Dose 20 MG; Start 05/20/19 at 09:00 Gabapentin (Neurontin) 100 mg HS PO Last administered on 05/23/19 20:40; Admin Dose 100 MG; Start 05/19/19 at 21:00 Pantoprazole (Protonix Tab) 40 mg AC BREAKFAST PO Last administered on 05/24/19 06:11; Admin Dose 40 MG; Start 05/20/19 at 07:00 Prednisone (Prednisone) 2.5 mg DAILY PO Last administered on 05/23/19 08:23; Admin Dose 2.5 MG; Start 05/20/19 at 09:00 Hydralazine HCl (Apresoline) 25 mg Q6H PRN PO ELEVATED BLOOD PRESSURE; Start 05/19/19 at 20:00 Tacrolimus (Prograf) 1 mg Q12 PO Last administered on 05/24/19 08:40; Admin Dose 1 MG; Start 05/19/19 at 20:30 Mycophenolate Sodium (Myfortic) 360 mg Q12 PO Last administered on 05/24/19 08:40; Admin Dose 360 MG; Start 05/19/19 at 21:00 Apixaban (Eliquis) 5 mg BID PO Last administered on 05/24/19 08:40; Admin Dose 5 MG; Start 05/19/19 at 21:00 Atorvastatin Calcium (Lipitor) 10 mg DAILY@21 PO Last administered on 05/23/19 20:41; Admin Dose 10 MG; Start 05/20/19 at 21:00 Losartan Potassium (Cozaar) 50 mg HS PO Last administered on 05/23/19 20:41; Admin Dose 50 MG; Start 05/20/19 at 21:00 Sodium Chloride 1,000 ml @ 60 mls/hr [id number] IV Last administered on 05/22/19at 15:47; Admin Dose 60 MLS/HR; Start 05/21/19 at 19:00 Bisacodyl (Dulcolax) 10 mg DAILY PO Last administered on 05/24/19 08:41; Admin Dose 10 MG; Start 05/23/19 at 09:00 Cephalexin (Keflex) 250 mg Q8 PO Last administered on 05/24/19 06:11; Admin Dose 250 MG; Start 05/23/19 at 14:00 REBECA LAIRD MD May 24, 2019 10:44
[2019-05-24] MEDS: predniSONE 2.5 MG TAB PO SCH (12:38)
--- NOTE | 2019-05-24 13:19 | CONS ---
Assessment/Plan Assessment/Plan Hospital Course (Demo Recall) SUBJECTIVE: The patient is alert, feels good MICROBIOLOGY: Urine culture grew E. coli. ANTIMICROBIALS: Keflex. PHYSICAL EXAMINATION: GENERAL: This is a morbidly obese, well-developed, elderly woman who is alert, in no distress. HEENT: Head atraumatic, normocephalic. NECK: Supple. CHEST: Rise symmetrical. Breath sounds clear. HEART: S1, S2. ABDOMEN: Soft, bowel sounds present. EXTREMITIES: Without cyanosis. ASSESSMENT: 1. Status post sepsis on admission. 2. Escherichia coli urinary tract infection. 3. Acute on chronic kidney disease. 4. History of kidney transplant. 5. Diabetes. 6. Hypertension. PLAN: The patient remains stable. Continue antibiotics for 2 more days Consultation Date/Type/Reason Admit Date/Time May 21, 2019 at 08:35 Initial Consult Date 05/19/19 Type of Consult id Requesting Provider: MARIA ISABEL GUTIERRES MD Date/Time of Note DATE: 05/24/19 TIME: 13:18 Exam/Review of Systems Exam Vitals Vital Signs Date Temp Pulse Resp B/P (MAP) Pulse Ox O2 O2 Flow FiO2 Time Delivery Rate 05/24/19 98.5 82 20 121/58 95 07:55 (79) 05/23/19 Room Air 01:49 Intake and Output 05/23/19 05/23/19 05/24/19 1515:00 23:00 07:00 IntakeIntake Total 520 ml 50 ml OutputOutput Total 900 ml 1200 ml 1100 ml BalanceBalance -380 ml -1150 ml -1100 ml Results Result Diagram: 05/24/19 0501 05/24/19 0501 Results 24hrs Laboratory Tests Test 05/23/19 17:07 05/23/19 20:37 05/24/19 05:01 05/24/19 08:39 Bedside Glucose 97 127 209 White Blood Count 7.7 Red Blood Count 3.98 L Hemoglobin 10.7 L Hematocrit 36.5 L Mean Corpuscular 91.7 Volume Mean Corpuscular 26.9 L Hemoglobin Mean Corpuscular 29.3 L Hemoglobin Concent Red Cell 13.9 Distribution Width Platelet Count 208 Mean Platelet Volume 11.3 H Immature 0.800 H Granulocytes % Neutrophils % 61.2 Lymphocytes % 28.4 Monocytes % 6.0 Eosinophils % 2.7 Basophils % 0.9 Nucleated Red Blood 0.0 Cells % Immature 0.060 H Granulocytes # Neutrophils # 4.7 Lymphocytes # 2.2 Monocytes # 0.5 Eosinophils # 0.2 Basophils # 0.1 Nucleated Red Blood 0.0 Cells # Sodium Level 140 Potassium Level 4.4 Chloride Level 105 Carbon Dioxide Level 29 Anion Gap 6 Blood Urea Nitrogen 34 H Creatinine 1.07 H Est Glomerular 52 L Filtrat Rate mL/min Glucose Level 230 H Calcium Level 9.5 Test 05/24/19 12:37 Bedside Glucose 108 Medications Medication Current Medications Ondansetron HCl (Zofran Inj) 4 mg Q6H PRN IV NAUSEA/VOMITING; Start 05/19/19 at 17:30 Acetaminophen (Tylenol Tab) 650 mg Q6H PRN PO .PAIN 1-3 OR TEMP; Start 05/19/19 at 17:30 Acetaminophen/ Hydrocodone Bitart ([place] (5/325)) 1 tab Q6H PRN PO .MOD PAIN 4- 6; Start 05/19/19 at 17:30 Docusate Sodium (Colace) 100 mg Q12H PRN PO .CONSTIPATION; Start 05/19/19 at 17:30 Zolpidem Tartrate (Ambien) 5 mg QHS PRN PO .INSOMNIA; Start 05/19/19 at 17:30 Diagnostic Test (Pha) (Accu-Chek) 1 ea 02 XX ; Start 05/20/19 at 02:00 Insulin Glargine (Lantus) 30 units DAILY@2000 SC Last administered on 05/23/19at 20:52; Admin Dose 30 UNITS; Start 05/19/19 at 20:00 Insulin Aspart (Novolog Insulin Pen) 12 unit WITH MEALS SC Last administered on 05/24/19at 12:39; Admin Dose 12 UNIT; Start 05/19/19 at 18:00 Insulin Aspart (Novolog Insulin Pen) NOVOLOG *MILD* ALGORITHM WITH MEALS BEDTIME SC Last administered on 05/24/19 08:43; Admin Dose 2 UNIT; Start 05/19/19 at 18:00 Allopurinol (Zyloprim) 100 mg DAILY PO Last administered on 05/24/19 08:40; Admin Dose 100 MG; Start 05/20/19 at 09:00 Carvedilol (Coreg) 3.125 mg BID PO Last administered on 05/24/19 08:40; Admin Dose 3.125 MG; Start 05/19/19 at 20:20 Clonidine (Catapres) 0.2 mg BID PO Last administered on 05/24/19 08:40; Admin Dose 0.2 MG; Start 05/19/19 at 21:00 Furosemide (Lasix) 20 mg DAILY PO Last administered on 05/24/19 08:41; Admin Dose 20 MG; Start 05/20/19 at 09:00 Gabapentin (Neurontin) 100 mg HS PO Last administered on 05/23/19 20:40; Admin Dose 100 MG; Start 05/19/19 at 21:00 Pantoprazole (Protonix Tab) 40 mg AC BREAKFAST PO Last administered on 05/24/19 06:11; Admin Dose 40 MG; Start 05/20/19 at 07:00 Prednisone (Prednisone) 2.5 mg DAILY PO Last administered on 05/24/19 12:38; Admin Dose 2.5 MG; Start 05/20/19 at 09:00 Hydralazine HCl (Apresoline) 25 mg Q6H PRN PO ELEVATED BLOOD PRESSURE; Start 05/19/19 at 20:00 Tacrolimus (Prograf) 1 mg Q12 PO Last administered on 05/24/19 08:40; Admin Dose 1 MG; Start 05/19/19 at 20:30 Mycophenolate Sodium (Myfortic) 360 mg Q12 PO Last administered on 05/24/19 08:40; Admin Dose 360 MG; Start 05/19/19 at 21:00 Apixaban (Eliquis) 5 mg BID PO Last administered on 05/24/19 08:40; Admin Dose 5 MG; Start 05/19/19 at 21:00 Atorvastatin Calcium (Lipitor) 10 mg DAILY@21 PO Last administered on 05/23/19 20:41; Admin Dose 10 MG; Start 05/20/19 at 21:00 Losartan Potassium (Cozaar) 50 mg HS PO Last administered on 05/23/19 20:41; Admin Dose 50 MG; Start 05/20/19 at 21:00 Sodium Chloride 1,000 ml @ 60 mls/hr [id number] IV Last administered on 05/22/19 15:47; Admin Dose 60 MLS/HR; Start 7/27/19 at 19:00 Bisacodyl (Dulcolax) 10 mg DAILY PO Last administered on 05/24/19at 08:41; Admin Dose 10 MG; Start 05/23/19 at 09:00 Cephalexin (Keflex) 250 mg Q8 PO Last administered on 05/24/19at 06:11; Admin Dose 250 MG; Start 05/23/19 at 14:00 MICHAEL SETHI NP May 24, 2019 13:19
[2019-05-24 13:44] VITALS: BP 103/55; PULSE 81; RESP 20
--- NOTE | 2019-05-24 13:49 | CONS ---
Consultation Date/Type/Reason Admit Date/Time May 21, 2019 at 08:35 Initial Consult Date 05/19/19 Type of Consult NEPHROLOGY Requesting Provider: MARIA ISABEL GUTIERRES MD Date/Time of Note DATE: 05/24/19 TIME: 13:49 Exam/Review of Systems Exam Vitals Vital Signs Date Temp Pulse Resp B/P (MAP) Pulse Ox O2 O2 Flow FiO2 Time Delivery Rate 05/24/19 97.4 81 20 103/55 94 13:44 (71) 05/23/19 Room Air 01:49 Intake and Output 05/23/19 05/23/19 05/24/19 1515:00 23:00 07:00 IntakeIntake Total 520 ml 50 ml OutputOutput Total 900 ml 1200 ml 1100 ml BalanceBalance -380 ml -1150 ml -1100 ml Results Result Diagram: 05/24/19 0501 05/24/19 0501 Results 24hrs Laboratory Tests Test 05/23/19 17:07 05/23/19 20:37 05/24/19 05:01 05/24/19 08:39 Bedside Glucose 97 127 209 White Blood Count 7.7 Red Blood Count 3.98 L Hemoglobin 10.7 L Hematocrit 36.5 L Mean Corpuscular 91.7 Volume Mean Corpuscular 26.9 L Hemoglobin Mean Corpuscular 29.3 L Hemoglobin Concent Red Cell 13.9 Distribution Width Platelet Count 208 Mean Platelet Volume 11.3 H Immature 0.800 H Granulocytes % Neutrophils % 61.2 Lymphocytes % 28.4 Monocytes % 6.0 Eosinophils % 2.7 Basophils % 0.9 Nucleated Red Blood 0.0 Cells % Immature 0.060 H Granulocytes # Neutrophils # 4.7 Lymphocytes # 2.2 Monocytes # 0.5 Eosinophils # 0.2 Basophils # 0.1 Nucleated Red Blood 0.0 Cells # Sodium Level 140 Potassium Level 4.4 Chloride Level 105 Carbon Dioxide Level 29 Anion Gap 6 Blood Urea Nitrogen 34 H Creatinine 1.07 H Est Glomerular 52 L Filtrat Rate mL/min Glucose Level 230 H Calcium Level 9.5 Test 05/24/19 12:37 Bedside Glucose 108 Medications Medication Current Medications Ondansetron HCl (Zofran Inj) 4 mg Q6H PRN IV NAUSEA/VOMITING; Start 05/19/19 at 17:30 Acetaminophen (Tylenol Tab) 650 mg Q6H PRN PO .PAIN 1-3 OR TEMP; Start 05/19/19 at 17:30 Acetaminophen/ Hydrocodone Bitart ([place] (5/325)) 1 tab Q6H PRN PO .MOD PAIN 4- 6; Start 05/19/19 at 17:30 Docusate Sodium (Colace) 100 mg Q12H PRN PO .CONSTIPATION; Start 05/19/19 at 17:30 Zolpidem Tartrate (Ambien) 5 mg QHS PRN PO .INSOMNIA; Start 05/19/19 at 17:30 Diagnostic Test (Pha) (Accu-Chek) 1 ea 02 XX ; Start 05/20/19 at 02:00 Insulin Glargine (Lantus) 30 units DAILY@2000 SC Last administered on 05/23/19 20:52; Admin Dose 30 UNITS; Start 05/19/19 at 20:00 Insulin Aspart (Novolog Insulin Pen) 12 unit WITH MEALS SC Last administered on 05/24/19 12:39; Admin Dose 12 UNIT; Start 05/19/19 at 18:00 Insulin Aspart (Novolog Insulin Pen) NOVOLOG *MILD* ALGORITHM WITH MEALS BEDTIME SC Last administered on 05/24/19 08:43; Admin Dose 2 UNIT; Start 05/19/19 at 18:00 Allopurinol (Zyloprim) 100 mg DAILY PO Last administered on 05/24/19 08:40; Admin Dose 100 MG; Start 05/20/19 at 09:00 Carvedilol (Coreg) 3.125 mg BID PO Last administered on 05/24/19 08:40; Admin Dose 3.125 MG; Start 05/19/19 at 20:20 Clonidine (Catapres) 0.2 mg BID PO Last administered on 05/24/19 08:40; Admin Dose 0.2 MG; Start 05/19/19 at 21:00 Furosemide (Lasix) 20 mg DAILY PO Last administered on 05/24/19 08:41; Admin Dose 20 MG; Start 05/20/19 at 09:00 Gabapentin (Neurontin) 100 mg HS PO Last administered on 05/23/19 20:40; Admin Dose 100 MG; Start 05/19/19 at 21:00 Pantoprazole (Protonix Tab) 40 mg AC BREAKFAST PO Last administered on 05/24/19 06:11; Admin Dose 40 MG; Start 05/20/19 at 07:00 Prednisone (Prednisone) 2.5 mg DAILY PO Last administered on 05/24/19 12:38; Admin Dose 2.5 MG; Start 05/20/19 at 09:00 Hydralazine HCl (Apresoline) 25 mg Q6H PRN PO ELEVATED BLOOD PRESSURE; Start 05/19/19 at 20:00 Tacrolimus (Prograf) 1 mg Q12 PO Last administered on 05/24/19 08:40; Admin D ose 1 MG; Start 05/19/19 at 20:30 Mycophenolate Sodium (Myfortic) 360 mg Q12 PO Last administered on 05/24/19 08:40; Admin Dose 360 MG; Start 05/19/19 at 21:00 Apixaban (Eliquis) 5 mg BID PO Last administered on 05/24/19 08:40; Admin Dose 5 MG; Start 05/19/19 at 21:00 Atorvastatin Calcium (Lipitor) 10 mg DAILY@21 PO Last administered on 05/23/19 20:41; Admin Dose 10 MG; Start 05/20/19 at 21:00 Losartan Potassium (Cozaar) 50 mg HS PO Last administered on 05/23/19 20:41; Admin Dose 50 MG; Start 05/20/19 at 21:00 Sodium Chloride 1,000 ml @ 60 mls/hr [id number] IV Last administered on 05/22/19 15:47; Admin Dose 60 MLS/HR; Start 05/21/19 at 19:00 Bisacodyl (Dulcolax) 10 mg DAILY PO Last administered on 05/24/19 08:41; Admin Dose 10 MG; Start 05/23/19 at 09:00 Cephalexin (Keflex) 250 mg Q8 PO Last administered on 05/24/19 06:11; Admin Dose 250 MG; Start 05/23/19 at 14:00 REBECA LAIRD MD May 24, 2019 13:49
--- NOTE | 2019-05-24 15:26 | PN ---
Date/Time of Note Date/Time of Note DATE: 05/24/19 TIME: 15:26 Assessment/Plan VTE Prophylaxis Risk score (from [facility])>0 risk: 3 SCD applied (from [facility]): No SCD contraindicated: other Pharmacological prophylaxis: LMWH Lines/Catheters IV Catheter Type (from [facility]): [place] Urinary Cath still in place: No Assessment/Plan Hospital Course -Urinary tract infection continue Rocephin follow-up on urine culture. Dr. Krueger is asked to see patient in infection disease consultation. -Acute kidney injury, continue IV fluids monitor BUN and creatinine. -Status post kidney transplant, continue current antirejection medication. Dr. [place] is asked to see patient in nephrology consultation. -Immunocompromise state -Diabetes mellitus -Hypertension -Hyperlipidemia -Obesity Result Diagram: 05/24/19 0501 05/24/19 0501 Results 24hrs Laboratory Tests Test 05/23/19 17:07 05/23/19 20:37 05/24/19 05:01 05/24/19 08:39 Bedside Glucose 97 127 209 White Blood Count 7.7 Red Blood Count 3.98 L Hemoglobin 10.7 L Hematocrit 36.5 L Mean Corpuscular 91.7 Volume Mean Corpuscular 26.9 L Hemoglobin Mean Corpuscular 29.3 L Hemoglobin Concent Red Cell 13.9 Distribution Width Platelet Count 208 Mean Platelet Volume 11.3 H Immature 0.800 H Granulocytes % Neutrophils % 61.2 Lymphocytes % 28.4 Monocytes % 6.0 Eosinophils % 2.7 Basophils % 0.9 Nucleated Red Blood 0.0 Cells % Immature 0.060 H Granulocytes # Neutrophils # 4.7 Lymphocytes # 2.2 Monocytes # 0.5 Eosinophils # 0.2 Basophils # 0.1 Nucleated Red Blood 0.0 Cells # Sodium Level 140 Potassium Level 4.4 Chloride Level 105 Carbon Dioxide Level 29 Anion Gap 6 Blood Urea Nitrogen 34 H Creatinine 1.07 H Est Glomerular 52 L Filtrat Rate mL/min Glucose Level 230 H Calcium Level 9.5 Test 05/24/19 12:37 Bedside Glucose 108 Subjective 24 Hr Interval Summary Free Text/Dictation Patient has no complaints Exam/Review of Systems Exam Vitals Vital Signs Date Temp Pulse Resp B/P (MAP) Pulse Ox O2 O2 Flow FiO2 Time Delivery Rate 05/24/19 97.4 81 20 103/55 94 13:44 (71) 05/23/19 Room Air 01:49 Intake and Output 05/23/19 05/23/19 05/24/19 1515:00 23:00 07:00 IntakeIntake Total 520 ml 50 ml OutputOutput Total 900 ml 1200 ml 1100 ml BalanceBalance -380 ml -1150 ml -1100 ml Constitutional: well developed Head: normocephalic, atraumatic Neck: supple Respiratory: diminished breath sounds Cardiovascular: regular rate and rhythm Gastrointestinal: soft, non-tender Extremities: normal pulses Results Results 24hrs Laboratory Tests Test 05/23/19 17:07 05/23/19 20:37 05/24/19 05:01 05/24/19 08:39 Bedside Glucose 97 127 209 White Blood Count 7.7 Red Blood Count 3.98 L Hemoglobin 10.7 L Hematocrit 36.5 L Mean Corpuscular 91.7 Volume Mean Corpuscular 26.9 L Hemoglobin Mean Corpuscular 29.3 L Hemoglobin Concent Red Cell 13.9 Distribution Width Platelet Count 208 Mean Platelet Volume 11.3 H Immature 0.800 H Granulocytes % Neutrophils % 61.2 Lymphocytes % 28.4 Monocytes % 6.0 Eosinophils % 2.7 Basophils % 0.9 Nucleated Red Blood 0.0 Cells % Immature 0.060 H Granulocytes # Neutrophils # 4.7 Lymphocytes # 2.2 Monocytes # 0.5 Eosinophils # 0.2 Basophils # 0.1 Nucleated Red Blood 0.0 Cells # Sodium Level 140 Potassium Level 4.4 Chloride Level 105 Carbon Dioxide Level 29 Anion Gap 6 Blood Urea Nitrogen 34 H Creatinine 1.07 H Est Glomerular 52 L Filtrat Rate mL/min Glucose Level 230 H Calcium Level 9.5 Test 05/24/19 12:37 Bedside Glucose 108 Medications Medication Current Medications Ondansetron HCl (Zofran Inj) 4 mg Q6H PRN IV NAUSEA/VOMITING; Start 05/19/19 at 17:30 Acetaminophen (Tylenol Tab) 650 mg Q6H PRN PO .PAIN 1-3 OR TEMP; Start 05/19/19 at 17:30 Acetaminophen/ Hydrocodone Bitart ([place] (5/325)) 1 tab Q6H PRN PO .MOD PAIN 4- 6; Start 05/19/19 at 17:30 Docusate Sodium (Colace) 100 mg Q12H PRN PO .CONSTIPATION; Start 05/19/19 at 1 7:30 Zolpidem Tartrate (Ambien) 5 mg QHS PRN PO .INSOMNIA; Start 05/19/19 at 17:30 Diagnostic Test (Pha) (Accu-Chek) 1 ea 02 XX ; Start 05/20/19 at 02:00 Insulin Glargine (Lantus) 30 units DAILY@2000 SC Last administered on 05/23/19 20:52; Admin Dose 30 UNITS; Start 05/19/19 at 20:00 Insulin Aspart (Novolog Insulin Pen) 12 unit WITH MEALS SC Last administered on 05/24/19 12:39; Admin Dose 12 UNIT; Start 05/19/19 at 18:00 Insulin Aspart (Novolog Insulin Pen) NOVOLOG *MILD* ALGORITHM WITH MEALS BEDTIME SC Last administered on 05/24/19 08:43; Admin Dose 2 UNIT; Start 05/19/19 at 18:00 Allopurinol (Zyloprim) 100 mg DAILY PO Last administered on 05/24/19 08:40; Admin Dose 100 MG; Start 05/20/19 at 09:00 Carvedilol (Coreg) 3.125 mg BID PO Last administered on 05/24/19 08:40; Admin Dose 3.125 MG; Start 05/19/19 at 20:20 Clonidine (Catapres) 0.2 mg BID PO Last administered on 05/24/19 08:40; Admin Dose 0.2 MG; Start 05/19/19 at 21:00 Furosemide (Lasix) 20 mg DAILY PO Last administered on 05/24/19 08:41; Admin Dose 20 MG; Start 05/20/19 at 09:00 Gabapentin (Neurontin) 100 mg HS PO Last administered on 05/23/19 20:40; Admin Dose 100 MG; Start 05/19/19 at 21:00 Pantoprazole (Protonix Tab) 40 mg AC BREAKFAST PO Last administered on 05/24/19 06:11; Admin Dose 40 MG; Start 05/20/19 at 07:00 Prednisone (Prednisone) 2.5 mg DAILY PO Last administered on 05/24/19 12:38; A dmin Dose 2.5 MG; Start 05/20/19 at 09:00 Hydralazine HCl (Apresoline) 25 mg Q6H PRN PO ELEVATED BLOOD PRESSURE; Start 05/19/19 at 20:00 Tacrolimus (Prograf) 1 mg Q12 PO Last administered on 05/24/19 08:40; Admin Dose 1 MG; Start 05/19/19 at 20:30 Mycophenolate Sodium (Myfortic) 360 mg Q12 PO Last administered on 05/24/19 08:40; Admin Dose 360 MG; Start 05/19/19 at 21:00 Apixaban (Eliquis) 5 mg BID PO Last administered on 05/24/19 08:40; Admin Dose 5 MG; Start 05/19/19 at 21:00 Atorvastatin Calcium (Lipitor) 10 mg DAILY@21 PO Last administered on 05/23/19 20:41; Admin Dose 10 MG; Start 05/20/19 at 21:00 Losartan Potassium (Cozaar) 50 mg HS PO Last administered on 05/23/19 20:41; A dmin Dose 50 MG; Start 05/20/19 at 21:00 Sodium Chloride 1,000 ml @ 60 mls/hr [id number] IV Last administered on 05/22/19 15:47; Admin Dose 60 MLS/HR; Start 05/21/19 at 19:00 Bisacodyl (Dulcolax) 10 mg DAILY PO Last administered on 05/24/19 08:41; Admin Dose 10 MG; Start 05/23/19 at 09:00 Cephalexin (Keflex) 250 mg Q8 PO Last administered on 05/24/19 06:11; Admin Dose 250 MG; Start 05/23/19 at 14:00 JOSH BAUMAN May 24, 2019 15:26
[2019-05-24 19:16] VITALS: BP 107/55; PULSE 86; RESP 20
[2019-05-24] MEDS: ATORVASTATIN 10 MG TAB PO SCH (20:37)
[2019-05-24] MEDS: LOSARTAN 50 MG TAB PO SCH (20:37)
[2019-05-24] MEDS: GABAPENTIN 100 MG CAP PO SCH (20:37)
[2019-05-24] MEDS: INSULIN GLARGINE [LANTus] (100 UNITS/ML) SYG SC SCH (20:38)
[2019-05-25] MEDS: ACCU-CHEK XX SCH (01:54)
[2019-05-25 01:59] VITALS: BP 114/76; PULSE 85; RESP 20
[2019-05-25] MEDS: PANTOPRAZOLE (EC) 40 MG TAB PO SCH (05:52)
[2019-05-25] MEDS: CEPHALEXIN 250 MG CAP PO SCH ×3 (05:52→22:22)
[2019-05-25 08:03] VITALS: BP 112/53; PULSE 64; RESP 16
[2019-05-25] MEDS: INSULIN ASPART [NOVOLOG] 3 ML PEN SC SCH ×7 (08:21→21:00)
[2019-05-25] MEDS: APIXABAN 5 MG TABLET PO SCH ×2 (08:31→21:06)
[2019-05-25] MEDS: TACROLIMUS 1 MG CAP PO SCH ×2 (08:32→21:06)
[2019-05-25] MEDS: ALLOPURINOL 100 MG TAB PO SCH (08:32)
[2019-05-25] MEDS: BISACODYL (EC) 5 MG TAB PO SCH (08:32)
[2019-05-25] MEDS: FUROSEMIDE 40 MG TAB PO SCH (08:33)
[2019-05-25] MEDS: predniSONE 2.5 MG TAB PO SCH (08:33)
[2019-05-25] MEDS: MYCOPHENOLATE (SR) 180 MG TAB PO SCH ×2 (08:33→21:06)
--- NOTE | 2019-05-25 10:27 | CONS ---
Assessment/Plan Assessment/Plan Assessment/Plan (Daily) 1. Acute kidney injury due to UTI and Prerenaal azotemia ; BUN/Cr - 31/1.20 2. acute UTI with Urine Cx grew E coli 3. H/O kidney transplant on immunosuppression 4. H/o HTN 5. H/O HL 6. H/o DM II 7. H/o previosu ESBL E coli UTI 8. obesity Plan: s/p IV abx ceftriaxone, urine cx grew E coli - on PO Keflex 250mg PO Q 8 hr, - lasix 20mg po daily Losartan 50mg PO QHS, BUN/Cr improved to 34/1.07, other electrolytes stable - no labs today to review yet Continue prograf 1 mg BID, myfortic 360mg BID and prednisone 2.5 mg po maldonado possible d/c home tomorrow with PO keflex will follow up Consultation Date/Type/Reason Admit Date/Time May 21, 2019 at 08:35 Initial Consult Date 05/19/19 Type of Consult NEPHROLOGY Requesting Provider: MARIA ISABEL GUTIERRES MD Date/Time of Note DATE: 05/25/19 TIME: 10:26 Exam/Review of Systems Exam Vitals Vital Signs Date Temp Pulse Resp B/P (MAP) Pulse Ox O2 O2 Flow FiO2 Time Delivery Rate 05/25/19 98.3 64 16 112/53 97 08:03 (72) 05/23/19 Room Air 01:49 Intake and Output 05/24/19 05/24/19 05/25/19 1515:00 23:00 07:00 IntakeIntake Total 1280 ml 520 ml OutputOutput Total 2100 ml 900 ml BalanceBalance -820 ml -380 ml Exam Constitutional: alert, awake, no acute distress Respiratory: clear to auscultation, normal air movement Cardiovascular: regular rate and rhythm, nl pulses Gastrointestinal: soft, non-tender Musculoskeletal: nl extremities to inspection Extremities: normal pulses, Right renal allograft ok Neurological: ELECTRICITY TRADER II-XII intact, nl mental status, nl speech, nl strength Results Result Diagram: 05/24/19 0501 05/24/19 0501 Results 24hrs Laboratory Tests Test 05/24/19 12:37 05/24/19 17:28 05/24/19 20:34 05/25/19 01:54 Bedside Glucose 108 131 256 H 225 H Test 05/25/19 08:18 Bedside Glucose 178 Medications Medication Current Medications Ondansetron HCl (Zofran Inj) 4 mg Q6H PRN IV NAUSEA/VOMITING; Start 05/19/19 at 17:30 Acetaminophen (Tylenol Tab) 650 mg Q6H PRN PO .PAIN 1-3 OR TEMP; Start 05/19/19 at 17:30 Acetaminophen/ Hydrocodone Bitart ([place] (5/325)) 1 tab Q6H PRN PO .MOD PAIN 4- 6; Start 05/19/19 at 17:30 Docusate Sodium (Colace) 100 mg Q12H PRN PO .CONSTIPATION; Start 05/19/19 at 1 7:30 Zolpidem Tartrate (Ambien) 5 mg QHS PRN PO .INSOMNIA; Start 05/19/19 at 17:30 Diagnostic Test (Pha) (Accu-Chek) 1 ea 02 XX ; Start 05/20/19 at 02:00 Insulin Glargine (Lantus) 30 units DAILY@2000 SC Last administered on 05/24/19at 20:38; Admin Dose 30 UNITS; Start 05/19/19 at 20:00 Insulin Aspart (Novolog Insulin Pen) 12 unit WITH MEALS SC Last administered on 05/25/19 08:22; Admin Dose 12 UNIT; Start 05/19/19 at 18:00 Insulin Aspart (Novolog Insulin Pen) NOVOLOG *MILD* ALGORITHM WITH MEALS BEDTIME SC Last administered on 05/25/19 08:21; Admin Dose 1 UNIT; Start 05/19/19 at 18:00 Allopurinol (Zyloprim) 100 mg DAILY PO Last administered on 05/25/19 08:32; Admin Dose 100 MG; Start 05/20/19 at 09:00 Carvedilol (Coreg) 3.125 mg BID PO Last administered on 05/25/19 08:33; Admin Dose 3.125 MG; Start 05/19/19 at 20:20 Clonidine (Catapres) 0.2 mg BID PO Last administered on 05/25/19 08:34; Admin Dose 0.2 MG; Start 05/19/19 at 21:00 Furosemide (Lasix) 20 mg DAILY PO Last administered on 05/25/19 08:33; Admin Dose 20 MG; Start 05/20/19 at 09:00 Gabapentin (Neurontin) 100 mg HS PO Last administered on 05/24/19 20:37; Admin Dose 100 MG; Start 05/19/19 at 21:00 Pantoprazole (Protonix Tab) 40 mg AC BREAKFAST PO Last administered on 05/25/19 05:52; Admin Dose 40 MG; Start 05/20/19 at 07:00 Prednisone (Prednisone) 2.5 mg DAILY PO Last administered on 05/25/19 08:33; A dmin Dose 2.5 MG; Start 05/20/19 at 09:00 Hydralazine HCl (Apresoline) 25 mg Q6H PRN PO ELEVATED BLOOD PRESSURE; Start 05/19/19 at 20:00 Tacrolimus (Prograf) 1 mg Q12 PO Last administered on 05/25/19 08:32; Admin Dose 1 MG; Start 05/19/19 at 20:30 Mycophenolate Sodium (Myfortic) 360 mg Q12 PO Last administered on 05/25/19 08:33; Admin Dose 360 MG; Start 05/19/19 at 21:00 Apixaban (Eliquis) 5 mg BID PO Last administered on 05/25/19 08:31; Admin Dose 5 MG; Start 05/19/19 at 21:00 Atorvastatin Calcium (Lipitor) 10 mg DAILY@21 PO Last administered on 05/24/19 20:37; Admin Dose 10 MG; Start 05/20/19 at 21:00 Losartan Potassium (Cozaar) 50 mg HS PO Last administered on 05/24/19 20:37; A dmin Dose 50 MG; Start 05/20/19 at 21:00 Bisacodyl (Dulcolax) 10 mg DAILY PO Last administered on 05/25/19 08:32; Admin Dose 10 MG; Start 05/23/19 at 09:00 Cephalexin (Keflex) 250 mg Q8 PO Last administered on 05/25/19 05:52; Admin Dose 250 MG; Start 05/23/19 at 14:00 REBECA LAIRD MD May 25, 2019 10:26
--- NOTE | 2019-05-25 11:09 | PN ---
Date/Time of Note Date/Time of Note DATE: 05/25/19 TIME: 11:08 Assessment/Plan VTE Prophylaxis Risk score (from Ns)>0 risk: 3 SCD applied (from Ns): Yes Pharmacological prophylaxis: LMWH Lines/Catheters IV Catheter Type (from [facility]): [place] Urinary Cath still in place: No Assessment/Plan Hospital Course -Urinary tract infection continue Rocephin follow-up on urine culture. Dr. Krueger is asked to see patient in infection disease consultation. -Acute kidney injury, continue IV fluids monitor BUN and creatinine. -Status post kidney transplant, continue current antirejection medication. Dr. [place] is asked to see patient in nephrology consultation. -Immunocompromise state -Diabetes mellitus -Hypertension -Hyperlipidemia -Obesity Anticipate discharge tomorrow Result Diagram: 05/24/19 0501 05/24/19 0501 Results 24hrs Laboratory Tests Test 05/24/19 12:37 05/24/19 17:28 05/24/19 20:34 05/25/19 01:54 Bedside Glucose 108 131 256 H 225 H Test 05/25/19 08:18 Bedside Glucose 178 Subjective 24 Hr Interval Summary Free Text/Dictation Patient has no complaints Exam/Review of Systems Exam Vitals Vital Signs Date Temp Pulse Resp B/P (MAP) Pulse Ox O2 O2 Flow FiO2 Time Delivery Rate 05/25/19 98.3 64 16 112/53 97 08:03 (72) 05/23/19 Room Air 01:49 Intake and Output 05/24/19 05/24/19 05/25/19 1515:00 23:00 07:00 IntakeIntake Total 1280 ml 520 ml OutputOutput Total 2100 ml 900 ml BalanceBalance -820 ml -380 ml Constitutional: well developed Head: normocephalic, atraumatic Neck: supple Respiratory: clear to auscultation Cardiovascular: regular rate and rhythm Gastrointestinal: soft, non-tender Extremities: normal pulses Results Results 24hrs Laboratory Tests Test 05/24/19 12:37 05/24/19 17:28 05/24/19 20:34 05/25/19 01:54 Bedside Glucose 108 131 256 H 225 H Test 05/25/19 08:18 Bedside Glucose 178 Medications Medication Current Medications Ondansetron HCl (Zofran Inj) 4 mg Q6H PRN IV NAUSEA/VOMITING; Start 05/19/19 at 17:30 Acetaminophen (Tylenol Tab) 650 mg Q6H PRN PO .PAIN 1-3 OR TEMP; Start 05/19/19 at 17:30 Acetaminophen/ Hydrocodone Bitart ([place] (5/325)) 1 tab Q6H PRN PO .MOD PAIN 4- 6; Start 05/19/19 at 17:30 Docusate Sodium (Colace) 100 mg Q12H PRN PO .CONSTIPATION; Start 05/19/19 at 17:30 Zolpidem Tartrate (Ambien) 5 mg QHS PRN PO .INSOMNIA; Start 05/19/19 at 17:30 Diagnostic Test (Pha) (Accu-Chek) 1 ea 02 XX ; Start 05/20/19 at 02:00 Insulin Glargine (Lantus) 30 units DAILY@2000 SC Last administered on 05/24/19 20:38; Admin Dose 30 UNITS; Start 05/19/19 at 20:00 Insulin Aspart (Novolog Insulin Pen) 12 unit WITH MEALS SC Last administered on 05/25/19 08:22; Admin Dose 12 UNIT; Start 05/19/19 at 18:00 Insulin Aspart (Novolog Insulin Pen) NOVOLOG *MILD* ALGORITHM WITH MEALS BEDTIME SC Last administered on 05/25/19 08:21; Admin Dose 1 UNIT; Start 05/19/19 at 18:00 Allopurinol (Zyloprim) 100 mg DAILY PO Last administered on 05/25/19 08:32; Admin Dose 100 MG; Start 05/20/19 at 09:00 Carvedilol (Coreg) 3.125 mg BID PO Last administered on 05/25/19 08:33; Admin Dose 3.125 MG; Start 05/19/19 at 20:20 Clonidine (Catapres) 0.2 mg BID PO Last administered on 05/25/19 08:34; Admin Dose 0.2 MG; Start 05/19/19 at 21:00 Furosemide (Lasix) 20 mg DAILY PO Last administered on 05/25/19 08:33; Admin Dose 20 MG; Start 05/20/19 at 09:00 Gabapentin (Neurontin) 100 mg HS PO Last administered on 05/24/19 20:37; Admin Dose 100 MG; Start 05/19/19 at 21:00 Pantoprazole (Protonix Tab) 40 mg AC BREAKFAST PO Last administered on 05/25/19 05:52; Admin Dose 40 MG; Start 05/20/19 at 07:00 Prednisone (Prednisone) 2.5 mg DAILY PO Last administered on 05/25/19 08:33; Admin Dose 2.5 MG; Start 05/20/19 at 09:00 Hydralazine HCl (Apresoline) 25 mg Q6H PRN PO ELEVATED BLOOD PRESSURE; Start 05/19/19 at 20:00 Tacrolimus (Prograf) 1 mg Q12 PO Last administered on 05/25/19 08:32; Admin Dose 1 MG; Start 05/19/19 at 20:30 Mycophenolate Sodium (Myfortic) 360 mg Q12 PO Last administered on 05/25/19 08:33; Admin Dose 360 MG; Start 05/19/19 at 21:00 Apixaban (Eliquis) 5 mg BID PO Last administered on 05/25/19 08:31; Admin Dose 5 MG; Start 05/19/19 at 21:00 Atorvastatin Calcium (Lipitor) 10 mg DAILY@21 PO Last administered on 05/24/19 20:37; Admin Dose 10 MG; Start 05/20/19 at 21:00 Losartan Potassium (Cozaar) 50 mg HS PO Last administered on 05/24/19 20:37; Admin Dose 50 MG; Start 05/20/19 at 21:00 Bisacodyl (Dulcolax) 10 mg DAILY PO Last administered on 05/25/19 08:32; Admin Dose 10 MG; Start 05/23/19 at 09:00 Cephalexin (Keflex) 250 mg Q8 PO Last administered on 05/25/19 05:52; Admin Dose 250 MG; Start 05/23/19 at 14:00 JOSH BAUMAN May 25, 2019 11:09
--- NOTE | 2019-05-25 13:28 | CONS ---
Assessment/Plan Assessment/Plan Hospital Course (Demo Recall) SUBJECTIVE: The patient is alert, feels good MICROBIOLOGY: Urine culture grew E. coli. ANTIMICROBIALS: Keflex. PHYSICAL EXAMINATION: GENERAL: This is a morbidly obese, well-developed, elderly woman who is alert, in no distress. HEENT: Head atraumatic, normocephalic. NECK: Supple. CHEST: Rise symmetrical. Breath sounds clear. HEART: S1, S2. ABDOMEN: Soft, bowel sounds present. EXTREMITIES: Without cyanosis. ASSESSMENT: 1. Status post sepsis on admission. 2. Escherichia coli urinary tract infection. 3. Acute on chronic kidney disease. 4. History of kidney transplant. 5. Diabetes. 6. Hypertension. PLAN: The patient remains stable. We will give last dose of antibiotics tomorrow Consultation Date/Type/Reason Admit Date/Time May 21, 2019 at 08:35 Initial Consult Date 05/19/19 Type of Consult id Requesting Provider: MARIA ISABEL GUTIERRES MD Date/Time of Note DATE: 05/25/19 TIME: 13:27 Exam/Review of Systems Exam Vitals Vital Signs Date Temp Pulse Resp B/P (MAP) Pulse Ox O2 O2 Flow FiO2 Time Delivery Rate 05/25/19 98.3 64 16 112/53 97 08:03 (72) 05/23/19 Room Air 01:49 Intake and Output 05/24/19 05/24/19 05/25/19 1515:00 23:00 07:00 IntakeIntake Total 1280 ml 520 ml OutputOutput Total 2100 ml 900 ml BalanceBalance -820 ml -380 ml Results Result Diagram: 05/24/19 0501 05/24/19 0501 Results 24hrs Laboratory Tests Test 05/24/19 17:28 05/24/19 20:34 05/25/19 01:54 05/25/19 08:18 Bedside Glucose 131 256 H 225 H 178 Test 05/25/19 12:46 Bedside Glucose 145 Medications Medication Current Medications Ondansetron HCl (Zofran Inj) 4 mg Q6H PRN IV NAUSEA/VOMITING; Start 05/19/19 at 17:30 Acetaminophen (Tylenol Tab) 650 mg Q6H PRN PO .PAIN 1-3 OR TEMP; Start 05/19/19 at 17:30 Acetaminophen/ Hydrocodone Bitart ([place] (5/325)) 1 tab Q6H PRN PO .MOD PAIN 4- 6; Start 05/19/19 at 17:30 Docusate Sodium (Colace) 100 mg Q12H PRN PO .CONSTIPATION; Start 05/19/19 at 17:30 Zolpidem Tartrate (Ambien) 5 mg QHS PRN PO .INSOMNIA; Start 05/19/19 at 17:30 Diagnostic Test (Pha) (Accu-Chek) 1 ea 02 XX ; Start 05/20/19 at 02:00 Insulin Glargine (Lantus) 30 units DAILY@2000 SC Last administered on 05/24/19 20:38; Admin Dose 30 UNITS; Start 05/19/19 at 20:00 Insulin Aspart (Novolog Insulin Pen) 12 unit WITH MEALS SC Last administered on 05/25/19 12:51; Admin Dose 12 UNIT; Start 05/19/19 at 18:00 Insulin Aspart (Novolog Insulin Pen) NOVOLOG *MILD* ALGORITHM WITH MEALS BEDTIME SC Last administered on 05/25/19 12:51; Admin Dose 1 UNIT; Start 05/19/19 at 18:00 Allopurinol (Zyloprim) 100 mg DAILY PO Last administered on 05/25/19 08:32; Admin Dose 100 MG; Start 05/20/19 at 09:00 Carvedilol (Coreg) 3.125 mg BID PO Last administered on 05/25/19 08:33; Admin Dose 3.125 MG; Start 05/19/19 at 20:20 Clonidine (Catapres) 0.2 mg BID PO Last administered on 05/25/19 08:34; Admin Dose 0.2 MG; Start 05/19/19 at 21:00 Furosemide (Lasix) 20 mg DAILY PO Last administered on 05/25/19 08:33; Admin Dose 20 MG; Start 05/20/19 at 09:00 Gabapentin (Neurontin) 100 mg HS PO Last administered on 05/24/19 20:37; Admin Dose 100 MG; Start 05/19/19 at 21:00 Pantoprazole (Protonix Tab) 40 mg AC BREAKFAST PO Last administered on 05/25/19 05:52; Admin Dose 40 MG; Start 05/20/19 at 07:00 Prednisone (Prednisone) 2.5 mg DAILY PO Last administered on 05/25/19 08:33; Admin Dose 2.5 MG; Start 05/20/19 at 09:00 Hydralazine HCl (Apresoline) 25 mg Q6H PRN PO ELEVATED BLOOD PRESSURE; Start 05/19/19 at 20:00 Tacrolimus (Prograf) 1 mg Q12 PO Last administered on 05/25/19 08:32; Admin Dose 1 MG; Start 05/19/19 at 20:30 Mycophenolate Sodium (Myfortic) 360 mg Q12 PO Last administered on 05/25/19 08:33; Admin Dose 360 MG; Start 05/19/19 at 21:00 Apixaban (Eliquis) 5 mg BID PO Last administered on 05/25/19 08:31; Admin Dose 5 MG; Start 05/19/19 at 21:00 Atorvastatin Calcium (Lipitor) 10 mg DAILY@21 PO Last administered on 05/24/19 20:37; Admin Dose 10 MG; Start 05/20/19 at 21:00 Losartan Potassium (Cozaar) 50 mg HS PO Last administered on 05/24/19 20:37; Admin Dose 50 MG; Start 05/20/19 at 21:00 Bisacodyl (Dulcolax) 10 mg DAILY PO Last administered on 05/25/19 08:32; Admin Dose 10 MG; Start 05/23/19 at 09:00 Cephalexin (Keflex) 250 mg Q8 PO Last administered on 05/25/19 13:06; Admin Dose 250 MG; Start 05/23/19 at 14:00 MICHAEL SETHI NP May 25, 2019 13:28
[2019-05-25 13:37] VITALS: BP 107/53; PULSE 83; RESP 18
[2019-05-25 20:06] VITALS: BP 109/55; PULSE 81; RESP 20
[2019-05-25] MEDS: GABAPENTIN 100 MG CAP PO SCH (21:06)
[2019-05-25] MEDS: ATORVASTATIN 10 MG TAB PO SCH (21:08)
[2019-05-25] MEDS: LOSARTAN 50 MG TAB PO SCH (21:08)
[2019-05-25] MEDS: INSULIN GLARGINE [LANTus] (100 UNITS/ML) SYG SC SCH (21:12)
[2019-05-26 01:40] VITALS: BP 134/60; PULSE 78; RESP 20
[2019-05-26] MEDS: ACCU-CHEK XX SCH (02:00)
[2019-05-26] MEDS: CEPHALEXIN 250 MG CAP PO SCH (06:03)
[2019-05-26] MEDS: PANTOPRAZOLE (EC) 40 MG TAB PO SCH (06:03)
[2019-05-26 07:39] VITALS: BP 138/66; PULSE 74; RESP 16
[2019-05-26] MEDS: MYCOPHENOLATE (SR) 180 MG TAB PO SCH (08:06)
[2019-05-26] MEDS: APIXABAN 5 MG TABLET PO SCH (08:07)
[2019-05-26] MEDS: predniSONE 2.5 MG TAB PO SCH (08:07)
[2019-05-26] MEDS: BISACODYL (EC) 5 MG TAB PO SCH (08:07)
[2019-05-26] MEDS: ALLOPURINOL 100 MG TAB PO SCH (08:07)
[2019-05-26] MEDS: TACROLIMUS 1 MG CAP PO SCH (08:07)
[2019-05-26] MEDS: FUROSEMIDE 40 MG TAB PO SCH (08:08)
[2019-05-26] MEDS: INSULIN ASPART [NOVOLOG] 3 ML PEN SC SCH ×4 (08:09→12:34)
--- NOTE | 2019-05-26 13:00 | CONS ---
Assessment/Plan Assessment/Plan Assessment/Plan (Daily) 1. Acute kidney injury due to UTI and Prerenaal azotemia ; BUN/Cr - 31/1.20 2. acute UTI with Urine Cx grew E coli 3. H/O kidney transplant on immunosuppression 4. H/o HTN 5. H/O HL 6. H/o DM II 7. H/o previosu ESBL E coli UTI 8. obesity Plan: Continue IV abx ceftriaxone, urine cx grew E coli Conitnu IVF 1/2 NS at 60 cc/hr Losartan 50mg PO QHS, BUN/Cr improved to 34/1.07, other electrolytes stable - no labs today Ok to d/c home today Follow up wiht me in clinic in 1-2 week upon discharge Continue prograf 1 mg BID, myfortic 360mg BID and prednisone 2.5 mg po maldonado will follow up Consultation Date/Type/Reason Admit Date/Time May 21, 2019 at 08:35 Initial Consult Date 05/19/19 Type of Consult NEPHROLOGY Requesting Provider: MARIA ISABEL GUTIERRES MD Date/Time of Note DATE: 05/26/19 TIME: 13:00 Exam/Review of Systems Exam Vitals Vital Signs Date Temp Pulse Resp B/P (MAP) Pulse Ox O2 O2 Flow FiO2 Time Delivery Rate 05/26/19 98.1 74 16 138/66 97 07:39 (90) 05/23/19 Room Air 01:49 Intake and Output 05/25/19 05/25/19 05/26/19 1515:00 23:00 07:00 IntakeIntake Total 1200 ml 760 ml 200 ml OutputOutput Total 400 ml 200 ml BalanceBalance 800 ml 560 ml 200 ml Results Result Diagram: 05/24/19 0501 05/24/19 0501 Results 24hrs Laboratory Tests Test 05/25/19 17:55 05/25/19 21:04 05/26/19 08:04 05/26/19 12:25 Bedside Glucose 115 175 175 215 Medications Medication Current Medications Ondansetron HCl (Zofran Inj) 4 mg Q6H PRN IV NAUSEA/VOMITING; Start 05/19/19 at 17:30 Acetaminophen (Tylenol Tab) 650 mg Q6H PRN PO .PAIN 1-3 OR TEMP; Start 05/19/19 at 17:30 Acetaminophen/ Hydrocodone Bitart ([place] (5/325)) 1 tab Q6H PRN PO .MOD PAIN 4- 6; Start 05/19/19 at 17:30 Docusate Sodium (Colace) 100 mg Q12H PRN PO .CONSTIPATION; Start 05/19/19 at 17:30 Zolpidem Tartrate (Ambien) 5 mg QHS PRN PO .INSOMNIA; Start 05/19/19 at 17:30 Diagnostic Test (Pha) (Accu-Chek) 1 ea 02 XX ; Start 05/20/19 at 02:00 Insulin Glargine (Lantus) 30 units DAILY@2000 SC Last administered on 05/25/19 21:12; Admin Dose 30 UNITS; Start 05/19/19 at 20:00 Insulin Aspart (Novolog Insulin Pen) 12 unit WITH MEALS SC Last administered on 05/26/19 12:34; Admin Dose 12 UNIT; Start 05/19/19 at 18:00 Insulin Aspart (Novolog Insulin Pen) NOVOLOG *MILD* ALGORITHM WITH MEALS BEDTIME SC Last administered on 05/26/19 12:32; Admin Dose 2 UNIT; Start 05/19/19 at 18:00 Allopurinol (Zyloprim) 100 mg DAILY PO Last administered on 05/26/19 08:07; A dmin Dose 100 MG; Start 05/20/19 at 09:00 Carvedilol (Coreg) 3.125 mg BID PO Last administered on 05/26/19 08:08; Admin Dose 3.125 MG; Start 05/19/19 at 20:20 Clonidine (Catapres) 0.2 mg BID PO Last administered on 05/26/19 08:07; Admin Dose 0.2 MG; Start 05/19/19 at 21:00 Furosemide (Lasix) 20 mg DAILY PO Last administered on 05/26/19 08:08; Admin Dose 20 MG; Start 05/20/19 at 09:00 Gabapentin (Neurontin) 100 mg HS PO Last administered on 05/25/19 21:06; Admin Dose 100 MG; Start 05/19/19 at 21:00 Pantoprazole (Protonix Tab) 40 mg AC BREAKFAST PO Last administered on 05/26/19 06:03; Admin Dose 40 MG; Start 05/20/19 at 07:00 Prednisone (Prednisone) 2.5 mg DAILY PO Last administered on 05/26/19 08:07; Admin Dose 2.5 MG; Start 05/20/19 at 09:00 Hydralazine HCl (Apresoline) 25 mg Q6H PRN PO ELEVATED BLOOD PRESSURE; Start 05/19/19 at 20:00 Tacrolimus (Prograf) 1 mg Q12 PO Last administered on 05/26/19 08:07; Admin Dose 1 MG; Start 05/19/19 at 20:30 Mycophenolate Sodium (Myfortic) 360 mg Q12 PO Last administered on 05/26/19 08:06; Admin Dose 360 MG; Start 05/19/19 at 21:00 Apixaban (Eliquis) 5 mg BID PO Last administered on 05/26/19 08:07; Admin Dose 5 MG; Start 05/19/19 at 21:00 Atorvastatin Calcium (Lipitor) 10 mg DAILY@21 PO Last administered on 05/25/19 21:08; Admin Dose 10 MG; Start 05/20/19 at 21:00 Losartan Potassium (Cozaar) 50 mg HS PO Last administered on 05/25/19 21:08; Admin Dose 50 MG; Start 05/20/19 at 21:00 Bisacodyl (Dulcolax) 10 mg DAILY PO Last administered on 05/26/19 08:07; Admin Dose 10 MG; Start 05/23/19 at 09:00 Cephalexin (Keflex) 250 mg Q8 PO Last administered on 05/26/19 06:03; Admin Dose 250 MG; Start 05/23/19 at 14:00 REBECA LAIRD MD May 26, 2019 13:00
[2019-05-26 14:31] VITALS: BP 116/56; PULSE 79; RESP 16
--- NOTE | 2019-05-26 15:35 | DS ---
Date/Time of Note Date/Time of Note DATE: 05/26/19 TIME: 15:32 Discharge Summary Admission/Discharge Info Admit Date/Time May 21, 2019 at 08:35 Discharge Date/Time 05/26/19 Discharge Diagnosis -Urinary tract infection continue Rocephin follow-up on urine culture. Dr. Krueger is asked to see patient in infection disease consultation. -Acute kidney injury, continue IV fluids monitor BUN and creatinine. -Status post kidney transplant, continue current antirejection medication. Dr. [place] is asked to see patient in nephrology consultation. -Immunocompromise state -Diabetes mellitus -Hypertension -Hyperlipidemia -Obesity Patient Condition: Fair Consults nephrology infectious disease Procedures none Hx of Present Illness Patient comes in with urinary tract infection and acute kidney injury Hospital Course Patient comes in with urinary tract infection and acute kidney injury. Patient was treated with antibiotics and her renal funciton improved. By the time of discharge, the urinary tract infection is cleared and she is stable for discharg e home. -Urinary tract infection continue Rocephin follow-up on urine culture. Dr. Krueger is asked to see patient in infection disease consultation. -Acute kidney injury, continue IV fluids monitor BUN and creatinine. -Status post kidney transplant, continue current antirejection medication. Dr. Montana is asked to see patient in nephrology consultation. -Immunocompromise state -Diabetes mellitus -Hypertension -Hyperlipidemia -Obesity Anticipate discharge tomorrow Home Meds Reported Medications Mycophenolate Sodium* (Myfortic*) 360 Mg Tablet., 360 MG PO Q12, TAB 05/19/19 Tacrolimus* (Prograf*) 1 Mg Capsule, 1 MG PO Q12, CAP 05/19/19 Insulin Degludec (Tresiba Flextouch U-100) 100 Unit/1 Ml Insuln.pen, 30 UNIT SQ QHS 05/19/19 Prednisone* (Prednisone*) 2.5 Mg Tablet, 2.5 MG PO DAILY, TAB 05/19/19 Simvastatin* (Zocor*) 20 Mg Tablet, 20 MG PO QHS, #30 TAB 05/19/19 Valsartan* (Diovan*) 80 Mg Tablet, 80 MG PO DAILY, TAB 05/19/19 Gabapentin* (Gabapentin*) 100 Mg Capsule, 100 MG PO DAILY, #90 CAP 05/19/19 Carvedilol* (Carvedilol*) 3.125 Mg Tablet, 3.125 MG PO BID, #60 TAB 05/19/19 Allopurinol* (Allopurinol*) 100 Mg Tablet, 100 MG PO DAILY, TAB 05/19/19 Pantoprazole* (Pantoprazole*) 40 Mg Tablet.dr, 40 MG PO AC BREAKFAST, TAB 05/19/19 Apixaban* (Eliquis*) 5 Mg Tablet, 5 MG PO BID, TAB 05/19/19 Insulin Aspart* (Novolog Insulin Pen*) 100 Unit/Ml Soln, 12 UNIT SC WITH MEALS, EA 05/19/19 Furosemide* (Furosemide*) 40 Mg Tablet, 20 MG PO DAILY, TAB 05/19/19 Clonidine Hcl* (Clonidine Hcl*) 0.2 Mg Tablet, 0.2 MG PO BID, TAB 05/19/19 Discontinued Reported Medications Insulin Aspart* (Novolog Insulin Pen*) 100 Unit/Ml Soln, 8 UNIT SC WITH MEALS, EA 03/17/18 Docusate Sodium* (Colace*) 250 Mg Capsule, 250 MG PO NEEDED, #30 CAP 08/23/17 Gabapentin* (Gabapentin*) 300 Mg Capsule, 300 MG PO BID, #60 CAP 08/23/17 Sitagliptin* (Januvia*) 50 Mg Tablet, 50 MG PO DAILY, #30 TAB 08/23/17 Simvastatin* (Zocor*) 10 Mg Tablet, 10 MG PO QHS, #30 TAB 08/23/17 Aspirin* (Aspirin* EC) 81 Mg Tablet.dr, 81 MG PO DAILY, TAB 08/23/17 Clonidine Hcl* (Clonidine Hcl*) 0.2 Mg Tablet, 0.2 MG PO Q8, TAB HOLD IF BPS LESS THAN 110 08/23/17 Pantoprazole* (Protonix*) 40 Mg Tablet.dr, 40 MG PO BID, TAB 08/23/17 Mycophenolate Sodium* (Myfortic*) 180 Mg Tab, 360 MG PO Q12, TAB 08/23/17 Tacrolimus* (Prograf*) 1 Mg Capsule, 1 MG PO Q12, CAP 08/23/17 Discontinued Scripts Benzonatate* (Tessalon Perle*) 100 Mg Capsule, 100 MG PO Q8H PRN for COUGH, #10 CAP Prov:MARVIN WAKEFIELD MD 04/10/19 Albuterol Sulfate* (Ventolin HFA*) 18 Gm Hfa.aer.ad, 2 PUFF INHALATION Q4H, #1 INHALER Prov:MARVIN WAKEFIELD MD 04/10/19 Ibuprofen* (Motrin*) 800 Mg Tab, 800 MG PO Q6H PRN for PAIN AND OR ELEVATED TEMP, #30 TAB Prov:MARVIN WAKEFIELD MD 04/10/19 Doxycycline Hyclate* (Doxycycline Hyclate*) 100 Mg Tablet.dr, 100 MG PO BID for 7 Days, TAB Prov:MARVIN WAKEFIELD MD 04/10/19 Benzonatate* (Tessalon Perle*) 100 Mg Capsule, 100 MG PO Q8H PRN for COUGH, #30 CAP Prov:CALEB VAUGHAN PA-C 04/07/19 Dextromethorphan Hb-Promethazine Hcl* (Promethazine DM* Syrup) 473 Ml Syrup, 5 ML PO Q6 PRN for COUGH, #100 ML Prov:CALEB VAUGHAN PA-C 04/07/19 Azithromycin* (Zithromax*) 250 Mg Tablet, 250 MG PO .ZPACK DIRECTED, #6 TAB TAKE 500 MG (2 TABS) THE FIRST DAY THEN 250 MG (1 TAB) DAYS 2-5 Prov:CALEB VAUGHAN PA-C 04/07/19 Ciprofloxacin Hcl* (Ciprofloxacin Hcl*) 500 Mg Tablet, 500 MG PO BID for 7 Days, TAB Prov:LENORE EDWARDS 03/17/18 Insulin Glargine* (Lantus*) 100 Unit/Ml Soln, 40 UNIT SC DAILY@20 for 30 Days Prov:PRUDENCE DÍAZ 02/05/18 Prednisone* (Prednisone*) 20 Mg Tab, 20 MG PO DAILY for 5 Days, TAB Prov:KWAME MELENDEZ MD 01/20/18 Valsartan* (Diovan*) 80 Mg Tablet, 80 MG PO BID, #60 TAB Prov:PETRA VERONICA NP 08/29/17 Primary Care Provider Chema Blackwell MD Pending Labs Laboratory Tests Test 05/25/19 17:55 05/25/19 21:04 05/26/19 08:04 05/26/19 12:25 Bedside 115 175 175 215 Glucose mg/dL (70-220) mg/dL (70-220) mg/dL (70-220) mg/dL (70-220) JOHS BAUMAN May 26, 2019 15:35
== END 2019-05-26 17:00 | disposition home or self-care (01) | DRG 699 ==
LOC: E/R 11:52 → 2NE 15:38 → OBSVTOIN 05-21 08:35
PROVIDERS: ADMIT Internal Medicine; ATTEND Internal Medicine
DX: T86.19 Other complication of kidney transplant (principal); N17.9 Acute kidney failure, unspecified; N39.0 Urinary tract infection, site not specified; I11.0 Hypertensive heart disease with heart failure; E66.9 Obesity, unspecified; Z68.39 Body mass index [BMI] 39.0-39.9, adult; E11.9 Type 2 diabetes mellitus without complications; Z79.899 Other long term (current) drug therapy; R11.2 Nausea with vomiting, unspecified; B96.20 Unspecified Escherichia coli [E. coli] as the cause of diseases classified elsewhere
CPT/HCPCS: 36415; 71045; 74176; 80048; 80053; 81001; 82962; 83690; 84484; 85025; 87086; 93005; 96361; 96374; 96375; G0378; J0696; J1815; J2185; J2405; J7030; J7507; J7512